=== PATIENT | female | born 1955 | race Caucasian/White ===

== ENCOUNTER → 2016-10-08 | Outpatient (CLI) | payer OTHER ==
[2016-07-22 10:07] VITALS: BP 140/70
[~2016-10-08] MED LIST: ACYC800T PO; AMLO5TAB2 PO; AMOX1TAB61 PO; ATOR40TA59 PO; BENZ100C PO; BLOO-932 MC; CLON0.2T PO; FENO145T PO; FLUT12AE2 IH; HERB1CAP PO; HYDR-971 PO; HYDR12.58 PO; MELO-150 PO; METF750T2 PO; OLOP5DRO OP; OMEP20CA9 PO; POLY500P14 MC; PRED20TA PO; PRED50TA PO; PRED5DRO2 OP; PROAIR HFA8.5 GM INH; PROAIR RESPICL90 MCG IH; TIOT18CA IH; TOLT4CAP12 PO; TRAM50TA PO
--- NOTE | 2016-10-09 10:03 | RAD ---
DATE: 10/08/2016 EXAM: DIGITAL SCREEN BILAT W/CAD HISTORY: Routine screening COMPARISON: 09/18/2015 This study was interpreted with the benefit of Computerized Aided Detection (CAD). FINDINGS: The breasts are predominantly fatty in nature. No new or enlarging breast densities are seen. Benign type calcifications are present. No suspicious microcalcifications have developed. IMPRESSION: Stable mammograms without evidence of malignancy. BI-RADS CATEGORY: 2 BENIGN FINDING(S) RECOMMENDED FOLLOW-UP: 12M 12 MONTH FOLLOW-UP PQRS compliance statement: Patient information was entered into a reminder system with a target due date for the next mammogram. Mammography is a sensitive method for finding small breast cancers, but it does not detect them all and is not a substitute for careful clinical examination. A negative mammogram does not negate a clinically suspicious finding and should not result in delay in biopsying a clinically suspicious abnormality. "Our facility is accredited by the [employer]."
== END | disposition home or self-care (01) ==
LOC: MAMMO 07:57
PROVIDERS: ATTEND Registered Nurse
DX: Z12.31 Encounter for screening mammogram for malignant neoplasm of breast (principal)
CPT/HCPCS: G0202; 77067

== ENCOUNTER 2016-12-18 09:13 | Emergency (ER) | payer OTHER ==
[~2016-12-18] VITALS: Ht 160 cm; Wt 101.2 kg
--- NOTE | 2016-12-18 10:05 | RAD ---
Portable chest, 12/18/2016: History: Chest pain Comparison is made to a study from 07/22/2016. The heart size and pulmonary vascularity are normal. There are unchanged linear opacities in the left base laterally compatible with scarring. No acute infiltrates are seen. There is no evidence of pleural fluid. IMPRESSION: No acute cardiopulmonary abnormality is detected.
[2016-12-18] MEDS ORDERED: IPRATRPIUM/ALBUTEROL 0.5/2.5MG 3 ML NEBU. NEB ONE (10:15)
[2016-12-18] MEDS ORDERED: KETOROLAC TROMETHAMINE 30 MG/ML INJ. IV ONE (10:15)
[2016-12-18 10:19] LABS: BASO # 0.1 x10^3/uL (0.0-0.2); BASO % 1 % (0-3); EOS % 2 % (0-3); HEMATOCRIT 33.3 % (36.0-47.0); HEMOGLOBIN 10.8 g/dL (12.0-15.5); LYMPH # 1.9 x10^3/uL (1.0-4.8); LYMPH % 17 % (24-48); MEAN CORPUSCULAR HEMOGLOBIN 25 pg (25-35); MEAN CORPUSCULAR HGB CONC 32 g/dL (31-37); MEAN CORPUSCULAR VOLUME 77 fL (79-100); MONO % 13 % (0-9); NEUT % 68 % (31-73); PLATELET COUNT 419 x10^3/uL (140-400); RED BLOOD COUNT 4.31 x10^6/uL (3.50-5.40); RED CELL DISTRIBUTION WIDTH 17.7 % (11.5-14.5); WHITE BLOOD COUNT 11.3 x10^3/uL (4.0-11.0)
[2016-12-18 10:30] VITALS: BP 142/78
[2016-12-18 10:30] LABS: CALCIUM 9.1 mg/dL (8.5-10.1); CREATININE 0.5 mg/dL (0.6-1.0); GFR 124.6; POTASSIUM 3.9 mmol/L (3.5-5.1)
--- NOTE | 2016-12-18 10:35 | PHYS DOC ---
Past Medical History Past Medical History: Arthritis, Bipolar, Constipation, COPD, Diabetes-Type II , GERD, Hypertension, UTI Additional Past Medical Histor: shingles,urine incont, sciatica, renal cell carcinoma Past Surgical History: Cancer Surgery, Tubal ligation Additional Past Surgical Histo: R kidney tumor removed, R ovary removal,small bowel resection/ CYST, catara Alcohol Use: None Drug Use: None Adult General Chief Complaint Chief Complaint: FLU SYMPTOM HPI HPI This is a 61-year-old female with history of COPD who is a current nonsmoker as well as diabetes type 2 who presents with several days of worsening cough and mild chest discomfort and a fever taken at home of 101 just prior to arrival. She states she's had similar symptoms before that felt like pneumonia. She denies any history of cardiac disease. Patient is speaking in complete sentences and in no acute respiratory distress upon my exam and is saturating her 100% on room air. She has been using her Proair inhaler at home with mild relief. She denies any nausea or vomiting. Review of Systems Review of Systems Constitutional: Denies fever or chills [] Eyes: Denies change in visual acuity, redness, or eye pain [] HENT: Denies nasal congestion or sore throat [] Respiratory: Has cough, has shortness of breath [] Cardiovascular: No additional information not addressed in HPI [] GI: Denies abdominal pain, nausea, vomiting, bloody stools or diarrhea [] : Denies dysuria or hematuria [] Musculoskeletal: Denies back pain or joint pain [] Integument: Denies rash or skin lesions [] Neurologic: Denies headache, focal weakness or sensory changes [] Endocrine: Denies polyuria or polydipsia [] Current Medications Current Medications Current Medications Medications (Trade) Dose Ordered Sig/Hilton Start Time Stop Time Status Last Admin Dose Admin Albuterol/ Ipratropium (Duoneb) 3 ml 1X ONCE 12/18/16 10:15 12/18/16 10:16 DC 12/18/16 10:04 3 ML Ketorolac Tromethamine (Toradol Im) 60 mg 1X ONCE 12/18/16 10:45 12/18/16 10:46 DC Ketorolac Tromethamine (Toradol) 30 mg 1X ONCE 12/18/16 10:15 12/18/16 10:37 DC Allergies Allergies Allergies Coded Allergies Type Severity Reaction Last Updated Verified aspirin Allergy Intermediate "messes with my stomach" 07/22/16 Yes omega-3 acid ethyl esters Allergy Intermediate bleeding 07/22/16 Yes tramadol Allergy Intermediate unknown 07/22/16 Yes Physical Exam Physical Exam Constitutional: Well developed, well nourished, no acute distress, non-toxic appearance. [] HENT: Normocephalic, atraumatic, bilateral external ears normal, oropharynx moist, no oral exudates, nose normal. [] Eyes: PERRLA, EOMI, conjunctiva normal, no discharge. [] Neck: Normal range of motion, no tenderness, supple, no stridor. [] Cardiovascular:Heart rate regular rhythm, no murmur [] Lungs & Thorax: Decreased breath sounds bilaterally but no respiratory distress [] Abdomen: Bowel sounds normal, soft, no tenderness, no masses, no pulsatile masses. [] Skin: Warm, dry, no erythema, no rash. [] Back: No tenderness, no CVA tenderness. [] Extremities: No tenderness, no cyanosis, no clubbing, ROM intact, no edema. [] Neurologic: Alert and oriented X 3, normal motor function, normal sensory function, no focal deficits noted. [] Psychologic: Affect normal, judgement normal, mood normal. [] Current Patient Data Vital Signs Vital Signs Date Time Temp Pulse Resp B/P Pulse Ox O2 Delivery O2 Flow Rate FiO2 12/18/16 10:06 100 Room Air 12/18/16 09:32 98.5 101 24 148/78 98.5 Lab Values Laboratory Tests Test 12/18/16 10:09 12/18/16 10:10 White Blood Count 11.3x10^3/uL (4.0-11.0) H Red Blood Count 4.31x10^6/uL (3.50-5.40) Hemoglobin 10.8g/dL (12.0-15.5) L Hematocrit 33.3% (36.0-47.0) L Mean Corpuscular Volume 77fL (79-100) L Mean Corpuscular Hemoglobin 25pg (25-35) Mean Corpuscular Hemoglobin Concent 32g/dL (31-37) Red Cell Distribution Width 17.7% (11.5-14.5) H Platelet Count 419x10^3/uL (140-400) H Neutrophils (%) (Auto) 68% (31-73) Lymphocytes (%) (Auto) 17% (24-48) L Monocytes (%) (Auto) 13% (0-9) H Eosinophils (%) (Auto) 2% (0-3) Basophils (%) (Auto) 1% (0-3) Neutrophils # (Auto) 7.6x10^3uL (1.8-7.7) Lymphocytes # (Auto) 1.9x10^3/uL (1.0-4.8) Monocytes # (Auto) 1.4x10^3/uL (0.0-1.1) H Eosinophils # (Auto) 0.2x10^3/uL (0.0-0.7) Basophils # (Auto) 0.1x10^3/uL (0.0-0.2) Sodium Level 140mmol/L (136-145) Potassium Level 3.9mmol/L (3.5-5.1) Chloride Level 100mmol/L (98-107) Carbon Dioxide Level 27mmol/L (21-32) Anion Gap 13 (6-14) Blood Urea Nitrogen 8mg/dL (7-20) Creatinine 0.5mg/dL (0.6-1.0) L Estimated GFR (Cockcroft-Gault) 124.6 Glucose Level 114mg/dL (70-99) H Calcium Level 9.1mg/dL (8.5-10.1) Troponin I Quantitative < 0.017ng/mL (0.000-0.055) Influenza Type A Antigen Negative (NEGATIVE) Influenza Type B Antigen Negative (NEGATIVE) Laboratory Tests 12/18/16 10:09 Laboratory Tests 12/18/16 10:09 EKG EKG EKG as interpreted by me shows a sinus tachycardia with a rate of 100 bpm. There are no acute ischemic findings seen. There is slight T-wave inversion to lead 3 but no other findings. Intervals are normal. There is a leftward axis. Radiology/Procedures Radiology/Procedures Portable 1 view of the chest as interpreted by me and the radiologist did not reveal an acute cardiopulmonary process. Course & Med Decision Making Course & Med Decision Making Pertinent Labs and Imaging studies reviewed. (See chart for details) 61-year-old female who's having worsening cough and has a portable 1 view her chest did not reveal and evidence of pneumonia. A DuoNeb was given. IM injection of Toradol was administered. Her laboratory workup shows just a slight leukocytosis but no other acute abnormalities. Patient will likely be discharged with a course of Z-Kody and Tessalon Perles for likely a bronchitis and cough. Influenza swabs were also obtained and are pending at this time. My reassessment, the patient feels improved after breathing treatment. Her chest film does not demonstrate any signs of pneumonia. I will be placing her on a Z-Kody and Tessalon Perles for cough. She will continue Cipro air inhaler at home as needed for any shortness of breath and will follow closely with her primary care doctor for symptom resolution. Patient is agreeable this plan. Return precautions were provided and acknowledged. Jace Disclaimer Jace Disclaimer This electronic medical record was generated, in whole or in part, using a voice recognition dictation system. Departure Departure Impression: Primary Impression: Bronchitis, acute Disposition: HOME, SELF-CARE Admitting Physician: Other Condition: STABLE Referrals: UNKNOWN PCP NAME (PCP) Patient Instructions: Bronchitis, [id number], Cough, Adult, [id number] Additional Instructions: Please take your antibiotic and medication as prescribed. Follow up with your primary doctor in the next 2-3 days for your symptoms. Return to the ER if you develop any worsening of your symptoms. Scripts Azithromycin (Zithromax)250 Mg Tablet1 Pkg PO UD #6 TAB Prov:DIANA CHATTERJEE DO 12/18/16 Benzonatate (Tessalon Perle)100 Mg [id number] Mg PO TID PRN COUGH #15 CAP Prov:DIANA CHATTERJEE DO 12/18/16 DIANA CHATTERJEE DO Dec 18, 2016 10:35
[2016-12-18 10:39] LABS: OBC FLU VALID
[2016-12-18] MEDS ORDERED: KETOROLAC TROMETHAMINE 60 MG/2 ML INJ. IM ONE (10:45)
[2016-12-18] MEDS ORDERED: AZIT250T PO (10:57)
[2016-12-18] MEDS ORDERED: BENZ100C PO (10:57)
--- NOTE | 2016-12-18 11:13 | EKG ---
[facility] [address] [place] [address] Test Date: 2016-12-18 Test Time: 10:12:31 Pat Name: TYLOR WILL Department: Room: Gender: F Information Officer: : 1955 Requested By: DIANA CHATTERJEE Order Number: [id number] Reading MD: Ed Mann Measurements Intervals [place] Rate: 100 P: 32 NC: 138 QRS: -4 QRSD: 88 T: 19 QT: 352 QTc: 457 Interpretive Statements SINUS RHYTHM Electronically Signed On 12-19-2016 8:19:52 CDT by Ed Mann
== END 2016-12-18 11:18 | disposition home or self-care (01) ==
LOC: ER 09:13
DX: J20.9 Acute bronchitis, unspecified (principal); J44.9 Chronic obstructive pulmonary disease, unspecified; I10 Essential (primary) hypertension; E11.9 Type 2 diabetes mellitus without complications; K21.9 Gastro-esophageal reflux disease without esophagitis; F31.9 Bipolar disorder, unspecified; M19.90 Unspecified osteoarthritis, unspecified site; Z87.440 Personal history of urinary (tract) infections; Z98.51 Tubal ligation status; Z98.890 Other specified postprocedural states; Z88.6 Allergy status to analgesic agent; Z91.013 Allergy to seafood
CPT/HCPCS: 36415; 71010; 80048; 84484; 85027; 87804; 93005; 94640; 96372; 99285; J1885; J7620

== ENCOUNTER 2017-01-25 18:58 | Emergency (ER) | payer OTHER ==
[~2017-01-25] VITALS: Ht 160 cm; Wt 98.4 kg
[~2017-01-25 18:58] MED LIST changes: +AZIT250T PO
[2017-01-25 19:10] VITALS: BP 122/64
[2017-01-25] MEDS ORDERED: ONDANSETRON PF 4 MG/2 ML VIAL. IV ONE (19:30)
[2017-01-25] MEDS ORDERED: IV NORMAL SALINE 500ML BAG 500 ML IV ONE (19:30)
[2017-01-25 19:39] LABS: BILIRUBIN,URINE NEGATIVE (NEG); GLUCOSE,URINE NEGATIVE (NEG); NITRITE,URINE POSITIVE (NEG); PH,URINE 5.5; PROTEIN,URINE NEGATIVE (NEG-TRACE); UROBILINOGEN,URINE 0.2 mg/dL (0.2 mg/dL)
[2017-01-25 19:44] LABS: BASO # 0.1 x10^3/uL (0.0-0.2); BASO % 1 % (0-3); EOS % 3 % (0-3); HEMATOCRIT 33.1 % (36.0-47.0); HEMOGLOBIN 10.7 g/dL (12.0-15.5); LYMPH # 3.6 x10^3/uL (1.0-4.8); LYMPH % 33 % (24-48); MEAN CORPUSCULAR HEMOGLOBIN 25 pg (25-35); MEAN CORPUSCULAR HGB CONC 33 g/dL (31-37); MEAN CORPUSCULAR VOLUME 77 fL (79-100); MONO % 11 % (0-9); NEUT % 53 % (31-73); PLATELET COUNT 455 x10^3/uL (140-400); RED BLOOD COUNT 4.27 x10^6/uL (3.50-5.40); RED CELL DISTRIBUTION WIDTH 18.2 % (11.5-14.5); WHITE BLOOD COUNT 11.2 x10^3/uL (4.0-11.0)
[2017-01-25 19:51] LABS: BACTERIA,URINE MANY /HPF (0-FEW); RBC,URINE 0 /HPF (0-2); SQUAMOUS EPITHELIAL CELL,UR MOD /LPF; WBC,URINE >40 /HPF (0-4)
[2017-01-25] MEDS ORDERED: LISI1TAB3 PO (19:57)
[2017-01-25] MEDS ORDERED: BACL10TA PO (19:57)
[2017-01-25] MEDS: fentaNYL PF VIAL 100 MCG/2 ML VIAL IV PRN ×2 (20:01→20:55)
[2017-01-25 20:12] LABS: CALCIUM 9.3 mg/dL (8.5-10.1); CREATININE 0.7 mg/dL (0.6-1.0); GFR 84.5; POTASSIUM 3.3 mmol/L (3.5-5.1)
[2017-01-25 20:17] LABS: ALBUMIN/GLOBULIN RATIO 1.1 (1.0-1.7); TOTAL BILIRUBIN 0.2 mg/dL (0.2-1.0); TOTAL PROTEIN 7.7 g/dL (6.4-8.2)
[2017-01-25] MEDS ORDERED: CONTRAST GIVEN MC PRN (20:30)
[2017-01-25] MEDS ORDERED: IOHEXOL 300 MG/ML 75 ML VIAL IV ONE (20:30)
--- NOTE | 2017-01-25 20:56 | RAD ---
Indication: Left upper quadrant pain. Axial imaging through the abdomen and pelvis was performed after the administration of intravenous contrast. One or more of the following individualized dose reduction techniques were utilized for this examination: 1. Automated exposure control 2. Adjustment of the mA and/or kV according to patient size 3. Use of iterative reconstruction technique Comparison is made with prior CT from 04/19/2015. Imaging through the lung bases demonstrate subsegmental atelectasis in the lingula and left lower lobe. There is generalized low density throughout the liver consistent with fatty infiltration. No discrete liver mass is identified. There is a large stone within the gallbladder. The pancreas and spleen are unremarkable. No adrenal mass is detected. The left kidney is unremarkable. There is some atrophy and scarring of the right kidney, unchanged from prior. The aorta is nonaneurysmal. The small and large bowel loops are normal caliber. The appendix is unremarkable. There is no ascites. Bladder is unremarkable. The uterus is somewhat bulky and contains a calcification, likely owing to the fibroids. No free fluid is identified. IMPRESSION: 1. Fatty infiltration liver. 2. Cholelithiasis. 3. Fibroid uterus. 4. No acute features detected. Electronically signed by: Edin Gomez MD (01/25/2017 8:53 PM)
[2017-01-25] MEDS ORDERED: POTASSIUM CHLORIDE 20 MEQ/15 ML ORAL LIQUID. PO ONE (21:15)
[2017-01-25] MEDS ORDERED: HYDR-971 PO (21:28)
[2017-01-25] MEDS ORDERED: ONDA4TAB10 SL (21:28)
[2017-01-25] MEDS ORDERED: LEVO750T31 PO (21:28)
--- NOTE | 2017-01-25 21:28 | PHYS DOC ---
Past Medical History Past Medical History: Arthritis, Bipolar, Cancer, Constipation, COPD, Diabetes- Type II, GERD, High Cholesterol, Hypertension, UTI Additional Past Medical Histor: shingles,urine incont, sciatica, renal cell carcinoma Past Surgical History: Cancer Surgery, Oophorectomy, Tubal ligation Additional Past Surgical Histo: R kidney tumor removed, R ovary removal,small bowel resection/ CYST, catara Alcohol Use: None Drug Use: None Adult General Chief Complaint Chief Complaint: ABDOMINAL PAIN HPI HPI Patient is a 61 year old female who presents with abdominal pain. Patient reports 2 hour history of left upper quadrant abdominal pain. She denies any associated symptoms including fevers or chills, chest pain, nausea or vomiting, diarrhea, constipation, dysuria or hematuria. Denies previous history of similar pain. History of kidney resection, small bowel resection, right oophorectomy. Denies alcohol use. Review of Systems Review of Systems Constitutional: Denies fever or chills Eyes: Denies change in visual acuity HENT: Denies nasal congestion or sore throat Respiratory: Denies cough or shortness of breath Cardiovascular: Denies chest pain or edema GI: Reports abdominal pain, denies nausea, vomiting, bloody stools or diarrhea : Denies dysuria or hematuria Musculoskeletal: Denies back pain or joint pain Integument: Denies rash or skin lesions Neurologic: Denies headache, focal weakness or sensory changes Current Medications Current Medications Current Medications Medications (Trade) Dose Ordered Sig/Hilton Start Time Stop Time Status Last Admin Dose Admin Ceftriaxone Sodium 50 ml @ 100 mls/hr 1X ONCE 01/25/17 20:30 01/25/17 20:59 DC 01/25/17 20:55 100 MLS/HR Fentanyl Citrate (Fentanyl 2ml Vial) 50 mcg PRN Q15MIN PRN 01/25/17 19:30 01/25/17 22:21 DC 01/25/17 20:55 50 MCG Info (Do NOT chart on this entry -- for MONITORING) 1 each PRN DAILY PRN 01/25/17 20:30 01/25/17 22:21 DC Iohexol (Omnipaque 300 Mg/ml) 75 ml 1X ONCE 01/25/17 20:30 01/25/17 20:31 DC 01/25/17 20:31 75 ML Ondansetron HCl (Zofran) 4 mg 1X ONCE 01/25/17 19:30 01/25/17 19:31 DC 01/25/17 20:00 4 MG Potassium Chloride (KCl Oral Soln) 40 meq 1X ONCE 01/25/17 21:15 01/25/17 21:16 DC 01/25/17 21:44 40 MEQ Sodium Chloride 500 ml @ 0 mls/hr 1X ONCE 01/25/17 19:30 01/25/17 19:31 DC 01/25/17 20:02 500 MLS/HR Allergies Allergies Allergies Coded Allergies Type Severity Reaction Last Updated Verified aspirin Allergy Intermediate "messes with my stomach" 07/22/16 Yes omega-3 acid ethyl esters Allergy Intermediate bleeding 07/22/16 Yes tramadol Allergy Intermediate unknown 07/22/16 Yes Physical Exam Physical Exam Constitutional: Obese, no acute distress, non-toxic appearance. HENT: Normocephalic, atraumatic, bilateral external ears normal, oropharynx moist, nose normal. Eyes: conjunctiva normal, no discharge. Neck: supple, no stridor. Cardiovascular: RRR, no murmurs, no edema. Lungs & Thorax: LCTAB, no wheezing, no respiratory distress. Abdomen: Normal bowel sounds, soft, left upper quadrant tenderness without rebound or guarding, no masses or pulsatile masses, nondistended. Skin: Warm, dry, no erythema, no rash. Back: Left CVA tenderness is present. Extremities: No tenderness, no edema. Neurologic: Alert and oriented X 3, no focal deficits noted. Psychologic: Affect normal, judgement normal, mood normal. Current Patient Data Vital Signs Vital Signs Date Time Temp Pulse Resp B/P (MAP) Pulse Ox O2 Delivery O2 Flow Rate FiO2 01/25/17 21:10 Room Air 01/25/17 19:10 98.1 100 23 122/64 (83) 99 98.1 Lab Values Laboratory Tests Test 01/25/17 19:20 01/25/17 19:30 Urine Collection Type Unknown Urine Color Yellow Urine Clarity Cloudy Urine pH 5.5 Urine Specific [place] 1.020 Urine Protein Negative mg/dL (NEG-TRACE) Urine Glucose (UA) Negative mg/dL (NEG) Urine Ketones (Stick) Negative mg/dL (NEG) Urine Blood Small (NEG) Urine Nitrite Positive (NEG) Urine Bilirubin Negative (NEG) Urine Urobilinogen Dipstick 0.2 mg/dL (0.2 mg/dL) Urine Leukocyte Esterase Moderate (NEG) Urine RBC 0 /HPF (0-2) Urine WBC >40 /HPF (0-4) Urine Squamous Epithelial Cells Mod /LPF Urine Bacteria Many /HPF (0-FEW) White Blood Count 11.2 x10^3/uL (4.0-11.0) H Red Blood Count 4.27 x10^6/uL (3.50-5.40) Hemoglobin 10.7 g/dL (12.0-15.5) L Hematocrit 33.1 % (36.0-47.0) L Mean Corpuscular Volume 77 fL (79-100) L Mean Corpuscular Hemoglobin 25 pg (25-35) Mean Corpuscular Hemoglobin Concent 33 g/dL (31-37) Red Cell Distribution Width 18.2 % (11.5-14.5) H Platelet Count 455 x10^3/uL (140-400) H Neutrophils (%) (Auto) 53 % (31-73) Lymphocytes (%) (Auto) 33 % (24-48) Monocytes (%) (Auto) 11 % (0-9) H Eosinophils (%) (Auto) 3 % (0-3) Basophils (%) (Auto) 1 % (0-3) Neutrophils # (Auto) 6.0 x10^3uL (1.8-7.7) Lymphocytes # (Auto) 3.6 x10^3/uL (1.0-4.8) Monocytes # (Auto) 1.3 x10^3/uL (0.0-1.1) H Eosinophils # (Auto) 0.3 x10^3/uL (0.0-0.7) Basophils # (Auto) 0.1 x10^3/uL (0.0-0.2) Sodium Level 138 mmol/L (136-145) Potassium Level 3.3 mmol/L (3.5-5.1) L Chloride Level 100 mmol/L (98-107) Carbon Dioxide Level 27 mmol/L (21-32) Anion Gap 11 (6-14) Blood Urea Nitrogen 10 mg/dL (7-20) Creatinine 0.7 mg/dL (0.6-1.0) Estimated GFR (Cockcroft-Gault) 84.5 BUN/Creatinine Ratio 14 (6-20) Glucose Level 145 mg/dL (70-99) H Calcium Level 9.3 mg/dL (8.5-10.1) Total Bilirubin 0.2 mg/dL (0.2-1.0) Aspartate Amino Transferase (AST) 28 U/L (15-37) Alanine Aminotransferase (ALT) 37 U/L (14-59) Alkaline Phosphatase 90 U/L (46-116) Troponin I Quantitative < 0.017 ng/mL (0.000-0.055) Total Protein 7.7 g/dL (6.4-8.2) Albumin 4.0 g/dL (3.4-5.0) Albumin/Globulin Ratio 1.1 (1.0-1.7) Lipase 159 U/L (73-393) Laboratory Tests 01/25/17 19:30 Laboratory Tests 01/25/17 19:30 EKG EKG [] Radiology/Procedures Radiology/Procedures PROCEDURE: CT ABD PELV W/ IV CONTRST ONLY Indication: Left upper quadrant pain. Axial imaging through the abdomen and pelvis was performed after the administration of intravenous contrast. One or more of the following individualized dose reduction techniques were utilized for this examination: 1. Automated exposure control 2. Adjustment of the mA and/or kV according to patient size 3. Use of iterative reconstruction technique Comparison is made with prior CT from 04/19/2015. Imaging through the lung bases demonstrate subsegmental atelectasis in the lingula and left lower lobe. There is generalized low density throughout the liver consistent with fatty infiltration. No discrete liver mass is identified. There is a large stone within the gallbladder. The pancreas and spleen are unremarkable. No adrenal mass is detected. The left kidney is unremarkable. There is some atrophy and scarring of the right kidney, unchanged from prior. The aorta is nonaneurysmal. The small and large bowel loops are normal caliber. The appendix is unremarkable. There is no ascites. Bladder is unremarkable. The uterus is somewhat bulky and contains a calcification, likely owing to the fibroids. No free fluid is identified. IMPRESSION: 1. Fatty infiltration liver. 2. Cholelithiasis. 3. Fibroid uterus. 4. No acute features detected. Electronically signed by: Edin Gomez MD (01/25/2017 8:53 PM) DICTATED and SIGNED BY: EDIN GOMEZ MD DATE: 01/25/172049 [] Course & Med Decision Making Course & Med Decision Making Pertinent Labs and Imaging studies reviewed. (See chart for details) The patient presents with abdominal pain. Gave pain medication here. Obtained labs, UA, CT. Only acute finding is urinary tract infection consistent with acute pyelonephritis. Elevated white blood cell count but otherwise no criteria for SIRS or sepsis. Potassium replaced orally. Gave IV Rocephin here. Patient felt well, tolerating oral intake, pain well controlled. She was comfortable with discharge home. Recommended rest, by mouth hydration, gave prescription for Levaquin as well as prescriptions for Zofran and Delmont. No drinking alcohol or driving while taking Delmont. Follow-up with primary care physician in 2-3 days. Return to the emergency department for high fever, severe pain, uncontrolled vomiting, any otherwise worsening condition. Discharged home in stable and improved condition. Dragon Disclaimer Dragon Disclaimer This electronic medical record was generated, in whole or in part, using a voice recognition dictation system. Departure Departure Impression: Primary Impression: Pyelonephritis Additional Impressions: Leukocytosis Anemia Hypokalemia Disposition: 01 HOME, SELF-CARE Condition: STABLE Referrals: NO PCP (PCP) Patient Instructions: Pyelonephritis, Adult, [id number] Additional Instructions: You were seen in the emergency department today for abdominal pain. Tests here showed that you have a kidney infection. Please take the prescribed antibiotics. Use Zofran as needed for nausea. Take Delmont for severe pain. No drinking alcohol or driving while taking this medication. Be sure to drink plenty of fluids to stay hydrated. Follow-up with primary care doctor in 2-3 days. Return to the emergency department for high fever, severe pain, uncontrolled vomiting, any otherwise worsening condition. Scripts Hydrocodone/Apap 5-325 (NORCO 5-325 TABLET) 1 Each Tablet 1 TAB PO PRN Q6HRS Y for PAIN, #10 TAB 0 Refills Prov: FRANCISCO BARRETT MD 01/25/17 Ondansetron (ZOFRAN ODT) 4 Mg Tab.rapdis 1 TAB SL Q8HRS Y for NAUSEA, #10 TAB Prov: FRANCISCO BARRETT MD 01/25/17 Levofloxacin (LEVAQUIN) 750 Mg Tablet 1 TAB PO DAILY, #5 TAB Prov: FRANCISCO BARRETT MD 01/25/17 Problem Qualifiers FRANCISCO BARRETT MD Jan 25, 2017 21:28
--- NOTE | 2017-01-26 07:47 | EKG ---
[facility] [address] [place] [address] Test Date: 2017-01-25 Test Time: 19:16:48 Pat Name: TYLOR WILL Department: Room: Gender: F Radiology Nurse: : 1955 Requested By: FRANCISCO BARRETT Order Number: [id number] Reading MD: Per Bailon Measurements Intervals [place] Rate: 101 P: 26 GA: 148 QRS: -17 QRSD: 86 T: 8 QT: 354 QTc: 460 Interpretive Statements SINUS TACHYCARDIA LEFTWARD AXIS OTHERWISE NORMAL ECG RI6.01 Unconfirmed report Compared to ECG 12/18/2016 10:12:31 Left-axis deviation now present Sinus rhythm no longer present Electronically Signed On 01-29-2017 9:47:25 CDT by Per Bailon
== END 2017-01-25 21:54 | disposition home or self-care (01) ==
LOC: ER 18:58
DX: N10 Acute pyelonephritis (principal); D64.9 Anemia, unspecified; D72.829 Elevated white blood cell count, unspecified; E87.6 Hypokalemia; E11.9 Type 2 diabetes mellitus without complications; E78.00 Pure hypercholesterolemia, unspecified; I10 Essential (primary) hypertension; J44.9 Chronic obstructive pulmonary disease, unspecified; K21.9 Gastro-esophageal reflux disease without esophagitis; F31.9 Bipolar disorder, unspecified; M19.90 Unspecified osteoarthritis, unspecified site; Z87.440 Personal history of urinary (tract) infections; Z98.51 Tubal ligation status; Z88.5 Allergy status to narcotic agent; Z90.721 Acquired absence of ovaries, unilateral; Z88.6 Allergy status to analgesic agent; Z88.8 Allergy status to other drugs, medicaments and biological substances
CPT/HCPCS: 36415; 74177; 80053; 81001; 83690; 84484; 85027; 87086; 93005; 96361; 96365; 96375; 96376; 99285; J0690; J2405; J3010; J7040; Q9967; 87186

== ENCOUNTER → 2017-06-05 | Outpatient (CLI) | payer OTHER ==
[~2017-06-05] MED LIST changes: +ACET-704 PO; +ASPI-482 PO; +BACL10TA PO; +CETI10TA22 PO; +GABA-586 PO; +LEVO750T31 PO; +LISI1TAB3 PO; -MELO-150 PO; +MELO15TA23 PO; +ONDA4TAB10 SL
--- NOTE | 2017-06-05 15:22 | RAD ---
Indication back pain particularly left sided. AP oblique and lateral views of the lumbar spine were obtained as well as a coned view targeted to the lumbosacral junction. There is a probable transitional segment with partial lumbarization of S1. The lower most vertebral body segment will be referred to as S1. There is very minimal anterolisthesis of L5 relative to S1. Vertebral height is well maintained. There is slight disc space narrowing at L1-2 with associated osteophytes anteriorly and posteriorly. There are facet degenerative changes in the lower lumbar spine. An acute bony finding is not seen. IMPRESSION: Transitional segment. No acute finding seen. Mild spondylitic changes
== END | disposition home or self-care (01) ==
LOC: RAD 09:18
PROVIDERS: ATTEND Registered Nurse
DX: M54.42 Lumbago with sciatica, left side (principal); M46.87 Other specified inflammatory spondylopathies, lumbosacral region
CPT/HCPCS: 72110

== ENCOUNTER 2017-07-29 09:53 | Day surgery (SDC) | payer OTHER ==
[~2017-07-29 09:53] MED LIST changes: -ACET-704 PO; -ACYC800T PO; -AMLO5TAB2 PO; -AMOX1TAB61 PO; -ASPI-482 PO; -ATOR40TA59 PO; -AZIT250T PO; -BACL10TA PO; -BENZ100C PO; -BLOO-932 MC; -CETI10TA22 PO; -CLON0.2T PO; -FENO145T PO; -FLUT12AE2 IH; -GABA-586 PO; -HERB1CAP PO; -HYDR-971 PO; -HYDR12.58 PO; +HYDROmorphone 2 MG/ML VIAL IV; -LEVO750T31 PO; +LIDOCAINE 1% PF 2 ML VIAL. ID; +LIDOCAINE 1%/EPI 1:100,000 20 ML VIAL.; -LISI1TAB3 PO; -MELO15TA23 PO; -METF750T2 PO; +MORPHINE SULFATE 2 MG/ML DISP.SYRIN. IV; -OLOP5DRO OP; -OMEP20CA9 PO; -ONDA4TAB10 SL; +ONDANSETRON PF 4 MG/2 ML VIAL. IV; -POLY500P14 MC; -PRED20TA PO; -PRED50TA PO; -PRED5DRO2 OP; -PROAIR HFA8.5 GM INH; -PROAIR RESPICL90 MCG IH; +PROCHLORPERAZINE 10 MG/2 ML VIAL. IV; -TIOT18CA IH; -TOLT4CAP12 PO; -TRAM50TA PO; +ceFAZolin SODIUM IV Push 1 GM VIAL. IVP; +fentaNYL PF VIAL 100 MCG/2 ML VIAL IV
[2017-07-29 10:46] LABS: POC GLUCOSE 120 mg/dL (70-99)
[2017-07-29] MEDS: IV RINGERS,LACTATED 1000ML 1,000 ML IV (11:28)
[2017-07-29] MEDS ORDERED: MIDAZOLAM HCL/PF 2 MG/2 ML VIAL. (13:11)
[2017-07-29] MEDS ORDERED: GLYCOPYRROLATE 1 MG/5 ML VIAL. (13:11)
[2017-07-29] MEDS ORDERED: KETAMINE HCL 500 MG/10 ML VIAL. (13:11)
[2017-07-29] MEDS ORDERED: DEXAMETHASONE SOD PHOS 20 MG/5 ML VIAL. (13:12)
[2017-07-29] MEDS ORDERED: ESMOLOL 100 MG/10 ML VIAL. IV (13:12)
[2017-07-29] MEDS ORDERED: ONDANSETRON PF 4 MG/2 ML VIAL. (13:12)
[2017-07-29] MEDS ORDERED: KETOROLAC 30 MG/ML INJ FOR OR. INJ (13:12)
[2017-07-29] MEDS ORDERED: diphenhydrAMINE 50 MG/ML VIAL (13:12)
[2017-07-29] MEDS ORDERED: PROPOFOL 20 ML IV ×3 (13:12→13:23)
[2017-07-29] MEDS ORDERED: LIDOCAINE 2% PF Vial for OR 5 ML VIAL. (13:12)
[2017-07-29] MEDS ORDERED: FAMOTIDINE 20 MG/2 ML VIAL (13:12)
[2017-07-29] MEDS ORDERED: METOCLOPRAMIDE HCL 10 MG/2 ML VIAL. (13:16)
[2017-07-29] MEDS: BUPIVAC MPF-EPI 0.5%-1:200000 30 ML VIAL. (14:02)
[2017-07-29 14:40] LABS: POC GLUCOSE 96 mg/dL (70-99)
[2017-07-29] MEDS: HYDROcodone/APAP 5/325MG 1 TAB TABLET PO (15:34)
== END 2017-07-29 16:27 | disposition home or self-care (01) ==
LOC: SURG 09:53
DX: N63.20 Unspecified lump in the left breast, unspecified quadrant (principal); L72.0 Epidermal cyst; E78.00 Pure hypercholesterolemia, unspecified; I10 Essential (primary) hypertension; J44.9 Chronic obstructive pulmonary disease, unspecified; E66.9 Obesity, unspecified; Z68.37 Body mass index [BMI] 37.0-37.9, adult; E11.9 Type 2 diabetes mellitus without complications; Z72.89 Other problems related to lifestyle; Z98.51 Tubal ligation status; Z98.41 Cataract extraction status, right eye; Z98.42 Cataract extraction status, left eye; Z87.39 Personal history of other diseases of the musculoskeletal system and connective tissue; Z86.39 Personal history of other endocrine, nutritional and metabolic disease; Z87.891 Personal history of nicotine dependence; Z88.6 Allergy status to analgesic agent; Z88.5 Allergy status to narcotic agent
CPT/HCPCS: 19120; 82962; 88304; C1769; J0690; J1100; J1200; J1885; J2250; J2405; J2704; J2765; J3490; S0028

== ENCOUNTER 2018-01-09 14:37 | Emergency (ER) | payer OTHER ==
[2018-01-09 15:28] LABS: ADD MAN DIFF? NO
[2018-01-09 15:35] LABS: BASO # 0.1 x10^3/uL (0.0-0.2); BASO % 1 % (0-3); EOS # 0.3 x10^3/uL (0.0-0.7); EOS % 3 % (0-3); HEMATOCRIT 30.2 % (36.0-47.0); HEMOGLOBIN 9.4 g/dL (12.0-15.5); LYMPH # 2.8 x10^3/uL (1.0-4.8); LYMPH % 29 % (24-48); MEAN CORPUSCULAR HEMOGLOBIN 23 pg (25-35); MEAN CORPUSCULAR HGB CONC 31 g/dL (31-37); MEAN CORPUSCULAR VOLUME 74 fL (79-100); MONO # 1.2 x10^3/uL (0.0-1.1); MONO % 12 % (0-9); NEUT # 5.4 x10^3uL (1.8-7.7); NEUT % 55 % (31-73); PLATELET COUNT 416 x10^3/uL (140-400); RED BLOOD COUNT 4.11 x10^6/uL (3.50-5.40); RED CELL DISTRIBUTION WIDTH 17.5 % (11.5-14.5); WHITE BLOOD COUNT 9.8 x10^3/uL (4.0-11.0)
[2018-01-09] MEDS: IV NORMAL SALINE 500ML BAG 500 ML IV (15:40)
[2018-01-09 15:41] LABS: BILIRUBIN,URINE NEGATIVE (NEG); CLARITY,URINE CLEAR; COLOR,URINE YELLOW; GLUCOSE,URINE NEGATIVE (NEG); NITRITE,URINE NEGATIVE (NEG); PH,URINE 5.5; PROTEIN,URINE NEGATIVE (NEG-TRACE); UROBILINOGEN,URINE 0.2 mg/dL (0.2 mg/dL)
[2018-01-09 15:43] LABS: ANION GAP 8 (6-14); BLOOD UREA NITROGEN 13 mg/dL (7-20); BUN/CREATININE RATIO 22 (6-20); CALCIUM 9.6 mg/dL (8.5-10.1); CARBON DIOXIDE 27 mmol/L (21-32); CHLORIDE 105 mmol/L (98-107); CREATININE 0.6 mg/dL (0.6-1.0); GFR 100.6; GLUCOSE 87 mg/dL (70-99); POTASSIUM 3.8 mmol/L (3.5-5.1); SODIUM 140 mmol/L (136-145)
[2018-01-09 15:49] LABS: ALBUMIN 3.8 g/dL (3.4-5.0); ALBUMIN/GLOBULIN RATIO 1.1 (1.0-1.7); ALK PHOS 85 U/L (46-116); ALT (SGPT) 39 U/L (14-59); AST (SGOT) 35 U/L (15-37); TOTAL BILIRUBIN 0.3 mg/dL (0.2-1.0); TOTAL PROTEIN 7.4 g/dL (6.4-8.2)
[2018-01-09 15:52] LABS: TROPONINI < 0.017 ng/mL (0.000-0.055)
[2018-01-09 15:58] LABS: BACTERIA,URINE FEW /HPF (0-FEW); SQUAMOUS EPITHELIAL CELL,UR MOD /LPF
[2018-01-09 16:35] LABS: ANISOCYTOSIS SLIGHT; MICROCYTOSIS SLIGHT; PLT ESTIMATE ADEQUATE (ADEQUATE)
[2018-01-09 16:36] LABS: HYPOCHROMIA SLIGHT
== END 2018-01-09 17:37 | disposition home or self-care (01) ==
LOC: ER 14:37
DX: N39.0 Urinary tract infection, site not specified (principal); R07.89 Other chest pain; E11.9 Type 2 diabetes mellitus without complications; F31.9 Bipolar disorder, unspecified; M19.90 Unspecified osteoarthritis, unspecified site; E78.00 Pure hypercholesterolemia, unspecified; J44.9 Chronic obstructive pulmonary disease, unspecified; I10 Essential (primary) hypertension; K21.9 Gastro-esophageal reflux disease without esophagitis; Z98.51 Tubal ligation status; Z88.6 Allergy status to analgesic agent; Z88.8 Allergy status to other drugs, medicaments and biological substances
CPT/HCPCS: 36415; 70450; 71045; 80053; 81001; 84484; 85025; 87086; 93005; 99285-25; J7040

== ENCOUNTER → 2018-08-05 | Outpatient (CLI) | payer OTHER ==
[2018-01-09 17:30] VITALS: BP 117/58
[~2018-08-05] MED LIST changes: +ACET-704 PO; +ACYC800T PO; +AMLO5TAB7 PO; +AMOX1TAB61 PO; +ASPI-482 PO; +ATOR40TA59 PO; +AZIT250T PO; +BACL10TA PO; +BENZ100C PO; +BLOO-932 MC; +CEPH500T PO; +CETI10TA22 PO; +CLON0.2T PO; +FENO145T PO; +FLUT12AE2 IH; +GABA300C18 PO; +HERB1CAP PO; +HYDR-3164 PO; +HYDR12.58 PO; -HYDROmorphone 2 MG/ML VIAL IV; +LEVO750T31 PO; -LIDOCAINE 1% PF 2 ML VIAL. ID; -LIDOCAINE 1%/EPI 1:100,000 20 ML VIAL.; +LISI1TAB3 PO; +MELO15TA23 PO; +METF750T2 PO; -MORPHINE SULFATE 2 MG/ML DISP.SYRIN. IV; +OLOP5DRO OP; +OMEP20CA9 PO; +ONDA4TAB10 SL; -ONDANSETRON PF 4 MG/2 ML VIAL. IV; +POLY500P14 MC; +PRED20TA PO; +PRED50TA PO; +PRED5DRO2 OP; +PROAIR HFA8.5 GM INH; +PROAIR RESPICL90 MCG IH; -PROCHLORPERAZINE 10 MG/2 ML VIAL. IV; +TIOT18CA IH; +TOLT4CAP12 PO; +TRAM50TA PO; -ceFAZolin SODIUM IV Push 1 GM VIAL. IVP; -fentaNYL PF VIAL 100 MCG/2 ML VIAL IV
--- NOTE | 2018-08-05 12:44 | RAD ---
DATE: August 05, 2018 EXAM: DIGITAL SCREEN BILAT W/CAD HISTORY: Screening study. COMPARISON: 2015 and 2017 This study was interpreted with the benefit of Computerized Aided Detection (CAD). FINDINGS: Breast Density: FATTY The breast parenchyma is primarily fatty replaced. Breast parenchyma level density A.. There are no dominant suspicious masses, suspicious microcalcifications or evidence of architectural distortion. IMPRESSION: No mammographic indicators for malignancy. BI-RADS CATEGORY: 1 NEGATIVE RECOMMENDED FOLLOW-UP: 12M 12 MONTH FOLLOW-UP PQRS compliance statement: Patient information was entered into a reminder system with a target due date August 06, 2019 for the next mammogram. Mammography is a sensitive method for finding small breast cancers, but it does not detect them all and is not a substitute for careful clinical examination. A negative mammogram does not negate a clinically suspicious finding and should not result in delay in biopsying a clinically suspicious abnormality. "Our facility is accredited by the [employer]ammography [employer]." The patient's breast density may affect the ability of mammography to detect breast cancer. There are 4 categories of breast density, A, B, C and D. Breast density A means that most of the breast tissue is replaced with adipose tissue and therefore is not dense. Breast density B means that the breast tissue is mildly dense and scattered. Breast density C means that the breast tissue is heterogeneously dense. Breast density D means that the breast tissue is very dense. Breast densities especially C and D may decrease the sensitivity of mammography to detect breast cancer. Therefore, the patient may benefit from 3-D breast mammography (3D breast tomography) as a part of their screening mammogram. Insurance may or may not pay for this additional imaging. The patient's breast density based on today's mammogram is category A.
== END | disposition home or self-care (01) ==
LOC: MAMMO 08:01
PROVIDERS: ATTEND Registered Nurse
DX: Z12.31 Encounter for screening mammogram for malignant neoplasm of breast (principal)
CPT/HCPCS: 77067

== ENCOUNTER 2018-08-28 09:59 | Emergency (ER) | payer MEDICARE, OTHER ==
[~2018-08-28] VITALS: Ht 165.1 cm; Wt 100.7 kg
[~2018-08-28 09:59] MED LIST changes: +ALBU2.5V8 INH; -PROAIR HFA8.5 GM INH
[2018-08-28 10:11] VITALS: BP 151/74
--- NOTE | 2018-08-28 11:01 | RAD ---
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 However there is significant lucency between the arthroplasty and the subjacent bone, which may be seen with loosening, particle disease or infection. This can be correlated with prior exams if made available otherwise aspiration may also yield additional details. No evidence of acute fracture or dislocation. Decreased bone mineral density. Electronically signed by: Brock Bermudez MD (08/28/2018 10:57 AM) [facility]
--- NOTE | 2018-08-28 11:07 | PHYS DOC ---
Past Medical History Past Medical History: Arthritis, Bipolar, Cancer, Constipation, COPD, Diabetes- Type II, GERD, High Cholesterol, Hypertension, UTI Additional Past Medical Histor: shingles,urine incont, sciatica, renal cell carcinoma Past Surgical History: Cancer Surgery, Oophorectomy, Tubal ligation Additional Past Surgical Histo: R kidney tumor removed, R ovary removal,small bowel resection/ CYST, catara Alcohol Use: None Drug Use: None Adult General Chief Complaint Chief Complaint: ELBOW PROBLEM HPI HPI Patient is a 63 year old [f__sex] who presents with [] Review of Systems Review of Systems Constitutional: Denies fever or chills [] Eyes: Denies change in visual acuity, redness, or eye pain [] HENT: Denies nasal congestion or sore throat [] Respiratory: Denies cough or shortness of breath [] Cardiovascular: No additional information not addressed in HPI [] GI: Denies abdominal pain, nausea, vomiting, bloody stools or diarrhea [] : Denies dysuria or hematuria [] Musculoskeletal: Denies back pain or joint pain [] Integument: Denies rash or skin lesions [] Neurologic: Denies headache, focal weakness or sensory changes [] Endocrine: Denies polyuria or polydipsia [] All other systems were reviewed and found to be within normal limits, except as documented in this note. Allergies Allergies Allergies Coded Allergies Type Severity Reaction Last Updated Verified aspirin Allergy Intermediate "messes with my stomach" 07/29/17 Yes omega-3 acid ethyl esters Allergy Intermediate bleeding 07/29/17 Yes tramadol Allergy Intermediate unknown 07/29/17 Yes Physical Exam Physical Exam Constitutional: Well developed, well nourished, no acute distress, non-toxic appearance. [] HENT: Normocephalic, atraumatic, bilateral external ears normal, oropharynx moist, no oral exudates, nose normal. [] Eyes: PERRLA, EOMI, conjunctiva normal, no discharge. [] Neck: Normal range of motion, no tenderness, supple, no stridor. [] Cardiovascular:Heart rate regular rhythm, no murmur [] Lungs & Thorax: Bilateral breath sounds clear to auscultation [] Abdomen: Bowel sounds normal, soft, no tenderness, no masses, no pulsatile masses. [] Skin: Warm, dry, no erythema, no rash. [] Back: No tenderness, no CVA tenderness. [] Extremities: No tenderness, no cyanosis, no clubbing, ROM intact, no edema. [] Neurologic: Alert and oriented X 3, normal motor function, normal sensory function, no focal deficits noted. [] Psychologic: Affect normal, judgement normal, mood normal. [] Current Patient Data Vital Signs Vital Signs Date Time Temp Pulse Resp B/P (MAP) Pulse Ox O2 Delivery O2 Flow Rate FiO2 08/28/18 10:11 98.6 96 16 151/74 (99) 96 Room Air 98.6 EKG EKG [] Radiology/Procedures Radiology/Procedures [] Course & Med Decision Making Course & Med Decision Making Pertinent Labs and Imaging studies reviewed. (See chart for details) [] Dragon Disclaimer Dragon Disclaimer This electronic medical record was generated, in whole or in part, using a voice recognition dictation system. Departure Departure Impression: Primary Impression: Elbow contusion Disposition: 01 HOME, SELF-CARE Condition: STABLE Referrals: SELVIN FARRELL APRN (PCP) LATOYA RONDON II, MD Patient Instructions: Elbow Contusion Additional Instructions: Follow-up with orthopedics for recheck of this extremity. You may take ibuprofen or Tylenol for pain. DEB PEMBERTON APRN Aug 28, 2018 11:07
== END 2018-08-28 11:40 | disposition home or self-care (01) ==
LOC: ER 09:59
DX: S50.01XA Contusion of right elbow, initial encounter (principal); F31.9 Bipolar disorder, unspecified; E11.9 Type 2 diabetes mellitus without complications; E78.00 Pure hypercholesterolemia, unspecified; K21.9 Gastro-esophageal reflux disease without esophagitis; I10 Essential (primary) hypertension; J44.9 Chronic obstructive pulmonary disease, unspecified; Z90.722 Acquired absence of ovaries, bilateral; Z98.51 Tubal ligation status; Z88.6 Allergy status to analgesic agent; Z88.8 Allergy status to other drugs, medicaments and biological substances; W22.8XXA Striking against or struck by other objects, initial encounter; Y93.89 Activity, other specified; Y92.89 Other specified places as the place of occurrence of the external cause; Y99.8 Other external cause status
CPT/HCPCS: 73080; 99283

== ENCOUNTER 2018-10-28 10:20 | Emergency (ER) | payer MEDICARE, OTHER ==
[~2018-10-28] VITALS: Ht 157.5 cm; Wt 97.1 kg
[~2018-10-28 10:20] MED LIST changes: +AMLO5TAB10 PO; -AMLO5TAB7 PO; +OMEP20CA10 PO; -OMEP20CA9 PO
--- NOTE | 2018-10-28 10:57 | EKG ---
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
[2018-10-28 11:13] LABS: BASO % 1 % (0-3); EOS # 0.2 x10^3/uL (0.0-0.7); EOS % 3 % (0-3); HEMATOCRIT 39.6 % (36.0-47.0); LYMPH # 2.2 x10^3/uL (1.0-4.8); LYMPH % 31 % (24-48); MEAN CORPUSCULAR HEMOGLOBIN 30 pg (25-35); MEAN CORPUSCULAR HGB CONC 33 g/dL (31-37); MEAN CORPUSCULAR VOLUME 91 fL (79-100); MONO # 0.7 x10^3/uL (0.0-1.1); MONO % 10 % (0-9); NEUT # 4.1 x10^3uL (1.8-7.7); NEUT % 56 % (31-73); PLATELET COUNT 361 x10^3/uL (140-400); RED BLOOD COUNT 4.37 x10^6/uL (3.50-5.40); RED CELL DISTRIBUTION WIDTH 15.4 % (11.5-14.5); WHITE BLOOD COUNT 7.3 x10^3/uL (4.0-11.0)
[2018-10-28 11:31] LABS: CALCIUM 9.8 mg/dL (8.5-10.1); CREATININE 0.6 mg/dL (0.6-1.0); GFR 100.3; POTASSIUM 3.8 mmol/L (3.5-5.1)
--- NOTE | 2018-10-28 11:34 | RAD ---
PQRS Compliance statement: One or more of the following individualized dose reduction techniques were utilized for this examination: 1. Automated exposure control. 2. Adjustment of the mA and/or kV according to patient size. 3. Use of iterative reconstruction technique. Indication:DIZZY HTN PREV SENT NO CONTRAST TECHNIQUE: CT head without IV contrast COMPARISON:01/09/2018 FINDINGS: No pathologic extra-axial or intra-axial fluid collection. The ventricles and basal cisterns are within normal limits. No acute intracranial bleed. No focal loss of mooney-white differentiation. Orbits within normal limits. No suspicious bony lesions. Visualized paranasal sinuses and mastoid air cells are clear. IMPRESSION: No acute intracranial process on this noncontrast CT. If concern for acute ischemic stroke is high, please consider MRI brain. Electronically signed by: Gibran Smith DO (10/28/2018 11:31 AM) [id number]
[2018-10-28 11:38] LABS: ALBUMIN/GLOBULIN RATIO 1.2 (1.0-1.7); TOTAL BILIRUBIN 0.4 mg/dL (0.2-1.0); TOTAL PROTEIN 7.4 g/dL (6.4-8.2)
--- NOTE | 2018-10-28 11:47 | PHYS DOC ---
Past Medical History Past Medical History: Arthritis, Bipolar, Cancer, Constipation, COPD, Diabetes- Type II, GERD, High Cholesterol, Hypertension, UTI Additional Past Medical Histor: shingles,urine incont, sciatica, renal cell carcinoma Past Surgical History: Cancer Surgery, Oophorectomy, Tubal ligation Additional Past Surgical Histo: R kidney tumor removed, R ovary removal,small bowel resection/ CYST, catara Alcohol Use: None Drug Use: None Adult General Chief Complaint Chief Complaint: DIZZY/LIGHT HEADED HPI HPI Patient is a 63 year old female who presents to the ER with complaints of dizziness upon awakening from sleep for the past week. Pt reports dizziness when she gets up to use the bathroom The dizziness improves if she sits still on the side of her bed before getting up. Currently, she denies any dizziness. She states that the symptoms started after starting a new medication for her bladder, Myrbetriq. She denies having dizziness during the daytime and states that she stopped taking the medication several days ago after talking to her PCP about the symptoms. Pt denies any headache, weakness, numbness, tingling, fever, ear pain, tinnitus, vision changes, or dizziness at this time. She denies any recent nausea or vomiting. She denies any pain at this time. Review of Systems Review of Systems Constitutional: Denies fever or chills [] Eyes: Denies change in visual acuity, redness, or eye pain [] HENT: Denies nasal congestion or sore throat [] Respiratory: Denies cough or shortness of breath [] Cardiovascular: No additional information not addressed in HPI [] GI: Denies abdominal pain, nausea, vomiting, or diarrhea [] : Denies dysuria or hematuria [] Musculoskeletal: Denies back pain or joint pain [] Integument: Denies rash or skin lesions [] Neurologic: Denies headache, focal weakness or sensory changes [] Complete systems were reviewed and found to be within normal limits, except as documented in this note. Current Medications Current Medications Current Medications Medications (Trade) Dose Ordered Sig/Hilton Start Time Stop Time Status Last Admin Dose Admin Ceftriaxone Sodium (Rocephin) 1 gm 1X ONCE 10/28/18 13:00 10/28/18 13:01 DC 10/28/18 13:58 1 GM Allergies Allergies Allergies Coded Allergies Type Severity Reaction Last Updated Verified aspirin Allergy Intermediate "messes with my stomach" 10/28/18 Yes omega-3 acid ethyl esters Allergy Intermediate bleeding 10/28/18 Yes tramadol Allergy Intermediate unknown 10/28/18 Yes Physical Exam Physical Exam Constitutional: Well developed, well nourished, no acute distress, non-toxic appearance. [] HENT: Normocephalic, atraumatic, bilateral external ears normal, nose normal. [] Eyes: PERRLA, EOMI, conjunctiva normal, no discharge, no nystagmus. [] Neck: Normal range of motion, no tenderness, supple, no stridor. [] Cardiovascular:Heart rate regular rhythm, no murmur [] Lungs & Thorax: Bilateral breath sounds clear to auscultation [] Abdomen: soft, no tenderness, no masses, no pulsatile masses. [] Skin: Warm, dry, no erythema, no rash. [] Extremities: No cyanosis, no clubbing, ROM intact, no edema. [] Neurologic: Alert and oriented X 3, normal motor function, normal sensory function, no focal deficits noted. [] Psychologic: Affect normal, judgement normal, mood normal. [] Current Patient Data Vital Signs Vital Signs Date Time Temp Pulse Resp B/P (MAP) Pulse Ox O2 Delivery O2 Flow Rate FiO2 10/28/18 13:56 84 20 95 10/28/18 10:20 97.6 140/80 (100) Room Air 97.6 Lab Values Laboratory Tests Test 10/28/18 11:02 10/28/18 12:10 White Blood Count 7.3 x10^3/uL (4.0-11.0) Red Blood Count 4.37 x10^6/uL (3.50-5.40) Hemoglobin 13.0 g/dL (12.0-15.5) Hematocrit 39.6 % (36.0-47.0) Mean Corpuscular Volume 91 fL (79-100) Mean Corpuscular Hemoglobin 30 pg (25-35) Mean Corpuscular Hemoglobin Concent 33 g/dL (31-37) Red Cell Distribution Width 15.4 % (11.5-14.5) H Platelet Count 361 x10^3/uL (140-400) Neutrophils (%) (Auto) 56 % (31-73) Lymphocytes (%) (Auto) 31 % (24-48) Monocytes (%) (Auto) 10 % (0-9) H Eosinophils (%) (Auto) 3 % (0-3) Basophils (%) (Auto) 1 % (0-3) Neutrophils # (Auto) 4.1 x10^3uL (1.8-7.7) Lymphocytes # (Auto) 2.2 x10^3/uL (1.0-4.8) Monocytes # (Auto) 0.7 x10^3/uL (0.0-1.1) Eosinophils # (Auto) 0.2 x10^3/uL (0.0-0.7) Basophils # (Auto) 0.0 x10^3/uL (0.0-0.2) Sodium Level 143 mmol/L (136-145) Potassium Level 3.8 mmol/L (3.5-5.1) Chloride Level 103 mmol/L (98-107) Carbon Dioxide Level 27 mmol/L (21-32) Anion Gap 13 (6-14) Blood Urea Nitrogen 12 mg/dL (7-20) Creatinine 0.6 mg/dL (0.6-1.0) Estimated GFR (Cockcroft-Gault) 100.3 BUN/Creatinine Ratio 20 (6-20) Glucose Level 108 mg/dL (70-99) H Calcium Level 9.8 mg/dL (8.5-10.1) Total Bilirubin 0.4 mg/dL (0.2-1.0) Aspartate Amino Transferase (AST) 33 U/L (15-37) Alanine Aminotransferase (ALT) 46 U/L (14-59) Alkaline Phosphatase 80 U/L (46-116) Total Protein 7.4 g/dL (6.4-8.2) Albumin 4.0 g/dL (3.4-5.0) Albumin/Globulin Ratio 1.2 (1.0-1.7) Urine Collection Type Unknown Urine Color Yellow Urine Clarity Turbid Urine pH 5.5 Urine Specific Offerman 1.020 Urine Protein 100 mg/dL (NEG-TRACE) Urine Glucose (UA) Negative mg/dL (NEG) Urine Ketones (Stick) Negative mg/dL (NEG) Urine Blood Moderate (NEG) Urine Nitrite Negative (NEG) Urine Bilirubin Negative (NEG) Urine Urobilinogen Dipstick 0.2 mg/dL (0.2 mg/dL) Urine Leukocyte Esterase Large (NEG) Urine RBC Fobs /HPF (0-2) Urine WBC Tntc /HPF (0-4) Urine Bacteria Many /HPF (0-FEW) Laboratory Tests 10/28/18 11:02 Laboratory Tests 10/28/18 11:02 EKG EKG 1028- SR leftward axis, no STEMI, rate [address] Perez at 1032[] Radiology/Procedures Radiology/Procedures PROCEDURE: CT HEAD WO CONTRAST PQRS Compliance statement: One or more of the following individualized dose reduction techniques were utilized for this examination: 1. Automated exposure control. 2. Adjustment of the mA and/or kV according to patient size. 3. Use of iterative reconstruction technique. Indication:DIZZY HTN PREV SENT NO CONTRAST TECHNIQUE: CT head without IV contrast COMPARISON:01/09/2018 FINDINGS: No pathologic extra-axial or intra-axial fluid collection. The ventricles and basal cisterns are within normal limits. No acute intracranial bleed. No focal loss of mooney-white differentiation. Orbits within normal limits. No suspicious bony lesions. Visualized paranasal sinuses and mastoid air cells are clear. IMPRESSION: No acute intracranial process on this noncontrast CT. If concern for acute ischemic stroke is high, please consider MRI brain.[] Course & Med Decision Making Course & Med Decision Making Pertinent Labs and Imaging studies reviewed. (See chart for details) Dx; UTI, Dizziness CBC normal, BMP normal with exception of glucose 108, UA concerning for UTI. PT was given 1gm of rocephin IV in the department. CT head was negative for acute findings. Pt reports dizziness to ER nurse, but denies dizziness to myself. Consulted Dr. Hernandez for possible admission for dizziness and UTI. Dr Hernandez came to ER to assess patient. Pt declined admission to the hospital, will follow up with neurology. Prescription written for keflex. Pt encouraged to Rise slowly after sleeping. Follow-up with Dr. Miranda for further evaluation of your dizziness symptoms. Avoid bladder irritants such as caffeine, carbonation, and spicy foods. Increase clear fluids. Patient verbalized an understanding of home care, medications, follow-up, and return to ED instructions and was in agreement with the plan of care. Dragon Disclaimer Dragon Disclaimer This electronic medical record was generated, in whole or in part, using a voice recognition dictation system. Departure Departure Impression: Primary Impression: UTI (urinary tract infection) Additional Impression: Dizziness Disposition: 01 HOME, SELF-CARE Condition: STABLE Referrals: SELVIN FARRELL APRN (PCP) SANAZ DOAN MD Patient Instructions: Dizziness, [id number], Urinary Tract Infection, Easy-to -Read Additional Instructions: Rise slowly after sleeping. Follow-up with Dr. Miranda for further evaluation of your dizziness symptoms. Fill prescription(s) and use as directed. Avoid bladder irritants such as caffeine, carbonation, and spicy foods. Increase clear fluids. Follow up with your primary care doctor if symptoms persist, return to the ER if symptoms worsen. Scripts Cephalexin (CEPHALEXIN) 500 Mg Tablet 1 TAB PO QID for 7 Days, #28 TAB 0 Refills Prov: LILIAM SABA APRN 10/28/18 Problem Qualifiers Primary Impression: UTI (urinary tract infection) Urinary tract infection type: site unspecified Hematuria presence: with hematuria Qualified Codes: N39.0 - Urinary tract infection, site not specified ; R31.9 - Hematuria, unspecified LILIAM SABA APRN Oct 28, 2018 11:47
[2018-10-28 12:18] LABS: BILIRUBIN,URINE NEGATIVE (NEG); CLARITY,URINE TURBID; COLOR,URINE YELLOW; NITRITE,URINE NEGATIVE (NEG); PH,URINE 5.5; PROTEIN,URINE 100 mg/dL (NEG-TRACE); UROBILINOGEN,URINE 0.2 mg/dL (0.2 mg/dL)
[2018-10-28 12:28] LABS: BACTERIA,URINE MANY /HPF (0-FEW); WBC,URINE TNTC /HPF (0-4)
[2018-10-28 12:29] LABS: RBC,URINE FOBS /HPF (0-2)
[2018-10-28] MEDS ORDERED: cefTRIAXone IV Push 1 GM VIAL. IVP ONE (13:00)
[2018-10-28] MEDS ORDERED: CEPH500T PO (13:44)
--- NOTE | 2018-10-28 13:51 | PDOC2 ---
CONSULT Date of Consult Date of Consult DATE: 10/28/18 TIME: 13:35 Reason for Consult Reason for Consult: Dizziness Referring Physician Referring Physician: Verónica Medina APRN Identification/Chief Complaint Chief Complaint Dizziness Source Source: Chart review, Patient History of Present Illness Reason for Visit: Ms. Ruiz is a 63 yo CF w/ PMHx obesity, DM, HTN, chronic left sciatica, chronic lower back pain, and overactive bladder who comes to ED c/o nocturnal dizziness for the past week. She notes that she sleeps with a sleeping mask and every night at 2:00am she gets up to go the restroom and she becomes dizzy when she turns left to place her sleeping mask on the bedside table. The dizziness resolves with sitting in bed before getting up. She notes she has the dizziness again after turning the light off when she gets up to use the restroom. She did not note this dizziness until she started taking myrbetriq every evening 1 week ago for her overactive bladder. She does not experience dizziness during the day and has no new focal neurologic complaints. States she has baseline diabetic neuropathy. She has called her PCP about the dizziness and was going to schedule an appointment, however a close friend offered to drive her to the ED for urgent evaluation. She has CBC normal, BMP normal except glucose of 108 and a UA showing positive LE, multiple bacteria and blood. She was given a dose of rocephin for UTI and had CT head No acute intracranial process on this noncontrast CT. On my examination she denies dizziness currently. We ambulated around the room. I performed orthostatics with BP 140/80 with pulse of 80 sitting and 142/78 with pulse of 86 upon standing. I performed rajan maneuver in room, she did not become dizzy with left or right turning and does not note dizziness. There was mention of her telling nursing staff she was currently dizzy, however, she states she must have misunderstood as her dizziness is primarily at night. She felt she might get to see a neurologist more quickly if she came to the hospital. She wishes to go back home, feels reassured she simply has a UTI and likely medication side effect from bladder spasm meds. Past Medical History Cardiovascular: HTN Pulmonary: No pertinent hx CENTRAL NERVOUS SYSTEM: Carpal Tunnel Syndrome, Periperal neuropathy GI: No pertinent hx Heme/Onc: No pertinent hx Hepatobiliary: No pertinent hx Psych: No pertinent hx Musculoskeletal: low back pain Rheumatologic: No pertinent hx Infectious disease: No pertinent hx ENT: No pertinent hx Renal/: UTI, Urinary Incontinence Endocrine: Diabetes Dermatology: No pertinent hx Past Surgical History Past Surgical History: No pertinent history Family History Family History: Diabetes, Hypertension Social History No ALCOHOL: none Drugs: None Lives: Alone Domestic Violence: Neg Current Medications Current Medications Current Medications Ceftriaxone Sodium (Rocephin) 1 gm 1X ONCE IVP ; Start 10/28/18 at 13:00; Stop 10/28/18 at 13:01; Status DC Active Scripts Active Cephalexin 500 Mg Tablet 1 Tab PO QID Zofran Odt (Ondansetron) 4 Mg Tab.rapdis 1 Tab SL Q8HRS PRN Tessalon Perle (Benzonatate) 100 Mg Capsule 100 Mg PO TID PRN Proair Respiclick (Albuterol Sulfate) 90 Mcg Aer.pow.ba 1 Puff IH PRN Q6HRS PRN Reported [place] 5-325 Tablet (Acetaminophen/Hydrocodone Bitart) 1 Each Tablet 1 Tab PO Q4- 6HRS Aspir 81 (Aspirin) 81 Mg Tablet.dr 1 Tab PO DAILY Tylenol With Codeine #3 Tablet (Acetaminophen/Codeine Phosphate) 1 Each Tablet 1 Tab PO PRN Q6HRS PRN Zyrtec (Cetirizine Hcl) 10 Mg Tablet 1 Tab PO QHS Gabapentin 300 Mg Capsule 300 Mg PO TID Baclofen 10 Mg Tablet 1 Tab PO TID Lisinopril-Hctz 10-12.5 Mg Tab (Lisinopril/Hydrochlorothiazide) 1 Each Tablet 1 Tab PO DAILY Colon Herbal Cleanser (Herbal Drugs) 1 Each Capsule 1 Each PO Freestyle Lite Strips (Blood Sugar Diagnostic) 1 Each Strip 1 Each MC Omeprazole 20 Mg Capsule.dr 20 Mg PO DAILY Atorvastatin Calcium 40 Mg Tablet 40 Mg PO DAILY Spiriva (Tiotropium [place]) 18 Mcg Cap.w.dev 2 Inh IH DAILY Meloxicam 15 Mg Tablet 15 Mg PO DAILY Polyethylene Glycol (Polyethylene Glycol 8000) 500 Gm Powder 500 Gm MC Tolterodine Tartrate Er (Tolterodine Tartrate) 4 Mg Cap.er.24h 4 Mg PO DAILY PRN Metformin Hcl Er (Metformin Hcl) 750 Mg Tab.er.24h 1,500 Mg PO DAILYWSUP Patanol (Olopatadine Hcl) 5 Ml Drops 5 Ml OP BID Flovent 220MCG Hfa (Fluticasone Propionate) 12 Gm Aer.w.adap 12 Gm IH BID Allergies Allergies: Coded Allergies: aspirin (Verified Allergy, Intermediate, "messes with my stomach", 10/28/18) omega-3 acid ethyl esters (Verified Allergy, Intermediate, bleeding, ) tramadol (Verified Allergy, Intermediate, unknown, 10/28/18) ROS General: No: Chills, Night Sweats, Fatigue, Malaise, Appetite, Other PSYCHOLOGICAL ROS: No: Anxiety, Behavioral Disorder, Concentration difficultie , Decreased libido, Depression, Disorientation, Hallucinations, Hostility, Irritablity, Memory difficulties, Mood Swings, Obsessive thoughts, Physical abuse, Sexual abuse, Sleep disturbances, Suicidal ideation, Other Eyes: No Blurry vision, No Decreased vision, No Double vision, No Dry eyes, No Excessive tearing, No Eye Pain, No Itchy Eyes, No Loss of vision, No Photophobia , No Scotomata, No Uses contacts, No Uses glasses, No Other HEENT: No: Heacaches, Visual Changes, Hearing change, Nasal congestion, Nasal discharge, Oral lesions, Sinus pain, Sore Throat, Epistaxis, Sneezing, Snoring, Tinnitus, Vertigo, Vocal changes, Other ALLERGY AND IMMUNOLOGY: No: Hives, Insect Bite Sensitivity, Itchy/Watery Eyes, Nasal Congestion, Post Nasal Drip, Seasonal Allergies, Other Hematological and Lymphatic: No: Bleeding Problems, Blood Clots, Blood Transfusions, Brusing, Night Sweats, Pallor, Swollen Lymph Nodes, Other ENDOCRINE: No: Breast Changes, Galactorrhea, Hair Pattern Changes, Hot Flashes , Malaise/lethargy, Mood Swings, Palpitations, Polydipsia/polyuria, Skin Changes , Temperature Intolerance, Unexpected Weight Changes, Other Breast: No New/Changing Breast Lumps, No Nipple changes, No Nipple discharge, No Other Respiratory: No: Cough, Hemoptysis, Orthopnea, Pleuritic Pain, Shortness of breath, SOB with excertion, Sputum Changes, Stridor, Tachypnea, Wheezing, Other Cardiovascular: No Chest Pain, No Palpitations, No Orthopnea, No Paroxysmal Noc. Dyspnea, No Edema, No Lt Headedness, No Other Gastrointestinal: No Nausea, No Vomiting, No Abdominal Pain, No Diarrhea, No Constipation, No Melena, No Hematochezia, No Other Genitourinary: YES Dysuria, YES Frequency, YES Incontinence, YES Retention, YES Urgency; No Hematuria, No Discharge, No Pain, No Flank Pain, No Other, No , No , No , No , No , No , No Musculoskeletal: No Gait Disturbance, No Joint Pain, No Joint Stiffness, No Joint Swelling, No Muscle Pain, No Muscular Weakness, No Pain In:, No Swelling In:, No Other Neurological: No Behavorial Changes, No Bowel/Bladder ControlChng, No Confusion , No Dizziness, No Gait Disturbance, No Headaches, No Impaired Coord/balance, No Memory Loss, No Numbness/Tingling, No Seizures, No Speech Problems, No Tremors, No Visual Changes, No Weakness, No Other Skin: No Dry Skin, No Eczema, No Hair Changes, No Lumps, No Mole Changes, No Mottling, No Nail Changes, No Pruritus, No Rash, No Skin Lesion Changes, No Other, No Acne Physical Exam General: Alert, Oriented X3, Cooperative, No acute distress HEENT: Atraumatic, PERRLA, EOMI, Mucous membr. moist/pink Lungs: Clear to auscultation, Normal air movement Heart: Regular rate, Normal S1, Normal S2, No murmurs Abdomen: Normal bowel sounds, Soft, No tenderness, No hepatosplenomegaly, No masses Extremities: No clubbing, No cyanosis, No edema, Normal pulses, No tenderness/ swelling Skin: No rashes, No breakdown Neuro: Normal gait, Normal speech, Strength at 5/5 X4 ext, Normal tone, Cranial nerves 3-12 NL, Reflexes 2+, Other (Glove and stocking decreased sensation, consistent with neuropathy) Psych/Mental Status: Mental status NL, Mood NL MUSCULOSKELETAL: No joint tenderness, No deformity, No swelling, No muscular tenderness noted, Full range of motion without pain Vitals VITALS Vital Signs Date Time Temp Pulse Resp B/P (MAP) Pulse Ox O2 Delivery O2 Flow Rate FiO2 10/28/18 11:56 80 20 93 10/28/18 10:20 97.6 140/80 (100) Room Air 97.6 Labs Labs Laboratory Tests Test 10/28/18 11:02 10/28/18 12:10 White Blood Count 7.3 x10^3/uL (4.0-11.0) Red Blood Count 4.37 x10^6/uL (3.50-5.40) Hemoglobin 13.0 g/dL (12.0-15.5) Hematocrit 39.6 % (36.0-47.0) Mean Corpuscular Volume 91 fL (79-100) Mean Corpuscular Hemoglobin 30 pg (25-35) Mean Corpuscular Hemoglobin Concent 33 g/dL (31-37) Red Cell Distribution Width 15.4 % (11.5-14.5) Platelet Count 361 x10^3/uL (140-400) Neutrophils (%) (Auto) 56 % (31-73) Lymphocytes (%) (Auto) 31 % (24-48) Monocytes (%) (Auto) 10 % (0-9) Eosinophils (%) (Auto) 3 % (0-3) Basophils (%) (Auto) 1 % (0-3) Neutrophils # (Auto) 4.1 x10^3uL (1.8-7.7) Lymphocytes # (Auto) 2.2 x10^3/uL (1.0-4.8) Monocytes # (Auto) 0.7 x10^3/uL (0.0-1.1) Eosinophils # (Auto) 0.2 x10^3/uL (0.0-0.7) Basophils # (Auto) 0.0 x10^3/uL (0.0-0.2) Sodium Level 143 mmol/L (136-145) Potassium Level 3.8 mmol/L (3.5-5.1) Chloride Level 103 mmol/L (98-107) Carbon Dioxide Level 27 mmol/L (21-32) Anion Gap 13 (6-14) Blood Urea Nitrogen 12 mg/dL (7-20) Creatinine 0.6 mg/dL (0.6-1.0) Estimated GFR (Cockcroft-Gault) 100.3 BUN/Creatinine Ratio 20 (6-20) Glucose Level 108 mg/dL (70-99) Calcium Level 9.8 mg/dL (8.5-10.1) Total Bilirubin 0.4 mg/dL (0.2-1.0) Aspartate Amino Transf (AST/SGOT) 33 U/L (15-37) Alanine Aminotransferase (ALT/SGPT) 46 U/L (14-59) Alkaline Phosphatase 80 U/L (46-116) Total Protein 7.4 g/dL (6.4-8.2) Albumin 4.0 g/dL (3.4-5.0) Albumin/Globulin Ratio 1.2 (1.0-1.7) Urine Collection Type Unknown Urine Color Yellow Urine Clarity Turbid Urine pH 5.5 Urine Specific [place] 1.020 Urine Protein 100 mg/dL (NEG-TRACE) Urine Glucose (UA) Negative mg/dL (NEG) Urine Ketones (Stick) Negative mg/dL (NEG) Urine Blood Moderate (NEG) Urine Nitrite Negative (NEG) Urine Bilirubin Negative (NEG) Urine Urobilinogen Dipstick 0.2 mg/dL (0.2 mg/dL) Urine Leukocyte Esterase Large (NEG) Urine RBC Fobs /HPF (0-2) Urine WBC Tntc /HPF (0-4) Urine Bacteria Many /HPF (0-FEW) Laboratory Tests Test 10/28/18 11:02 10/28/18 12:10 White Blood Count 7.3 x10^3/uL (4.0-11.0) Red Blood Count 4.37 x10^6/uL (3.50-5.40) Hemoglobin 13.0 g/dL (12.0-15.5) Hematocrit 39.6 % (36.0-47.0) Mean Corpuscular Volume 91 fL (79-100) Mean Corpuscular Hemoglobin 30 pg (25-35) Mean Corpuscular Hemoglobin Concent 33 g/dL (31-37) Red Cell Distribution Width 15.4 % (11.5-14.5) Platelet Count 361 x10^3/uL (140-400) Neutrophils (%) (Auto) 56 % (31-73) Lymphocytes (%) (Auto) 31 % (24-48) Monocytes (%) (Auto) 10 % (0-9) Eosinophils (%) (Auto) 3 % (0-3) Basophils (%) (Auto) 1 % (0-3) Neutrophils # (Auto) 4.1 x10^3uL (1.8-7.7) Lymphocytes # (Auto) 2.2 x10^3/uL (1.0-4.8) Monocytes # (Auto) 0.7 x10^3/uL (0.0-1.1) Eosinophils # (Auto) 0.2 x10^3/uL (0.0-0.7) Basophils # (Auto) 0.0 x10^3/uL (0.0-0.2) Sodium Level 143 mmol/L (136-145) Potassium Level 3.8 mmol/L (3.5-5.1) Chloride Level 103 mmol/L (98-107) Carbon Dioxide Level 27 mmol/L (21-32) Anion Gap 13 (6-14) Blood Urea Nitrogen 12 mg/dL (7-20) Creatinine 0.6 mg/dL (0.6-1.0) Estimated GFR (Cockcroft-Gault) 100.3 BUN/Creatinine Ratio 20 (6-20) Glucose Level 108 mg/dL (70-99) Calcium Level 9.8 mg/dL (8.5-10.1) Total Bilirubin 0.4 mg/dL (0.2-1.0) Aspartate Amino Transf (AST/SGOT) 33 U/L (15-37) Alanine Aminotransferase (ALT/SGPT) 46 U/L (14-59) Alkaline Phosphatase 80 U/L (46-116) Total Protein 7.4 g/dL (6.4-8.2) Albumin 4.0 g/dL (3.4-5.0) Albumin/Globulin Ratio 1.2 (1.0-1.7) Urine Collection Type Unknown Urine Color Yellow Urine Clarity Turbid Urine pH 5.5 Urine Specific [place] 1.020 Urine Protein 100 mg/dL (NEG-TRACE) Urine Glucose (UA) Negative mg/dL (NEG) Urine Ketones (Stick) Negative mg/dL (NEG) Urine Blood Moderate (NEG) Urine Nitrite Negative (NEG) Urine Bilirubin Negative (NEG) Urine Urobilinogen Dipstick 0.2 mg/dL (0.2 mg/dL) Urine Leukocyte Esterase Large (NEG) Urine RBC Fobs /HPF (0-2) Urine WBC Tntc /HPF (0-4) Urine Bacteria Many /HPF (0-FEW) Images Images CT head - No acute intracranial process on this noncontrast CT. If concern for acute ischemic stroke is high, please consider MRI brain. Assessment/Plan Assessment/Plan A/P: Dizziness - negative for BPPV on examination. not dizzy This seems to be nocturnal side effect of myrbetriq. Would recommend holding this, follow up with PCP. Schedule appt outpatient with Neurology UTI - will send for culture to confirm. Ok with bactrim script for 3-5 days DM - glucose 108, has neuropathy. Cont home meds HTN - cont home meds Left sciatica - chronic, not currently active Chronic lower back pain - same as above As she has a UTI and does not currently have dizziness I have recommended she is safe for discharge on 3-5 days of antibiotics and follow up outpatient with PCP and schedule appt with neuro if dizziness continues beyond 2 weeks after cessation of bladder spasm meds. JALIL BHARDWAJ MD Oct 28, 2018 13:51
[2018-10-28 13:56] VITALS: BP 138/80
== END 2018-10-28 14:15 | disposition home or self-care (01) ==
LOC: ER 10:20
DX: R42 Dizziness and giddiness (principal); N39.0 Urinary tract infection, site not specified; J44.9 Chronic obstructive pulmonary disease, unspecified; E11.9 Type 2 diabetes mellitus without complications; K21.9 Gastro-esophageal reflux disease without esophagitis; E78.00 Pure hypercholesterolemia, unspecified; I10 Essential (primary) hypertension; F31.9 Bipolar disorder, unspecified; Z90.722 Acquired absence of ovaries, bilateral; Z98.51 Tubal ligation status; Z88.6 Allergy status to analgesic agent; Z88.8 Allergy status to other drugs, medicaments and biological substances
CPT/HCPCS: 36415; 70450; 80053; 81001; 85025; 87086; 93005; 96374; 99284; J0696; 87186

== ENCOUNTER 2019-03-20 08:48 | Emergency (ER) | payer MEDICARE, OTHER ==
[~2019-03-20] VITALS: Ht 160 cm; Wt 97.1 kg
--- NOTE | 2019-03-20 09:21 | PHYS DOC ---
Past Medical History Past Medical History: Arthritis, Bipolar, Cancer, Constipation, COPD, Diabetes- Type II, GERD, High Cholesterol, Hypertension, UTI Additional Past Medical Histor: shingles,urine incont, sciatica, renal cell carcinoma Past Surgical History: Cancer Surgery, Oophorectomy, Tubal ligation Additional Past Surgical Histo: R kidney tumor removed, R ovary removal,small bowel resection/ CYST, catara Alcohol Use: None Drug Use: None Adult General Chief Complaint Chief Complaint: ABDOMINAL PAIN HPI HPI 63-year-old female presenting to the emergency department today with epigastric abdominal pain that is a dull achy pain intermittent for about 24 hours. She has a family history of gallbladder disease. She denies it hurting worse when she eats. No alleviating factors. She has not taken anything for her pain. She denies fevers chills or vomiting. Review of systems is negative for fevers chills vomiting chest pain shortness of breath. All other review of systems is negative unless otherwise noted in history of present illness. ED course: 63-year-old female presenting with epigastric abdominal pain. EKG shows sinus rhythm with a regular rate. ST segments congruent. Not suggestive of ACS. Patient is afebrile with a normal heart rate. Blood work and CT abdomen and pelvis and ultrasound ordered. Blood work shows minimal elevation in ALT and AST. Bilirubin within normal limits. Urinalysis shows blood with bacteria with many squamous cells, negative nitrite, positive leuk esterase. We will UTI versus contamination. Otherwise CT and ultrasound show cholelithiasis without signs of cholecystitis. Repeat abdominal exam continues to be nontender. Patient has a leiomyoma that she will need to follow-up with her PCP about. Patient's symptoms are likely secondary to cholelithiasis. We'll give the patient oral pain medication and refer her to a surgeon for surgical evaluation of cholecystectomy. We will give her oral antibiotic for urinary tract infection pending cultures.The patient has been examined and was not found to have an emergency medical condition. The patient was then discharged home in stable condition to follow up with their primary care physician over the next 1-2 days. They were to return if their symptoms worsened or if they were concerned for any reason. They were also instructed to return to the emergency department if they were unable to get the recommended and appropriate follow-up. [id number] discharge instructions and return precautions were given. Patient's questions were answered to their satisfaction. Patient is comfortable with plan. Review of Systems Review of Systems SEE ABOVE. Current Medications Current Medications Current Medications Medications (Trade) Dose Ordered Sig/[place] Start Time Stop Time Status Last Admin Dose Admin Info (CONTRAST GIVEN -- Rx MONITORING) 1 each PRN DAILY PRN 03/20/19 10:00 03/22/19 09:59 Iohexol (Omnipaque 300 Mg/ml) 75 ml 1X ONCE 03/20/19 10:00 03/20/19 10:01 DC 03/20/19 10:07 75 ML Multi-Ingredient Mouthwash/Gargle (Gi Cocktail) 20 ml 1X ONCE 03/20/19 10:00 03/20/19 10:01 DC 03/20/19 10:00 20 ML Allergies Allergies Allergies Coded Allergies Type Severity Reaction Last Updated Verified aspirin Allergy Intermediate "messes with my stomach" 10/28/18 Yes omega-3 acid ethyl esters Allergy Intermediate bleeding 10/28/18 Yes tramadol Allergy Intermediate unknown 10/28/18 Yes Physical Exam Physical Exam SEE ABOVE Constitutional: Well developed, well nourished, no acute distress, non-toxic appearance. [] HENT: Normocephalic, atraumatic, bilateral external ears normal, oropharynx moist, no oral exudates, nose normal. [] Eyes: PERRLA, EOMI, conjunctiva normal, no discharge. [] Neck: Normal range of motion, no tenderness, supple, no stridor. [] Cardiovascular:Heart rate regular rhythm, no murmur [] Lungs & Thorax: Bilateral breath sounds clear to auscultation [] Abdomen: Bowel sounds normal, soft, no tenderness, no masses, no pulsatile masses. [neg dorsey sign. neg mcburneys point.] Skin: Warm, dry, no erythema, no rash. [] Back: No tenderness, no CVA tenderness. [] Extremities: No tenderness, no cyanosis, no clubbing, ROM intact, no edema. [] Neurologic: Alert and oriented X 3, normal motor function, normal sensory function, no focal deficits noted. [] Psychologic: Affect normal, judgement normal, mood normal. [] Current Patient Data Vital Signs Vital Signs Date Time Temp Pulse Resp B/P (MAP) Pulse Ox O2 Delivery O2 Flow Rate FiO2 03/20/19 11:05 80 125/60 (81) 03/20/19 10:25 20 03/20/19 09:20 97.5 94 Room Air 97.5 Lab Values Laboratory Tests Test 03/20/19 09:05 03/20/19 09:17 Urine Collection Type Unknown Urine Color Yellow Urine Clarity Cloudy Urine pH 5.5 Urine Specific [place] 1.020 Urine Protein Negative mg/dL (NEG-TRACE) Urine Glucose (UA) Negative mg/dL (NEG) Urine Ketones (Stick) Negative mg/dL (NEG) Urine Blood Trace (NEG) Urine Nitrite Negative (NEG) Urine Bilirubin Negative (NEG) Urine Urobilinogen Dipstick 0.2 mg/dL (0.2 mg/dL) Urine Leukocyte Esterase Large (NEG) Urine RBC 3-5 /HPF (0-2) Urine WBC >40 /HPF (0-4) Urine Squamous Epithelial Cells Many /LPF Urine Bacteria Moderate /HPF (0-FEW) White Blood Count 8.4 x10^3/uL (4.0-11.0) Red Blood Count 4.49 x10^6/uL (3.50-5.40) Hemoglobin 13.9 g/dL (12.0-15.5) Hematocrit 41.5 % (36.0-47.0) Mean Corpuscular Volume 92 fL (79-100) Mean Corpuscular Hemoglobin 31 pg (25-35) Mean Corpuscular Hemoglobin Concent 33 g/dL (31-37) Red Cell Distribution Width 15.3 % (11.5-14.5) H Platelet Count 363 x10^3/uL (140-400) Neutrophils (%) (Auto) 57 % (31-73) Lymphocytes (%) (Auto) 31 % (24-48) Monocytes (%) (Auto) 9 % (0-9) Eosinophils (%) (Auto) 3 % (0-3) Basophils (%) (Auto) 1 % (0-3) Neutrophils # (Auto) 4.8 x10^3/uL (1.8-7.7) Lymphocytes # (Auto) 2.6 x10^3/uL (1.0-4.8) Monocytes # (Auto) 0.7 x10^3/uL (0.0-1.1) Eosinophils # (Auto) 0.2 x10^3/uL (0.0-0.7) Basophils # (Auto) 0.1 x10^3/uL (0.0-0.2) Sodium Level 139 mmol/L (136-145) Potassium Level 4.3 mmol/L (3.5-5.1) Chloride Level 100 mmol/L (98-107) Carbon Dioxide Level 26 mmol/L (21-32) Anion Gap 13 (6-14) Blood Urea Nitrogen 8 mg/dL (7-20) Creatinine 0.7 mg/dL (0.6-1.0) Estimated GFR (Cockcroft-Gault) 84.0 Glucose Level 116 mg/dL (70-99) H Calcium Level 9.7 mg/dL (8.5-10.1) Total Bilirubin 0.3 mg/dL (0.2-1.0) Direct Bilirubin 0.1 mg/dL (0.0-0.2) Aspartate Amino Transferase (AST) 48 U/L (15-37) H Alanine Aminotransferase (ALT) 61 U/L (14-59) H Alkaline Phosphatase 74 U/L (46-116) Troponin I Quantitative < 0.017 ng/mL (0.000-0.055) Total Protein 7.3 g/dL (6.4-8.2) Albumin 4.2 g/dL (3.4-5.0) Lipase 137 U/L (73-393) Laboratory Tests 03/20/19 09:17 Laboratory Tests 03/20/19 09:17 EKG EKG [] Radiology/Procedures Radiology/Procedures [] Course & Med Decision Making Course & Med Decision Making Pertinent Labs and Imaging studies reviewed. (See chart for details) [] Dragon Disclaimer Dragon Disclaimer This electronic medical record was generated, in whole or in part, using a voice recognition dictation system. Departure Departure Impression: Primary Impression: Abdominal pain Additional Impressions: Cholelithiasis Urinary tract infection Disposition: 01 HOME, SELF-CARE Condition: STABLE Referrals: SELVIN FARRELL APRN (PCP) MARY HOFF MD general surgeon. Patient Instructions: Cholelithiasis, Urinary Tract Infection Additional Instructions: Thank you for allowing us to participate in your care today. Return to the emergency department you have any new or worsening symptoms, or if you are concerned for any reason. Return to emergency department if you have any new or concerning symptoms including but not limited to fever, chills, nausea, vomiting, intractable pain, any new rashes, chest pain, shortness of air, uncontrolled bleeding, difficulty breathing, and/or vision loss. Follow up with your primary care physician within 1-2 days. Follow-up with Gen. surgery in 5-10 days for evaluation for gallbladder removal. Call your Primary Doctor tomorrow and inform them of your visit today. If you do not have a primary care provider we are happy to provide you with a list of our primary care providers contact information. This condition should be evaluated by your primary care physician and any recommended consulting services for continued management within 2 days after discharge. If at any time, you are having difficulty getting into your primary care doctor or a specialist, return to the emergency department. Scripts Nitrofurantoin Monohyd/M-Cryst (MACROBID 100 MG CAPSULE) 100 Mg Capsule 1 CAP PO BID for 5 Days, #10 CAP 0 Refills Prov: SIMBA PATTERSON MD 03/20/19 Hydrocodone Bit/Acetaminophen (HYDROCODONE-APAP 5-325 ) 1 Tab Tablet 1 TAB PO PRN Q8HRS PRN for sev, #8 TAB 0 Refills Prov: SIMBA PATTERSON MD 03/20/19 Problem Qualifiers SIMBA PATTERSON MD Mar 20, 2019 09:21
[2019-03-20 09:23] LABS: BILIRUBIN,URINE NEGATIVE (NEG); CLARITY,URINE CLOUDY; COLOR,URINE YELLOW; NITRITE,URINE NEGATIVE (NEG); PH,URINE 5.5; PROTEIN,URINE NEGATIVE (NEG-TRACE); UROBILINOGEN,URINE 0.2 mg/dL (0.2 mg/dL)
[2019-03-20 09:31] LABS: BASO # 0.1 x10^3/uL (0.0-0.2); BASO % 1 % (0-3); EOS # 0.2 x10^3/uL (0.0-0.7); EOS % 3 % (0-3); HEMATOCRIT 41.5 % (36.0-47.0); HEMOGLOBIN 13.9 g/dL (12.0-15.5); LYMPH # 2.6 x10^3/uL (1.0-4.8); LYMPH % 31 % (24-48); MEAN CORPUSCULAR HEMOGLOBIN 31 pg (25-35); MEAN CORPUSCULAR HGB CONC 33 g/dL (31-37); MEAN CORPUSCULAR VOLUME 92 fL (79-100); MONO # 0.7 x10^3/uL (0.0-1.1); MONO % 9 % (0-9); NEUT # 4.8 x10^3/uL (1.8-7.7); NEUT % 57 % (31-73); PLATELET COUNT 363 x10^3/uL (140-400); RED BLOOD COUNT 4.49 x10^6/uL (3.50-5.40); RED CELL DISTRIBUTION WIDTH 15.3 % (11.5-14.5); WHITE BLOOD COUNT 8.4 x10^3/uL (4.0-11.0)
[2019-03-20 09:42] LABS: WBC,URINE >40 /HPF (0-4)
[2019-03-20 09:42] LABS: CALCIUM 9.7 mg/dL (8.5-10.1); CREATININE 0.7 mg/dL (0.6-1.0); POTASSIUM 4.3 mmol/L (3.5-5.1)
[2019-03-20 09:43] LABS: BACTERIA,URINE MODERATE /HPF (0-FEW); SQUAMOUS EPITHELIAL CELL,UR MANY /LPF
[2019-03-20 09:46] LABS: ALBUMIN 4.2 g/dL (3.4-5.0); DIRECT BILIRUBIN 0.1 mg/dL (0.0-0.2); TOTAL BILIRUBIN 0.3 mg/dL (0.2-1.0); TOTAL PROTEIN 7.3 g/dL (6.4-8.2)
[2019-03-20] MEDS ORDERED: IOHEXOL 300 MG/ML 100ML VIAL. IV ONE (10:00)
[2019-03-20] MEDS ORDERED: LIDO:MAALOX 1:1 20 ML SINGLE DOSE. SWSW ONE (10:00)
[2019-03-20] MEDS ORDERED: CONTRAST GIVEN. MC PRN (10:00)
--- NOTE | 2019-03-20 10:31 | RAD ---
CT abdomen pelvis with contrast. HISTORY: Left upper quadrant epigastric abdominal pain. CT scan the abdomen and pelvis was done using 75 mL Omnipaque 300 contrast. There is mild atelectasis in the left lung base. There is no pleural effusion. There is diffuse fatty infiltration of the liver. There is mild fatty sparing in the anterior right liver near the gallbladder. Spleen and adrenal glands are normal. Pancreas is unremarkable. There is no mass or hydronephrosis in the kidneys. There is scarring of the right kidney. There is there is a prominent calcified gallstone in the gallbladder without gallbladder wall thickening. There is no bowel obstruction or ascites or adenopathy. Left ovary was normal along the iliac vessels. There is a mass on the left side of the uterus probably a uterine leiomyoma. There is a central calcification in the uterus. Right ovary is poorly seen. Pancreas is unremarkable. IMPRESSION: 1. Fatty change in the liver. 2. Cholelithiasis. 3. Scarring right kidney. 4. Probable uterine leiomyoma measuring 7.5 x 4.6 x 5.3 cm. PQRS Compliance Statement: One or more of the following individualized dose reduction techniques were utilized for this examination: 1. Automated exposure control 2. Adjustment of the mA and/or kV according to patient size 3. Use of iterative reconstruction technique Electronically signed by: Osorio Corrigan MD (03/20/2019 10:28 AM) [facility]
--- NOTE | 2019-03-20 12:14 | RAD ---
Ultrasound the abdomen limited. HISTORY: Epigastric abdominal pain Ultrasound was used to evaluate the right upper quadrant of the abdomen. Mid pancreas was normal, portions of the head and tail of the pancreas were obscured. Liver is echogenic possible fatty infiltration. Liver is difficult to fully evaluate. There are gallstones in the gallbladder. The gallbladder wall was not thickened. Common duct was normal measuring 3 mm. Right kidney was 10.6 cm in length without hydronephrosis. There is focal scarring and atrophy of the right kidney. IMPRESSION: 1. Cholelithiasis. 2. Fatty infiltration of the liver. Electronically signed by: Osorio Corrigan MD (03/20/2019 12:11 PM) [facility]
[2019-03-20] MEDS ORDERED: NITR100C62 PO (12:21)
[2019-03-20] MEDS ORDERED: HYDR-2761 PO (12:21)
[2019-03-20 12:30] VITALS: BP 127/69
--- NOTE | 2019-03-21 13:55 | EKG ---
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
== END 2019-03-20 12:35 | disposition home or self-care (01) ==
LOC: ER 08:48
DX: N39.0 Urinary tract infection, site not specified (principal); K80.20 Calculus of gallbladder without cholecystitis without obstruction; F31.9 Bipolar disorder, unspecified; K21.9 Gastro-esophageal reflux disease without esophagitis; J44.9 Chronic obstructive pulmonary disease, unspecified; E11.9 Type 2 diabetes mellitus without complications; E78.00 Pure hypercholesterolemia, unspecified; I10 Essential (primary) hypertension; Z98.51 Tubal ligation status; Z90.721 Acquired absence of ovaries, unilateral; Z88.6 Allergy status to analgesic agent; Z88.8 Allergy status to other drugs, medicaments and biological substances
CPT/HCPCS: 36415; 74177; 76705; 80048; 80076; 81001; 83690; 84484; 85025; 87086; 93005; 99285; Q9967

== ENCOUNTER 2019-05-24 05:38 | Day surgery (SDC) | payer MEDICARE, OTHER ==
[~2019-05-24] VITALS: Ht 160 cm; Wt 98.5 kg
[~2019-05-24 05:38] MED LIST changes: +BEANO PO; +FAMO-63 PO; +GABA-585 PO; +HYDR-2761 PO; +LISI1TAB23 PO; -LISI1TAB3 PO; -METF750T2 PO; +METF750T39 PO; +NITR100C62 PO; +OXYB5TAB33 PO; +VALA10005 PO
[2019-05-24] MEDS ORDERED: INSULIN LISPRO 100 UNIT/ML 3ML VIAL for OP,RR ONLY. SQ PRN (06:45)
[2019-05-24] MEDS ORDERED: LIDOCAINE 1% PF 2 ML VIAL. ID PRN (07:00)
[2019-05-24] MEDS ORDERED: PROCHLORPERAZINE 10 MG/2 ML VIAL. IV PRN (07:00)
[2019-05-24] MEDS ORDERED: fentaNYL PF VIAL 100 MCG/2 ML VIAL IV PRN ×2 (07:00)
[2019-05-24] MEDS ORDERED: ONDANSETRON PF 4 MG/2 ML VIAL. IV PRN (07:00)
[2019-05-24] MEDS ORDERED: IV RINGERS,LACTATED 1000ML 1,000 ML IV SCH (07:00)
[2019-05-24] MEDS ORDERED: SURGICEL HEMOSTAT 4X8 EACH. ONE (07:12)
[2019-05-24] MEDS ORDERED: IOHEXOL 300 MG/ML 50 ML VIAL. ONE (07:12)
[2019-05-24] MEDS ORDERED: BUPIVACAINE MPF 0.5% 30 ML VIAL. ONE (07:12)
[2019-05-24] MEDS ORDERED: PROPOFOL 20 ML IV ONE (07:13)
[2019-05-24] MEDS ORDERED: ONDANSETRON PF 4 MG/2 ML VIAL. ONE (07:13)
[2019-05-24] MEDS ORDERED: ROCURONIUM 50 MG/5 ML VIAL. ONE (07:14)
[2019-05-24] MEDS ORDERED: LIDOCAINE 2% PF 5 ML VIAL. ONE (07:14)
[2019-05-24] MEDS ORDERED: fentaNYL PF VIAL 100 MCG/2 ML VIAL ONE (07:14)
[2019-05-24] MEDS ORDERED: DEXAMETHASONE SOD PHOS 4 MG/ML VIAL ONE (07:14)
[2019-05-24] MEDS ORDERED: MIDAZOLAM HCL/PF 2 MG/2 ML VIAL. ONE (07:14)
[2019-05-24] MEDS ORDERED: ceFAZolin 2GM PREMIX 2 GM/50 ML BAG IV ONE (08:00)
[2019-05-24] MEDS ORDERED: hydrALAZINE 20 MG/ML VIAL. ONE (08:12)
[2019-05-24] MEDS ORDERED: NEOSTIGMINE METHYLSULFATE 5 MG/5 ML SYRINGE. ONE (08:23)
[2019-05-24] MEDS ORDERED: GLYCOPYRROLATE 1 MG/5 ML VIAL. ONE (08:23)
[2019-05-24] MEDS ORDERED: SEVOFLURANE 61 TO 120 MINUTES. IH ONE (08:37)
--- NOTE | 2019-05-24 08:44 | PDOC4 ---
Operative Note Operative Note Operative Note: Preoperative Diagnosis: Calculous cholecystitis Postoperative Diagnosis: Same Procedure: Laparoscopic cholecystectomy with intraoperative cholangiogram Surgeons: Ezequiel Tire Beader Maker: Paola TAVERAS Anesthesia: Gen. Estimated Blood Loss: 10 mL Specimen: Gallbladder to pathology Drains: None Complications: None Indications: The patient is a 63-year-old female who is been experiencing recurrent upper abdominal pain consistent with biliary colic. Surgical treatment was offered by means of a laparoscopic cholecystectomy. The risks of surgery were discussed which include bleeding, infection, bile duct injury, bile leak, pain, the potential for additional surgeries or procedures. The patient understands and would like to proceed. Description: The patient was taken to the operating room and laid supine on the operating table. General anesthesia was performed. The abdomen was prepped with ChloraPrep and draped in a standard surgical fashion. In the left upper quadrant a small incision was made through which a visualized 5 mm trocar was i nserted. A pneumoperitoneum was created and the laparoscope was introduced. The patient did have some midline omental adhesions from prior surgery. The right abdomen was fairly clear and we were able to place a 5 mm trocar in the right lower quadrant, and the laparoscope was moved to that location. In the upper midabdomen a 5 mm trocar was inserted and in the right upper quadrant two 5 mm trochars were inserted. The gallbladder was initially obscured by adhesions with some fatty tissue. These were mobilized exposing the anterior wall. The gallbladder was then retracted cephalad. The cystic duct was dissected free from surrounding tissues. One clip was placed on the duct near the gallbladder junction. An opening was made in the duct and a cholangiocatheter placed within and secured with a clip. Using contrast dye and fluoroscopy an intraoperative cholangiogram was performed that appeared unremarkable. The clip and catheter were then withdrawn. Three clips were placed on the cystic duct and it was divi ded. The cystic artery was then identified, dissected free, doubly clipped and divided as well. The gallbladder was then mobilized away from the liver with cautery. The right lower quadrant 5 millimeter trocar was exchanged for an 11 millimeter trocar. The gallbladder was then placed in an endoscopic bag and extracted at that trocar site. The fascia there was closed with an 0 Vicryl suture. All blood and irrigation fluid was suctioned and hemostasis was good. The remaining ports were removed and the pneumoperitoneum was relieved. The skin incisions were injected with half percent Marcaine with epinephrine, and all were closed using 4-0 Monocryl suture. Steri-Strips and dressings were then applied. The patient tolerated the procedure well and was sent to the recovery room in stable condition. At the end of the case all counts were correct. DIANA HUGHES MD May 24, 2019 08:44
--- NOTE | 2019-05-24 08:47 | DISCH ---
DISCHARGE INSTRUCTIONS Condition on Discharge Condition on Discharge: Stable Activity After Discharge Activity Instructions for Disc: Other, see below (no lifting over 20 lbs X 2 weeks) Diet after Discharge Diet after Discharge: Regular Wound Incision Care Wound/Incision Care: Other, see below (may remove bandaids tomorrow and shower, steristrips fall of on their own) Follow-Up Follow up with: Dr Hughes in 2 weeks in office, call for appt [phone] DIANA HUGHES MD May 24, 2019 08:47
--- NOTE | 2019-05-24 08:56 | RAD ---
C-arm fluoroscopy with fluoroscopic spot views Clinical indications: Cholecystectomy. Intraoperative cholangiogram. Total fluoroscopic time: 0.24 minutes Total fluoroscopic spot views: 4. IMPRESSION: Fluoroscopic spot views demonstrate contrast opacification of the cystic duct and common bile duct and common hepatic duct with free flow of contrast material from the common bile duct into the duodenum. No stricture or stone is evident. There is no opacification of the biliary tree proximal to the common hepatic duct. Electronically signed by: Nav Tolliver MD (05/24/2019 8:53 AM) [facility]
[2019-05-24] MEDS ORDERED: oxyCODONE/APAP 5/325 1 TAB TABLET PO ONE (09:30)
[2019-05-24 10:12] VITALS: BP 144/65
--- NOTE | 2019-05-25 15:07 | PATHOLOGY ---
[facility] Accession Number: [id number] . 01 Material submitted: . gallbladder - GALLBLADDER . 01 Clinical history: . Cholelithiasis . 02 Diagnosis: Gallbladder, laparoscopic cholecystectomy: - Cholelithiasis. - Chronic follicular cholecystitis. LBQ 05/25/2019 1255 Local . 02 Comment: There is no evidence of malignancy. (JPM/db; 05/25/2019) . 02 Electronically signed: . Ramon Rico MD, Pathologist NPI- [id number] . 01 Gross description: . The specimen is received in formalin labeled "Hennecke, Cherise, gallbladder" and consists of an intact pink-mooney, smooth, and focally hemorrhagic gallbladder measuring 9.3 x 4.1 x 2.3 cm. The margin is inked black. Opening reveals a lumen filled with viscous green bile and a single round smooth black calculus measuring 2.0 x 2.0 cm. The mucosa is granular brown-syed with scattered areas of erosion with an average wall thickness of 0.1 cm. No masses are identified. Fermenter Operator sections are submitted in A1. (SDY; 05/24/2019) SYU/SYU 05/24/2019 1700 Local . 02 Pathologist provided ICD-10: K80.10 . 02 CPT . 916415 Specimen Comment: A courtesy copy of this report has been sent to Specimen Comment: [phone], . Specimen Comment: Report sent to / DR FARRELL Specimen Comment: Report sent to Performed at: [address], [place], [place] [id number] MD Elías Bonilla MD Phone: [phone] Performed at: 02 [facility] [address] [place], [place] [id number] MD Ramon Rico MD Phone: [phone]
== END 2019-05-24 10:54 | disposition home or self-care (01) ==
LOC: SURG 05:38
PROVIDERS: ATTEND Surgery
DX: K80.10 Calculus of gallbladder with chronic cholecystitis without obstruction (principal); Z79.899 Other long term (current) drug therapy
CPT/HCPCS: 47563; 74300; 82962; A7015; J0360; J0696; J1100; J2001; J2405; J2704; J2710; J3010; J3490; J7030; J7120; Q9967; 88304; J2250

== ENCOUNTER 2019-05-30 10:00 | Inpatient (IN) | payer MEDICARE, OTHER ==
[~2019-05-30] VITALS: Ht 157.5 cm; Wt 97.2 kg
[2019-05-30 10:50] LABS: BILIRUBIN,URINE NEGATIVE (NEG); CLARITY,URINE CLEAR; COLOR,URINE YELLOW; NITRITE,URINE NEGATIVE (NEG); PH,URINE 5.5; PROTEIN,URINE NEGATIVE (NEG-TRACE); UROBILINOGEN,URINE 0.2 mg/dL (0.2 mg/dL)
--- NOTE | 2019-05-30 11:01 | PHYS DOC ---
Past Medical History Past Medical History: Arthritis, Bipolar, Cancer, Constipation, COPD, Diabetes- Type II, GERD, High Cholesterol, Hypertension, UTI Additional Past Medical Histor: shingles,urine incont, sciatica, renal cell carcinoma Past Surgical History: Cancer Surgery, Oophorectomy, Tubal ligation Additional Past Surgical Histo: R kidney tumor removed, R ovary removal,small bowel resection/ CYST, catara Alcohol Use: None Drug Use: None Adult General Chief Complaint Chief Complaint: SHORTNESS OF BREATH HPI HPI Patient is a 63 year old female who presents with complaining of shortness of breath and chest pain. Patient had uneventful laparoscopic cholecystectomy 6 days ago and discharged home the same day. Patient complaining of episodes of shortness of breath chest pain with exertion and supine position with episodes of productive cough with yellow sputum and episodes of chills. Patient states the chest pain is a pressure pain and rated her pain 7/10 with radiation to bilateral rib cage associated with shortness of breath and dizziness without syncope. Patient complaining of generalized weakness without leg edema, vomiting, abdominal pain, diarrhea and constipation, urinary symptom, extremity pain, history of PE and DVT. Review of Systems Review of Systems Constitutional: Denies fever, reports chills [] Eyes: Denies change in visual acuity, redness, or eye pain [] HENT: Denies nasal congestion or sore throat [] Respiratory: Reports cough and shortness of breath Cardiovascular: No additional information not addressed in HPI [] GI: Denies abdominal pain, nausea, vomiting, bloody stools or diarrhea [] : Denies dysuria or hematuria [] Musculoskeletal: Denies back pain or joint pain [] Integument: Denies rash or skin lesions [] Neurologic: Denies headache, focal weakness or sensory changes [] Endocrine: Denies polyuria or polydipsia [] All other systems were reviewed and found to be within normal limits, except as documented in this note. Current Medications Current Medications Current Medications Medications (Trade) Dose Ordered Sig/Hilton Start Time Stop Time Status Last Admin Dose Admin Fentanyl Citrate (Fentanyl 2ml Vial) 50 mcg 1X ONCE 05/30/19 11:15 05/30/19 11:16 DC 05/30/19 11:19 50 MCG Allergies Allergies Allergies Coded Allergies Type Severity Reaction Last Updated Verified aspirin Allergy Intermediate "messes with my stomach" 05/24/19 Yes omega-3 acid ethyl esters Allergy Intermediate bleeding 05/24/19 Yes tramadol Allergy Intermediate 05/24/19 Yes Physical Exam Physical Exam Constitutional: Well developed, well nourished, mild distress, non-toxic appea colleen, morbidly obese. HENT: Normocephalic, atraumatic. Eyes: PERRLA, EOMI, conjunctiva normal, no discharge. [] Neck: Normal range of motion, no tenderness, supple, no stridor. [] Cardiovascular:Heart rate regular rhythm, no murmur [] Lungs & Thorax: Respiratory distress, mild bilateral rhonchi and wheezing Abdomen: Bowel sounds normal, soft, no tenderness, no masses, no pulsatile masses. [] Skin: Warm, dry, no erythema, no rash. [] Back: No tenderness, no CVA tenderness. [] Extremities: No tenderness, no cyanosis, no clubbing, ROM intact, no edema. [] Neurologic: Alert and oriented X 3, no focal deficits noted. [] Psychologic: Affect normal, judgement normal, mood normal. [] Current Patient Data Vital Signs Vital Signs Date Time Temp Pulse Resp B/P (MAP) Pulse Ox O2 Delivery O2 Flow Rate FiO2 05/30/19 11:30 86 24 129/61 (83) 96 Nasal Cannula 2.0 05/30/19 10:45 98.2 98.2 Lab Values Laboratory Tests Test 05/30/19 10:40 05/30/19 10:57 Urine Collection Type Void Urine Color Yellow Urine Clarity Clear Urine pH 5.5 Urine Specific Diggs 1.010 Urine Protein Negative mg/dL (NEG-TRACE) Urine Glucose (UA) Negative mg/dL (NEG) Urine Ketones (Stick) Negative mg/dL (NEG) Urine Blood Negative (NEG) Urine Nitrite Negative (NEG) Urine Bilirubin Negative (NEG) Urine Urobilinogen Dipstick 0.2 mg/dL (0.2 mg/dL) Urine Leukocyte Esterase Moderate (NEG) Urine RBC Occ /HPF (0-2) Urine WBC 5-10 /HPF (0-4) Urine Squamous Epithelial Cells Many /LPF Urine Bacteria Few /HPF (0-FEW) White Blood Count 9.7 x10^3/uL (4.0-11.0) Red Blood Count 3.88 x10^6/uL (3.50-5.40) Hemoglobin 12.2 g/dL (12.0-15.5) Hematocrit 36.2 % (36.0-47.0) Mean Corpuscular Volume 93 fL (79-100) Mean Corpuscular Hemoglobin 31 pg (25-35) Mean Corpuscular Hemoglobin Concent 34 g/dL (31-37) Red Cell Distribution Width 15.1 % (11.5-14.5) H Platelet Count 432 x10^3/uL (140-400) H Neutrophils (%) (Auto) 55 % (31-73) Lymphocytes (%) (Auto) 26 % (24-48) Monocytes (%) (Auto) 10 % (0-9) H Eosinophils (%) (Auto) 9 % (0-3) H Basophils (%) (Auto) 1 % (0-3) Neutrophils # (Auto) 5.3 x10^3/uL (1.8-7.7) Lymphocytes # (Auto) 2.5 x10^3/uL (1.0-4.8) Monocytes # (Auto) 1.0 x10^3/uL (0.0-1.1) Eosinophils # (Auto) 0.8 x10^3/uL (0.0-0.7) H Basophils # (Auto) 0.1 x10^3/uL (0.0-0.2) Prothrombin Time 13.3 SEC (11.7-14.0) Prothrombin Time INR 1.0 (0.8-1.1) D-Dimer (Sintia) 2.52 ug/mlFEU (0.00-0.50) H Sodium Level 142 mmol/L (136-145) Potassium Level 4.0 mmol/L (3.5-5.1) Chloride Level 102 mmol/L (98-107) Carbon Dioxide Level 31 mmol/L (21-32) Anion Gap 9 (6-14) Blood Urea Nitrogen 6 mg/dL (7-20) L Creatinine 0.7 mg/dL (0.6-1.0) Estimated GFR (Cockcroft-Gault) 84.0 BUN/Creatinine Ratio 9 (6-20) Glucose Level 116 mg/dL (70-99) H Calcium Level 9.6 mg/dL (8.5-10.1) Magnesium Level 1.8 mg/dL (1.8-2.4) Total Bilirubin 0.3 mg/dL (0.2-1.0) Aspartate Amino Transferase (AST) 42 U/L (15-37) H Alanine Aminotransferase (ALT) 52 U/L (14-59) Alkaline Phosphatase 78 U/L (46-116) Creatine Kinase 83 U/L (26-192) Troponin I Quantitative < 0.017 ng/mL (0.000-0.055) KR-Rsw-F-Type Natriuretic Peptide 670 pg/mL (0-124) H Total Protein 7.6 g/dL (6.4-8.2) Albumin 3.7 g/dL (3.4-5.0) Albumin/Globulin Ratio 0.9 (1.0-1.7) L Lipase 91 U/L (73-393) Laboratory Tests 05/30/19 10:57 Laboratory Tests 05/30/19 10:57 EKG EKG EKG interpreted by me. EKG at 1022 showed normal sinus rhythm at rate of 87, left gallego axis, no acute ST and T-wave abnormalities. Radiology/Procedures Radiology/Procedures [][facility] [address] [place] [address] IMAGING REPORT Signed PATIENT: TYLOR WILL ACCOUNT: [id number] : 1955 LOCATION: ER AGE: 63 SEX: F EXAM STATUS: REG ER ORD. PHYSICIAN: OSVALDO CAPELLAN MD REASON: shortness of breath and chest pain PROCEDURE: PORTABLE CHEST 1V AP portable chest radiograph 05/30/2019 Clinical History: Shortness of breath and chest pain. An AP erect portable digital radiograph of the chest was obtained. Comparison study is dated 01/09/2018. The cardiac silhouette is mildly enlarged. The thoracic aorta is tortuous. Atherosclerotic calcification of the thoracic aorta is seen. Linear bands of subsegmental atelectasis and/or scarring are seen involving the left lower lobe essentially unchanged. No acute pulmonary infiltrate is seen. No pleural effusion or pneumothorax is noted. Degenerative changes are seen involving the thoracic spine and both shoulders. IMPRESSION: No acute pulmonary infiltrate is seen. Electronically signed by: Jesus Casanova MD (05/30/2019 11:15 AM) [facility] DICTATED and SIGNED BY: JESUS CASANOVA MD DATE: 05/30/19 4406 [facility] [address] [place] [address] IMAGING REPORT Signed PATIENT: TYLOR WILL ACCOUNT: [id number] : 1955 LOCATION: [address] [place] [address] AGE: 63 SEX: F EXAM STATUS: ADM IN ORD. PHYSICIAN: OSVALDO CAPELLAN MD REASON: shortness of breath, postop, hypoxia elevated d-dimer PROCEDURE: CT ANGIOGRAPHY CHEST PQRS Compliance statement: One or more of the following individualized dose reduction techniques were utilized for this examination: 1. Automated exposure control. 2. Adjustment of the mA and/or kV according to patient size. 3. Use of iterative reconstruction technique. Indication:Shortness of breath. Elevated d-dimer. TECHNIQUE: CT angiogram of the chest with IV contrast with multiplanar MIP reformats. COMPARISON:None FINDINGS: Slightly suboptimal PE study due to contrast bolus timing. No central or segmental filling defects in the pulmonary arteries. Evaluation of subsegmental pulmonary arteries is limited. Heart is normal in size. No pericardial or pleural effusion. No enlarged axillary, mediastinal or hilar adenopathy. Central airways are patent. Multiple bibasilar linear opacities. 3 mm nodule in the right upper lobe (series 8 image 50). Subpleural 3 mm nodule in the left lung apex (series 8 image 32). Hepatic steatosis. Otherwise, visualized sections through the spleen, pancreas, adrenals and upper kidneys within normal limits. Status post cholecystectomy. Multiple foci of free air is seen in the abdomen. No suspicious bony lesion. IMPRESSION: 1. Slightly suboptimal PE study due to contrast bolus timing. No central or segmental PE. Evaluation of distal subsegmental pulmonary arteries is slightly limited. 2. Bibasilar and lingular linear opacities likely scarring or subsegmental atelectasis. 3. Trace amount of multiple foci of gas in the abdomen likely related to recent surgery. If concern for viscus perforation is high consider further evaluation with CT abdomen pelvis with IV contrast. 4. Couple of nodules in the lungs. In a low risk patient no further follow-up needed. In a high-risk patient follow-up CT chest pain in 12 months. Electronically signed by: Judy Smith DO (05/30/2019 1:00 PM) [facility] DICTATED and SIGNED BY: JUDY SMITH DO DATE: 05/30/19 1300 Course & Med Decision Making Course & Med Decision Making Pertinent Labs and Imaging studies reviewed. (See chart for details) Patient requiring admission for further evaluation and treatment. Discussed with Dr. Torres who is in agreement with admission. Discussed findings and plan with patient and family, who acknowledge understanding and agreement. Dragon Disclaimer Dragon Disclaimer This electronic medical record was generated, in whole or in part, using a voice recognition dictation system. Departure Departure Impression: Primary Impression: Shortness of breath Additional Impressions: Chest pain Hypoxia Elevated d-dimer Disposition: ADMITTED INPATIENT (@1216) Admitting Physician: MIAN (Dr. Torres accepted admission at 1215) Condition: IMPROVED Referrals: SELVIN FARRELL APRN (PCP) Critical Care Time Critical care time was 60 minutes exclusive of procedures. Problem Qualifiers Additional Impressions: Chest pain Chest pain type: unspecified Qualified Codes: R07.9 - Chest pain, unspecified OSVALDO CAPELLAN MD May 30, 2019 11:01
[2019-05-30 11:07] LABS: BASO # 0.1 x10^3/uL (0.0-0.2); BASO % 1 % (0-3); EOS # 0.8 x10^3/uL (0.0-0.7); EOS % 9 % (0-3); HEMATOCRIT 36.2 % (36.0-47.0); HEMOGLOBIN 12.2 g/dL (12.0-15.5); LYMPH # 2.5 x10^3/uL (1.0-4.8); LYMPH % 26 % (24-48); MEAN CORPUSCULAR HEMOGLOBIN 31 pg (25-35); MEAN CORPUSCULAR HGB CONC 34 g/dL (31-37); MEAN CORPUSCULAR VOLUME 93 fL (79-100); MONO % 10 % (0-9); NEUT # 5.3 x10^3/uL (1.8-7.7); NEUT % 55 % (31-73); PLATELET COUNT 432 x10^3/uL (140-400); RED BLOOD COUNT 3.88 x10^6/uL (3.50-5.40); RED CELL DISTRIBUTION WIDTH 15.1 % (11.5-14.5); WHITE BLOOD COUNT 9.7 x10^3/uL (4.0-11.0)
[2019-05-30 11:15] LABS: CALCIUM 9.6 mg/dL (8.5-10.1); CREATININE 0.7 mg/dL (0.6-1.0)
[2019-05-30] MEDS ORDERED: fentaNYL PF VIAL 100 MCG/2 ML VIAL IVP ONE (11:15)
[2019-05-30 11:18] LABS: PROTHROMBIN TIME PATIENT 13.3 SEC (11.7-14.0)
--- NOTE | 2019-05-30 11:18 | RAD ---
AP portable chest radiograph 05/30/2019 Clinical History: Shortness of breath and chest pain. An AP erect portable digital radiograph of the chest was obtained. Comparison study is dated 01/09/2018. The cardiac silhouette is mildly enlarged. The thoracic aorta is tortuous. Atherosclerotic calcification of the thoracic aorta is seen. Linear bands of subsegmental atelectasis and/or scarring are seen involving the left lower lobe essentially unchanged. No acute pulmonary infiltrate is seen. No pleural effusion or pneumothorax is noted. Degenerative changes are seen involving the thoracic spine and both shoulders. IMPRESSION: No acute pulmonary infiltrate is seen. Electronically signed by: Jesus Casanova MD (05/30/2019 11:15 AM) [facility]
[2019-05-30 11:22] LABS: BACTERIA,URINE FEW /HPF (0-FEW); RBC,URINE OCC /HPF (0-2); SQUAMOUS EPITHELIAL CELL,UR MANY /LPF
[2019-05-30 11:23] LABS: ALBUMIN 3.7 g/dL (3.4-5.0); ALBUMIN/GLOBULIN RATIO 0.9 (1.0-1.7); D-DIMER 2.52 ug/mlFEU (0.00-0.50); MAGNESIUM 1.8 mg/dL (1.8-2.4); TOTAL BILIRUBIN 0.3 mg/dL (0.2-1.0); TOTAL PROTEIN 7.6 g/dL (6.4-8.2)
--- NOTE | 2019-05-30 12:16 | PDOC1 ---
History and Physical Date of Admission Date of Admission DATE: 05/30/19 TIME: 12:15 Identification/Chief Complaint Chief Complaint Shortness of breath Source Source: Patient History of Present Illness History of Present Illness Ms Ruiz is a 63 yo F w/ PMHx Renal Cell ca, Arthritis, Bipolar, Cancer, Constipation, COPD, Diabetes-Type II, GERD, High Cholesterol, Hypertension, UTIs who presents with complaining of shortness of breath and chest pain. Patient had uneventful laparoscopic cholecystectomy 6 days ago and discharged home the same day. Patient complaining of episodes of shortness of breath chest pain with exertion and supine position with episodes of productive cough with yellow sputum and episodes of chills. Patient states the chest pain is a pressure pain and rated her pain 7/10 with radiation to bilateral rib cage associated with shortness of breath and dizziness without syncope. Patient complaining of generalized weakness without leg edema, vomiting, abdominal pain, diarrhea and constipation, urinary symptom, extremity pain, history of PE and DVT. CTPA was negative for PE. EKG shows NSR with leftward axis, no acute ST segment or T-wave changes Past Medical History Cardiovascular: HTN Pulmonary: No pertinent hx CENTRAL NERVOUS SYSTEM: Carpal Tunnel Syndrome, Periperal neuropathy GI: No pertinent hx Heme/Onc: No pertinent hx Hepatobiliary: No pertinent hx Psych: No pertinent hx Musculoskeletal: low back pain Rheumatologic: No pertinent hx Infectious disease: No pertinent hx Renal/: UTI, Urinary Incontinence Endocrine: Diabetes Past Surgical History Past Surgical History: Cholecystectomy, Cataract Removal, Colon Resection, Other (Right nephrectomy) Family History Family History: Diabetes, Hypertension Social History Smoke: No ALCOHOL: none Drugs: None Current Medications Current Medications Current Medications Fentanyl Citrate (Fentanyl 2ml Vial) 50 mcg 1X ONCE IVP Last administered on 05/30/19at 11:19; Start 05/30/19 at 11:15; Stop 05/30/19 at 11:16; Status DC Active Scripts Active Proair Respiclick (Albuterol Sulfate) 90 Mcg Aer.pow.ba 1 Puff IH PRN Q6HRS PRN Reported [Beano] PO PRN PRN Pepcid (Famotidine) 20 Mg Tablet 20 Mg PO PRN PRN Ditropan Xl (Oxybutynin Chloride) 5 Mg Tab.er.24 1 Tab PO DAILY Aspir 81 (Aspirin) 81 Mg Tablet.dr 1 Tab PO DAILY Zyrtec (Cetirizine Hcl) 10 Mg Tablet 1 Tab PO QHS Gabapentin (Gabapentin) 300 Mg Capsule 300 Mg PO TID Baclofen 10 Mg Tablet 1 Tab PO TID Lisinopril-Hctz 10-12.5 Mg Tab (Lisinopril/Hydrochlorothiazide) 1 Each Tablet 1 Tab PO DAILY Colon Herbal Cleanser (Herbal Drugs) 1 Each Capsule 1 Each PO Freestyle Lite Strips (Blood Sugar Diagnostic) 1 Each Strip 1 Each MC Atorvastatin Calcium 40 Mg Tablet 40 Mg PO DAILY Spiriva (Tiotropium [place]) 18 Mcg Cap.w.dev 2 Inh IH DAILY Meloxicam 15 Mg Tablet 15 Mg PO DAILY Polyethylene Glycol (Polyethylene Glycol 8000) 500 Gm Powder 500 Gm MC Metformin Hcl Er (Metformin Hcl) 750 Mg Tab.er.24h 1,500 Mg PO DAILYWSUP Patanol (Olopatadine Hcl) 5 Ml Drops 5 Ml OP PRN PRN Flovent 220MCG Hfa (Fluticasone Propionate) 12 Gm Aer.w.adap 12 Gm IH BID Allergies Allergies: Coded Allergies: aspirin (Verified Allergy, Intermediate, "messes with my stomach", 05/24/19) omega-3 acid ethyl esters (Verified Allergy, Intermediate, bleeding, 05/24/19) tramadol (Verified Allergy, Intermediate, 05/24/19) Labs Labs Laboratory Tests Test 05/30/19 10:40 05/30/19 10:57 Urine Collection Type Void Urine Color Yellow Urine Clarity Clear Urine pH 5.5 Urine Specific [place] 1.010 Urine Protein Negative mg/dL (NEG-TRACE) Urine Glucose (UA) Negative mg/dL (NEG) Urine Ketones (Stick) Negative mg/dL (NEG) Urine Blood Negative (NEG) Urine Nitrite Negative (NEG) Urine Bilirubin Negative (NEG) Urine Urobilinogen Dipstick 0.2 mg/dL (0.2 mg/dL) Urine Leukocyte Esterase Moderate (NEG) Urine RBC Occ /HPF (0-2) Urine WBC 5-10 /HPF (0-4) Urine Squamous Epithelial Cells Many /LPF Urine Bacteria Few /HPF (0-FEW) White Blood Count 9.7 x10^3/uL (4.0-11.0) Red Blood Count 3.88 x10^6/uL (3.50-5.40) Hemoglobin 12.2 g/dL (12.0-15.5) Hematocrit 36.2 % (36.0-47.0) Mean Corpuscular Volume 93 fL (79-100) Mean Corpuscular Hemoglobin 31 pg (25-35) Mean Corpuscular Hemoglobin Concent 34 g/dL (31-37) Red Cell Distribution Width 15.1 % (11.5-14.5) Platelet Count 432 x10^3/uL (140-400) Neutrophils (%) (Auto) 55 % (31-73) Lymphocytes (%) (Auto) 26 % (24-48) Monocytes (%) (Auto) 10 % (0-9) Eosinophils (%) (Auto) 9 % (0-3) Basophils (%) (Auto) 1 % (0-3) Neutrophils # (Auto) 5.3 x10^3/uL (1.8-7.7) Lymphocytes # (Auto) 2.5 x10^3/uL (1.0-4.8) Monocytes # (Auto) 1.0 x10^3/uL (0.0-1.1) Eosinophils # (Auto) 0.8 x10^3/uL (0.0-0.7) Basophils # (Auto) 0.1 x10^3/uL (0.0-0.2) Prothrombin Time 13.3 SEC (11.7-14.0) Prothromb Time International Ratio 1.0 (0.8-1.1) D-Dimer ([place]) 2.52 ug/mlFEU (0.00-0.50) Sodium Level 142 mmol/L (136-145) Potassium Level 4.0 mmol/L (3.5-5.1) Chloride Level 102 mmol/L (98-107) Carbon Dioxide Level 31 mmol/L (21-32) Anion Gap 9 (6-14) Blood Urea Nitrogen 6 mg/dL (7-20) Creatinine 0.7 mg/dL (0.6-1.0) Estimated GFR (Cockcroft-Gault) 84.0 BUN/Creatinine Ratio 9 (6-20) Glucose Level 116 mg/dL (70-99) Calcium Level 9.6 mg/dL (8.5-10.1) Magnesium Level 1.8 mg/dL (1.8-2.4) Total Bilirubin 0.3 mg/dL (0.2-1.0) Aspartate Amino Transf (AST/SGOT) 42 U/L (15-37) Alanine Aminotransferase (ALT/SGPT) 52 U/L (14-59) Alkaline Phosphatase 78 U/L (46-116) Creatine Kinase 83 U/L (26-192) Troponin I Quantitative < 0.017 ng/mL (0.000-0.055) YD-Umu-P-Type Natriuretic Peptide 670 pg/mL (0-124) Total Protein 7.6 g/dL (6.4-8.2) Albumin 3.7 g/dL (3.4-5.0) Albumin/Globulin Ratio 0.9 (1.0-1.7) Lipase 91 U/L (73-393) Laboratory Tests Test 05/30/19 10:40 05/30/19 10:57 Urine Collection Type Void Urine Color Yellow Urine Clarity Clear Urine pH 5.5 Urine Specific [place] 1.010 Urine Protein Negative mg/dL (NEG-TRACE) Urine Glucose (UA) Negative mg/dL (NEG) Urine Ketones (Stick) Negative mg/dL (NEG) Urine Blood Negative (NEG) Urine Nitrite Negative (NEG) Urine Bilirubin Negative (NEG) Urine Urobilinogen Dipstick 0.2 mg/dL (0.2 mg/dL) Urine Leukocyte Esterase Moderate (NEG) Urine RBC Occ /HPF (0-2) Urine WBC 5-10 /HPF (0-4) Urine Squamous Epithelial Cells Many /LPF Urine Bacteria Few /HPF (0-FEW) White Blood Count 9.7 x10^3/uL (4.0-11.0) Red Blood Count 3.88 x10^6/uL (3.50-5.40) Hemoglobin 12.2 g/dL (12.0-15.5) Hematocrit 36.2 % (36.0-47.0) Mean Corpuscular Volume 93 fL (79-100) Mean Corpuscular Hemoglobin 31 pg (25-35) Mean Corpuscular Hemoglobin Concent 34 g/dL (31-37) Red Cell Distribution Width 15.1 % (11.5-14.5) Platelet Count 432 x10^3/uL (140-400) Neutrophils (%) (Auto) 55 % (31-73) Lymphocytes (%) (Auto) 26 % (24-48) Monocytes (%) (Auto) 10 % (0-9) Eosinophils (%) (Auto) 9 % (0-3) Basophils (%) (Auto) 1 % (0-3) Neutrophils # (Auto) 5.3 x10^3/uL (1.8-7.7) Lymphocytes # (Auto) 2.5 x10^3/uL (1.0-4.8) Monocytes # (Auto) 1.0 x10^3/uL (0.0-1.1) Eosinophils # (Auto) 0.8 x10^3/uL (0.0-0.7) Basophils # (Auto) 0.1 x10^3/uL (0.0-0.2) Prothrombin Time 13.3 SEC (11.7-14.0) Prothromb Time International Ratio 1.0 (0.8-1.1) D-Dimer ([place]) 2.52 ug/mlFEU (0.00-0.50) Sodium Level 142 mmol/L (136-145) Potassium Level 4.0 mmol/L (3.5-5.1) Chloride Level 102 mmol/L (98-107) Carbon Dioxide Level 31 mmol/L (21-32) Anion Gap 9 (6-14) Blood Urea Nitrogen 6 mg/dL (7-20) Creatinine 0.7 mg/dL (0.6-1.0) Estimated GFR (Cockcroft-Gault) 84.0 BUN/Creatinine Ratio 9 (6-20) Glucose Level 116 mg/dL (70-99) Calcium Level 9.6 mg/dL (8.5-10.1) Magnesium Level 1.8 mg/dL (1.8-2.4) Total Bilirubin 0.3 mg/dL (0.2-1.0) Aspartate Amino Transf (AST/SGOT) 42 U/L (15-37) Alanine Aminotransferase (ALT/SGPT) 52 U/L (14-59) Alkaline Phosphatase 78 U/L (46-116) Creatine Kinase 83 U/L (26-192) Troponin I Quantitative < 0.017 ng/mL (0.000-0.055) ZT-Fug-U-Type Natriuretic Peptide 670 pg/mL (0-124) Total Protein 7.6 g/dL (6.4-8.2) Albumin 3.7 g/dL (3.4-5.0) Albumin/Globulin Ratio 0.9 (1.0-1.7) Lipase 91 U/L (73-393) Images Images CTPA - 1. Slightly suboptimal PE study due to contrast bolus timing. No central or segmental PE. Evaluation of distal subsegmental pulmonary arteries is slightly limited. 2. Bibasilar and lingular linear opacities likely scarring or subsegmental atelectasis. 3. Trace amount of multiple foci of gas in the abdomen likely related to recent surgery. If concern for viscus perforation is high consider further evaluation with CT abdomen pelvis with IV contrast. 4. Couple of nodules in the lungs. In a low risk patient no further follow-up needed. In a high-risk patient follow-up CT chest pain in 12 months. VTE Prophylaxis Ordered VTE Prophylaxis Devices: No VTE Pharmacological Prophylaxi: Yes Assessment/Plan Assessment/Plan A/P: Shortness of breath - with acute hypoxia, likely related to atelectasis, will g ruddy nebs, IS. Wean O2 as tolerated Chest pain - Negative for PE. Will trend troponins. Cardiology was consulted H/o renal cell ca - s/p nephrectomy Arthritis - tylenol for now Bipolar - cont meds Constipation - miralax COPD - nebs ordered. This may simply be a COPD exacerbation Diabetes-Type II - basal bolus plus insulin GERD - ppi High Cholesterol - cont statin Hypertension - cont home meds FEN - ADA diet PPX - lovenox FULL CODE Dispo - CVC for chest pain and hypoxia JALIL BHARDWAJ MD May 30, 2019 12:16
[2019-05-30] MEDS ORDERED: IOHEXOL 350 MG/ML 100 ML VIAL. ONE (12:55)
[2019-05-30] MEDS ORDERED: CONTRAST GIVEN. MC PRN (13:00)
[2019-05-30] MEDS ORDERED: IOHEXOL 350 MG/ML 100 ML VIAL. IV ONE (13:00)
[2019-05-30] MEDS ORDERED: fentaNYL PF VIAL 100 MCG/2 ML VIAL IV PRN (13:00)
[2019-05-30] MEDS ORDERED: IPRATRPIUM/ALBUTEROL 0.5/2.5MG 3 ML NEBU. NEB ONE (13:00)
[2019-05-30] MEDS ORDERED: ALBUTEROL SULFATE 2.5 MG/3 ML NEBU. ONE (13:03)
[2019-05-30] MEDS ORDERED: IPRATRPIUM/ALBUTEROL 0.5/2.5MG 3 ML NEBU. ONE (13:03)
--- NOTE | 2019-05-30 13:03 | RAD ---
PQRS Compliance statement: One or more of the following individualized dose reduction techniques were utilized for this examination: 1. Automated exposure control. 2. Adjustment of the mA and/or kV according to patient size. 3. Use of iterative reconstruction technique. Indication:Shortness of breath. Elevated d-dimer. TECHNIQUE: CT angiogram of the chest with IV contrast with multiplanar MIP reformats. COMPARISON:None FINDINGS: Slightly suboptimal PE study due to contrast bolus timing. No central or segmental filling defects in the pulmonary arteries. Evaluation of subsegmental pulmonary arteries is limited. Heart is normal in size. No pericardial or pleural effusion. No enlarged axillary, mediastinal or hilar adenopathy. Central airways are patent. Multiple bibasilar linear opacities. 3 mm nodule in the right upper lobe (series 8 image 50). Subpleural 3 mm nodule in the left lung apex (series 8 image 32). Hepatic steatosis. Otherwise, visualized sections through the spleen, pancreas, adrenals and upper kidneys within normal limits. Status post cholecystectomy. Multiple foci of free air is seen in the abdomen. No suspicious bony lesion. IMPRESSION: 1. Slightly suboptimal PE study due to contrast bolus timing. No central or segmental PE. Evaluation of distal subsegmental pulmonary arteries is slightly limited. 2. Bibasilar and lingular linear opacities likely scarring or subsegmental atelectasis. 3. Trace amount of multiple foci of gas in the abdomen likely related to recent surgery. If concern for viscus perforation is high consider further evaluation with CT abdomen pelvis with IV contrast. 4. Couple of nodules in the lungs. In a low risk patient no further follow-up needed. In a high-risk patient follow-up CT chest pain in 12 months. Electronically signed by: Gibran Smith DO (05/30/2019 1:00 PM) [id number]
[2019-05-30 13:45] VITALS: BP 118/71
--- NOTE | 2019-05-30 13:45 | NUR ---
Pt to room. Able to ambulate from cart to bed. Monitor shows sinus rhythm with PVC's and bigeminy. VSS. O2@2L/NC. Will continue to monitor.
[2019-05-30 14:00] VITALS: BP 126/62
[2019-05-30] MEDS ORDERED: POLYETHYLENE GLYCOL 3350 17 GM PACKET. PO PRN (16:30)
[2019-05-30] MEDS ORDERED: FAMOTIDINE 20 MG TABLET. PO PRN (16:30)
[2019-05-30] MEDS: INSULIN LISPRO 300 UNITS/3 ML VIAL. SQ SCH ×2 (16:30→20:38)
[2019-05-30] MEDS ORDERED: NON FORMULARY ITEM (Albuterol Sulfate (Proair Respiclick) 1 PUFF) IH PRN (16:30)
[2019-05-30] MEDS ORDERED: MORPHINE SULFATE 2 MG/ML VIAL. IV PRN (16:30)
[2019-05-30] MEDS ORDERED: DEXTROSE 50% 25 GM / 50ML DISP.SYRIN. IV PRN (16:30)
[2019-05-30] MEDS ORDERED: ACETAMINOPHEN 325 MG TABLET. PO PRN (16:30)
[2019-05-30] MEDS ORDERED: ONDANSETRON PF 4 MG/2 ML VIAL. IVP PRN (16:30)
[2019-05-30] MEDS: ENOXAPARIN 40 MG/0.4 ML SYRINGE. SQ SCH (16:53)
[2019-05-30] MEDS ORDERED: ALBUTEROL SULFATE 2.5 MG/3 ML NEBU. NEB PRN (17:00)
[2019-05-30 19:00] VITALS: BP 113/87
[2019-05-30] MEDS: IPRATRPIUM/ALBUTEROL 0.5/2.5MG 3 ML NEBU. NEB SCH (19:41)
[2019-05-30] MEDS: BUDESONIDE 0.5 MG/2 ML NEBU. NEB SCH (19:41)
[2019-05-30] MEDS: ATORVASTATIN CALCIUM 40 MG TABLET. PO SCH (20:35)
[2019-05-30] MEDS: GABAPENTIN 300 MG CAPSULE. PO SCH (20:35)
[2019-05-30] MEDS: CETIRIZINE HCL 10 MG TABLET. PO SCH (20:35)
[2019-05-30] MEDS: CYCLOBENZAPRINE 10 MG TABLET. PO SCH (20:35)
[2019-05-30] MEDS: INSULIN GLARGINE SYRINGE. SQ SCH (20:39)
[2019-05-30] MEDS ORDERED: FLUTICASONE PROPIONATE IH SCH (21:00)
[2019-05-30] MEDS ORDERED: KETOTIFEN FUMARATE 0.025% OPHTH SOLUTION BOTTLE. OU PRN (21:00)
[2019-05-30 23:00] VITALS: BP 114/70
[2019-05-31 03:00] VITALS: BP 135/55
--- NOTE | 2019-05-31 06:25 | EKG ---
[facility] [address] [place] [address] Test Date: 2019-05-30 Test Time: 10:22:47 Pat Name: TYLOR WILL Department: Room: 104 1 Gender: F Special Needs Librarian: : [id number] Requested By: OSVALDO CAPELLAN Order Number: [id number] Reading MD: Ed Mann MD Measurements Intervals [place] Rate: 87 P: 26 LA: 148 QRS: -19 QRSD: 86 T: 12 QT: 370 QTc: 451 Interpretive Statements SINUS RHYTHM Electronically Signed On 06-08-2019 9:57:58 CDT by Ed Mann MD
[2019-05-31 07:00] VITALS: BP 145/70
[2019-05-31] MEDS: INSULIN LISPRO 300 UNITS/3 ML VIAL. SQ SCH ×4 (07:30→20:46)
[2019-05-31] MEDS: OXYBUTYNIN CHLORIDE 5 MG TABLET PO SCH (08:52)
[2019-05-31] MEDS: ASPIRIN ENTERIC COATED 81 MG TABLET.DR. PO SCH (08:52)
[2019-05-31] MEDS: LISINOPRIL 10 MG TABLET PO SCH (08:53)
[2019-05-31] MEDS: CYCLOBENZAPRINE 10 MG TABLET. PO SCH ×3 (08:53→20:57)
[2019-05-31] MEDS: GABAPENTIN 300 MG CAPSULE. PO SCH ×3 (08:53→20:58)
[2019-05-31] MEDS: hydroCHLOROthiazide 12.5 MG CAPSULE PO SCH (08:53)
[2019-05-31] MEDS ORDERED: NON FORMULARY ITEM (Tiotropium Bromide (Spiriva) 2 INH) IH SCH (09:00)
[2019-05-31] MEDS: BUDESONIDE 0.5 MG/2 ML NEBU. NEB SCH ×2 (09:00→20:00)
[2019-05-31] MEDS: IPRATRPIUM/ALBUTEROL 0.5/2.5MG 3 ML NEBU. NEB SCH ×4 (09:00→20:00)
--- NOTE | 2019-05-31 09:52 | NUR ---
Patient's friend is taking patient's keys home with him.
--- NOTE | 2019-05-31 10:24 | CONS ---
DATE OF CONSULTATION: 05/31/2019 PULMONARY CONSULTATION ATTENDING PHYSICIAN: Dr. Torres. REASON FOR CONSULTATION: Dyspnea. HISTORY OF PRESENT ILLNESS: The patient is a 63-year-old obese patient with a BMI of 38. The patient also has 30 years of tobacco use, but she quit in 1999. She had a lap ayla done about 6 days ago. She presented to the hospital with complaint of some mild shortness of breath. She also had some nonspecific chest pain. She has some mild abdominal discomfort as well. The patient had a mild dry cough, but no chills. The patient underwent CT angiogram, which was reviewed by me, somewhat suboptimal contrast, but there was no central pulmonary emboli. There was some lingular atelectasis, likely related to the recent surgery. There was also trace amount of multiple foci of gas in the abdomen, could be related to surgery versus viscus perforation. There was a 3 mm nodule in the right upper lobe and a 3 mm nodule in the left lung apex. She is on room air. She does not appear to be in any obvious respiratory distress. I have been asked to see her for further evaluation. No headaches. No nausea or vomiting. No leg edema. PAST MEDICAL HISTORY: Significant for hypertension, history of carpal tunnel syndrome, peripheral neuropathy likely history of COPD, unknown FEV1; history of low back pain. PAST SURGICAL HISTORY: Cholecystectomy, cataract removal, colon resection and right nephrectomy for cancer. FAMILY HISTORY: Diabetes and hypertension. SOCIAL HISTORY: Quit tobacco in 1999. Before that, smoked for 30 years. REVIEW OF SYSTEMS: Twelve-point system obtained. Pertinent positives discussed in my history of present illness, otherwise noncontributory. All systems that were negative were reviewed as well. MEDICATIONS: Reviewed as listed in the MRAD including nebulizers as well as Lovenox for DVT prophylaxis. PHYSICAL EXAMINATION: VITAL SIGNS: On examination vital signs were reviewed. Afebrile, pulse ox 97% on room air. NECK: Supple. LUNGS: Clear. CARDIOVASCULAR: With a regular rate. ABDOMEN: Soft, mildly tender in the surgical site area. EXTREMITIES: With no pitting edema. LABORATORY DATA: Reviewed. Her white cell count 9.7, hemoglobin 12.2, platelets are 432. BUN and creatinine are normal. IMPRESSION: 1. Dyspnea in a patient who is status post laparoscopic cholecystectomy about 6 days ago. There is no evidence of pulmonary embolism. She has smoked cigarettes, but quit in 1999 and does not appear to have any COPD exacerbation. The etiology of dyspnea could be related to abdominal discomfort. There was some concern about foci of gases in the abdomen, which could be postop versus perforation and needs further evaluation. 2. A 30 years of tobacco use. Likely, COPD with clinically compensated. 3. Underlying obesity. RECOMMENDATIONS: 1. P.r.n. oxygen. 2. Continue bronchodilators. 3. Lovenox for DVT prophylaxis. 4. Stable pulmonary status with no evidence of pulmonary embolism. 5. Discussed with RN. I would recommend CT abdomen and pelvis with contrast to rule out any perforation. JULIET COPE MD DR: TOO/tera JOB#: [id number] / [id number]
[2019-05-31 11:00] VITALS: BP 123/46
[2019-05-31] MEDS ORDERED: SIMETHICONE 80 MG TAB.CHEW PO PRN (11:15)
--- NOTE | 2019-05-31 11:15 | PDOC ---
PROGRESS NOTES Chief Complaint Chief Complaint Shortness of breath - with acute hypoxia, likely related to atelectasis, will give nebs, IS. Wean O2 as tolerated Chest pain - Negative for PE. Will trend troponins. Cardiology was consulted H/o renal cell ca - s/p nephrectomy Arthritis - tylenol for now Bipolar - cont meds Constipation - miralax COPD - nebs ordered. This may simply be a COPD exacerbation Diabetes-Type II - basal bolus plus insulin GERD - ppi High Cholesterol - cont statin Hypertension - cont home meds History of Present Illness History of Present Illness transfer out of ICU to floor PT and OT symptom management FEN - ADA diet Vitals Vitals Vital Signs Date Time Temp Pulse Resp B/P (MAP) Pulse Ox O2 Delivery O2 Flow Rate FiO2 05/31/19 09:02 97 Room Air 05/31/19 08:53 94 145/70 05/31/19 07:00 98.8 18 98.8 05/31/19 03:00 2.0 Labs LABS Laboratory Tests Test 05/30/19 16:59 05/30/19 17:50 05/30/19 20:38 05/30/19 20:45 Glucose (Fingerstick) 113 mg/dL (70-99) 145 mg/dL (70-99) Troponin I Quantitative < 0.017 ng/mL (0.000-0.055) < 0.017 ng/mL (0.000-0.055) Test 05/31/19 08:56 Glucose (Fingerstick) 109 mg/dL (70-99) Assessment and Plan Assessmemt and Plan Problems Medical Problems: (1) Chest pain Status: Acute (2) Elevated d-dimer Status: Acute (3) Hypoxia Status: Acute (4) Shortness of breath Status: Acute Comment Review of Relevant I have reviewed the following items yecenia (where applicable) has been applied. Labs Laboratory Tests Test 05/30/19 10:40 05/30/19 10:57 05/30/19 16:59 05/30/19 17:50 Urine Collection Type Void Urine Color Yellow Urine Clarity Clear Urine pH 5.5 Urine Specific [place] 1.010 Urine Protein Negative mg/dL (NEG-TRACE) Urine Glucose (UA) Negative mg/dL (NEG) Urine Ketones (Stick) Negative mg/dL (NEG) Urine Blood Negative (NEG) Urine Nitrite Negative (NEG) Urine Bilirubin Negative (NEG) Urine Urobilinogen Dipstick 0.2 mg/dL (0.2 mg/dL) Urine Leukocyte Esterase Moderate (NEG) Urine RBC Occ /HPF (0-2) Urine WBC 5-10 /HPF (0-4) Urine Squamous Epithelial Cells Many /LPF Urine Bacteria Few /HPF (0-FEW) White Blood Count 9.7 x10^3/uL (4.0-11.0) Red Blood Count 3.88 x10^6/uL (3.50-5.40) Hemoglobin 12.2 g/dL (12.0-15.5) Hematocrit 36.2 % (36.0-47.0) Mean Corpuscular Volume 93 fL (79-100) Mean Corpuscular Hemoglobin 31 pg (25-35) Mean Corpuscular Hemoglobin Concent 34 g/dL (31-37) Red Cell Distribution Width 15.1 % (11.5-14.5) Platelet Count 432 x10^3/uL (140-400) Neutrophils (%) (Auto) 55 % (31-73) Lymphocytes (%) (Auto) 26 % (24-48) Monocytes (%) (Auto) 10 % (0-9) Eosinophils (%) (Auto) 9 % (0-3) Basophils (%) (Auto) 1 % (0-3) Neutrophils # (Auto) 5.3 x10^3/uL (1.8-7.7) Lymphocytes # (Auto) 2.5 x10^3/uL (1.0-4.8) Monocytes # (Auto) 1.0 x10^3/uL (0.0-1.1) Eosinophils # (Auto) 0.8 x10^3/uL (0.0-0.7) Basophils # (Auto) 0.1 x10^3/uL (0.0-0.2) Prothrombin Time 13.3 SEC (11.7-14.0) Prothromb Time International Ratio 1.0 (0.8-1.1) D-Dimer (Sintia) 2.52 ug/mlFEU (0.00-0.50) Sodium Level 142 mmol/L (136-145) Potassium Level 4.0 mmol/L (3.5-5.1) Chloride Level 102 mmol/L (98-107) Carbon Dioxide Level 31 mmol/L (21-32) Anion Gap 9 (6-14) Blood Urea Nitrogen 6 mg/dL (7-20) Creatinine 0.7 mg/dL (0.6-1.0) Estimated GFR (Cockcroft-Gault) 84.0 BUN/Creatinine Ratio 9 (6-20) Glucose Level 116 mg/dL (70-99) Calcium Level 9.6 mg/dL (8.5-10.1) Magnesium Level 1.8 mg/dL (1.8-2.4) Total Bilirubin 0.3 mg/dL (0.2-1.0) Aspartate Amino Transf (AST/SGOT) 42 U/L (15-37) Alanine Aminotransferase (ALT/SGPT) 52 U/L (14-59) Alkaline Phosphatase 78 U/L (46-116) Creatine Kinase 83 U/L (26-192) Troponin I Quantitative < 0.017 ng/mL (0.000-0.055) < 0.017 ng/mL (0.000-0.055) MT-Ywy-I-Type Natriuretic Peptide 670 pg/mL (0-124) Total Protein 7.6 g/dL (6.4-8.2) Albumin 3.7 g/dL (3.4-5.0) Albumin/Globulin Ratio 0.9 (1.0-1.7) Lipase 91 U/L (73-393) Glucose (Fingerstick) 113 mg/dL (70-99) Test 05/30/19 20:38 05/30/19 20:45 05/31/19 08:56 Glucose (Fingerstick) 145 mg/dL (70-99) 109 mg/dL (70-99) Troponin I Quantitative < 0.017 ng/mL (0.000-0.055) Laboratory Tests Test 05/30/19 16:59 05/30/19 17:50 05/30/19 20:38 05/30/19 20:45 Glucose (Fingerstick) 113 mg/dL (70-99) 145 mg/dL (70-99) Troponin I Quantitative < 0.017 ng/mL (0.000-0.055) < 0.017 ng/mL (0.000-0.055) Test 05/31/19 08:56 Glucose (Fingerstick) 109 mg/dL (70-99) Medications Current Medications Fentanyl Citrate (Fentanyl 2ml Vial) 50 mcg 1X ONCE IVP Last administered on 05/30/19at 11:19; Start 05/30/19 at 11:15; Stop 05/30/19 at 11:16; Status DC Iohexol (Omnipaque 350 Mg/ml) 100 ml 1X ONCE IV Last administered on 05/30/19at 12:57; Start 05/30/19 at 13:00; Stop 05/30/19 at 13:05; Status DC Info (CONTRAST GIVEN -- Rx MONITORING) 1 each PRN DAILY PRN MC SEE COMMENTS; Start 05/30/19 at 13:00; Stop 06/01/19 at 12:59 Iohexol (Omnipaque 350 Mg/ml) 100 ml STK-MED ONCE .ROUTE ; Start 05/30/19 at 12:55; Stop 05/30/19 at 12:56; Status DC Albuterol/ Ipratropium (Duoneb) 3 ml 1X ONCE NEB ; Start 05/30/19 at 13:00; Stop 05/30/19 at 13:05; Status DC Fentanyl Citrate (Fentanyl 2ml Vial) 50 mcg PRN Q2HR PRN IV PAIN Last administered on 05/30/19at 13:27; Start 05/30/19 at 13:00; Stop 05/30/19 at 16:00; Status DC Albuterol Sulfate (Ventolin Neb Soln) 2.5 mg STK-MED ONCE .ROUTE ; Start 05/30/19 at 13:03; Stop 05/30/19 at 13:03; Status DC Albuterol/ Ipratropium (Duoneb) 3 ml STK-MED ONCE .ROUTE ; Start 05/30/19 at 13:03; Stop 05/30/19 at 13:05; Status DC Aspirin (Ecotrin) 81 mg DAILY PO Last administered on 05/31/19at 08:52; Start 05/31/19 at 09:00 Atorvastatin Calcium (Lipitor) 40 mg QHS PO Last administered on 05/30/19at 20:35; Start 05/30/19 at 21:00 Cetirizine HCl (ZyrTEC) 10 mg QHS PO Last administered on 05/30/19at 20:35; Start 05/30/19 at 21:00 Famotidine (Pepcid) 20 mg PRN BID PRN PO STOMACH PROBLEM; Start 05/30/19 at 16:30 Gabapentin (Neurontin) 300 mg TID PO Last administered on 05/31/19at 08:53; Start 05/30/19 at 21:00 Non-Formulary Medication (Albuterol Sulfate (Proair Respiclick)) 1 puff PRN Q6HRS PRN IH SHORTNESS OF BREATH; Start 05/30/19 at 16:30; Status UNV Cyclobenzaprine HCl (Flexeril) 10 mg TID PO Last administered on 05/31/19 08:53; Start 05/30/19 at 21:00 Non-Formulary Medication (Fluticasone Propionate (Flovent 220MCG Hfa)) 12 gm BID IH ; Start 05/30/19 at 21:00; Status UNV Lisinopril (Prinivil) 10 mg DAILY PO Last administered on 05/31/19at 08:53; Start 05/31/19 at 09:00 Metformin HCl (Glucophage Xr) 1,500 mg DAILYWSUP PO ; Start 06/01/19 at 17:00 Ketotifen Fumarate (Zaditor) 1 drop PRN BID PRN OU EYE ALLERGIES; Start 05/30/19 at 21:00 Oxybutynin Chloride (Ditropan) 5 mg DAILY PO Last administered on 05/31/19at 08:52; Start 05/31/19 at 09:00 Non-Formulary Medication (Tiotropium [place] (Spiriva)) 2 inh DAILY IH ; Start 05/31/19 at 09:00; Status UNV Polyethylene Glycol (miraLAX PACKET) 17 gm PRN DAILY PRN PO CONSTIPATION; Start 05/30/19 at 16:30 Morphine Sulfate (Morphine Sulfate) 2 mg PRN Q2HR PRN IV MODERATE TO SEVERE PAIN Last administered on 05/30/19at 16:53; Start 05/30/19 at 16:30 Enoxaparin Sodium (Lovenox 40mg Syringe) 40 mg Q24H SQ Last administered on 05/30/19at 16:53; Start 05/30/19 at 17:00 Acetaminophen (Tylenol) 650 mg PRN Q6HRS PRN PO MILD PAIN / TEMP; Start 05/30/19 at 16:30 Ondansetron HCl (Zofran) 4 mg PRN Q6HRS PRN IVP NAUSEA/VOMITING; Start 05/30/19 at 16:30 Insulin Glargine (Lantus Syringe) 5 unit QHS SQ Last administered on 05/30/19at 20:39; Start 05/30/19 at 21:00 Insulin Human Lispro (HumaLOG) 0-5 UNITS TIDACHC SQ ; Start 05/30/19 at 16:30 Dextrose (Dextrose 50%-Water Syringe) 12.5 gm PRN Q15MIN PRN IV SEE COMMENTS; Start 05/30/19 at 16:30 Albuterol/ Ipratropium (Duoneb) 3 ml RTQID NEB Last administered on 05/31/19at 09:00; Start 05/30/19 at 17:00 Budesonide (Pulmicort) 0.5 mg RTBID NEB Last administered on 05/31/19at 09:00; Start 05/30/19 at 20:00 Albuterol Sulfate (Ventolin Neb Soln) 2.5 mg PRN Q6HRS PRN NEB SHORTNESS OF BREATH; Start 05/30/19 at 17:00 Hydrochlorothiazide (Microzide) 12.5 mg DAILY PO ; Start 05/31/19 at 09:00 Simethicone (Gas-X) 80 mg PRN AFTMEALHC PRN PO GAS / BLOATING; Start 05/31/19 at 11:15 Active Scripts Active Proair Respiclick (Albuterol Sulfate) 90 Mcg Aer.pow.ba 1 Puff IH PRN Q6HRS PRN Reported [Beano] PO PRN PRN Pepcid (Famotidine) 20 Mg Tablet 20 Mg PO PRN PRN Ditropan Xl (Oxybutynin Chloride) 5 Mg Tab.er.24 1 Tab PO DAILY Aspir 81 (Aspirin) 81 Mg Tablet.dr 1 Tab PO DAILY Zyrtec (Cetirizine Hcl) 10 Mg Tablet 1 Tab PO QHS Gabapentin (Gabapentin) 300 Mg Capsule 300 Mg PO TID Baclofen 10 Mg Tablet 1 Tab PO TID Lisinopril-Hctz 10-12.5 Mg Tab (Lisinopril/Hydrochlorothiazide) 1 Each Tablet 1 Tab PO DAILY Colon Herbal Cleanser (Herbal Drugs) 1 Each Capsule 1 Each PO Freestyle Lite Strips (Blood Sugar Diagnostic) 1 Each Strip 1 Each MC Atorvastatin Calcium 40 Mg Tablet 40 Mg PO DAILY Spiriva (Tiotropium [place]) 18 Mcg Cap.w.dev 2 Inh IH DAILY Meloxicam 15 Mg Tablet 15 Mg PO DAILY Polyethylene Glycol (Polyethylene Glycol 8000) 500 Gm Powder 500 Gm MC Metformin Hcl Er (Metformin Hcl) 750 Mg Tab.er.24h 1,500 Mg PO DAILYWSUP Patanol (Olopatadine Hcl) 5 Ml Drops 5 Ml OP PRN PRN Flovent 220MCG Hfa (Fluticasone Propionate) 12 Gm Aer.w.adap 12 Gm IH BID Vitals/I & O Vital Sign - Last 24 Hours 05/30/19 05/30/19 05/30/19 05/30/19 11:30 12:00 12:30 13:06 Pulse 86 82 86 Resp 24 22 22 B/P (MAP) 129/61 (83) 130/62 (84) 127/58 (81) Pulse Ox 96 94 95 94 O2 Delivery Nasal Cannula Nasal Cannula Nasal Cannula Nasal Cannula O2 Flow Rate 2.0 2.0 2.0 1.0 05/30/19 05/30/19 05/30/19 05/30/19 13:11 13:45 14:00 14:00 Temp 98.4 98.4 Pulse 82 94 94 Resp 22 20 20 B/P (MAP) 131/71 (91) 118/71 (87) 126/62 (83) Pulse Ox 95 94 94 O2 Delivery Nasal Cannula Nasal Cannula Nasal Cannula Nasal Cannula O2 Flow Rate 2.0 2.0 2.0 2.0 05/30/19 05/30/19 05/30/19 05/30/19 15:29 16:53 17:30 19:00 Pulse 85 Resp 20 24 24 20 B/P (MAP) 113/87 (96) Pulse Ox 94 94 94 O2 Delivery Nasal Cannula Nasal Cannula Nasal Cannula Nasal Cannula O2 Flow Rate 2.0 2.0 2.0 2.0 05/30/19 05/30/19 05/30/19 05/31/19 19:40 20:00 23:00 03:00 Temp 98.4 98.7 98.4 98.7 Pulse 95 92 Resp 20 18 B/P (MAP) 114/70 (85) 135/55 (81) Pulse Ox 95 94 94 O2 Delivery Nasal Cannula Nasal Cannula Nasal Cannula Nasal Cannula O2 Flow Rate 2.0 2.0 2.0 2.0 05/31/19 05/31/19 05/31/19 05/31/19 07:00 08:00 08:53 09:02 Temp 98.8 98.8 Pulse 88 94 Resp 18 B/P (MAP) 145/70 (95) 145/70 Pulse Ox 97 97 O2 Delivery Room Air Room Air Room Air Intake and Output 05/30/19 05/30/19 05/31/19 14:59 22:59 06:59 Intake Total 350 ml 200 ml Output Total 500 ml 0 ml Balance -150 ml 200 ml SHIVAM CAMPBELL MD May 31, 2019 11:15
[2019-05-31] MEDS ORDERED: IOHEXOL 300 MG/ML 100ML VIAL. IV ONE (12:15)
[2019-05-31] MEDS ORDERED: CONTRAST GIVEN. MC PRN (12:30)
--- NOTE | 2019-05-31 14:06 | RAD ---
PQRS Compliance Statement: One or more of the following individualized dose reduction techniques were utilized for this examination: 1. Automated exposure control 2. Adjustment of the mA and/or kV according to patient size 3. Use of iterative reconstruction technique CT abdomen/pelvis with contrast 05/31/2019 12:08 PM INDICATION: Postoperative cholecystectomy. COMPARISON: CT abdomen/pelvis 03/20/2019 TECHNIQUE: Multiple axial CT images of the abdomen and pelvis were obtained after the intravenous administration of 75 mL Omnipaque 350. Coronal and sagittal reformats are provided. FINDINGS: There is bibasilar subsegmental atelectasis. Heart size is within normal limits. There is diffuse hepatic steatosis. There is focal hypoattenuation along the fissure of the ligamentum teres suggestive of focal fatty sparing. Spleen, bilateral adrenal glands and pancreas are normal in appearance. Gallbladder surgically absent. Fat stranding is noted in the gallbladder fossa and may correspond with postoperative changes. Abdominal aorta is normal in course and caliber. No pathologically enlarged lymph nodes are identified in abdomen and pelvis. Tiny foci of free intraperitoneal air are identified in the left upper quadrant. Small and large bowel are normal in caliber. There is no evidence for bowel obstruction. There are no pericolonic inflammatory changes. A normal, nondilated appendix is visualized without adjacent inflammatory changes. The kidneys enhance symmetrically. There is no suspicious renal mass. There is no hydronephrosis. There are no suspected calculi within the kidneys, ureters or urinary bladder. Cortical irregularity involving the superior pole right kidney may reflect remote vascular or infectious insult. Urinary bladder contains contrast without mural nodularity. Uterus is normal in appearance. There is a cystic lesion in the left adnexa measuring 6.8 x 4.4 cm, stable from the prior examination. No suspicious osseous normality is identified. IMPRESSION: 1. Post surgical changes are identified from cholecystectomy with minimal inflammatory changes noted in the gallbladder bed. No significant fluid collection is identified to suggest bile leak. 2. Tiny volume pneumoperitoneum may be postoperative in etiology. Correlate with time line from surgery. 3. Cystic left adnexal mass measures 6.8 x 4.4 cm, indeterminate. Further characterization with pelvic ultrasound or MRI may be of benefit if not already previously performed. Electronically signed by: Sia Duarte MD (05/31/2019 2:02 PM) [facility]
[2019-05-31 15:16] VITALS: BP 106/64
--- NOTE | 2019-05-31 16:36 | NUR ---
SS following for discharge planning. SS reviewed pt chart. Pt is from home and is currently on room air. PT/OT recommended home with assistance. SS will continue to follow for discharge planning.
[2019-05-31] MEDS: ENOXAPARIN 40 MG/0.4 ML SYRINGE. SQ SCH (16:54)
--- NOTE | 2019-05-31 18:45 | NUR ---
report received from TOÑO Choi. pt transferred to room 580 via w/c.
[2019-05-31 19:00] VITALS: BP 122/55
[2019-05-31] MEDS: CETIRIZINE HCL 10 MG TABLET. PO SCH (20:57)
[2019-05-31] MEDS: ATORVASTATIN CALCIUM 40 MG TABLET. PO SCH (20:57)
[2019-05-31] MEDS: INSULIN GLARGINE SYRINGE. SQ SCH (21:02)
[2019-05-31 23:00] VITALS: BP 107/49
[2019-06-01 03:00] VITALS: BP 107/45
[2019-06-01 07:00] VITALS: BP 119/62
[2019-06-01] MEDS: BUDESONIDE 0.5 MG/2 ML NEBU. NEB SCH ×2 (07:23→20:09)
[2019-06-01] MEDS: IPRATRPIUM/ALBUTEROL 0.5/2.5MG 3 ML NEBU. NEB SCH ×4 (07:23→20:09)
[2019-06-01] MEDS: INSULIN LISPRO 300 UNITS/3 ML VIAL. SQ SCH ×4 (07:30→21:00)
--- NOTE | 2019-06-01 07:57 | PDOC ---
PROGRESS NOTES Chief Complaint Chief Complaint IMPRESSION Shortness of breath - with acute hypoxia, likely related to atelectasis, will give nebs, IS. Wean O2 as tolerated REMOTE TOBACCO ABUSE Chest pain - Negative for PE. Will trend troponins. Cardiology was consulted H/o renal cell ca - s/p nephrectomy Arthritis - tylenol for now Bipolar - cont meds Constipation - miralax COPD - nebs ordered. // COPD exacerbation Diabetes-Type II - basal bolus plus insulin GERD - ppi High Cholesterol - cont statin Hypertension 26 MIN PT EXAM, CHART REVIEW, > 50% OF TIME SPENT WITH EXAM, CHART REVIEW, PT CARE COORDINATION- History of Present Illness History of Present Illness Patient had uneventful laparoscopic cholecystectomy 7 days ago and discharged home the same day. Patient complaining of episodes of shortness of breath chest pain with exertion and supine position with episodes of productive cough with yellow sputum and episodes of chills. Patient states the chest pain is a pressure pain and rated her pain 7/10 with radiation to bilateral rib cage associated with shortness of breath and dizziness without syncope. Patient complaining of generalized weakness transfer out of ICU to floor PT and OT symptom management FEN - ADA diet Vitals Vitals Vital Signs Date Time Temp Pulse Resp B/P (MAP) Pulse Ox O2 Delivery O2 Flow Rate FiO2 06/01/19 07:25 95 Room Air 06/01/19 03:00 97.7 89 18 107/45 (65) 97.7 Physical Exam Physical Exam Abdomen: Bowel sounds normal, soft, no tenderness, no masses, no pulsatile masses. [] Skin: Warm, dry, no erythema, no rash. [] Back: No tenderness, no CVA tenderness. [] Extremities: No tenderness, no cyanosis, no clubbing, ROM intact, no edema. [] Neurologic: Alert and oriented X 3, no focal deficits noted. [] Psychologic: Affect normal, judgement normal, mood normal. [] General: Alert, Oriented X3, Cooperative, No acute distress Heart: Regular rate Lungs: Crackles Abdomen: Normal bowel sounds, Soft Extremities: No cyanosis Skin: No significant lesion Labs LABS Laboratory Tests Test 05/31/19 08:56 05/31/19 12:50 05/31/19 16:56 05/31/19 20:22 Glucose (Fingerstick) 109 mg/dL (70-99) 115 mg/dL (70-99) 124 mg/dL (70-99) 124 mg/dL (70-99) Assessment and Plan Assessmemt and Plan Problems Medical Problems: (1) Chest pain Status: Acute (2) Elevated d-dimer Status: Acute (3) Hypoxia Status: Acute (4) Shortness of breath Status: Acute Comment Review of Relevant I have reviewed the following items yecenia (where applicable) has been applied. Labs Laboratory Tests Test 05/30/19 10:40 05/30/19 10:57 05/30/19 16:59 05/30/19 17:50 Urine Collection Type Void Urine Color Yellow Urine Clarity Clear Urine pH 5.5 Urine Specific [place] 1.010 Urine Protein Negative mg/dL (NEG-TRACE) Urine Glucose (UA) Negative mg/dL (NEG) Urine Ketones (Stick) Negative mg/dL (NEG) Urine Blood Negative (NEG) Urine Nitrite Negative (NEG) Urine Bilirubin Negative (NEG) Urine Urobilinogen Dipstick 0.2 mg/dL (0.2 mg/dL) Urine Leukocyte Esterase Moderate (NEG) Urine RBC Occ /HPF (0-2) Urine WBC 5-10 /HPF (0-4) Urine Squamous Epithelial Cells Many /LPF Urine Bacteria Few /HPF (0-FEW) White Blood Count 9.7 x10^3/uL (4.0-11.0) Red Blood Count 3.88 x10^6/uL (3.50-5.40) Hemoglobin 12.2 g/dL (12.0-15.5) Hematocrit 36.2 % (36.0-47.0) Mean Corpuscular Volume 93 fL (79-100) Mean Corpuscular Hemoglobin 31 pg (25-35) Mean Corpuscular Hemoglobin Concent 34 g/dL (31-37) Red Cell Distribution Width 15.1 % (11.5-14.5) Platelet Count 432 x10^3/uL (140-400) Neutrophils (%) (Auto) 55 % (31-73) Lymphocytes (%) (Auto) 26 % (24-48) Monocytes (%) (Auto) 10 % (0-9) Eosinophils (%) (Auto) 9 % (0-3) Basophils (%) (Auto) 1 % (0-3) Neutrophils # (Auto) 5.3 x10^3/uL (1.8-7.7) Lymphocytes # (Auto) 2.5 x10^3/uL (1.0-4.8) Monocytes # (Auto) 1.0 x10^3/uL (0.0-1.1) Eosinophils # (Auto) 0.8 x10^3/uL (0.0-0.7) Basophils # (Auto) 0.1 x10^3/uL (0.0-0.2) Prothrombin Time 13.3 SEC (11.7-14.0) Prothromb Time International Ratio 1.0 (0.8-1.1) D-Dimer (Sintia) 2.52 ug/mlFEU (0.00-0.50) Sodium Level 142 mmol/L (136-145) Potassium Level 4.0 mmol/L (3.5-5.1) Chloride Level 102 mmol/L (98-107) Carbon Dioxide Level 31 mmol/L (21-32) Anion Gap 9 (6-14) Blood Urea Nitrogen 6 mg/dL (7-20) Creatinine 0.7 mg/dL (0.6-1.0) Estimated GFR (Cockcroft-Gault) 84.0 BUN/Creatinine Ratio 9 (6-20) Glucose Level 116 mg/dL (70-99) Calcium Level 9.6 mg/dL (8.5-10.1) Magnesium Level 1.8 mg/dL (1.8-2.4) Total Bilirubin 0.3 mg/dL (0.2-1.0) Aspartate Amino Transf (AST/SGOT) 42 U/L (15-37) Alanine Aminotransferase (ALT/SGPT) 52 U/L (14-59) Alkaline Phosphatase 78 U/L (46-116) Creatine Kinase 83 U/L (26-192) Troponin I Quantitative < 0.017 ng/mL (0.000-0.055) < 0.017 ng/mL (0.000-0.055) GU-Jfk-D-Type Natriuretic Peptide 670 pg/mL (0-124) Total Protein 7.6 g/dL (6.4-8.2) Albumin 3.7 g/dL (3.4-5.0) Albumin/Globulin Ratio 0.9 (1.0-1.7) Lipase 91 U/L (73-393) Glucose (Fingerstick) 113 mg/dL (70-99) Test 05/30/19 20:38 05/30/19 20:45 05/31/19 08:56 05/31/19 12:50 Glucose (Fingerstick) 145 mg/dL (70-99) 109 mg/dL (70-99) 115 mg/dL (70-99) Troponin I Quantitative < 0.017 ng/mL (0.000-0.055) Test 05/31/19 16:56 05/31/19 20:22 Glucose (Fingerstick) 124 mg/dL (70-99) 124 mg/dL (70-99) Laboratory Tests Test 05/31/19 08:56 05/31/19 12:50 05/31/19 16:56 05/31/19 20:22 Glucose (Fingerstick) 109 mg/dL (70-99) 115 mg/dL (70-99) 124 mg/dL (70-99) 124 mg/dL (70-99) Medications Current Medications Fentanyl Citrate (Fentanyl 2ml Vial) 50 mcg 1X ONCE IVP Last administered on 05/30/19at 11:19; Start 05/30/19 at 11:15; Stop 05/30/19 at 11:16; Status DC Iohexol (Omnipaque 350 Mg/ml) 100 ml 1X ONCE IV Last administered on 05/30/19at 12:57; Start 05/30/19 at 13:00; Stop 05/30/19 at 13:05; Status DC Info (CONTRAST GIVEN -- Rx MONITORING) 1 each PRN DAILY PRN MC SEE COMMENTS; Start 05/30/19 at 13:00; Stop 05/31/19 at 12:16; Status DC Iohexol (Omnipaque 350 Mg/ml) 100 ml STK-MED ONCE .ROUTE ; Start 05/30/19 at 12:55; Stop 05/30/19 at 12:56; Status DC Albuterol/ Ipratropium (Duoneb) 3 ml 1X ONCE NEB ; Start 05/30/19 at 13:00; Stop 05/30/19 at 13:05; Status DC Fentanyl Citrate (Fentanyl 2ml Vial) 50 mcg PRN Q2HR PRN IV PAIN Last administered on 05/30/19at 13:27; Start 05/30/19 at 13:00; Stop 05/30/19 at 16:00; Status DC Albuterol Sulfate (Ventolin Neb Soln) 2.5 mg STK-MED ONCE .ROUTE ; Start 05/30/19 at 13:03; Stop 05/30/19 at 13:03; Status DC Albuterol/ Ipratropium (Duoneb) 3 ml STK-MED ONCE .ROUTE ; Start 05/30/19 at 13:03; Stop 05/30/19 at 13:05; Status DC Aspirin (Ecotrin) 81 mg DAILY PO Last administered on 05/31/19 08:52; Start 05/31/19 at 09:00 Atorvastatin Calcium (Lipitor) 40 mg QHS PO Last administered on 05/31/19 20:57; Start 05/30/19 at 21:00 Cetirizine HCl (ZyrTEC) 10 mg QHS PO Last administered on 05/31/19 20:57; Start 05/30/19 at 21:00 Famotidine (Pepcid) 20 mg PRN BID PRN PO STOMACH PROBLEM; Start 05/30/19 at 16:30 Gabapentin (Neurontin) 300 mg TID PO Last administered on 05/31/19at 20:58; Start 05/30/19 at 21:00 Non-Formulary Medication (Albuterol Sulfate (Proair Respiclick)) 1 puff PRN Q6HRS PRN IH SHORTNESS OF BREATH; Start 05/30/19 at 16:30; Status UNV Cyclobenzaprine HCl (Flexeril) 10 mg TID PO Last administered on 05/31/19 20:57; Start 05/30/19 at 21:00 Non-Formulary Medication (Fluticasone Propionate (Flovent 220MCG Hfa)) 12 gm BID IH ; Start 05/30/19 at 21:00; Status UNV Lisinopril (Prinivil) 10 mg DAILY PO Last administered on 05/31/19at 08:53; Start 05/31/19 at 09:00 Metformin HCl (Glucophage Xr) 1,500 mg DAILYWSUP PO ; Start 06/02/19 at 17:00 Ketotifen Fumarate (Zaditor) 1 drop PRN BID PRN OU EYE ALLERGIES; Start 05/30/19 at 21:00 Oxybutynin Chloride (Ditropan) 5 mg DAILY PO Last administered on 05/31/19 08:52; Start 05/31/19 at 09:00 Non-Formulary Medication (Tiotropium [place] (Spiriva)) 2 inh DAILY IH ; Start 05/31/19 at 09:00; Status UNV Polyethylene Glycol (miraLAX PACKET) 17 gm PRN DAILY PRN PO CONSTIPATION; Start 05/30/19 at 16:30 Morphine Sulfate (Morphine Sulfate) 2 mg PRN Q2HR PRN IV MODERATE TO SEVERE PAIN Last administered on 05/30/19 16:53; Start 05/30/19 at 16:30 Enoxaparin Sodium (Lovenox 40mg Syringe) 40 mg Q24H SQ Last administered on 05/31/19 16:54; Start 05/30/19 at 17:00 Acetaminophen (Tylenol) 650 mg PRN Q6HRS PRN PO MILD PAIN / TEMP Last administered on 05/31/19 15:38; Start 05/30/19 at 16:30 Ondansetron HCl (Zofran) 4 mg PRN Q6HRS PRN IVP NAUSEA/VOMITING Last administered on 06/01/19 00:20; Start 05/30/19 at 16:30 Insulin Glargine (Lantus Syringe) 5 unit QHS SQ Last administered on 05/31/19 21:02; Start 05/30/19 at 21:00 Insulin Human Lispro (HumaLOG) 0-5 UNITS TIDACHC SQ ; Start 05/30/19 at 16:30 Dextrose (Dextrose 50%-Water Syringe) 12.5 gm PRN Q15MIN PRN IV SEE COMMENTS; Start 05/30/19 at 16:30 Albuterol/ Ipratropium (Duoneb) 3 ml RTQID NEB Last administered on 06/01/19 07:23; Start 05/30/19 at 17:00 Budesonide (Pulmicort) 0.5 mg RTBID NEB Last administered on 06/01/19 07:23; Start 05/30/19 at 20:00 Albuterol Sulfate (Ventolin Neb Soln) 2.5 mg PRN Q6HRS PRN NEB SHORTNESS OF BREATH Last administered on 06/01/19 04:03; Start 05/30/19 at 17:00 Hydrochlorothiazide (Microzide) 12.5 mg DAILY PO ; Start 05/31/19 at 09:00 Simethicone (Gas-X) 80 mg PRN AFTMEALHC PRN PO GAS / BLOATING Last administered on 05/31/19at 13:13; Start 05/31/19 at 11:15 Iohexol (Omnipaque 300 Mg/ml) 75 ml 1X ONCE IV Last administered on 05/31/19at 12:15; Start 05/31/19 at 12:15; Stop 05/31/19 at 12:17; Status DC Info (CONTRAST GIVEN -- Rx MONITORING) 1 each PRN DAILY PRN MC SEE COMMENTS; Start 05/31/19 at 12:30; Stop 06/02/19 at 12:29 Active Scripts Active Proair Respiclick (Albuterol Sulfate) 90 Mcg Aer.pow.ba 1 Puff IH PRN Q6HRS PRN Reported [Beano] PO PRN PRN Pepcid (Famotidine) 20 Mg Tablet 20 Mg PO PRN PRN Ditropan Xl (Oxybutynin Chloride) 5 Mg Tab.er.24 1 Tab PO DAILY Aspir 81 (Aspirin) 81 Mg Tablet.dr 1 Tab PO DAILY Zyrtec (Cetirizine Hcl) 10 Mg Tablet 1 Tab PO QHS Gabapentin (Gabapentin) 300 Mg Capsule 300 Mg PO TID Baclofen 10 Mg Tablet 1 Tab PO TID Lisinopril-Hctz 10-12.5 Mg Tab (Lisinopril/Hydrochlorothiazide) 1 Each Tablet 1 Tab PO DAILY Colon Herbal Cleanser (Herbal Drugs) 1 Each Capsule 1 Each PO Freestyle Lite Strips (Blood Sugar Diagnostic) 1 Each Strip 1 Each MC Atorvastatin Calcium 40 Mg Tablet 40 Mg PO DAILY Spiriva (Tiotropium [place]) 18 Mcg Cap.w.dev 2 Inh IH DAILY Meloxicam 15 Mg Tablet 15 Mg PO DAILY Polyethylene Glycol (Polyethylene Glycol 8000) 500 Gm Powder 500 Gm MC Metformin Hcl Er (Metformin Hcl) 750 Mg Tab.er.24h 1,500 Mg PO DAILYWSUP Patanol (Olopatadine Hcl) 5 Ml Drops 5 Ml OP PRN PRN Flovent 220MCG Hfa (Fluticasone Propionate) 12 Gm Aer.w.adap 12 Gm IH BID Vitals/I & O Vital Sign - Last 24 Hours 1005/31/19 05/31/19 05/31/19 08:00 08:53 09:02 11:00 Temp 98.0 98.0 Pulse 94 98 Resp 20 B/P (MAP) 145/70 123/46 (71) Pulse Ox 97 97 O2 Delivery Room Air Room Air Room Air 05/31/19 05/31/19 05/31/19 05/31/19 12:23 15:16 16:03 19:00 Temp 98.3 98.0 98.3 98.0 Pulse 96 94 Resp 20 18 B/P (MAP) 106/64 (78) 122/55 (77) Pulse Ox 96 95 O2 Delivery Room Air Room Air Room Air Room Air 05/31/19 05/31/19 05/31/19 06/01/19 19:15 20:01 23:00 03:00 Temp 97.9 97.7 97.9 97.7 Pulse 95 89 Resp 18 18 B/P (MAP) 107/49 (68) 107/45 (65) Pulse Ox 93 96 O2 Delivery Room Air Room Air Room Air Room Air 06/01/19 06/01/19 04:03 07:25 Pulse Ox 95 O2 Delivery Room Air Room Air Intake and Output 05/31/19 05/31/19 06/01/19 15:00 23:00 07:00 Intake Total 740 ml 700 ml 200 ml Balance 740 ml 700 ml 200 ml VASYL JUAN MD Jun 01, 2019 07:57
[2019-06-01] MEDS: hydroCHLOROthiazide 12.5 MG CAPSULE PO SCH (08:39)
[2019-06-01] MEDS: CYCLOBENZAPRINE 10 MG TABLET. PO SCH ×3 (08:40→21:26)
[2019-06-01] MEDS: LISINOPRIL 10 MG TABLET PO SCH (08:40)
[2019-06-01] MEDS: OXYBUTYNIN CHLORIDE 5 MG TABLET PO SCH (08:40)
[2019-06-01] MEDS: ASPIRIN ENTERIC COATED 81 MG TABLET.DR. PO SCH (08:40)
[2019-06-01] MEDS: GABAPENTIN 300 MG CAPSULE. PO SCH ×3 (08:40→21:26)
--- NOTE | 2019-06-01 08:54 | NUR ---
SW following pt. Pt is a transfer from ICU and discharge disposition is home with assistance. Will continue to follow as needed.
--- NOTE | 2019-06-01 09:35 | PDOC ---
PULMONARY PROGRESS NOTES Vitals Vital Signs Date Time Temp Pulse Resp B/P (MAP) Pulse Ox O2 Delivery O2 Flow Rate FiO2 06/01/19 08:40 108 119/62 06/01/19 07:25 95 Room Air 06/01/19 07:00 98.3 16 98.3 Labs Laboratory Tests Test 05/30/19 10:40 05/30/19 10:57 05/30/19 16:59 05/30/19 17:50 Urine Collection Type Void Urine Color Yellow Urine Clarity Clear Urine pH 5.5 Urine Specific [place] 1.010 Urine Protein Negative mg/dL (NEG-TRACE) Urine Glucose (UA) Negative mg/dL (NEG) Urine Ketones (Stick) Negative mg/dL (NEG) Urine Blood Negative (NEG) Urine Nitrite Negative (NEG) Urine Bilirubin Negative (NEG) Urine Urobilinogen Dipstick 0.2 mg/dL (0.2 mg/dL) Urine Leukocyte Esterase Moderate (NEG) Urine RBC Occ /HPF (0-2) Urine WBC 5-10 /HPF (0-4) Urine Squamous Epithelial Cells Many /LPF Urine Bacteria Few /HPF (0-FEW) White Blood Count 9.7 x10^3/uL (4.0-11.0) Red Blood Count 3.88 x10^6/uL (3.50-5.40) Hemoglobin 12.2 g/dL (12.0-15.5) Hematocrit 36.2 % (36.0-47.0) Mean Corpuscular Volume 93 fL (79-100) Mean Corpuscular Hemoglobin 31 pg (25-35) Mean Corpuscular Hemoglobin Concent 34 g/dL (31-37) Red Cell Distribution Width 15.1 % (11.5-14.5) Platelet Count 432 x10^3/uL (140-400) Neutrophils (%) (Auto) 55 % (31-73) Lymphocytes (%) (Auto) 26 % (24-48) Monocytes (%) (Auto) 10 % (0-9) Eosinophils (%) (Auto) 9 % (0-3) Basophils (%) (Auto) 1 % (0-3) Neutrophils # (Auto) 5.3 x10^3/uL (1.8-7.7) Lymphocytes # (Auto) 2.5 x10^3/uL (1.0-4.8) Monocytes # (Auto) 1.0 x10^3/uL (0.0-1.1) Eosinophils # (Auto) 0.8 x10^3/uL (0.0-0.7) Basophils # (Auto) 0.1 x10^3/uL (0.0-0.2) Prothrombin Time 13.3 SEC (11.7-14.0) Prothromb Time International Ratio 1.0 (0.8-1.1) D-Dimer (Sintia) 2.52 ug/mlFEU (0.00-0.50) Sodium Level 142 mmol/L (136-145) Potassium Level 4.0 mmol/L (3.5-5.1) Chloride Level 102 mmol/L (98-107) Carbon Dioxide Level 31 mmol/L (21-32) Anion Gap 9 (6-14) Blood Urea Nitrogen 6 mg/dL (7-20) Creatinine 0.7 mg/dL (0.6-1.0) Estimated GFR (Cockcroft-Gault) 84.0 BUN/Creatinine Ratio 9 (6-20) Glucose Level 116 mg/dL (70-99) Calcium Level 9.6 mg/dL (8.5-10.1) Magnesium Level 1.8 mg/dL (1.8-2.4) Total Bilirubin 0.3 mg/dL (0.2-1.0) Aspartate Amino Transf (AST/SGOT) 42 U/L (15-37) Alanine Aminotransferase (ALT/SGPT) 52 U/L (14-59) Alkaline Phosphatase 78 U/L (46-116) Creatine Kinase 83 U/L (26-192) Troponin I Quantitative < 0.017 ng/mL (0.000-0.055) < 0.017 ng/mL (0.000-0.055) UG-Fuw-J-Type Natriuretic Peptide 670 pg/mL (0-124) Total Protein 7.6 g/dL (6.4-8.2) Albumin 3.7 g/dL (3.4-5.0) Albumin/Globulin Ratio 0.9 (1.0-1.7) Lipase 91 U/L (73-393) Glucose (Fingerstick) 113 mg/dL (70-99) Test 05/30/19 20:38 05/30/19 20:45 05/31/19 08:56 05/31/19 12:50 Glucose (Fingerstick) 145 mg/dL (70-99) 109 mg/dL (70-99) 115 mg/dL (70-99) Troponin I Quantitative < 0.017 ng/mL (0.000-0.055) Test 05/31/19 16:56 05/31/19 20:22 06/01/19 07:46 Glucose (Fingerstick) 124 mg/dL (70-99) 124 mg/dL (70-99) 115 mg/dL (70-99) Laboratory Tests Test 05/31/19 12:50 05/31/19 16:56 05/31/19 20:22 06/01/19 07:46 Glucose (Fingerstick) 115 mg/dL (70-99) 124 mg/dL (70-99) 124 mg/dL (70-99) 115 mg/dL (70-99) Medications Active Scripts Medications Dose Route/Sig Max Daily Dose Days Date Category [Beano] PO PRN PRN 05/21/19 Reported Pepcid (Famotidine) 20 Mg Tablet 20 Mg PO PRN PRN 05/21/19 Reported Ditropan Xl (Oxybutynin Chloride) 5 Mg Tab.er.24 1 Tab PO DAILY 05/21/19 Reported Aspir 81 (Aspirin) 81 Mg Tablet.dr 1 Tab PO DAILY 07/28/17 Reported Zyrtec (Cetirizine Hcl) 10 Mg Tablet 1 Tab PO QHS 07/28/17 Reported Gabapentin (Gabapentin) 300 Mg Capsule 300 Mg PO TID 07/28/17 Reported Baclofen 10 Mg Tablet 1 Tab PO TID 01/25/17 Reported Lisinopril-Hctz 10-12.5 Mg Tab (Lisinopril/Hydrochlorothiazide) 1 Each Tablet 1 Tab PO DAILY 01/25/17 Reported Proair Respiclick (Albuterol Sulfate) 90 Mcg Aer.pow.ba 1 Puff IH PRN Q6HRS PRN 07/22/16 Rx Colon Herbal Cleanser (Herbal Drugs) 1 Each Capsule 1 Each PO 06/22/14 Reported Freestyle Lite Strips (Blood Sugar Diagnostic) 1 Each Strip 1 Each 02/27/14 Reported Atorvastatin Calcium 40 Mg Tablet 40 Mg PO DAILY 02/27/14 Reported Spiriva (Tiotropium [place]) 18 Mcg Cap.w.dev 2 Inh IH DAILY 02/27/14 Reported Meloxicam 15 Mg Tablet 15 Mg PO DAILY 02/27/14 Reported Polyethylene Glycol (Polyethylene Glycol 8000) 500 Gm Powder 500 Gm MC 02/27/14 Reported Metformin Hcl Er (Metformin Hcl) 750 Mg Tab.er.24h 1,500 Mg PO DAILYWSUP 02/27/14 Reported Patanol (Olopatadine Hcl) 5 Ml Drops 5 Ml OP PRN PRN 02/27/14 Reported Flovent 220MCG Hfa (Fluticasone Propionate) 12 Gm Aer.w.adap 12 Gm IH BID 02/27/14 Reported Impression . IMPRESSION: 1. Dyspnea in a patient who is status post laparoscopic cholecystectomy about 6 days ago. There is no evidence of pulmonary embolism. She has smoked cigarettes, but quit in 1999 and does not appear to have any COPD exacerbation. 2. A 30 years of tobacco use. Likely, COPD with clinically compensated. 3. Underlying obesity. Plan . PT IMPROVING WILL CONTINUE THE SAME HOME IN AM OK BY PARMINDER MI MD Jun 01, 2019 09:35
[2019-06-01 11:00] VITALS: BP 123/69
[2019-06-01 15:00] VITALS: BP 122/62
[2019-06-01] MEDS: ENOXAPARIN 40 MG/0.4 ML SYRINGE. SQ SCH (18:11)
[2019-06-01 19:00] VITALS: BP 125/62
[2019-06-01] MEDS: ATORVASTATIN CALCIUM 40 MG TABLET. PO SCH (21:26)
[2019-06-01] MEDS: CETIRIZINE HCL 10 MG TABLET. PO SCH (21:27)
[2019-06-01] MEDS: INSULIN GLARGINE SYRINGE. SQ SCH (21:35)
[2019-06-01 23:00] VITALS: BP 119/59
[2019-06-02 03:00] VITALS: BP 104/57
[2019-06-02] MEDS: BUDESONIDE 0.5 MG/2 ML NEBU. NEB SCH (06:00)
[2019-06-02] MEDS: IPRATRPIUM/ALBUTEROL 0.5/2.5MG 3 ML NEBU. NEB SCH ×3 (06:00→15:55)
[2019-06-02 07:00] VITALS: BP 127/57
[2019-06-02] MEDS: INSULIN LISPRO 300 UNITS/3 ML VIAL. SQ SCH ×3 (07:30→16:30)
[2019-06-02] MEDS: OXYBUTYNIN CHLORIDE 5 MG TABLET PO SCH (08:28)
[2019-06-02] MEDS: CYCLOBENZAPRINE 10 MG TABLET. PO SCH ×2 (08:28→13:22)
[2019-06-02] MEDS: hydroCHLOROthiazide 12.5 MG CAPSULE PO SCH (08:28)
[2019-06-02] MEDS: ASPIRIN ENTERIC COATED 81 MG TABLET.DR. PO SCH (08:28)
[2019-06-02] MEDS: GABAPENTIN 300 MG CAPSULE. PO SCH ×2 (08:28→13:22)
[2019-06-02] MEDS: LISINOPRIL 10 MG TABLET PO SCH (08:29)
--- NOTE | 2019-06-02 09:36 | PDOC ---
PULMONARY PROGRESS NOTES Subjective PT NOT MORE SOA Vitals Vital Signs Date Time Temp Pulse Resp B/P (MAP) Pulse Ox O2 Delivery O2 Flow Rate FiO2 06/02/19 08:29 89 127/57 06/02/19 07:00 98.2 18 94 Room Air 98.2 06/01/19 08:00 2.0 ROS: No Nausea, No Chest Pain, No Abdominal Pain General: Alert Lungs: Crackles Cardiovascular: S1 Abdomen: Soft Neuro Exam: Alert Extremities: No Edema Skin: Warm Labs Laboratory Tests Test 05/31/19 12:50 05/31/19 16:56 05/31/19 20:22 06/01/19 07:46 Glucose (Fingerstick) 115 mg/dL (70-99) 124 mg/dL (70-99) 124 mg/dL (70-99) 115 mg/dL (70-99) Test 06/01/19 11:06 06/01/19 16:17 06/01/19 20:30 06/02/19 08:01 Glucose (Fingerstick) 98 mg/dL (70-99) 120 mg/dL (70-99) 126 mg/dL (70-99) 122 mg/dL (70-99) Laboratory Tests Test 06/01/19 11:06 06/01/19 16:17 06/01/19 20:30 06/02/19 08:01 Glucose (Fingerstick) 98 mg/dL (70-99) 120 mg/dL (70-99) 126 mg/dL (70-99) 122 mg/dL (70-99) Medications Active Scripts Medications Dose Route/Sig Max Daily Dose Days Date Category [Beano] PO PRN PRN 05/21/19 Reported Pepcid (Famotidine) 20 Mg Tablet 20 Mg PO PRN PRN 05/21/19 Reported Ditropan Xl (Oxybutynin Chloride) 5 Mg Tab.er.24 1 Tab PO DAILY 05/21/19 Reported Aspir 81 (Aspirin) 81 Mg Tablet.dr 1 Tab PO DAILY 07/28/17 Reported Zyrtec (Cetirizine Hcl) 10 Mg Tablet 1 Tab PO QHS 07/28/17 Reported Gabapentin (Gabapentin) 300 Mg Capsule 300 Mg PO TID 07/28/17 Reported Baclofen 10 Mg Tablet 1 Tab PO TID 01/25/17 Reported Lisinopril-Hctz 10-12.5 Mg Tab (Lisinopril/Hydrochlorothiazide) 1 Each Tablet 1 Tab PO DAILY 01/25/17 Reported Proair Respiclick (Albuterol Sulfate) 90 Mcg Aer.pow.ba 1 Puff IH PRN Q6HRS PRN 07/22/16 Rx Colon Herbal Cleanser (Herbal Drugs) 1 Each Capsule 1 Each PO 06/22/14 Reported Freestyle Lite Strips (Blood Sugar Diagnostic) 1 Each Strip 1 Each MC 02/27/14 Reported Atorvastatin Calcium 40 Mg Tablet 40 Mg PO DAILY 02/27/14 Reported Spiriva (Tiotropium [place]) 18 Mcg Cap.w.dev 2 Inh IH DAILY 02/27/14 Reported Meloxicam 15 Mg Tablet 15 Mg PO DAILY 02/27/14 Reported Polyethylene Glycol (Polyethylene Glycol 8000) 500 Gm Powder 500 Gm MC 02/27/14 Reported Metformin Hcl Er (Metformin Hcl) 750 Mg Tab.er.24h 1,500 Mg PO DAILYWSUP 02/27/14 Reported Patanol (Olopatadine Hcl) 5 Ml Drops 5 Ml OP PRN PRN 02/27/14 Reported Flovent 220MCG Hfa (Fluticasone Propionate) 12 Gm Aer.w.adap 12 Gm IH BID 02/27/14 Reported Impression . IMPRESSION: 1. Dyspnea in a patient who is status post laparoscopic cholecystectomy about 6 days ago. There is no evidence of pulmonary embolism. She has smoked cigarettes, but quit in 1999 and does not appear to have any COPD exacerbation. 2. A 30 years of tobacco use. Likely, COPD with clinically compensated. 3. Underlying obesity. Plan . HOME TODAY FOLLOW UP PRN PARMINDER JOHNSON MD Jun 02, 2019 09:36
--- NOTE | 2019-06-02 09:59 | PDOC ---
PROGRESS NOTES Chief Complaint Chief Complaint DISCHARGE DX Shortness of breath - with acute hypoxia, likely related to atelectasis, nebs, IS. Wean O2 as tolerated, now off o2 REMOTE TOBACCO ABUSE Chest pain - Negative for PE. Will trend troponins. Cardiology was consulted H/o renal cell ca - s/p nephrectomy Arthritis - tylenol for now Bipolar - cont meds Constipation - miralax COPD - nebs ordered. // COPD exacerbation Diabetes-Type II - basal bolus plus insulin GERD - ppi High Cholesterol - cont statin Hypertension home today 06/02 planned 26 MIN PT EXAM, CHART REVIEW D/C PLANNING TIME, > 50% OF TIME SPENT WITH EXAM, CHART REVIEW, PT CARE COORDINATION- History of Present Illness History of Present Illness Patient had uneventful laparoscopic cholecystectomy 7 days ago and discharged home the same day. Patient complaining of episodes of shortness of breath chest pain with exertion and supine position with episodes of productive cough with yellow sputum and episodes of chills. Patient states the chest pain is a pressure pain and rated her pain 7/10 with radiation to bilateral rib cage associated with shortness of breath and dizziness without syncope. Patient complaining of generalized weakness transfer out of ICU to floor PT and OT symptom management FEN - ADA diet Vitals Vitals Vital Signs Date Time Temp Pulse Resp B/P (MAP) Pulse Ox O2 Delivery O2 Flow Rate FiO2 06/02/19 08:29 89 127/57 06/02/19 07:00 98.2 18 94 Room Air 98.2 06/01/19 08:00 2.0 Physical Exam Physical Exam Abdomen: Bowel sounds normal, soft, no tenderness, no masses, no pulsatile masses. [] Skin: Warm, dry, no erythema, no rash. [] Back: No tenderness, no CVA tenderness. [] Extremities: No tenderness, no cyanosis, no clubbing, ROM intact, no edema. [] Neurologic: Alert and oriented X 3, no focal deficits noted. [] Psychologic: Affect normal, judgement normal, mood normal. [] General: Alert, Oriented X3, Cooperative, No acute distress Heart: Regular rate, Normal S1 Lungs: Clear, Crackles Abdomen: Normal bowel sounds, Soft Extremities: No clubbing, No cyanosis Skin: No significant lesion Labs LABS Laboratory Tests Test 06/01/19 11:06 06/01/19 16:17 06/01/19 20:30 06/02/19 08:01 Glucose (Fingerstick) 98 mg/dL (70-99) 120 mg/dL (70-99) 126 mg/dL (70-99) 122 mg/dL (70-99) Assessment and Plan Assessmemt and Plan Problems Medical Problems: (1) Chest pain Status: Acute (2) Elevated d-dimer Status: Acute (3) Hypoxia Status: Acute (4) Shortness of breath Status: Acute Comment Review of Relevant I have reviewed the following items yecenia (where applicable) has been applied. Labs Laboratory Tests Test 05/31/19 12:50 05/31/19 16:56 05/31/19 20:22 06/01/19 07:46 Glucose (Fingerstick) 115 mg/dL (70-99) 124 mg/dL (70-99) 124 mg/dL (70-99) 115 mg/dL (70-99) Test 06/01/19 11:06 06/01/19 16:17 06/01/19 20:30 06/02/19 08:01 Glucose (Fingerstick) 98 mg/dL (70-99) 120 mg/dL (70-99) 126 mg/dL (70-99) 122 mg/dL (70-99) Laboratory Tests Test 06/01/19 11:06 06/01/19 16:17 06/01/19 20:30 06/02/19 08:01 Glucose (Fingerstick) 98 mg/dL (70-99) 120 mg/dL (70-99) 126 mg/dL (70-99) 122 mg/dL (70-99) Microbiology 05/30/19 Urine Culture - Final, Complete 05/30/19 Urine Culture Result 1 (ADAIR) - Final, Complete Medications Current Medications Fentanyl Citrate (Fentanyl 2ml Vial) 50 mcg 1X ONCE IVP Last administered on 05/30/19at 11:19; Start 05/30/19 at 11:15; Stop 05/30/19 at 11:16; Status DC Iohexol (Omnipaque 350 Mg/ml) 100 ml 1X ONCE IV Last administered on 05/30/19at 12:57; Start 05/30/19 at 13:00; Stop 05/30/19 at 13:05; Status DC Info (CONTRAST GIVEN -- Rx MONITORING) 1 each PRN DAILY PRN MC SEE COMMENTS; Start 05/30/19 at 13:00; Stop 05/31/19 at 12:16; Status DC Iohexol (Omnipaque 350 Mg/ml) 100 ml STK-MED ONCE .ROUTE ; Start 05/30/19 at 12:55; Stop 05/30/19 at 12:56; Status DC Albuterol/ Ipratropium (Duoneb) 3 ml 1X ONCE NEB ; Start 05/30/19 at 13:00; Stop 05/30/19 at 13:05; Status DC Fentanyl Citrate (Fentanyl 2ml Vial) 50 mcg PRN Q2HR PRN IV PAIN Last administered on 05/30/19at 13:27; Start 05/30/19 at 13:00; Stop 05/30/19 at 16:00; Status DC Albuterol Sulfate (Ventolin Neb Soln) 2.5 mg STK-MED ONCE .ROUTE ; Start 05/30/19 at 13:03; Stop 05/30/19 at 13:03; Status DC Albuterol/ Ipratropium (Duoneb) 3 ml STK-MED ONCE .ROUTE ; Start 05/30/19 at 13:03; Stop 05/30/19 at 13:05; Status DC Aspirin (Ecotrin) 81 mg DAILY PO Last administered on 06/02/19at 08:28; Start 05/31/19 at 09:00 Atorvastatin Calcium (Lipitor) 40 mg QHS PO Last administered on 06/01/19at 21:26; Start 05/30/19 at 21:00 Cetirizine HCl (ZyrTEC) 10 mg QHS PO Last administered on 06/01/19at 21:27; Start 05/30/19 at 21:00 Famotidine (Pepcid) 20 mg PRN BID PRN PO STOMACH PROBLEM; Start 05/30/19 at 16:30 Gabapentin (Neurontin) 300 mg TID PO Last administered on 06/02/19at 08:28; Start 05/30/19 at 21:00 Non-Formulary Medication (Albuterol Sulfate (Proair Respiclick)) 1 puff PRN Q6HRS PRN IH SHORTNESS OF BREATH; Start 05/30/19 at 16:30; Status UNV Cyclobenzaprine HCl (Flexeril) 10 mg TID PO Last administered on 06/02/19 08:28; Start 05/30/19 at 21:00 Non-Formulary Medication (Fluticasone Propionate (Flovent 220MCG Hfa)) 12 gm BID IH ; Start 05/30/19 at 21:00; Status UNV Lisinopril (Prinivil) 10 mg DAILY PO Last administered on 06/02/19 08:29; Start 05/31/19 at 09:00 Metformin HCl (Glucophage Xr) 1,500 mg DAILYWSUP PO ; Start 06/02/19 at 17:00 Ketotifen Fumarate (Zaditor) 1 drop PRN BID PRN OU EYE ALLERGIES; Start 05/30/19 at 21:00 Oxybutynin Chloride (Ditropan) 5 mg DAILY PO Last administered on 06/02/19 08:28; Start 05/31/19 at 09:00 Non-Formulary Medication (Tiotropium Reed (Spiriva)) 2 inh DAILY IH ; Start 05/31/19 at 09:00; Status UNV Polyethylene Glycol (miraLAX PACKET) 17 gm PRN DAILY PRN PO CONSTIPATION; Start 05/30/19 at 16:30 Morphine Sulfate (Morphine Sulfate) 2 mg PRN Q2HR PRN IV MODERATE TO SEVERE PAIN Last administered on 05/30/19 16:53; Start 05/30/19 at 16:30 Enoxaparin Sodium (Lovenox 40mg Syringe) 40 mg Q24H SQ Last administered on 06/01/19 18:11; Start 05/30/19 at 17:00 Acetaminophen (Tylenol) 650 mg PRN Q6HRS PRN PO MILD PAIN / TEMP Last administered on 05/31/19 15:38; Start 05/30/19 at 16:30 Ondansetron HCl (Zofran) 4 mg PRN Q6HRS PRN IVP NAUSEA/VOMITING Last administered on 06/01/19 00:20; Start 05/30/19 at 16:30 Insulin Glargine (Lantus Syringe) 5 unit QHS SQ Last administered on 06/01/19 21:35; Start 05/30/19 at 21:00 Insulin Human Lispro (HumaLOG) 0-5 UNITS TIDACHC SQ ; Start 05/30/19 at 16:30 Dextrose (Dextrose 50%-Water Syringe) 12.5 gm PRN Q15MIN PRN IV SEE COMMENTS; Start 05/30/19 at 16:30 Albuterol/ Ipratropium (Duoneb) 3 ml RTQID NEB Last administered on 06/02/19at 06:00; Start 05/30/19 at 17:00 Budesonide (Pulmicort) 0.5 mg RTBID NEB Last administered on 06/02/19at 06:00; Start 05/30/19 at 20:00 Albuterol Sulfate (Ventolin Neb Soln) 2.5 mg PRN Q6HRS PRN NEB SHORTNESS OF BREATH Last administered on 06/01/19at 04:03; Start 05/30/19 at 17:00 Hydrochlorothiazide (Microzide) 12.5 mg DAILY PO Last administered on 06/02/19at 08:28; Start 05/31/19 at 09:00 Simethicone (Gas-X) 80 mg PRN AFTMEALHC PRN PO GAS / BLOATING Last administered on 05/31/19at 13:13; Start 05/31/19 at 11:15 Iohexol (Omnipaque 300 Mg/ml) 75 ml 1X ONCE IV Last administered on 05/31/19at 12:15; Start 05/31/19 at 12:15; Stop 05/31/19 at 12:17; Status DC Info (CONTRAST GIVEN -- Rx MONITORING) 1 each PRN DAILY PRN MC SEE COMMENTS; Start 05/31/19 at 12:30; Stop 06/02/19 at 12:29 Active Scripts Active Proair Respiclick (Albuterol Sulfate) 90 Mcg Aer.pow.ba 1 Puff IH PRN Q6HRS PRN Reported [Beano] PO PRN PRN Pepcid (Famotidine) 20 Mg Tablet 20 Mg PO PRN PRN Ditropan Xl (Oxybutynin Chloride) 5 Mg Tab.er.24 1 Tab PO DAILY Aspir 81 (Aspirin) 81 Mg Tablet.dr 1 Tab PO DAILY Zyrtec (Cetirizine Hcl) 10 Mg Tablet 1 Tab PO QHS Gabapentin (Gabapentin) 300 Mg Capsule 300 Mg PO TID Baclofen 10 Mg Tablet 1 Tab PO TID Lisinopril-Hctz 10-12.5 Mg Tab (Lisinopril/Hydrochlorothiazide) 1 Each Tablet 1 Tab PO DAILY Colon Herbal Cleanser (Herbal Drugs) 1 Each Capsule 1 Each PO Freestyle Lite Strips (Blood Sugar Diagnostic) 1 Each Strip 1 Each MC Atorvastatin Calcium 40 Mg Tablet 40 Mg PO DAILY Spiriva (Tiotropium Reed) 18 Mcg Cap.w.dev 2 Inh IH DAILY Meloxicam 15 Mg Tablet 15 Mg PO DAILY Polyethylene Glycol (Polyethylene Glycol 8000) 500 Gm Powder 500 Gm MC Metformin Hcl Er (Metformin Hcl) 750 Mg Tab.er.24h 1,500 Mg PO DAILYWSUP Patanol (Olopatadine Hcl) 5 Ml Drops 5 Ml OP PRN PRN Flovent 220MCG Hfa (Fluticasone Propionate) 12 Gm Aer.w.adap 12 Gm IH BID Vitals/I & O Vital Sign - Last 24 Hours 06/01/19 06/01/19 06/01/19 06/01/19 11:00 11:15 15:00 15:30 Temp 98.1 98.0 98.1 98.0 Pulse 100 101 Resp 16 16 B/P (MAP) 123/69 (87) 122/62 (82) Pulse Ox 98 96 98 O2 Delivery Room Air Room Air Room Air Room Air 06/01/19 06/01/19 06/01/19 06/01/19 19:00 20:00 20:11 23:00 Temp 98.3 98.0 98.3 98.0 Pulse 98 101 Resp 17 17 B/P (MAP) 125/62 (83) 119/59 (79) Pulse Ox 91 95 92 O2 Delivery Room Air Room Air Room Air Room Air 06/02/19 06/02/19 06/02/19 06/02/19 03:00 06:00 07:00 08:29 Temp 97.9 98.2 97.9 98.2 Pulse 89 89 89 Resp 17 18 B/P (MAP) 104/57 (73) 127/57 (80) 127/57 Pulse Ox 91 94 O2 Delivery Room Air Room Air Room Air Intake and Output 06/01/19 06/01/19 06/02/19 14:59 22:59 06:59 Intake Total 200 ml Balance 200 ml VASYL JUAN MD Jun 02, 2019 09:59
[2019-06-02 11:00] VITALS: BP_SYST 109; BP_DIAS 43; BP_DIAS 73
--- NOTE | 2019-06-02 11:25 | NUR ---
SS following up with discharge planning. PT recommended home with assistance at discharge. Nurse navigator to meet with pt to discuss home healthcare and home healthcare options. SS will continue to follow for discharge planning.
--- NOTE | 2019-06-02 13:45 | PDOC3 ---
Discharge Summary Date of Admission: May 30, 2019 Date of Discharge: Jun 02, 2019 Follow-Up: 1-2 days Admitting Diagnosis comment: DISCHARGE DX Shortness of breath - with acute hypoxia, likely related to atelectasis, nebs, IS. Wean O2 as tolerated, now off o2 REMOTE TOBACCO ABUSE Chest pain - Negative for PE. Will trend troponins. Cardiology was consulted H/o renal cell ca - s/p nephrectomy Arthritis - tylenol for now Bipolar - cont meds Constipation - miralax COPD - nebs ordered. // COPD exacerbation Diabetes-Type II - basal bolus plus insulin GERD - ppi High Cholesterol - cont statin Hypertension home today 06/02 planned 26 MIN PT EXAM, CHART REVIEW D/C PLANNING TIME, > 50% OF TIME SPENT WITH EXAM, CHART REVIEW, PT CARE COORDINATION- History of Present Illness History of Present Illness Patient had uneventful laparoscopic cholecystectomy 7 days ago and discharged home the same day. Patient complaining of episodes of shortness of breath chest pain with exertion and supine position with episodes of productive cough with yellow sputum and episodes of chills. Patient states the chest pain is a pressure pain and rated her pain 7/10 with radiation to bilateral rib cage associated with shortness of breath and dizziness without syncope. Patient complaining of generalized weakness transfer floor PT and OT symptom management FEN - ADA diet Vitals Vitals Vital Signs Date Time Temp Pulse Resp B/P (MAP) Pulse Ox O2 Delivery O2 Flow Rate FiO2 06/02/19 08:29 89 127/57 06/02/19 07:00 98.2 18 94 Room Air 98.2 06/01/19 08:00 2.0 Physical Exam Physical Exam Abdomen: Bowel sounds normal, soft, no tenderness, no masses, no pulsatile masses. [] Skin: Warm, dry, no erythema, no rash. [] Back: No tenderness, no CVA tenderness. [] Extremities: No tenderness, no cyanosis, no clubbing, ROM intact, no edema. [] Neurologic: Alert and oriented X 3, no focal deficits noted. [] Psychologic: Affect normal, judgement normal, mood normal. [] General: Alert, Oriented X3, Cooperative, No acute distress Heart: Regular rate, Normal S1 Lungs: Clear, Abdomen: Normal bowel sounds, Soft Extremities: No clubbing, No cyanosis FINAL DIAGNOSIS Problems Medical Problems: (1) Chest pain Status: Acute (2) Elevated d-dimer Status: Acute (3) Hypoxia Status: Acute (4) Shortness of breath Status: Acute Brief Hospital Course Ms. Ruiz is a 63 old [sex] who presented with [ACUTE RESP FAILURE, COUGH ] CONDITION AT DISCHARGE: Improved Discharge Medications Current Medications Fentanyl Citrate (Fentanyl 2ml Vial) 50 mcg 1X ONCE IVP Last administered on 05/30/19at 11:19; Start 05/30/19 at 11:15; Stop 05/30/19 at 11:16; Status DC Iohexol (Omnipaque 350 Mg/ml) 100 ml 1X ONCE IV Last administered on 05/30/19at 12:57; Start 05/30/19 at 13:00; Stop 05/30/19 at 13:05; Status DC Info (CONTRAST GIVEN -- Rx MONITORING) 1 each PRN DAILY PRN MC SEE COMMENTS; Start 05/30/19 at 13:00; Stop 05/31/19 at 12:16; Status DC Iohexol (Omnipaque 350 Mg/ml) 100 ml STK-MED ONCE .ROUTE ; Start 05/30/19 at 1 2:55; Stop 05/30/19 at 12:56; Status DC Albuterol/ Ipratropium (Duoneb) 3 ml 1X ONCE NEB ; Start 05/30/19 at 13:00; Stop 05/30/19 at 13:05; Status DC Fentanyl Citrate (Fentanyl 2ml Vial) 50 mcg PRN Q2HR PRN IV PAIN Last administered on 05/30/19at 13:27; Start 05/30/19 at 13:00; Stop 05/30/19 at 16:00; Status DC Albuterol Sulfate (Ventolin Neb Soln) 2.5 mg STK-MED ONCE .ROUTE ; Start 05/30/19 at 13:03; Stop 05/30/19 at 13:03; Status DC Albuterol/ Ipratropium (Duoneb) 3 ml STK-MED ONCE .ROUTE ; Start 05/30/19 at 13:03; Stop 05/30/19 at 13:05; Status DC Aspirin (Ecotrin) 81 mg DAILY PO Last administered on 06/02/19at 08:28; Start 05/31/19 at 09:00 Atorvastatin Calcium (Lipitor) 40 mg QHS PO Last administered on 06/01/19 21:26; Start 05/30/19 at 21:00 Cetirizine HCl (ZyrTEC) 10 mg QHS PO Last administered on 06/01/19at 21:27; Start 05/30/19 at 21:00 Famotidine (Pepcid) 20 mg PRN BID PRN PO STOMACH PROBLEM; Start 05/30/19 at 16:30 Gabapentin (Neurontin) 300 mg TID PO Last administered on 06/02/19at 13:22; Start 05/30/19 at 21:00 Non-Formulary Medication (Albuterol Sulfate (Proair Respiclick)) 1 puff PRN Q6HRS PRN IH SHORTNESS OF BREATH; Start 05/30/19 at 16:30; Status UNV Cyclobenzaprine HCl (Flexeril) 10 mg TID PO Last administered on 06/02/19 13:22; Start 05/30/19 at 21:00 Non-Formulary Medication (Fluticasone Propionate (Flovent 220MCG Hfa)) 12 gm BID IH ; Start 05/30/19 at 21:00; Status UNV Lisinopril (Prinivil) 10 mg DAILY PO Last administered on 06/02/19 08:29; Start 05/31/19 at 09:00 Metformin HCl (Glucophage Xr) 1,500 mg DAILYWSUP PO ; Start 06/02/19 at 17:00 Ketotifen Fumarate (Zaditor) 1 drop PRN BID PRN OU EYE ALLERGIES; Start 05/30/19 at 21:00 Oxybutynin Chloride (Ditropan) 5 mg DAILY PO Last administered on 06/02/19at 08:28; Start 05/31/19 at 09:00 Non-Formulary Medication (Tiotropium Elliott (Spiriva)) 2 inh DAILY IH ; Start 05/31/19 at 09:00; Status UNV Polyethylene Glycol (miraLAX PACKET) 17 gm PRN DAILY PRN PO CONSTIPATION; Start 05/30/19 at 16:30 Morphine Sulfate (Morphine Sulfate) 2 mg PRN Q2HR PRN IV MODERATE TO SEVERE PAIN Last administered on 05/30/19at 16:53; Start 05/30/19 at 16:30 Enoxaparin Sodium (Lovenox 40mg Syringe) 40 mg Q24H SQ Last administered on 06/01/19 18:11; Start 05/30/19 at 17:00 Acetaminophen (Tylenol) 650 mg PRN Q6HRS PRN PO MILD PAIN / TEMP Last administered on 05/31/19 15:38; Start 05/30/19 at 16:30 Ondansetron HCl (Zofran) 4 mg PRN Q6HRS PRN IVP NAUSEA/VOMITING Last administered on 06/01/19 00:20; Start 05/30/19 at 16:30 Insulin Glargine (Lantus Syringe) 5 unit QHS SQ Last administered on 06/01/19 21:35; Start 05/30/19 at 21:00 Insulin Human Lispro (HumaLOG) 0-5 UNITS TIDACHC SQ ; Start 05/30/19 at 16:30 Dextrose (Dextrose 50%-Water Syringe) 12.5 gm PRN Q15MIN PRN IV SEE COMMENTS; Start 05/30/19 at 16:30 Albuterol/ Ipratropium (Duoneb) 3 ml RTQID NEB Last administered on 06/02/19 12:51; Start 05/30/19 at 17:00 Budesonide (Pulmicort) 0.5 mg RTBID NEB Last administered on 06/02/19 06:00; Start 05/30/19 at 20:00 Albuterol Sulfate (Ventolin Neb Soln) 2.5 mg PRN Q6HRS PRN NEB SHORTNESS OF BREATH Last administered on 06/01/19 04:03; Start 05/30/19 at 17:00 Hydrochlorothiazide (Microzide) 12.5 mg DAILY PO Last administered on 06/02/19 08:28; Start 05/31/19 at 09:00 Simethicone (Gas-X) 80 mg PRN AFTMEALHC PRN PO GAS / BLOATING Last administered on 05/31/19 13:13; Start 05/31/19 at 11:15 Iohexol (Omnipaque 300 Mg/ml) 75 ml 1X ONCE IV Last administered on 05/31/19 12:15; Start 05/31/19 at 12:15; Stop 05/31/19 at 12:17; Status DC Info (CONTRAST GIVEN -- Rx MONITORING) 1 each PRN DAILY PRN MC SEE COMMENTS; Start 05/31/19 at 12:30; Stop 06/02/19 at 12:29; Status DC Active Scripts Active Proair Respiclick (Albuterol Sulfate) 90 Mcg Aer.pow.ba 1 Puff IH PRN Q6HRS PRN Reported [Beano] PO PRN PRN Pepcid (Famotidine) 20 Mg Tablet 20 Mg PO PRN PRN Ditropan Xl (Oxybutynin Chloride) 5 Mg Tab.er.24 1 Tab PO DAILY Aspir 81 (Aspirin) 81 Mg Tablet. 1 Tab PO DAILY Zyrtec (Cetirizine Hcl) 10 Mg Tablet 1 Tab PO QHS Gabapentin (Gabapentin) 300 Mg Capsule 300 Mg PO TID Baclofen 10 Mg Tablet 1 Tab PO TID Lisinopril-Hctz 10-12.5 Mg Tab (Lisinopril/Hydrochlorothiazide) 1 Each Tablet 1 Tab PO DAILY Colon Herbal Cleanser (Herbal Drugs) 1 Each Capsule 1 Each PO Freestyle Lite Strips (Blood Sugar Diagnostic) 1 Each Strip 1 Each MC Atorvastatin Calcium 40 Mg Tablet 40 Mg PO DAILY Spiriva (Tiotropium Elliott) 18 Mcg Cap.w.dev 2 Inh IH DAILY Meloxicam 15 Mg Tablet 15 Mg PO DAILY Polyethylene Glycol (Polyethylene Glycol 8000) 500 Gm Powder 500 Gm MC Metformin Hcl Er (Metformin Hcl) 750 Mg Tab.er.24h 1,500 Mg PO DAILYWSUP Patanol (Olopatadine Hcl) 5 Ml Drops 5 Ml OP PRN PRN Flovent 220MCG Hfa (Fluticasone Propionate) 12 Gm Aer.w.adap 12 Gm IH BID Vital Signs Vital Signs Date Time Temp Pulse Resp B/P (MAP) Pulse Ox O2 Delivery O2 Flow Rate FiO2 06/02/19 12:52 97 Room Air 06/02/19 11:00 98.2 97 18 109/73 (85) 98.2 06/01/19 08:00 2.0 Labs Laboratory Tests Test 05/31/19 16:56 05/31/19 20:22 06/01/19 07:46 06/01/19 11:06 Glucose (Fingerstick) 124 mg/dL (70-99) 124 mg/dL (70-99) 115 mg/dL (70-99) 98 mg/dL (70-99) Test 06/01/19 16:17 06/01/19 20:30 06/02/19 08:01 06/02/19 11:51 Glucose (Fingerstick) 120 mg/dL (70-99) 126 mg/dL (70-99) 122 mg/dL (70-99) 87 mg/dL (70-99) Laboratory Tests Test 06/01/19 16:17 06/01/19 20:30 06/02/19 08:01 06/02/19 11:51 Glucose (Fingerstick) 120 mg/dL (70-99) 126 mg/dL (70-99) 122 mg/dL (70-99) 87 mg/dL (70-99) Allergies Allergies Coded Allergies Type Severity Reaction Last Updated Verified aspirin Allergy Intermediate "messes with my stomach" 05/24/19 Yes omega-3 acid ethyl esters Allergy Intermediate bleeding 05/24/19 Yes tramadol Allergy Intermediate 05/24/19 Yes Disposition/Orders: D/C to Home w/ HH Patient Instructions D/C PLANNING 29 MIN VASYL JUAN MD Jun 02, 2019 13:45
[2019-06-02] MEDS ORDERED: INSU100V8 SQ (13:48)
--- NOTE | 2019-06-02 13:51 | SNU/HH DC ---
DISCHARGE WITH HOME HEALTH DISCHARGE INFORMATION: Final Diagnosis: Problems Medical Problems: (1) Chest pain Status: Acute (2) Elevated d-dimer Status: Acute (3) Hypoxia Status: Acute (4) Shortness of breath Status: Acute Condition on Discharge: Stable CODE STATUS: Code Status: Full HOME HEALTH: Face to Face: I certify this patient is under my care and that I, or a nurse practitioner or physician's general surgery physician assistant working with me, had a face to face encounter that meets the physician face to face encounter requirements with this patient on []. Medical Complications: DM, Other (HYPOXIA) Shelter For: Admin/Educate Injections RN For Eval/Treatment: Yes Physical Therapy For: Evalulation/Treatment Occupational Therapy For: Evaluation/Treatment Speech Language Pathology For: Evaluation/Treatment Home Health Aide For: Self-care HARNESS RIGGER For: Community Resources Pt Meets Homebound Status: Fatigue w/ amb. POST DISCHARGE ORDERS: Activity Instructions for Disc: Activity as tolerated, Other, see below Weight Bearing Status after Di: Full weight bearing DIET AFTER DISCHARGE: ADA Wound/Incision Care: Other, see below CHECKS AFTER DISCHARGE: Checks after discharge: Check blood press - daily FOLLOW-UP: Follow up with: PCP IN 4-7 DAYS CERTIFICATION STATEMENT: Certification Statement: Certification Statement: Based on the above finding, I certify that this patient is confined to the home and needs intermittent senior care care, physical therapy and/or speech therapy, or continues to need occupational therapy.~ This patient is under my care, and I have initiated the establishment of the plan of care.~ This patient will be followed by myself or a community physician who will periodically review the plan of care. Home Meds Active Scripts Insulin Glargine,Hum.rec.anlog (LANTUS) 100 Unit/1 Ml Vial, 5 UNIT SQ QHS for GLUCOSE for 30 Days, #1 EACH Prov:VASYL JUAN MD 06/02/19 Albuterol Sulfate (Proair Respiclick) 90 Mcg Aer.pow.ba, 1 PUFF IH PRN Q6HRS PRN for SHORTNESS OF BREATH, #1 INHALER Prov:TERRI ARIAS DISASTER RECOVERY SPECIALIST 07/22/16 Reported Medications [Beano] No Conflict Check, PO PRN PRN for STOMACH PROBLEM 05/21/19 Famotidine (PEPCID) 20 Mg Tablet, 20 MG PO PRN PRN for STOMACH PROBLEM, TAB 05/21/19 Oxybutynin Chloride (DITROPAN XL) 5 Mg Tab.er.24, 1 TAB PO DAILY for BLADDER PROBLEM, #30 TAB 5 Refills 05/21/19 Aspirin (ASPIR 81) 81 Mg Tablet.dr, 1 TAB PO DAILY, #30 TAB 5 Refills 07/28/17 Cetirizine Hcl (ZYRTEC) 10 Mg Tablet, 1 TAB PO QHS, #30 TAB 2 Refills 07/28/17 Gabapentin (GABAPENTIN ) 300 Mg Capsule, 300 MG PO TID, CAP 07/28/17 Baclofen (BACLOFEN) 10 Mg Tablet, 1 TAB PO TID, #90 TAB 2 Refills 01/25/17 Lisinopril/Hydrochlorothiazide (LISINOPRIL-HCTZ 10-12.5 MG TAB) 1 Each Tablet, 1 TAB PO DAILY, #30 TAB 5 Refills 01/25/17 Blood Sugar Diagnostic (FREESTYLE LITE STRIPS) 1 Each Strip, 1 EACH MC, STRIP 02/27/14 Atorvastatin Calcium (ATORVASTATIN CALCIUM) 40 Mg Tablet, 40 MG PO DAILY for FOR CHOLESTEROL, #30 TAB 0 Refills 02/27/14 Tiotropium Dovray (SPIRIVA) 18 Mcg Cap.w.dev, 2 INH IH DAILY, #1 INH 0 Refills 02/27/14 Meloxicam (MELOXICAM) 15 Mg Tablet, 15 MG PO DAILY, TAB 02/27/14 Polyethylene Glycol 8000 (POLYETHYLENE GLYCOL) 500 Gm Powder, 500 GM MC 02/27/14 Metformin Hcl (METFORMIN HCL ER) 750 Mg Tab.er.24h, 1500 MG PO DAILYWSUP for ANTI-DIABETIC, TAB 0 Refills 02/27/14 Olopatadine Hcl (PATANOL) 5 Ml Drops, 5 ML OP PRN PRN for ALLERGIES 02/27/14 Fluticasone Propionate (FLOVENT 220MCG HFA) 12 Gm Aer.w.adap, 12 GM IH BID 02/27/14 Discontinued Reported Medications Herbal Drugs (COLON HERBAL CLEANSER) 1 Each Capsule, 1 EACH PO 06/22/14 VASYL JUAN MD Jun 02, 2019 13:51
[2019-06-02 15:00] VITALS: BP 126/62
--- NOTE | 2019-06-02 15:12 | NUR ---
SS following up with discharge planning. Discharge orders received for [facility], ; fax [phone]. SS phoned and faxed discharge orders to [facility]. Pt and pt's RN notified.
[2019-06-02] MEDS: ENOXAPARIN 40 MG/0.4 ML SYRINGE. SQ SCH (17:00)
[2019-06-02] MEDS ORDERED: metFORMIN XR 500 MG TAB.ER.24H PO SCH (17:00)
[2019-06-02] MEDS ORDERED: metFORMIN XR 500 MG TAB.ER.24H PO ONE (17:15)
--- NOTE | 2019-06-02 18:29 | NUR ---
Discharge Note: PT DISCHARGED HOME WITH HOME HEALTH. PT LEFT FACILITY VIA PRIVATE VEHICLE WITH FRIEND AT [id number]. PT STABLE AND ALERT UPON DISCHARGE. PT PIV REMOVED FROM L AC WITHOUT COMPLICATIONS, BANDAGE APPLIED. PT EDUCATED ABOUT DISCHARGE INSTRUCTIONS, DISCHARGE MEDICATIONS, AND FOLLOW-UP INSTRUCTIONS. PT VOICED CONCERNS ABOUT DISCHARGING WITH LANTUS INSULIN INJECTIONS, PT STATED THAT SHE HAS NEVER NEEDED TO TAKE INSULIN AND WILL NOT TAKE INSULIN AT HOME UNTIL SHE FOLLOWS UP WITH HER PRIMARY CARE TO DETERMINE THE NEED FOR LANTUS INSULIN AT HOME. TYLOR WILL Discharge instructions and discharge home medications reviewed with Patient and a copy given. All questions have been answered and understanding verbalized.
== END 2019-06-02 18:34 | disposition home health service (06) | DRG 189 ==
LOC: ER 10:00 → 1 WEST ICU 11:54 → 5 SOUTH 05-31 18:17
PROVIDERS: ADMIT Internal Medicine; ATTEND Internal Medicine
DX: J96.01 Acute respiratory failure with hypoxia (principal); J44.1 Chronic obstructive pulmonary disease with (acute) exacerbation; J98.11 Atelectasis; C64.9 Malignant neoplasm of unspecified kidney, except renal pelvis; N39.0 Urinary tract infection, site not specified; E11.9 Type 2 diabetes mellitus without complications; E66.9 Obesity, unspecified; E78.00 Pure hypercholesterolemia, unspecified; I10 Essential (primary) hypertension; I70.0 Atherosclerosis of aorta; K21.9 Gastro-esophageal reflux disease without esophagitis; K59.00 Constipation, unspecified; M19.90 Unspecified osteoarthritis, unspecified site; Z68.38 Body mass index [BMI] 38.0-38.9, adult; Z82.49 Family history of ischemic heart disease and other diseases of the circulatory system; Z85.528 Personal history of other malignant neoplasm of kidney; Z90.49 Acquired absence of other specified parts of digestive tract; Z90.5 Acquired absence of kidney; Z87.891 Personal history of nicotine dependence; Z83.3 Family history of diabetes mellitus; Z90.721 Acquired absence of ovaries, unilateral; Z98.51 Tubal ligation status; Z88.8 Allergy status to other drugs, medicaments and biological substances
CPT/HCPCS: 36415; 71045; 71275; 74177; 80053; 81001; 82550; 82962; 83690; 83735; 83880; 84484; 85025; 85379; 85610; 87086; 93005; 94640; 96374; J1650; J1815; J2270; J2405; J3010; J7613; J7620; J7626; Q9967; 97116; 99291-25; G0378

== ENCOUNTER 2019-10-21 09:28 | Emergency (ER) | payer MEDICARE, OTHER ==
[~2019-10-21] VITALS: Ht 157.5 cm; Wt 98.0 kg
[~2019-10-21 09:28] MED LIST changes: -CETI10TA22 PO; +CETI10TA24 PO; +INSU100V8 SQ; -OMEP20CA10 PO; +OMEP20CA16 PO
[2019-10-21 09:46] VITALS: BP 149/73
--- NOTE | 2019-10-21 10:42 | RAD ---
FOOT RIGHT 3V History: Pain. Trauma. Technique: 3 views right foot. Comparison: None. Findings: Hallux valgus. Otherwise, normal alignment. No fracture. Dorsal foot soft tissue swelling. Mild first MTP DJD. Distal interphalangeal degenerative changes. Impression: 1. No acute osseous abnormality. 2. Dorsal foot soft tissue swelling. 3. Hallux valgus with first MTP DJD. Electronically signed by: Jair Felipe DO (10/21/2019 10:39 AM) [id number]
[2019-10-21] MEDS ORDERED: DICL100G18 TP (11:03)
[2019-10-21] MEDS ORDERED: METH4TAB2 PO (11:03)
--- NOTE | 2019-10-21 11:03 | PHYS DOC ---
Past Medical History Past Medical History: Arthritis, Bipolar, Hypertension Additional Past Medical Histor: shingles,urine incont, sciatica, renal cell carcinoma Past Surgical History: Cholecystectomy Additional Past Surgical Histo: R kidney tumor removed, R ovary removal,small bowel resection/ CYST, catara Smoking Status: Former Smoker Alcohol Use: Sober Drug Use: None Adult General Chief Complaint Chief Complaint: FOOT INJURY PAIN HPI HPI Patient is a 64 year old female with history of hypertension, bipolar, who presents to the ED today complaining of 10 out of 10 right foot pain that began 2 days ago after she accidentally dropped a tape dispenser on her foot. Patient describes the pain as throbbing and intermittent worse on weight bearing. Denies anything specifically alleviating the pain. Review of Systems Review of Systems Constitutional: Denies fever or chills [] Musculoskeletal: Reports right foot pain Integument: Denies rash or skin lesions [] Neurologic: Denies headache, focal weakness or sensory changes [] All other systems were reviewed and found to be within normal limits, except as documented in this note. Allergies Allergies Allergies Coded Allergies Type Severity Reaction Last Updated Verified aspirin Allergy Intermediate "messes with my stomach" 05/24/19 Yes omega-3 acid ethyl esters Allergy Intermediate bleeding 05/24/19 Yes tramadol Allergy Intermediate 05/24/19 Yes Physical Exam Physical Exam Constitutional: Well developed, well nourished, no acute distress, non-toxic appearance. [] Skin: Warm, dry, no erythema, no rash. [] Back: No tenderness, no CVA tenderness. [] Extremities: Right foot with mild soft tissue swelling around the toes, bruising noted on the second, third and fourth toes. Tenderness on palpation along the second and third toes. +2 right pedal pulse. Cap refill less than 2 seconds the right toes. Sensation intact to the right foot. Neurologic: Alert and oriented X 3, normal motor function, normal sensory fun ction, no focal deficits noted. [] Psychologic: Affect normal, judgement normal, mood normal. [] Current Patient Data Vital Signs Vital Signs Date Time Temp Pulse Resp B/P (MAP) Pulse Ox O2 Delivery O2 Flow Rate FiO2 10/21/19 09:46 97.6 87 20 149/73 (98) 95 Room Air 97.6 EKG EKG [] Radiology/Procedures Radiology/Procedures []PROCEDURE: FOOT RIGHT 3V FOOT RIGHT 3V History: Pain. Trauma. Technique: 3 views right foot. Comparison: None. Findings: Hallux valgus. Otherwise, normal alignment. No fracture. Dorsal foot soft tissue swelling. Mild first MTP DJD. Distal interphalangeal degenerative changes. Impression: 1. No acute osseous abnormality. 2. Dorsal foot soft tissue swelling. 3. Hallux valgus with first MTP DJD. Electronically signed by: Jair Fleipe DO (10/21/2019 10:39 AM) [id number] DICTATED and SIGNED BY: JAIR FELIPE DO DATE: 10/21/19 1039 Course & Med Decision Making Course & Med Decision Making Pertinent Labs and Imaging studies reviewed. (See chart for details) This is a 64-year-old female patient with a right foot pain that began after she accidentally dropped a tap dispenser on her foot 2 days ago. Right foot x-rays interpreted by radiologist are negative for any acute findings. Discharged to home. Ice elevation encouraged. Provided orthopedic doctor for follow-up. Dragon Disclaimer Dragon Disclaimer This electronic medical record was generated, in whole or in part, using a voice recognition dictation system. Departure Departure Impression: Primary Impression: Contusion of right foot Disposition: HOME, SELF-CARE Condition: STABLE Referrals: SELVIN FARRELL APRN (PCP) CONRADO HARDEN MD follow up in 1-2 weeks Patient Instructions: Contusion, [id number] Additional Instructions: You were seen for right foot contusion, right foot x-rays are negative for any acute findings. Follow-up with orthopedic doctor provided in 1-2 weeks. Use the prescribed medication as ordered. Scripts Methylprednisolone (MEDROL) 4 Mg Tab.ds.pk 1 PKG PO UD, #1 PKG Prov: TERRI ARIAS APRN 10/21/19 Diclofenac Sodium (VOLTAREN) 100 Gm Gel..gram. 1 GM TP QID for pain for 30 Days, #1 EACH 0 Refills apply to affected area(s) Prov: TERRI ARIAS APRN 10/21/19 Problem Qualifiers Primary Impression: Contusion of right foot Encounter type: initial encounter Qualified Codes: S90.31XA - Contusion of right foot, initial encounter TERRI ARIAS APRN Oct 21, 2019 11:03
== END 2019-10-21 11:19 | disposition home or self-care (01) ==
LOC: ER 09:28
DX: S90.31XA Contusion of right foot, initial encounter (principal); F31.9 Bipolar disorder, unspecified; I10 Essential (primary) hypertension; Z88.6 Allergy status to analgesic agent; Z87.891 Personal history of nicotine dependence; Z88.8 Allergy status to other drugs, medicaments and biological substances; W20.8XXA Other cause of strike by thrown, projected or falling object, initial encounter; Y93.89 Activity, other specified; Y92.89 Other specified places as the place of occurrence of the external cause; Y99.8 Other external cause status
CPT/HCPCS: 73630; 99283

== ENCOUNTER → 2020-02-03 | Outpatient (CLI) | payer MEDICARE, OTHER ==
[~2020-02-03] MED LIST changes: +DICL100G54 TP; +METH4TAB2 PO
--- NOTE | 2020-02-04 17:18 | RAD ---
DATE: 02/03/2020 2:36 PM EXAM: DIGITAL SCREEN BILAT W/CAD HISTORY: Screening COMPARISON: 08/05/2018, 10/08/2016 Bilateral full field craniocaudal and mediolateral oblique images were obtained using digital technique. This study was interpreted with the benefit of Computerized Aided Detection (CAD). FINDINGS: Breast Density: FATTY The Breast Parenchyma is primarily fatty replaced. Breast parenchyma level density A. No suspicious masses, microcalcifications or architectural distortion is present to suggest malignancy in either breast. The visualized axillae are unremarkable. IMPRESSION: No mammographic evidence of malignancy. BI-RADS CATEGORY: 1 NEGATIVE RECOMMENDED FOLLOW-UP: 12M 12 MONTH FOLLOW-UP Annual screening mammography is recommended, unless clinically indicated sooner based on symptoms or change in physical exam. PQRS compliance statement: Patient information was entered into a reminder system with a target due date 02/03/2021 for the next mammogram. Mammography is a sensitive method for finding small breast cancers, but it does not detect them all and is not a substitute for careful clinical examination. A negative mammogram does not negate a clinically suspicious finding and should not result in delay in biopsying a clinically suspicious abnormality. "Our facility is accredited by the [employer] Mammography Program."
== END ==
LOC: MAMMO 14:12
PROVIDERS: ATTEND Registered Nurse
DX: Z12.31 Encounter for screening mammogram for malignant neoplasm of breast (principal)
CPT/HCPCS: 77067

== ENCOUNTER 2020-05-19 09:53 | Observation (INO) | payer MEDICARE, OTHER ==
[~2020-05-19] VITALS: Ht 157.5 cm; Wt 86.6 kg
[~2020-05-19 09:53] MED LIST changes: -CETI10TA24 PO; +CETI10TA74 PO; +MORPHINE SULFATE 4 MG/ML VIAL. IV PRN
--- NOTE | 2020-05-19 10:13 | PHYS DOC ---
Past Medical History Past Medical History: Arthritis, Bipolar, Hypertension Additional Past Medical Histor: shingles,urine incont, sciatica, renal cell carcinoma Past Surgical History: Cholecystectomy Additional Past Surgical Histo: R kidney tumor removed, R ovary removal,small bowel resection/ CYST, catara Smoking Status: Former Smoker Alcohol Use: Sober Drug Use: None General Adult EDM: Chief Complaint: CHEST PAIN HPI: HPI: 64-year-old female presenting the emergency department today with chest pain. Is a pressure sensation that radiates to the left shoulder. It started about 45 minutes before arrival while she was at her doctor's office. It has since resolved and now she just has a residual arm pain. It was 9 out of 10 originally and is now improving. She denies a history of heart disease that she knows of but does have diabetes hypertension hyperlipidemia family history of heart disease and history of smoking. She denies unilateral leg swelling hemoptysis recent surgery or immobilization or history of DVT or PE. Review of systems is negative for abdominal pain nausea vomiting. Positive for pain in the chest. Negative for diaphoresis. Negative for vomiting nuchal rigidity or fevers. All other review of systems negative. ED course: 64-year-old female presenting with chest pain. On arrival the patient is well-appearing and not in any distress. EKG obtained and reviewed by myself shows sinus rhythm with a regular rate. ST segments congruent. Not suggestive of acute ischemia. Chest x-ray ordered and is unremarkable. Blood work unremarkable including a negative troponin. Heart score calculated and elevated. We will admit the patient for further evaluation treatment and cardiology consultation and serial troponins. CT angiogram ordered after d- dimer was elevated. CT angiogram negative for pulmonary embolism. Heart Score: HEART Score for Chest Pain: HEART Score for Chest Pain Response (Comments) Value History Moderately Suspicious 1 ECG Nonspecific Repolarizatio 1 Age > 65 2 Risk Factors >3 Risk Factors or Hx CAD 2 Troponin < Normal Limit 0 Total 6 Risk Factors: Risk Factors: DM, Current or recent (<one month) smoker, HTN, HLP, family history of CAD, obesity. Risk Scores: Score 0 - 3: 2.5% MACE over next 6 weeks - Discharge Home Score 4 - 6: 20.3% MACE over next 6 weeks - Admit for Clinical Observation Score 7 - 10: 72.7% MACE over next 6 weeks - Early Invasive Strategies Allergies: Allergies: Allergies Coded Allergies Type Severity Reaction Last Updated Verified aspirin Allergy Intermediate "messes with my stomach" 05/24/19 Yes omega-3 acid ethyl esters Allergy Intermediate bleeding 05/24/19 Yes tramadol Allergy Intermediate 05/24/19 Yes Physical Exam: PE: Constitutional: Well developed, well nourished, no acute distress, non-toxic appearance. [] HENT: Normocephalic, atraumatic, bilateral external ears normal, oropharynx moist, no oral exudates, nose normal. [] Eyes: PERRLA, EOMI, conjunctiva normal, no discharge. [] Neck: Normal range of motion, no tenderness, supple, no stridor. [] Cardiovascular:Heart rate regular rhythm, no murmur [] Lungs & Thorax: Bilateral breath sounds clear to auscultation [] Abdomen: Bowel sounds normal, soft, no tenderness, no masses, no pulsatile masses. [] Skin: Warm, dry, no erythema, no rash. [] Back: No tenderness, no CVA tenderness. [] Extremities: No tenderness, no cyanosis, no clubbing, ROM intact, no edema. [] Neurologic: Alert and oriented X 3, normal motor function, normal sensory function, no focal deficits noted. [] Psychologic: Affect normal, judgement normal, mood normal. [] EKG: EKG: [] Radiology/Procedures: Radiology/Procedures: [] Course & Med Decision Making: Course & Med Decision Making Pertinent Labs and Imaging studies reviewed. (See chart for details) [] Dragon Disclaimer: Dragon Disclaimer: This electronic medical record was generated, in whole or in part, using a voice recognition dictation system. Departure Departure Impression: Primary Impression: Chest pain Disposition: ADMITTED INPATIENT Admitting Physician: MIAN Condition: STABLE Referrals: SELVIN FARRELL APRN (PCP) Justicifation of Admission Dx: Justifications for Admission: Justification of Admission Dx: Yes Comments: Chest pain high heart score. SIMBA PATTERSON MD May 19, 2020 10:13
[2020-05-19 10:22] LABS: BASO # 0.1 x10^3/uL (0.0-0.2); BASO % 1 % (0-3); EOS # 0.1 x10^3/uL (0.0-0.7); EOS % 2 % (0-3); HEMATOCRIT 36.2 % (36.0-47.0); HEMOGLOBIN 11.8 g/dL (12.0-15.5); LYMPH # 1.6 x10^3/uL (1.0-4.8); LYMPH % 22 % (24-48); MEAN CORPUSCULAR HEMOGLOBIN 27 pg (25-35); MEAN CORPUSCULAR HGB CONC 33 g/dL (31-37); MEAN CORPUSCULAR VOLUME 82 fL (79-100); MONO # 0.6 x10^3/uL (0.0-1.1); MONO % 9 % (0-9); NEUT % 67 % (31-73); PLATELET COUNT 388 x10^3/uL (140-400); RED BLOOD COUNT 4.41 x10^6/uL (3.50-5.40); RED CELL DISTRIBUTION WIDTH 17.4 % (11.5-14.5); WHITE BLOOD COUNT 7.5 x10^3/uL (4.0-11.0)
--- NOTE | 2020-05-19 10:29 | RAD ---
Examination: CHEST AP ONLY History: Reason: chest pain / Spl. Instructions: / History: Comparison: CTA chest 05/30/2019. Findings: AP portable upright frontal view of the chest was obtained. The cardiomediastinal silhouette is normal. Minimal left lateral basilar discoid atelectasis or scarring is present.. There is no pneumothorax. No pleural effusion is appreciated. No acute bone abnormality. Right upper quadrant surgical clips. IMPRESSION: No definite infiltrate. Improved aeration of the left lateral lung base compared to prior exam. Electronically signed by: Josué Almaraz MD (05/19/2020 10:26 AM) [id number]
[2020-05-19 10:32] LABS: CALCIUM 9.7 mg/dL (8.5-10.1); CREATININE 0.6 mg/dL (0.6-1.0); POTASSIUM 3.2 mmol/L (3.5-5.1)
[2020-05-19 10:38] LABS: ALBUMIN 3.8 g/dL (3.4-5.0); DIRECT BILIRUBIN 0.1 mg/dL (0.0-0.2); TOTAL BILIRUBIN 0.3 mg/dL (0.2-1.0); TOTAL PROTEIN 7.1 g/dL (6.4-8.2)
[2020-05-19 10:51] LABS: PROTHROMBIN TIME PATIENT 12.9 SEC (11.7-14.0)
[2020-05-19] MEDS ORDERED: IOHEXOL 350 MG/ML 100 ML VIAL. IV ONE (12:30)
[2020-05-19] MEDS ORDERED: CONTRAST GIVEN. MC PRN (12:30)
--- NOTE | 2020-05-19 12:56 | PDOC1 ---
History and Physical Date of Service: DOS: DATE: 05/19/20 TIME: 12:52 Chief Complaint: Chief Complain: chest pain History of Present Illness: HPI: 64-year-old female with past medical history of hypertension, diabetes, dyslipidemia and tobacco use in the past. Positive for heart attack in her mother. Presenting the emergency department today with chest pain. Is a pressure sensation that radiates to the left shoulder. It started about 45 minutes before arrival while she was at her doctor's office. It has since resolved and now she just has a residual arm pain. It was 9 out of 10 originally and is now improving. She denies unilateral leg swelling hemoptysis recent surgery or immobilization or history of DVT or PE. Review of systems is negative for abdominal pain nausea vomiting. Positive for pain in the chest. Negative for diaphoresis. Negative for vomiting nuchal rigidity or fevers. All other review of systems negative. ED course: 64-year-old female presenting with chest pain. On arrival the patient is well-appearing and not in any distress. EKG obtained and reviewed by myself shows sinus rhythm with a regular rate. ST segments congruent. Not suggestive of acute ischemia. Chest x-ray ordered and is unremarkable. Blood work unremarkable including a negative troponin. Heart score calculated and elevated. We will admit the patient for further evaluation treatment and cardiology consultation and serial troponins. CT angiogram ordered after d- dimer was elevated. Past Medical/Surgical History: PMH/PSH: Past Medical History: Arthritis, Bipolar, Hypertension, history of herpes zoster, urinary incontinence, sciatica, renal cell carcinoma Past Surgical History: Cholecystectomy, R nephrectomy, R ovary removal,small bowel resection/ CYST, cataract surgery Allergies: Allergies: Coded Allergies: aspirin (Verified Allergy, Intermediate, "messes with my stomach", 05/24/19) omega-3 acid ethyl esters (Verified Allergy, Intermediate, bleeding, 05/24/19) tramadol (Verified Allergy, Intermediate, 05/24/19) Family History: Family History: Reviewed and none reported Social History: Social History: Smoking Status: Former Smoker Alcohol Use: Sober Drug Use: None Current Medications: Current Medications Current Medications Iohexol (Omnipaque 350 Mg/ml) 100 ml 1X ONCE IV Last administered on 05/19/20at 12:37; Start 05/19/20 at 12:30; Stop 9/25/20 at 12:31; Status DC Info (CONTRAST GIVEN -- Rx MONITORING) 1 each PRN DAILY PRN MC SEE COMMENTS; Start 05/19/20 at 12:30; Stop 05/21/20 at 12:29 Active Scripts Active Medrol (Methylprednisolone) 4 Mg Tab.ds.pk 1 Pkg PO UD Voltaren (Diclofenac Sodium) 100 Gm Gel..gram. 1 Gm TP QID 30 Days apply to affected area(s) Lantus (Insulin Glargine,Hum.rec.anlog) 100 Unit/1 Ml Vial 5 Unit SQ QHS 30 Days Proair Respiclick (Albuterol Sulfate) 90 Mcg Aer.pow.ba 1 Puff IH PRN Q6HRS PRN Reported [Beano] PO PRN PRN Pepcid (Famotidine) 20 Mg Tablet 20 Mg PO PRN PRN Ditropan Xl (Oxybutynin Chloride) 5 Mg Tab.er.24 1 Tab PO DAILY Aspir 81 (Aspirin) 81 Mg Tablet.dr 1 Tab PO DAILY Zyrtec (Cetirizine Hcl) 10 Mg Tablet 1 Tab PO QHS Gabapentin (Gabapentin) 300 Mg Capsule 300 Mg PO TID Baclofen 10 Mg Tablet 1 Tab PO TID Lisinopril-Hctz 10-12.5 Mg Tab (Lisinopril/Hydrochlorothiazide) 1 Each Tablet 1 Tab PO DAILY Freestyle Lite Strips (Blood Sugar Diagnostic) 1 Each Strip 1 Each MC Atorvastatin Calcium 40 Mg Tablet 40 Mg PO DAILY Spiriva (Tiotropium [place]) 18 Mcg Cap.w.dev 2 Inh IH DAILY Meloxicam 15 Mg Tablet 15 Mg PO DAILY Polyethylene Glycol (Polyethylene Glycol 8000) 500 Gm Powder 500 Gm MC Metformin Hcl Er (Metformin Hcl) 750 Mg Tab.er.24h 1,500 Mg PO DAILYWSUP Patanol (Olopatadine Hcl) 5 Ml Drops 5 Ml OP PRN PRN Flovent 220MCG Hfa (Fluticasone Propionate) 12 Gm Aer.w.adap 12 Gm IH BID ROS: Review of Systems Review of System REVIEW OF SYSTEMS: GENERAL: Denies weakness SKIN: No bruising, hair changes or rashes. EYES: No blurred, double or loss of vision. NOSE AND THROAT: No history of nosebleeds, hoarseness or sore throat. HEART: No history of palpitations, chest pain or shortness of breath on exertion. LUNGS: Denies cough, hemoptysis, wheezing or shortness of breath. GASTROINTESTINAL: Denies changes in appetite, nausea, vomiting, diarrhea or constipation. GENITOURINARY: No history of frequency, urgency, hesitancy or nocturia. NEUROLOGIC: Denies history of numbness, tingling, or tremor. PSYCHIATRIC: No history of panic, anxiety or depression. ENDOCRINE: No history of heat or cold intolerance, polyuria or polydipsia. EXTREMITIES: Denies joint pain, pain on walking or stiffness. Physical Exam: Vital Signs: Vital Signs Date Time Temp Pulse Resp B/P (MAP) Pulse Ox O2 Delivery O2 Flow Rate FiO2 05/19/20 10:56 80 18 174/74 (107) 96 Room Air 05/19/20 09:55 99.0 99.0 Physcial Exam: GEN: No apparent distress. Alert and oriented HEENT: Normal cephalic, atraumatic, external auditory canals are patent EYES: Extraocular muscles are intact, pupil are equally round and reactive to light and accommodation MUSCULOSKELETAL: Well developed , well nourished, good range of motion ENDOCRINE: No thyromegaly was palpated LYMPHATICS: No cervical chain or axillary nodes were noted HEMATOPOIETIC: No bruising NECK: Supple, no JVD, no thyromegaly was noted LUNGS: Clear to auscultation in all lung mathews without rhonchi or wheezing HEART: RRR, S!, S2 present. Peripheral pulses intact, no obvious murmurs noted ABDOMEN: Soft, nontender. Positive bowel sounds, no organomegaly, normal bowel sounds EXTREMITIES: Without clubbing, cyanosis, or edema. Pedal pulses intact. Negative Homans sign NEUROLOGIC: Normal speech and tone. A&O x 3, moves all extremities, no obvious focal deficits PSYCHIATRIC: Normal affect, normal mood. Stable SKIN: No ulcerations or rashes, good skin turgor, no jaundice VASCULAR: Good capillary refill, neurovascular bundle appears to be intact Labs: Labs: Laboratory Tests Test 05/19/20 10:04 White Blood Count 7.5 x10^3/uL (4.0-11.0) Red Blood Count 4.41 x10^6/uL (3.50-5.40) Hemoglobin 11.8 g/dL (12.0-15.5) Hematocrit 36.2 % (36.0-47.0) Mean Corpuscular Volume 82 fL (79-100) Mean Corpuscular Hemoglobin 27 pg (25-35) Mean Corpuscular Hemoglobin Concent 33 g/dL (31-37) Red Cell Distribution Width 17.4 % (11.5-14.5) Platelet Count 388 x10^3/uL (140-400) Neutrophils (%) (Auto) 67 % (31-73) Lymphocytes (%) (Auto) 22 % (24-48) Monocytes (%) (Auto) 9 % (0-9) Eosinophils (%) (Auto) 2 % (0-3) Basophils (%) (Auto) 1 % (0-3) Neutrophils # (Auto) 5.0 x10^3/uL (1.8-7.7) Lymphocytes # (Auto) 1.6 x10^3/uL (1.0-4.8) Monocytes # (Auto) 0.6 x10^3/uL (0.0-1.1) Eosinophils # (Auto) 0.1 x10^3/uL (0.0-0.7) Basophils # (Auto) 0.1 x10^3/uL (0.0-0.2) Prothrombin Time 12.9 SEC (11.7-14.0) Prothromb Time International Ratio 1.0 (0.8-1.1) Activated Partial Thromboplast Time 26 SEC (24-38) D-Dimer (Sintia) 0.88 ug/mlFEU (0.00-0.50) Sodium Level 142 mmol/L (136-145) Potassium Level 3.2 mmol/L (3.5-5.1) Chloride Level 104 mmol/L (98-107) Carbon Dioxide Level 30 mmol/L (21-32) Anion Gap 8 (6-14) Blood Urea Nitrogen 13 mg/dL (7-20) Creatinine 0.6 mg/dL (0.6-1.0) Estimated GFR (Cockcroft-Gault) 100.0 Glucose Level 111 mg/dL (70-99) Calcium Level 9.7 mg/dL (8.5-10.1) Total Bilirubin 0.3 mg/dL (0.2-1.0) Direct Bilirubin 0.1 mg/dL (0.0-0.2) Aspartate Amino Transf (AST/SGOT) 25 U/L (15-37) Alanine Aminotransferase (ALT/SGPT) 34 U/L (14-59) Alkaline Phosphatase 63 U/L (46-116) Troponin I Quantitative < 0.017 ng/mL (0.000-0.055) RN-Qua-M-Type Natriuretic Peptide 107 pg/mL (0-124) Total Protein 7.1 g/dL (6.4-8.2) Albumin 3.8 g/dL (3.4-5.0) Lipase 87 U/L (73-393) Laboratory Tests Test 05/19/20 10:04 White Blood Count 7.5 x10^3/uL (4.0-11.0) Red Blood Count 4.41 x10^6/uL (3.50-5.40) Hemoglobin 11.8 g/dL (12.0-15.5) Hematocrit 36.2 % (36.0-47.0) Mean Corpuscular Volume 82 fL (79-100) Mean Corpuscular Hemoglobin 27 pg (25-35) Mean Corpuscular Hemoglobin Concent 33 g/dL (31-37) Red Cell Distribution Width 17.4 % (11.5-14.5) Platelet Count 388 x10^3/uL (140-400) Neutrophils (%) (Auto) 67 % (31-73) Lymphocytes (%) (Auto) 22 % (24-48) Monocytes (%) (Auto) 9 % (0-9) Eosinophils (%) (Auto) 2 % (0-3) Basophils (%) (Auto) 1 % (0-3) Neutrophils # (Auto) 5.0 x10^3/uL (1.8-7.7) Lymphocytes # (Auto) 1.6 x10^3/uL (1.0-4.8) Monocytes # (Auto) 0.6 x10^3/uL (0.0-1.1) Eosinophils # (Auto) 0.1 x10^3/uL (0.0-0.7) Basophils # (Auto) 0.1 x10^3/uL (0.0-0.2) Prothrombin Time 12.9 SEC (11.7-14.0) Prothromb Time International Ratio 1.0 (0.8-1.1) Activated Partial Thromboplast Time 26 SEC (24-38) D-Dimer (Sintia) 0.88 ug/mlFEU (0.00-0.50) Sodium Level 142 mmol/L (136-145) Potassium Level 3.2 mmol/L (3.5-5.1) Chloride Level 104 mmol/L (98-107) Carbon Dioxide Level 30 mmol/L (21-32) Anion Gap 8 (6-14) Blood Urea Nitrogen 13 mg/dL (7-20) Creatinine 0.6 mg/dL (0.6-1.0) Estimated GFR (Cockcroft-Gault) 100.0 Glucose Level 111 mg/dL (70-99) Calcium Level 9.7 mg/dL (8.5-10.1) Total Bilirubin 0.3 mg/dL (0.2-1.0) Direct Bilirubin 0.1 mg/dL (0.0-0.2) Aspartate Amino Transf (AST/SGOT) 25 U/L (15-37) Alanine Aminotransferase (ALT/SGPT) 34 U/L (14-59) Alkaline Phosphatase 63 U/L (46-116) Troponin I Quantitative < 0.017 ng/mL (0.000-0.055) HT-Huw-N-Type Natriuretic Peptide 107 pg/mL (0-124) Total Protein 7.1 g/dL (6.4-8.2) Albumin 3.8 g/dL (3.4-5.0) Lipase 87 U/L (73-393) Images: Images CXR No intrapulmonary process identified Pending CTA for elevated d-dimer Assessment/Plan Assessment/Plan Chest pain concerning for unstable angina/NSTEMI versus STEMI Hypertensive urgency Normocytic anemia due to chronic inflammation Elevated d-dimer Hypokalemia Obesity class I Pending CTA for elevated d-dimer IV electrolyte replacement PRN Continue aspirin Cardiology consulted for predischarge stress testing or left heart cath Continue nitroglycerin as needed for pain Continue beta-javid if blood pressures allow Continue high intensity statins IV morphine as needed Maintain O2 sats between 88 to 95% Trend troponins Repeat EKG in the a.m. Continue telemetry monitoring Monitor for electrolyte abnormalities Avoid NSAIDs Lovenox for DVT prophylaxis Protonix GI prophylaxis ADA diet Full code Discussed with RN and SW Disposition pending cardiology evaluation Surrogate decision maker is Solo Martel Justifications for Admission Other Justification CECY PABLO MD May 19, 2020 12:56
--- NOTE | 2020-05-19 13:04 | RAD ---
CT ANGIOGRAPHY CHEST INDICATION: chest pain, pe Comparison: Radiograph 05/19/2020. CTA 05/30/2019 TECHNIQUE: Following the uneventful administration of intravenous contrast, 100 cc Omni 350, axial CT sections were obtained through the lungs and upper abdomen. Multiplanar reconstructions and MIP images were obtained. PQRS compliance statement: One or more of the following individualized dose reduction techniques were utilized for this examination: 1. Automated exposure control 2. Adjustment of the mA and/or kV according to patient size 3. Use of iterative reconstruction technique FINDINGS: Pulmonary arteries: No evidence of central or segmental pulmonary thromboembolic disease. Subsegmental branches not well evaluated due to respiratory motion artifact. Lungs and Airways: No pulmonary mass or consolidation. Bibasilar dependent and subsegmental atelectasis. 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 Mosaic attenuation of the lung parenchyma. No abnormality of the central airways. Pleura: The pleural spaces are normal. Heart and Mediastinum: The visualized thyroid is stable in size and attenuation. No axillary or supraclavicular lymphadenopathy. No mediastinal, hilar or retrocrural lymphadenopathy. The heart and pericardium are within normal limits. Atherosclerosis of the thoracic aorta. Abdomen: Limited images through the upper abdomen show no abnormality of the visualized organs. Bones and Soft Tissues: Degenerative changes of the spine. IMPRESSION: 1. No evidence of central or segmental pulmonary thromboembolic disease. Subsegmental branches not well evaluated due to respiratory motion artifact. 2. No pulmonary mass or consolidation. 3. Mosaic attenuation of the lung parenchyma, likely due to small airways disease. Electronically signed by: Jose R Barber MD (05/19/2020 1:01 PM) [facility]
[2020-05-19] MEDS ORDERED: DEXTROSE 50% 25 GM / 50ML DISP.SYRIN. IV PRN (13:30)
[2020-05-19] MEDS ORDERED: POTASSIUM CHLORIDE 10MEQ 100 ML IV PRN ×3 (13:30→15:00)
[2020-05-19] MEDS ORDERED: SENNOSIDES 8.6 MG TABLET PO PRN (13:30)
[2020-05-19] MEDS ORDERED: NITROGLYCERIN SUBLINGUAL 0.4 MG BOTTLE OF 25. SL PRN (13:30)
[2020-05-19] MEDS ORDERED: DOCUSATE SODIUM 100 MG CAPSULE. PO PRN (13:30)
[2020-05-19] MEDS ORDERED: MAGNESIUM SULFATE 2GM 50 ML IV PRN (13:30)
[2020-05-19] MEDS ORDERED: ONDANSETRON PF 4 MG/2 ML VIAL. IVP PRN (13:30)
[2020-05-19] MEDS ORDERED: MORPHINE SULFATE 2 MG/ML VIAL. IV PRN (13:45)
[2020-05-19] MEDS ORDERED: LABETALOL 20 MG/4 ML DISP.SYRIN. IVP PRN (13:45)
[2020-05-19 13:50] VITALS: BP 156/69
[2020-05-19] MEDS: ENOXAPARIN 40 MG/0.4 ML SYRINGE. SQ SCH (15:06)
[2020-05-19] MEDS: IV NORMAL SALINE 1000ML BAG 1,000 ML IV SCH (15:06)
[2020-05-19] MEDS: POTASSIUM CHLORIDE 20 MEQ TABLET.ER. PO PRN ×2 (15:06→23:43)
--- NOTE | 2020-05-19 16:10 | PDOC2 ---
CARDIAC CONSULT DATE OF CONSULT Date of Consult DATE: 05/19/20 TIME: 16:00 REASON FOR CONSULT Reason for Consult: Chest pain REFERRING PHYSICIAN Referring Physician: Agus SOURCE Source: Chart review, Patient HISTORY OF PRESENT ILLNESS HISTORY OF PRESENT ILLNESS This is a plesant 64 yo female admitted for complains of chest pain. She was at her PCP's office and started having left chest pressure that radiated to her le ft arm. She does not remember having stress test recently but no hx of CAD. Denies any SOA, nausea or vomiting. Her discomfort lasted for about 45min. Her PCp listen to her heart and told her she needs to go to ED. Denies anyf requent dizziness palpitations At home her mobility is limited butfunctional. She does have a home blood and plasma laboratory assistant that helps her with house chores. Denies any ETOH or recreational drug use and reports compliance with her meds. No recent falls or injury. PAST MEDICAL HISTORY Cardiovascular: HTN, Hyperlipidemia Pulmonary: COPD CENTRAL NERVOUS SYSTEM: Other (No pertinent history) GI: GERD Heme/Onc: Cancer (renal) Hepatobiliary: Cholelithiasis Psych: Bipolar Musculoskeletal: Osteoarthritis Rheumatologic: No pertinent hx Infectious disease: Herpes zoster ENT: Other (cataract) Renal/: Urinary Incontinence Endocrine: Diabetes (2) Dermatology: No pertinent hx PAST SURGICAL HISTORY Past Surgical History: Cholecystectomy, Cataract Removal, Other (right nephrectomy; bowel resection) SOCIAL HISTORY Smoke: Quit ALCOHOL: none Drugs: None CURRENT MEDICATIONS CURRENT MEDICATIONS Current Medications Medications (Trade) Dose Ordered Sig/[place] Route PRN Reason Start Time Stop Time Status Last Admin Dose Admin Iohexol (Omnipaque 350 Mg/ml) 100 ml 1X ONCE IV 05/19/20 12:30 05/19/20 12:31 DC 05/19/20 12:37 Potassium Chloride (Klor-Con) 40 meq 1X PRN PO PER PROTOCOL 05/19/20 13:30 05/19/20 15:06 Sodium Chloride 1,000 ml @ 100 mls/hr Q10H IV 05/19/20 13:30 05/19/20 15:06 Enoxaparin Sodium (Lovenox 40mg Syringe) 40 mg Q24H SQ 05/19/20 13:30 05/19/20 15:06 ALLERGIES ALLERGIES: Coded Allergies: aspirin (Verified Allergy, Intermediate, "messes with my stomach", 05/24/19) omega-3 acid ethyl esters (Verified Allergy, Intermediate, bleeding, 05/24/19) tramadol (Verified Allergy, Intermediate, 05/24/19) ROS Review of System 14 point ROS evaluated with pertinent positives noted per HPI PHYSICAL EXAM General: Alert, Oriented X3, Cooperative, No acute distress HEENT: Atraumatic, Mucous membr. moist/pink Lungs: Clear to auscultation, Normal air movement Heart: Regular rate (SR with PVCs), Normal S1, Normal S2, Other (2/6 systolic murmur to LLs border) Abdomen: Soft, No tenderness, Other (obese) Extremities: No cyanosis, Other (1+ bilateral LE pitting edema) Skin: No breakdown, No significant lesion Neuro: Normal speech, Sensation intact Psych/Mental Status: Mental status NL, Mood NL MUSCULOSKELETAL: Osteoarthritic changes both hands VITALS/I&O VITALS/I&O: Vital Signs Date Time Temp Pulse Resp B/P (MAP) Pulse Ox O2 Delivery O2 Flow Rate FiO2 05/19/20 13:32 86 18 164/75 (104) 96 Room Air 05/19/20 09:55 99.0 99.0 LABS Lab: Laboratory Tests Test 05/19/20 10:04 White Blood Count 7.5 x10^3/uL (4.0-11.0) Red Blood Count 4.41 x10^6/uL (3.50-5.40) Hemoglobin 11.8 g/dL (12.0-15.5) L Hematocrit 36.2 % (36.0-47.0) Mean Corpuscular Volume 82 fL (79-100) Mean Corpuscular Hemoglobin 27 pg (25-35) Mean Corpuscular Hemoglobin Concent 33 g/dL (31-37) Red Cell Distribution Width 17.4 % (11.5-14.5) H Platelet Count 388 x10^3/uL (140-400) Neutrophils (%) (Auto) 67 % (31-73) Lymphocytes (%) (Auto) 22 % (24-48) L Monocytes (%) (Auto) 9 % (0-9) Eosinophils (%) (Auto) 2 % (0-3) Basophils (%) (Auto) 1 % (0-3) Neutrophils # (Auto) 5.0 x10^3/uL (1.8-7.7) Lymphocytes # (Auto) 1.6 x10^3/uL (1.0-4.8) Monocytes # (Auto) 0.6 x10^3/uL (0.0-1.1) Eosinophils # (Auto) 0.1 x10^3/uL (0.0-0.7) Basophils # (Auto) 0.1 x10^3/uL (0.0-0.2) Prothrombin Time 12.9 SEC (11.7-14.0) Prothrombin Time INR 1.0 (0.8-1.1) Activated Partial Thromboplast Time 26 SEC (24-38) D-Dimer (Sintia) 0.88 ug/mlFEU (0.00-0.50) H Sodium Level 142 mmol/L (136-145) Potassium Level 3.2 mmol/L (3.5-5.1) L Chloride Level 104 mmol/L (98-107) Carbon Dioxide Level 30 mmol/L (21-32) Anion Gap 8 (6-14) Blood Urea Nitrogen 13 mg/dL (7-20) Creatinine 0.6 mg/dL (0.6-1.0) Estimated GFR (Cockcroft-Gault) 100.0 Glucose Level 111 mg/dL (70-99) H Calcium Level 9.7 mg/dL (8.5-10.1) Magnesium Level 2.3 mg/dL (1.8-2.4) Total Bilirubin 0.3 mg/dL (0.2-1.0) Direct Bilirubin 0.1 mg/dL (0.0-0.2) Aspartate Amino Transferase (AST) 25 U/L (15-37) Alanine Aminotransferase (ALT) 34 U/L (14-59) Alkaline Phosphatase 63 U/L (46-116) Troponin I Quantitative < 0.017 ng/mL (0.000-0.055) AS-Hgz-N-Type Natriuretic Peptide 107 pg/mL (0-124) Total Protein 7.1 g/dL (6.4-8.2) Albumin 3.8 g/dL (3.4-5.0) Lipase 87 U/L (73-393) Laboratory Tests 05/19/20 10:04 Laboratory Tests 05/19/20 10:04 ASSESSMENT/PLAN ASSESSMENT/PLAN 1. Chest pain 2. COPD 3. HTN: labile 4. HLP 5. Obesity 6. Hypokalemia 7. DM2: on metformin Recommendations 1. Trend troponin 2. Restart home BP meds and statin. Replace K 3. Echo tomorrow 4. If TTE unremarkable then will plan for outpt MPI given her risk factors. PATSY RODRIGUEZ APRN May 19, 2020 16:10
[2020-05-19] MEDS ORDERED: INUL2TAB4 PO (16:39)
[2020-05-19] MEDS ORDERED: ARIP5TAB13 PO (16:39)
[2020-05-19] MEDS ORDERED: CART1TAB4 PO (16:39)
[2020-05-19] MEDS ORDERED: METF10007 PO (16:39)
[2020-05-19] MEDS ORDERED: GLUC-46 PO (16:39)
[2020-05-19] MEDS: INSULIN LISPRO 300 UNITS/3 ML VIAL. SQ SCH (17:00)
[2020-05-19 19:00] VITALS: BP 151/52
[2020-05-19] MEDS ORDERED: BUDESONIDE 0.5 MG/2 ML NEBU. NEB SCH (20:00)
--- NOTE | 2020-05-19 20:49 | NUR ---
Patient states her rings ar falling off. Patient took them off and put them on DM alert bracelet. Offered for security to lock up jewelry, Patient refused. Patient placed bracelet with rings in purse. Purse placed in belongings bag with clothing and in bottom drawer of night stand per Patient request.
[2020-05-19] MEDS: GABAPENTIN 300 MG CAPSULE. PO SCH (20:55)
[2020-05-19] MEDS: BACLOFEN 10 MG TABLET. PO SCH (20:55)
[2020-05-19] MEDS: FAMOTIDINE 20 MG TABLET. PO SCH (20:55)
[2020-05-19] MEDS ORDERED: FLUTICASONE PROPIONATE IH SCH (21:00)
[2020-05-19] MEDS ORDERED: CETIRIZINE HCL 10 MG TABLET. PO SCH (21:00)
[2020-05-19] MEDS ORDERED: MAGNESIUM OXIDE 400 MG TABLET PO PRN (21:00)
[2020-05-19] MEDS ORDERED: ATORVASTATIN CALCIUM 40 MG TABLET. PO SCH (21:00)
[2020-05-19 22:46] VITALS: BP 167/77
[2020-05-20] MEDS: IV NORMAL SALINE 1000ML BAG 1,000 ML IV SCH ×2 (00:24→08:20)
[2020-05-20] MEDS: ACETAMINOPHEN 325 MG TABLET. PO PRN ×2 (01:00→14:43)
[2020-05-20 02:48] VITALS: BP 152/67
[2020-05-20 04:40] LABS: BASO # 0.1 x10^3/uL (0.0-0.2); BASO % 1 % (0-3); EOS # 0.1 x10^3/uL (0.0-0.7); EOS % 2 % (0-3); HEMATOCRIT 36.3 % (36.0-47.0); HEMOGLOBIN 11.7 g/dL (12.0-15.5); LYMPH # 2.4 x10^3/uL (1.0-4.8); LYMPH % 27 % (24-48); MEAN CORPUSCULAR HEMOGLOBIN 27 pg (25-35); MEAN CORPUSCULAR HGB CONC 32 g/dL (31-37); MEAN CORPUSCULAR VOLUME 83 fL (79-100); MONO # 0.9 x10^3/uL (0.0-1.1); MONO % 10 % (0-9); NEUT # 5.4 x10^3/uL (1.8-7.7); NEUT % 61 % (31-73); PLATELET COUNT 372 x10^3/uL (140-400); RED CELL DISTRIBUTION WIDTH 17.7 % (11.5-14.5); WHITE BLOOD COUNT 8.9 x10^3/uL (4.0-11.0)
[2020-05-20 04:57] LABS: CALCIUM 9.6 mg/dL (8.5-10.1); CREATININE 0.5 mg/dL (0.6-1.0); GFR 123.4; PHOSPHORUS 3.7 mg/dL (2.6-4.7); POTASSIUM 4.1 mmol/L (3.5-5.1)
[2020-05-20 04:59] LABS: CHOLESTEROL/HDL RATIO 3.6
--- NOTE | 2020-05-20 05:58 | NUR ---
Red macerated areas noted on bilateral abdominal folds and low down on gluteal folds. Patient states her sister told her to use Dove deodorant on it. Photos placed on chart and Calazime applied.
[2020-05-20 07:00] VITALS: BP 142/67
[2020-05-20] MEDS ORDERED: ASPIRIN ENTERIC COATED 81 MG TABLET.DR. PO SCH (08:00)
[2020-05-20] MEDS: INSULIN LISPRO 300 UNITS/3 ML VIAL. SQ SCH ×2 (08:00→12:00)
[2020-05-20] MEDS: BACLOFEN 10 MG TABLET. PO SCH ×2 (08:21→13:07)
[2020-05-20] MEDS: FAMOTIDINE 20 MG TABLET. PO SCH (08:21)
[2020-05-20] MEDS: GABAPENTIN 300 MG CAPSULE. PO SCH ×2 (08:21→13:07)
[2020-05-20] MEDS ORDERED: ARIPiprazole 5 MG TABLET PO SCH (09:00)
[2020-05-20] MEDS ORDERED: THIAMINE INJ 100 MG in IV DEXTROSE 5% 50 ML IV SCH (09:00)
[2020-05-20] MEDS ORDERED: FLU VACC QS 2020-21(6MOS+)/PF 0.5 ML SYRINGE. VAX IM ONE (09:15)
[2020-05-20 11:00] VITALS: BP 151/85
--- NOTE | 2020-05-20 12:57 | PDOC ---
PROGRESS NOTES Date of Service DATE: 05/20/20 TIME: 12:55 Subjective Subjective Patient seen and examined Objective Objective Vital Signs Date Time Temp Pulse Resp B/P (MAP) Pulse Ox O2 Delivery O2 Flow Rate FiO2 05/20/20 08:00 Room Air 05/20/20 07:00 98.1 80 20 142/67 (92) 96 98.1 Intake and Output 05/20/20 07:00 Intake Total 2901 ml Output Total 3000 ml Balance -99 ml Intake Oral 2070 ml IV Total 831 ml Output Urine Total 3000 ml Physical Exam Abdomen: Normal bowel sounds General: No acute distress Lungs: Clear to auscultation Assessment Assessment Problems Medical Problems: (1) Chest pain Status: Acute 1. Chest pain. Pain resolved. No acute EKG changes. Initial troponin negative. No troponins yet available for today. Will check a troponin. We will continue present medications. Echo today. If echo is normal and morning troponin not elevated will follow-up with outpatient stress testing. 2. COPD 3. HTN: Continue medical treatment. 4. HLP 5. Obesity 6. Hypokalemia 7. DM2: on metformin Comment Review of Relevant I have reviewed the following items yecenia (where applicable) has been applied. Labs Laboratory Tests Test 05/19/20 10:04 05/19/20 17:40 05/19/20 20:33 05/19/20 22:00 White Blood Count 7.5 x10^3/uL (4.0-11.0) Red Blood Count 4.41 x10^6/uL (3.50-5.40) Hemoglobin 11.8 g/dL (12.0-15.5) Hematocrit 36.2 % (36.0-47.0) Mean Corpuscular Volume 82 fL (79-100) Mean Corpuscular Hemoglobin 27 pg (25-35) Mean Corpuscular Hemoglobin Concent 33 g/dL (31-37) Red Cell Distribution Width 17.4 % (11.5-14.5) Platelet Count 388 x10^3/uL (140-400) Neutrophils (%) (Auto) 67 % (31-73) Lymphocytes (%) (Auto) 22 % (24-48) Monocytes (%) (Auto) 9 % (0-9) Eosinophils (%) (Auto) 2 % (0-3) Basophils (%) (Auto) 1 % (0-3) Neutrophils # (Auto) 5.0 x10^3/uL (1.8-7.7) Lymphocytes # (Auto) 1.6 x10^3/uL (1.0-4.8) Monocytes # (Auto) 0.6 x10^3/uL (0.0-1.1) Eosinophils # (Auto) 0.1 x10^3/uL (0.0-0.7) Basophils # (Auto) 0.1 x10^3/uL (0.0-0.2) Prothrombin Time 12.9 SEC (11.7-14.0) Prothromb Time International Ratio 1.0 (0.8-1.1) Activated Partial Thromboplast Time 26 SEC (24-38) D-Dimer (Sintia) 0.88 ug/mlFEU (0.00-0.50) Sodium Level 142 mmol/L (136-145) Potassium Level 3.2 mmol/L (3.5-5.1) 3.4 mmol/L (3.5-5.1) Chloride Level 104 mmol/L (98-107) Carbon Dioxide Level 30 mmol/L (21-32) Anion Gap 8 (6-14) Blood Urea Nitrogen 13 mg/dL (7-20) Creatinine 0.6 mg/dL (0.6-1.0) Estimated GFR (Cockcroft-Gault) 100.0 Glucose Level 111 mg/dL (70-99) Calcium Level 9.7 mg/dL (8.5-10.1) Magnesium Level 2.3 mg/dL (1.8-2.4) Total Bilirubin 0.3 mg/dL (0.2-1.0) Direct Bilirubin 0.1 mg/dL (0.0-0.2) Aspartate Amino Transf (AST/SGOT) 25 U/L (15-37) Alanine Aminotransferase (ALT/SGPT) 34 U/L (14-59) Alkaline Phosphatase 63 U/L (46-116) Troponin I Quantitative < 0.017 ng/mL (0.000-0.055) GT-Dai-Q-Type Natriuretic Peptide 107 pg/mL (0-124) Total Protein 7.1 g/dL (6.4-8.2) Albumin 3.8 g/dL (3.4-5.0) Lipase 87 U/L (73-393) Thyroid Stimulating Hormone (TSH) 1.039 uIU/mL (0.358-3.74) Glucose (Fingerstick) 96 mg/dL (70-99) 83 mg/dL (70-99) Test 05/20/20 04:30 05/20/20 08:05 05/20/20 12:13 White Blood Count 8.9 x10^3/uL (4.0-11.0) Red Blood Count 4.40 x10^6/uL (3.50-5.40) Hemoglobin 11.7 g/dL (12.0-15.5) Hematocrit 36.3 % (36.0-47.0) Mean Corpuscular Volume 83 fL (79-100) Mean Corpuscular Hemoglobin 27 pg (25-35) Mean Corpuscular Hemoglobin Concent 32 g/dL (31-37) Red Cell Distribution Width 17.7 % (11.5-14.5) Platelet Count 372 x10^3/uL (140-400) Neutrophils (%) (Auto) 61 % (31-73) Lymphocytes (%) (Auto) 27 % (24-48) Monocytes (%) (Auto) 10 % (0-9) Eosinophils (%) (Auto) 2 % (0-3) Basophils (%) (Auto) 1 % (0-3) Neutrophils # (Auto) 5.4 x10^3/uL (1.8-7.7) Lymphocytes # (Auto) 2.4 x10^3/uL (1.0-4.8) Monocytes # (Auto) 0.9 x10^3/uL (0.0-1.1) Eosinophils # (Auto) 0.1 x10^3/uL (0.0-0.7) Basophils # (Auto) 0.1 x10^3/uL (0.0-0.2) Sodium Level 142 mmol/L (136-145) Potassium Level 4.1 mmol/L (3.5-5.1) Chloride Level 103 mmol/L (98-107) Carbon Dioxide Level 27 mmol/L (21-32) Anion Gap 12 (6-14) Blood Urea Nitrogen 9 mg/dL (7-20) Creatinine 0.5 mg/dL (0.6-1.0) Estimated GFR (Cockcroft-Gault) 123.4 Glucose Level 103 mg/dL (70-99) Calcium Level 9.6 mg/dL (8.5-10.1) Phosphorus Level 3.7 mg/dL (2.6-4.7) Magnesium Level 2.0 mg/dL (1.8-2.4) Troponin I Quantitative < 0.017 ng/mL (0.000-0.055) Triglycerides Level 135 mg/dL (0-150) Cholesterol Level 138 mg/dL (0-200) LDL Cholesterol, Calculated 73 mg/dL (0-100) VLDL Cholesterol, Calculated 27 mg/dL (0-40) Non-HDL Cholesterol Calculated 100 mg/dL (0-129) HDL Cholesterol 38 mg/dL (40-60) Cholesterol/HDL Ratio 3.6 Glucose (Fingerstick) 115 mg/dL (70-99) 115 mg/dL (70-99) Laboratory Tests Test 05/19/20 17:40 05/19/20 20:33 05/19/20 22:00 05/20/20 04:30 Glucose (Fingerstick) 96 mg/dL (70-99) 83 mg/dL (70-99) Potassium Level 3.4 mmol/L (3.5-5.1) 4.1 mmol/L (3.5-5.1) White Blood Count 8.9 x10^3/uL (4.0-11.0) Red Blood Count 4.40 x10^6/uL (3.50-5.40) Hemoglobin 11.7 g/dL (12.0-15.5) Hematocrit 36.3 % (36.0-47.0) Mean Corpuscular Volume 83 fL (79-100) Mean Corpuscular Hemoglobin 27 pg (25-35) Mean Corpuscular Hemoglobin Concent 32 g/dL (31-37) Red Cell Distribution Width 17.7 % (11.5-14.5) Platelet Count 372 x10^3/uL (140-400) Neutrophils (%) (Auto) 61 % (31-73) Lymphocytes (%) (Auto) 27 % (24-48) Monocytes (%) (Auto) 10 % (0-9) Eosinophils (%) (Auto) 2 % (0-3) Basophils (%) (Auto) 1 % (0-3) Neutrophils # (Auto) 5.4 x10^3/uL (1.8-7.7) Lymphocytes # (Auto) 2.4 x10^3/uL (1.0-4.8) Monocytes # (Auto) 0.9 x10^3/uL (0.0-1.1) Eosinophils # (Auto) 0.1 x10^3/uL (0.0-0.7) Basophils # (Auto) 0.1 x10^3/uL (0.0-0.2) Sodium Level 142 mmol/L (136-145) Chloride Level 103 mmol/L (98-107) Carbon Dioxide Level 27 mmol/L (21-32) Anion Gap 12 (6-14) Blood Urea Nitrogen 9 mg/dL (7-20) Creatinine 0.5 mg/dL (0.6-1.0) Estimated GFR (Cockcroft-Gault) 123.4 Glucose Level 103 mg/dL (70-99) Calcium Level 9.6 mg/dL (8.5-10.1) Phosphorus Level 3.7 mg/dL (2.6-4.7) Magnesium Level 2.0 mg/dL (1.8-2.4) Troponin I Quantitative < 0.017 ng/mL (0.000-0.055) Triglycerides Level 135 mg/dL (0-150) Cholesterol Level 138 mg/dL (0-200) LDL Cholesterol, Calculated 73 mg/dL (0-100) VLDL Cholesterol, Calculated 27 mg/dL (0-40) Non-HDL Cholesterol Calculated 100 mg/dL (0-129) HDL Cholesterol 38 mg/dL (40-60) Cholesterol/HDL Ratio 3.6 Test 05/20/20 08:05 05/20/20 12:13 Glucose (Fingerstick) 115 mg/dL (70-99) 115 mg/dL (70-99) Medications Current Medications Iohexol (Omnipaque 350 Mg/ml) 100 ml 1X ONCE IV Last administered on 05/19/20at 12:37; Start 05/19/20 at 12:30; Stop 05/19/20 at 12:31; Status DC Info (CONTRAST GIVEN -- Rx MONITORING) 1 each PRN DAILY PRN MC SEE COMMENTS; Start 05/19/20 at 12:30; Stop 05/21/20 at 12:29 Nitroglycerin (Nitrostat) 0.4 mg PRN Q5MIN PRN SL CHEST PAIN; Start 05/19/20 at 13:30 Sennosides (Senna) 17.2 mg PRN BID PRN PO CONSTIPATION; Start 05/19/20 at 13:30 Docusate Sodium (Colace) 100 mg PRN DAILY PRN PO HARD STOOLS; Start 05/19/20 at 13:30 Thiamine HCl 100 mg/Dextrose 51 ml @ 102 mls/hr DAILY IV Last administered on 05/20/20at 09:07; Start 05/20/20 at 09:00 Ondansetron HCl (Zofran) 4 mg PRN Q6HRS PRN IVP NAUSEA/VOMITING; Start 05/19/20 at 13:30 Potassium Chloride (Klor-Con) 40 meq 1X PRN PO PER PROTOCOL Last administered on 05/19/20at 23:43; Start 05/19/20 at 13:30 Magnesium Oxide (Magnesium Oxide) 400 mg PRN BID PRN PO FOR MAG <=1.7 / PO OR IV; Start 05/19/20 at 21:00 Potassium Chloride/Water 100 ml @ 100 mls/hr Q1H PRN IV SEE COMMENTS; Start 05/19/20 at 13:30; Stop 05/19/20 at 14:50; Status DC Magnesium Sulfate 50 ml @ 25 mls/hr PRN Q24HRS PRN IV SEE COMMENTS; Start 05/19/20 at 13:30 Potassium Chloride/Water 100 ml @ 100 mls/hr PRN Q1HR PRN IV low k; Start 05/19/20 at 13:30 Aspirin (Ecotrin) 81 mg DAILYWBKFT PO Last administered on 05/20/20at 08:21; Start 05/20/20 at 08:00 Insulin Human Lispro (HumaLOG) 0-5 UNITS TIDWMEALS SQ ; Start 05/19/20 at 17:00 Dextrose (Dextrose 50%-Water Syringe) 12.5 gm PRN Q15MIN PRN IV SEE COMMENTS; Start 05/19/20 at 13:30 Sodium Chloride 1,000 ml @ 100 mls/hr Q10H IV Last administered on 05/20/20at 08:20; Start 05/19/20 at 13:30 Acetaminophen (Tylenol) 650 mg PRN Q4HRS PRN PO TEMP OVER 100.4F OR MILD PAIN Last administered on 05/20/20at 01:00; Start 05/19/20 at 13:30 Enoxaparin Sodium (Lovenox 40mg Syringe) 40 mg Q24H SQ Last administered on 05/19/20at 15:06; Start 05/19/20 at 13:30 Labetalol HCl (Normodyne Iv Push) 10 mg PRN Q2HR PRN IVP HYPERTENSION; Start 05/19/20 at 13:45 Morphine Sulfate (Morphine Sulfate) 1 mg PRN Q1HR PRN IV PAIN; Start 05/19/20 at 13:45 Morphine Sulfate (Morphine Sulfate) 4 mg PRN Q2HR PRN IV SEVERE PAIN 7-10; Start 05/19/20 at 04:00; Stop 05/20/20 at 03:59; Status DC Potassium Chloride/Water 100 ml @ 100 mls/hr PRN Q1HR PRN IV SEE COMMENTS; Start 05/19/20 at 15:00 Aripiprazole (Abilify) 5 mg DAILY PO Last administered on 05/20/20at 08:21; St art 05/20/20 at 09:00 Atorvastatin Calcium (Lipitor) 40 mg QHS PO Last administered on 05/19/20at 20:55; Start 05/19/20 at 21:00 Baclofen (Lioresal) 10 mg TID PO Last administered on 05/20/20at 08:21; Start 05/19/20 at 21:00 Cetirizine HCl (ZyrTEC) 10 mg QHS PO Last administered on 05/19/20at 20:55; Start 05/19/20 at 21:00 Famotidine (Pepcid) 20 mg BID PO Last administered on 05/20/20at 08:21; Start 05/19/20 at 21:00 Gabapentin (Neurontin) 300 mg TID PO Last administered on 05/20/20at 08:21; Start 05/19/20 at 21:00 Non-Formulary Medication (Fluticasone Propionate (Flovent 220MCG Hfa)) 12 gm BID IH ; Start 05/19/20 at 21:00; Status UNV Budesonide (Pulmicort) 0.5 mg RTBID NEB ; Start 05/19/20 at 20:00 Influenza Virus Vaccine Quadrival (Fluzone Quad Syringe) 0.5 ml ONCE ONCE VAX IM Last administered on 05/20/20at 09:45; Start 05/20/20 at 09:15; Stop 05/20/20 at 09:16; Status DC Nystatin (Nystop) 1 owen BID TP ; Start 05/20/20 at 21:00 Active Scripts Active Proair Respiclick (Albuterol Sulfate) 90 Mcg Aer.pow.ba 1 Puff IH PRN Q6HRS PRN Reported Fiber Gummies (Inulin) 2 Gm Tab.chew 2 Tab PO DAILY 30 Days Abilify (Aripiprazole) 5 Mg Tablet 5 Mg PO DAILY Cosamin Ds Tablet (Glucosamine/Chondro Paulino A) 1 Each Tablet 3 Each PO DAILY Move Free Ultra Tablet (Cartilage/Collagen/Bor/Hyalur) 1 Each Tablet 1 Each PO DAILY Metformin Hcl 1,000 Mg Tablet 1,000 Mg PO BIDWMEALS [Beano] PO PRN PRN Pepcid (Famotidine) 20 Mg Tablet 20 Mg PO PRN PRN Ditropan Xl (Oxybutynin Chloride) 5 Mg Tab.er.24 1 Tab PO DAILY Aspir 81 (Aspirin) 81 Mg Tablet.dr 1 Tab PO DAILY Zyrtec (Cetirizine Hcl) 10 Mg Tablet 1 Tab PO QHS Gabapentin (Gabapentin) 300 Mg Capsule 300 Mg PO TID Baclofen 10 Mg Tablet 1 Tab PO TID Lisinopril-Hctz 10-12.5 Mg Tab (Lisinopril/Hydrochlorothiazide) 1 Each Tablet 1 Tab PO DAILY Freestyle Lite Strips (Blood Sugar Diagnostic) 1 Each Strip 1 Each MC Atorvastatin Calcium 40 Mg Tablet 40 Mg PO DAILY Spiriva (Tiotropium [place]) 18 Mcg Cap.w.dev 2 Inh IH DAILY Meloxicam 15 Mg Tablet 15 Mg PO DAILY Polyethylene Glycol (Polyethylene Glycol 8000) 500 Gm Powder 500 Gm MC Flovent 220MCG Hfa (Fluticasone Propionate) 12 Gm Aer.w.adap 12 Gm IH BID Vitals/I & O Vital Sign - Last 24 Hours 05/19/20 05/19/20 05/19/20 05/19/20 13:02 13:32 13:50 14:20 Temp 98.2 98.2 Pulse 86 86 57 Resp 18 18 20 B/P (MAP) 165/70 (101) 164/75 (104) 156/69 (98) Pulse Ox 97 96 94 O2 Delivery Room Air Room Air Room Air Room Air 05/19/20 05/19/20 05/19/20 05/19/20 15:00 19:00 19:35 22:46 Temp 98.2 98.0 98.2 98.0 Pulse 82 82 77 Resp 20 19 B/P (MAP) 151/52 (85) 167/77 (107) Pulse Ox 97 95 O2 Delivery Room Air Room Air Room Air 05/20/20 05/20/20 05/20/20 02:48 07:00 08:00 Temp 98.1 98.1 98.1 98.1 Pulse 74 80 Resp 18 20 B/P (MAP) 152/67 (95) 142/67 (92) Pulse Ox 96 96 O2 Delivery Room Air Room Air Room Air Intake and Output 05/19/20 05/19/20 05/20/20 15:00 23:00 07:00 Intake Total 470 ml 2431 ml Output Total 1150 ml 1850 ml Balance -680 ml 581 ml Justifications for Admission Chest Pain Indications Poss tachycardia?: Yes Justification for admission: Patient has tachycardia (> 100 beats per minute) which is not readily corrected by appropriate treatment within 12 to 24 hours. Other Justification LYNDA BLANC MD May 20, 2020 12:57
[2020-05-20] MEDS: ENOXAPARIN 40 MG/0.4 ML SYRINGE. SQ SCH (13:08)
[2020-05-20] MEDS ORDERED: NITR0.4T24 SL (14:43)
--- NOTE | 2020-05-20 14:47 | PDOC3 ---
Discharge Summary Visit Information Date of Admission: May 19, 2020 Date of Discharge: May 20, 2020 Admitting Diagnosis Comment: Assessment/Plan Chest pain concerning for unstable angina/NSTEMI versus STEMI Hypertensive urgency Normocytic anemia due to chronic inflammation Elevated d-dimer Hypokalemia Obesity class I Final Diagnosis Problems Medical Problems: (1) Chest pain acs ruled out Status: Acute Hypertensive urgency resolved Normocytic anemia due to chronic inflammation Elevated d-dimer with no clinical significance and negative CT angio of the chest Hypokalemia replaced Obesity class I Brief Hospital Course Allergies Allergies Coded Allergies Type Severity Reaction Last Updated Verified aspirin Allergy Intermediate "messes with my stomach" 05/24/19 Yes omega-3 acid ethyl esters Allergy Intermediate bleeding 05/24/19 Yes tramadol Allergy Intermediate 05/24/19 Yes Vital Signs Vital Signs Date Time Temp Pulse Resp B/P (MAP) Pulse Ox O2 Delivery O2 Flow Rate FiO2 05/20/20 11:00 98.2 73 20 151/85 (107) 94 Room Air 98.2 Lab Results Laboratory Tests Test 05/19/20 10:04 05/19/20 17:40 05/19/20 20:33 05/19/20 22:00 White Blood Count 7.5 x10^3/uL (4.0-11.0) Red Blood Count 4.41 x10^6/uL (3.50-5.40) Hemoglobin 11.8 g/dL (12.0-15.5) Hematocrit 36.2 % (36.0-47.0) Mean Corpuscular Volume 82 fL (79-100) Mean Corpuscular Hemoglobin 27 pg (25-35) Mean Corpuscular Hemoglobin Concent 33 g/dL (31-37) Red Cell Distribution Width 17.4 % (11.5-14.5) Platelet Count 388 x10^3/uL (140-400) Neutrophils (%) (Auto) 67 % (31-73) Lymphocytes (%) (Auto) 22 % (24-48) Monocytes (%) (Auto) 9 % (0-9) Eosinophils (%) (Auto) 2 % (0-3) Basophils (%) (Auto) 1 % (0-3) Neutrophils # (Auto) 5.0 x10^3/uL (1.8-7.7) Lymphocytes # (Auto) 1.6 x10^3/uL (1.0-4.8) Monocytes # (Auto) 0.6 x10^3/uL (0.0-1.1) Eosinophils # (Auto) 0.1 x10^3/uL (0.0-0.7) Basophils # (Auto) 0.1 x10^3/uL (0.0-0.2) Prothrombin Time 12.9 SEC (11.7-14.0) Prothromb Time International Ratio 1.0 (0.8-1.1) Activated Partial Thromboplast Time 26 SEC (24-38) D-Dimer (Sintia) 0.88 ug/mlFEU (0.00-0.50) Sodium Level 142 mmol/L (136-145) Potassium Level 3.2 mmol/L (3.5-5.1) 3.4 mmol/L (3.5-5.1) Chloride Level 104 mmol/L (98-107) Carbon Dioxide Level 30 mmol/L (21-32) Anion Gap 8 (6-14) Blood Urea Nitrogen 13 mg/dL (7-20) Creatinine 0.6 mg/dL (0.6-1.0) Estimated GFR (Cockcroft-Gault) 100.0 Glucose Level 111 mg/dL (70-99) Calcium Level 9.7 mg/dL (8.5-10.1) Magnesium Level 2.3 mg/dL (1.8-2.4) Total Bilirubin 0.3 mg/dL (0.2-1.0) Direct Bilirubin 0.1 mg/dL (0.0-0.2) Aspartate Amino Transf (AST/SGOT) 25 U/L (15-37) Alanine Aminotransferase (ALT/SGPT) 34 U/L (14-59) Alkaline Phosphatase 63 U/L (46-116) Troponin I Quantitative < 0.017 ng/mL (0.000-0.055) FZ-Kkr-C-Type Natriuretic Peptide 107 pg/mL (0-124) Total Protein 7.1 g/dL (6.4-8.2) Albumin 3.8 g/dL (3.4-5.0) Lipase 87 U/L (73-393) Thyroid Stimulating Hormone (TSH) 1.039 uIU/mL (0.358-3.74) Glucose (Fingerstick) 96 mg/dL (70-99) 83 mg/dL (70-99) Test 05/20/20 04:30 05/20/20 08:05 05/20/20 12:13 White Blood Count 8.9 x10^3/uL (4.0-11.0) Red Blood Count 4.40 x10^6/uL (3.50-5.40) Hemoglobin 11.7 g/dL (12.0-15.5) Hematocrit 36.3 % (36.0-47.0) Mean Corpuscular Volume 83 fL (79-100) Mean Corpuscular Hemoglobin 27 pg (25-35) Mean Corpuscular Hemoglobin Concent 32 g/dL (31-37) Red Cell Distribution Width 17.7 % (11.5-14.5) Platelet Count 372 x10^3/uL (140-400) Neutrophils (%) (Auto) 61 % (31-73) Lymphocytes (%) (Auto) 27 % (24-48) Monocytes (%) (Auto) 10 % (0-9) Eosinophils (%) (Auto) 2 % (0-3) Basophils (%) (Auto) 1 % (0-3) Neutrophils # (Auto) 5.4 x10^3/uL (1.8-7.7) Lymphocytes # (Auto) 2.4 x10^3/uL (1.0-4.8) Monocytes # (Auto) 0.9 x10^3/uL (0.0-1.1) Eosinophils # (Auto) 0.1 x10^3/uL (0.0-0.7) Basophils # (Auto) 0.1 x10^3/uL (0.0-0.2) Sodium Level 142 mmol/L (136-145) Potassium Level 4.1 mmol/L (3.5-5.1) Chloride Level 103 mmol/L (98-107) Carbon Dioxide Level 27 mmol/L (21-32) Anion Gap 12 (6-14) Blood Urea Nitrogen 9 mg/dL (7-20) Creatinine 0.5 mg/dL (0.6-1.0) Estimated GFR (Cockcroft-Gault) 123.4 Glucose Level 103 mg/dL (70-99) Calcium Level 9.6 mg/dL (8.5-10.1) Phosphorus Level 3.7 mg/dL (2.6-4.7) Magnesium Level 2.0 mg/dL (1.8-2.4) Troponin I Quantitative < 0.017 ng/mL (0.000-0.055) Triglycerides Level 135 mg/dL (0-150) Cholesterol Level 138 mg/dL (0-200) LDL Cholesterol, Calculated 73 mg/dL (0-100) VLDL Cholesterol, Calculated 27 mg/dL (0-40) Non-HDL Cholesterol Calculated 100 mg/dL (0-129) HDL Cholesterol 38 mg/dL (40-60) Cholesterol/HDL Ratio 3.6 Glucose (Fingerstick) 115 mg/dL (70-99) 115 mg/dL (70-99) Laboratory Tests Test 05/19/20 17:40 05/19/20 20:33 05/19/20 22:00 05/20/20 04:30 Glucose (Fingerstick) 96 mg/dL (70-99) 83 mg/dL (70-99) Potassium Level 3.4 mmol/L (3.5-5.1) 4.1 mmol/L (3.5-5.1) White Blood Count 8.9 x10^3/uL (4.0-11.0) Red Blood Count 4.40 x10^6/uL (3.50-5.40) Hemoglobin 11.7 g/dL (12.0-15.5) Hematocrit 36.3 % (36.0-47.0) Mean Corpuscular Volume 83 fL (79-100) Mean Corpuscular Hemoglobin 27 pg (25-35) Mean Corpuscular Hemoglobin Concent 32 g/dL (31-37) Red Cell Distribution Width 17.7 % (11.5-14.5) Platelet Count 372 x10^3/uL (140-400) Neutrophils (%) (Auto) 61 % (31-73) Lymphocytes (%) (Auto) 27 % (24-48) Monocytes (%) (Auto) 10 % (0-9) Eosinophils (%) (Auto) 2 % (0-3) Basophils (%) (Auto) 1 % (0-3) Neutrophils # (Auto) 5.4 x10^3/uL (1.8-7.7) Lymphocytes # (Auto) 2.4 x10^3/uL (1.0-4.8) Monocytes # (Auto) 0.9 x10^3/uL (0.0-1.1) Eosinophils # (Auto) 0.1 x10^3/uL (0.0-0.7) Basophils # (Auto) 0.1 x10^3/uL (0.0-0.2) Sodium Level 142 mmol/L (136-145) Chloride Level 103 mmol/L (98-107) Carbon Dioxide Level 27 mmol/L (21-32) Anion Gap 12 (6-14) Blood Urea Nitrogen 9 mg/dL (7-20) Creatinine 0.5 mg/dL (0.6-1.0) Estimated GFR (Cockcroft-Gault) 123.4 Glucose Level 103 mg/dL (70-99) Calcium Level 9.6 mg/dL (8.5-10.1) Phosphorus Level 3.7 mg/dL (2.6-4.7) Magnesium Level 2.0 mg/dL (1.8-2.4) Troponin I Quantitative < 0.017 ng/mL (0.000-0.055) Triglycerides Level 135 mg/dL (0-150) Cholesterol Level 138 mg/dL (0-200) LDL Cholesterol, Calculated 73 mg/dL (0-100) VLDL Cholesterol, Calculated 27 mg/dL (0-40) Non-HDL Cholesterol Calculated 100 mg/dL (0-129) HDL Cholesterol 38 mg/dL (40-60) Cholesterol/HDL Ratio 3.6 Test 05/20/20 08:05 05/20/20 12:13 Glucose (Fingerstick) 115 mg/dL (70-99) 115 mg/dL (70-99) Brief Hospital Course HPI: 64-year-old female with past medical history of hypertension, diabetes, dyslipidemia and tobacco use in the past. Positive for heart attack in her mother. Presenting the emergency department today with chest pain. Is a pressu re sensation that radiates to the left shoulder. It started about 45 minutes before arrival while she was at her doctor's office. It has since resolved and now she just has a residual arm pain. It was 9 out of 10 originally and is now improving. She denies unilateral leg swelling hemoptysis recent surgery or immobilization or history of DVT or PE. Review of systems is negative for abdominal pain nausea vomiting. Positive for pain in the chest. Negative for diaphoresis. Negative for vomiting nuchal r igidity or fevers. All other review of systems negative. ED course: 64-year-old female presenting with chest pain. On arrival the patient is well-appearing and not in any distress. EKG obtained and reviewed by myself shows sinus rhythm with a regular rate. ST segments congruent. Not suggestive of acute ischemia. Chest x-ray ordered and is unremarkable. Blood work unremarkable including a negative troponin. Heart score calculated and elevated. We will admit the patient for further evaluation treatment and cardiology consultation and serial troponins. CT angiogram ordered after d- dimer was elevated. Patient seen in consultation by cardiology. At the time of my evaluation patient had 2 sets of cardiac enzymes negative echo was done but the results of the imaging study was still pending. We have reached out to our child development consultant and if he approves for discharge patient will be going home later in the day. Recommendations was to follow-up in the outpatient setting from the cardiological standpoint of view for a possible stress test in the near future. Patient's chest discomfort just as it came has resolved and we do not see any evidence of life threatening conditions at the present time. She is in good spirits to be going home signs and symptoms of concern and when to seek medical attention were discussed prior to dismissal. Patient acknowledged understanding of all the instructions Physical exam Gen.: well-developed well-nourished in no apparent distress Head: Normal shape atraumatic Eyes: Pupils equal reactive to light and accommodation, normal conjunctivae and lids Ears: Normal shape Nose: Normal shape no trauma Mouth: No exudates of the back of throat no thrush no lesions Neck: Supple no JVD no carotid bruit or lymphadenopathy no thyromegaly Chest: Lungs clear to auscultation with good inspiratory effort no crackles rales or rhonchi Cardiovascular: S1-S2 regular rhythm no murmurs gallops or rubs Abdomen: Bowel sounds present soft nontender no hepatosplenomegaly appreciated sign Assessment Assessment IMAGING REPORT Signed PATIENT: TYLOR WILL ACCOUNT: [id number] : 1955 LOCATION: ER AGE: 64 SEX: F EXAM STATUS: REG ER ORD. PHYSICIAN: SIMBA PATTERSON MD REASON: chest pain r/o pe PROCEDURE: CT ANGIOGRAPHY CHEST CT ANGIOGRAPHY CHEST INDICATION: chest pain, pe Comparison: Radiograph 05/19/2020. CTA 05/30/2019 TECHNIQUE: Following the uneventful administration of intravenous contrast, 100 cc Omni 350, axial CT sections were obtained through the lungs and upper abdomen. Multiplanar reconstructions and MIP images were obtained. PQRS compliance statement: One or more of the following individualized dose reduction techniques were utilized for this examination: 1. Automated exposure control 2. Adjustment of the mA and/or kV according to patient size 3. Use of iterative reconstruction technique FINDINGS: Pulmonary arteries: No evidence of central or segmental pulmonary thromboembolic disease. Subsegmental branches not well evaluated due to respiratory motion artifact. Lungs and Airways: No pulmonary mass or consolidation. Bibasilar dependent and subsegmental atelectasis. There are a couple of small pulmonary nodules which remain stable, with contact center representative nodule as follows: Stable right upper lobe 3 mm nodule (axial image 47). Mosaic attenuation of the lung parenchyma. No abnormality of the central airways. Pleura: The pleural spaces are normal. Heart and Mediastinum: The visualized thyroid is stable in size and attenuation. No axillary or supraclavicular lymphadenopathy. No mediastinal, hilar or retrocrural lymphadenopathy. The heart and pericardium are within normal limits. Atherosclerosis of the thoracic aorta. Abdomen: Limited images through the upper abdomen show no abnormality of the visualized organs. Bones and Soft Tissues: Degenerative changes of the spine. IMPRESSION: 1. No evidence of central or segmental pulmonary thromboembolic disease. Subsegmental branches not well evaluated due to respiratory motion artifact. 2. No pulmonary mass or consolidation. 3. Mosaic attenuation of the lung parenchyma, likely due to small airways disease. Electronically signed by: Sid Barber MD (05/19/2020 1:01 PM) [facility] DICTATED and SIGNED BY: SID BARBER MD DATE: 05/19/20 1301 Discharge Information Condition at Discharge: Improved Follow Up: Weeks Disposition/Orders: D/C to Home Scheduled Aripiprazole (Abilify) 5 Mg Tablet, 5 MG PO DAILY for Depression, (Reported) Entered as Reported by: MIRTHA BATRES RN on 05/19/20 1639 Last Action: Continued on 05/19/201746 by CECY PABLO MD Aspirin (Aspir 81) 81 Mg Tablet.dr, 1 TAB PO DAILY, #30 Ref 5 (Reported) Entered as Reported by: JEFE RODRÍGUEZ on 07/28/17 1130 Last Action: Reviewed on 05/19/201638 by MIRTHA BATRES RN Atorvastatin Calcium (Atorvastatin Calcium) 40 Mg Tablet, 40 MG PO DAILY for FOR CHOLESTEROL, #30 Ref 0 (Reported) Entered as Reported by: LUIS SMITH on 02/27/14246 Last Action: Continued on 05/19/201746 by CECY PABLO MD Baclofen (Baclofen) 10 Mg Tablet, 1 TAB PO TID, #90 Ref 2 (Reported) Entered as Reported by: LYNSEY BENNETT on 01/25/171956 Last Action: Continued on 05/19/201746 by CECY PABLO MD Cartilage/Collagen/Bor/Hyalur (Move Free Ultra Tablet) 1 Each Tablet, 1 EACH PO DAILY for Arthritis, (Reported) Entered as Reported by: MIRTHA BATRES RN on 05/19/201638 Last Action: New Order on 05/19/201638 by MIRTHA BATRES RN Cetirizine Hcl (Zyrtec) 10 Mg Tablet, 1 TAB PO QHS, #30 Ref 2 (Reported) Entered as Reported by: JEFE RODRÍGUEZ on 07/28/171127 Last Action: Continued on 05/19/201746 by CECY PABLO MD Fluticasone Propionate (Flovent 220MCG Hfa) 12 Gm Aer.w.adap, 12 GM IH BID, (Reported) Entered as Reported by: LUIS SMITH on 02/27/14246 Last Action: Converted on 05/19/201746 by CECY PABLO MD Gabapentin (Gabapentin ) 300 Mg Capsule, 300 MG PO TID, (Reported) Entered as Reported by: JEFE RODRÍGUEZ on 07/28/171126 Last Action: Continued on 05/19/201746 by CECY PABLO MD Glucosamine/Chondro Paulino A (Cosamin Ds Tablet) 1 Each Tablet, 3 EACH PO DAILY for Arthritis, (Reported) Entered as Reported by: MIRTHA BATRES RN on 05/19/201638 Last Action: New Order on 05/19/201638 by MIRTHA BATRES RN Inulin (Fiber Gummies) 2 Gm Tab.chew, 2 TAB PO DAILY for Constipation for 30 Days, #60 Ref 0 (Reported) Entered as Reported by: MIRTHA BATRES RN on 05/19/201638 Last Action: New Order on 05/19/201638 by MIRTHA BATRES RN Lisinopril/Hydrochlorothiazide (Lisinopril-Hctz 10-12.5 Mg Tab) 1 Each Tablet, 1 TAB PO DAILY, #30 Ref 5 (Reported) Entered as Reported by: LYNSEY BENNETT on 01/25/171956 Last Action: Reviewed on 05/19/201638 by MIRTHA BATRES RN Meloxicam (Meloxicam) 15 Mg Tablet, 15 MG PO DAILY, (Reported) Entered as Reported by: LUIS SMITH on 02/27/14246 Last Action: Reviewed on 05/19/201638 by MIRTHA BATRES RN Metformin Hcl (Metformin Hcl) 1,000 Mg Tablet, 1,000 MG PO BIDWMEALS for DM, (Reported) Entered as Reported by: MIRTHA BATRES RN on 05/19/201638 Last Action: New Order on 05/19/201638 by MIRTHA BATRES RN Oxybutynin Chloride (Ditropan Xl) 5 Mg Tab.er.24, 1 TAB PO DAILY for BLADDER PROBLEM, #30 Ref 5 (Reported) Entered as Reported by: JEFE RODRÍGUEZ on 05/21/19 1259 Last Action: Reviewed on 05/19/201638 by MIRTHA BATRES RN Tiotropium Bozman (Spiriva) 18 Mcg Cap.w.dev, 2 INH IH DAILY, #1 Ref 0 (Reported) Entered as Reported by: LUIS SMITH on 02/27/14246 Last Action: Reviewed on 05/19/201638 by MIRTHA BATRES RN Scheduled PRN Albuterol Sulfate (Proair Respiclick) 90 Mcg Aer.pow.ba, 1 PUFF IH PRN Q6HRS PRN for SHORTNESS OF BREATH, #1 Prescribed by: Colette Pedraza APRN on 07/22/16 1110 Last Action: Reviewed on 05/19/201638 by MIRTHA BATRES RN Famotidine (Pepcid) 20 Mg Tablet, 20 MG PO PRN PRN for STOMACH PROBLEM, (Reported) Entered as Reported by: JEFE RODRÍGUEZ on 05/21/19 1300 Last Action: Continued on 05/19/201746 by CECY PABLO MD Nitroglycerin (Nitrostat) 0.4 Mg Tab.subl, 0.4 MG SL PRN Q5MIN PRN for CHEST PAIN for 30 Days, #25 Prescribed by: FARHAN RAINEY MD on 05/20/20 1443 [Beano] , PO PRN PRN for STOMACH PROBLEM, (Reported) Entered as Reported by: JEFE RODRÍGUEZ on 05/21/19 1301 Miscellaneous Medications Blood Sugar Diagnostic (Freestyle Lite Strips) 1 Each Strip, 1 EACH MC, (Reported) Entered as Reported by: LUIS SMITH on 02/27/14246 Last Action: Reviewed on 05/19/201638 by MIRTHA BATRES RN Polyethylene Glycol 8000 (Polyethylene Glycol) 500 Gm Powder, 500 GM MC, (Reported) Entered as Reported by: LUIS SMITH on 02/27/14246 Last Action: Reviewed on 05/19/201638 by MIRTHA BATRES RN Justicifation of Admission Dx: Justifications for Admission: Justification of Admission Dx: Yes FARHAN RAINEY MD May 20, 2020 14:46
--- NOTE | 2020-05-20 15:05 | CARD ---
MR#: [id number] Date of Study: 05/20/2020 Ordering Physician: PATSY RODRIGUEZ, Referring Physician: PATSY RODRIGUEZ, Tech: Chelsea Jones APPROVED REPORT EXAM: Two-dimensional and M-mode echocardiogram with Doppler and color Doppler. Other Information Quality : AverageHR: 85bpm INDICATION COPD Dyspnea Chest Pain 2D DIMENSIONS Left Atrium(2D)3.8 (1.6-4.0cm)IVSd0.8 (0.7-1.1cm) Aortic Root(2D)2.7 (2.0-3.7cm)LVDd5.2 (3.9-5.9cm) LVOT Diameter1.9 (1.8-2.4cm)PWd1.2 (0.7-1.1cm) LVDs3.9 (2.5-4.0cm)FS (%) 24.3 % SV61.8 ml Aortic Valve AoV Peak Dejon.158.8cm/sAoV VTI34.6cm AO Peak GR.10.1mmHgLVOT VTI 28.09cm AO Mean GR.7mmHg Mitral Valve MV E Ehlqnown11.4cm/sMV E Peak Gr.5mmHg MV DECEL [id number] A Pnvchrik90.3cm/s MV E Mean Gr.3mmHgE/A Ratio0.9 TDI Lateral E' P. V8.37cm/sMedial E' P. V7.66cm/s E/Lateral E'9.8E/Medial E'10.8 Tricuspid Valve TR P. Jghuuhds910dx/sRAP [id number] TR Peak Gr.05qpLwCQBF08blAn Pulmonary Vein S1 Momkbhzy37.9cm/sS2 Youqitth80.60cm/s D2 Txccgfho32.6cm/s LEFT VENTRICLE The left ventricle is normal size. There is borderline concentric left ventricular hypertrophy. The l eft ventricular systolic function is normal and the ejection fraction is within normal range. The Eje ction Fraction is 50-55%. There is normal LV segmental wall motion. Transmitral Doppler flow pattern is Grade I-abnormal relaxation pattern. RIGHT VENTRICLE The right ventricle is normal size. There is normal right ventricular wall thickness. The right ventr icular systolic function is normal. ATRIA The left atrium size is normal. The right atrium size is normal. The interatrial septum is intact wit h no evidence for an atrial septal defect or patent foramen ovale as noted on 2-D or Doppler imaging. AORTIC VALVE The aortic valve is not well visualized. Doppler and Color Flow revealed no significant aortic regurg itation. Calculated aortic valve area is 2.30 cm2 with maximum pressure gradient of 12 mmHg and mean pressure gradient of 7 mmHg. There is no significant aortic valvular stenosis. MITRAL VALVE The mitral valve is normal in structure and function. There is no evidence of mitral valve prolapse. There is no mitral valve stenosis. Doppler and Color-flow revealed trace mitral regurgitation. TRICUSPID VALVE The tricuspid valve is normal in structure and function. Doppler and Color Flow revealed trace to mil d tricuspid regurgitation with an estimated PAP of 41 mmHg. There is no tricuspid valve stenosis. PULMONIC VALVE The pulmonic valve is not well visualized. Doppler and Color Flow revealed no pulmonic valvular regur gitation. GREAT VESSELS The aortic root is normal in size. The IVC is normal in size and collapses >50% with inspiration. PERICARDIAL EFFUSION There is no evidence of significant pericardial effusion. Critical Notification Critical Value: No <Conclusion> The left ventricle is normal size. The left ventricular systolic function is normal and the ejection fraction is within normal range. The Ejection Fraction is 50-55%. There is normal LV segmental wall motion. There is borderline concentric left ventricular hypertrophy. Doppler and Color Flow revealed no significant aortic regurgitation. There is no significant aortic valvular stenosis. Doppler and Color-flow revealed trace mitral regurgitation. Doppler and Color Flow revealed trace to mild tricuspid regurgitation with an estimated PAP of 41 mm Hg. Signed by : Per Bailon MD Electronically Approved : 05/20/2020 15:05:15
--- NOTE | 2020-05-20 15:44 | NUR ---
Discharge Note: TYLOR WILL [address] Discharge instructions and discharge home medications reviewed with patient and a copy given. All questions have been answered and understanding verbalized. The following instructions and handouts were given: Take home meds as directed, nitroglycerin prn for chest pain. Seek emergent care for chest pain unrelieved by nitroglycerin, severe chest pain, shortness of breath, diaphoresis. Follow up with PCP in 2 weeks. Cardiac stress test as outpatient c/o cardiology service. Discontinued lines and drains: peripheral IV intact, patient tolerated removal, no complications noted. Patient discharged to home with self-care via wheelchair accompanied by family member at 1540.
[2020-05-20] MEDS ORDERED: NYSTATIN TOPICAL POWDER 15GM BOTTLE. TP SCH (21:00)
--- NOTE | 2020-05-23 03:36 | EKG ---
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
== END 2020-05-20 15:40 | disposition home or self-care (01) ==
LOC: ER 09:53 → 2 NORTH 13:17
PROVIDERS: ADMIT Internal Medicine; ATTEND Internal Medicine
DX: R07.89 Other chest pain (principal); I16.0 Hypertensive urgency; D64.9 Anemia, unspecified; E66.9 Obesity, unspecified; E87.6 Hypokalemia; E11.9 Type 2 diabetes mellitus without complications; E78.5 Hyperlipidemia, unspecified; I25.10 Atherosclerotic heart disease of native coronary artery without angina pectoris; J44.9 Chronic obstructive pulmonary disease, unspecified; I10 Essential (primary) hypertension; F31.9 Bipolar disorder, unspecified; Z85.528 Personal history of other malignant neoplasm of kidney; Z87.891 Personal history of nicotine dependence; Z90.5 Acquired absence of kidney; Z23 Encounter for immunization
CPT/HCPCS: 36415; 71045; 71275; 80048; 80061; 80076; 82962; 83690; 83735; 83880; 84100; 84132; 84443; 84484; 85025; 85379; 85610; 85730; 90471; 90686; 93306; 96361; 96365; 96372; G0378; J1650; J3411; J7030; J7060; Q9967; G0379; 99285-25

== ENCOUNTER 2020-06-24 08:55 | Emergency (ER) | payer MEDICARE, OTHER ==
[~2020-06-24] VITALS: Ht 157.5 cm; Wt 84.0 kg
[~2020-06-24 08:55] MED LIST changes: +AMLO-186 PO; -AMLO5TAB10 PO; +ARIP5TAB13 PO; +CART1TAB4 PO; +GLUC-46 PO; +INUL2TAB4 PO; +METF10007 PO; -MORPHINE SULFATE 4 MG/ML VIAL. IV PRN; +NITR0.4T24 SL
--- NOTE | 2020-06-24 09:04 | PHYS DOC ---
Past Medical History Past Medical History: Arthritis, Bipolar, Diabetes-Type II, High Cholesterol, Hypertension Additional Past Medical Histor: shingles,urine incont, sciatica, renal cell carcinoma, NEUROPATHY Past Surgical History: Cholecystectomy Additional Past Surgical Histo: R kidney tumor removed, R ovary removal,small bowel resection/ CYST, catara Smoking Status: Former Smoker Alcohol Use: Sober Drug Use: None General Adult EDM: Chief Complaint: DIZZY/LIGHT HEADED HPI: HPI: 64-year-old female past medical history significant for diabetes, COPD, hypertension and hyperlipidemia, presents to the ED brought in by EMS with complaints of sudden onset dizziness that started around 9 PM last night, reports she thought she was going to fall. States she went from lying down to sitting up and dizziness started-had to use the wall to walk to the bathroom. Last meal was at 2am-peanut butter sandwich. Never had these sxs before, no known h/o orthostatic hypotension. States dizziness resolved shortly after ed arrival but while in EMS vehicle she started having nonradiating, "squishing, tight," left shoulder and left arm pain. Denies any falls, trauma head injury and is not on any anticoagulants. Denies any new medications of changes in medication dosages. New recent URI, n/v/d/c, abdominal/back pain, syncope or palpitations. Lives alone-no known sick contacts. Glucose wnl per ems. Takes nitro, no h/o stemi/acs or cva. EMR was reviewed and patient was admitted to the hospital 1 month ago by her primary care physician (Agus) with concern for chest pain. CTA chest (elevated d-dimer) showed no aortic disease or pulmonary embolus. Patient had echocardiogram that showed EF of 50 to 55%. FH of CAD- mother w/stemi. Has not called to schedule her stress test. ROS: Denies any associated diaphoresis, nausea, vomiting, chest pain or pressure, back pain, neurologic deficits, palpitations. Review of Systems: Review of Systems: Constitutional: Denies fever or chills. [] Eyes: Denies change in visual acuity or vision loss HENT: Denies nasal congestion or sore throat. [] Respiratory: Denies cough or shortness of breath or hemoptysis Cardiovascular: Denies chest pain or edema or syncope GI: Denies abdominal pain, nausea, vomiting, bloody stools or diarrhea. [] : Denies dysuria or hematuria Musculoskeletal: Denies back pain or joint pain/swelling Integument: Denies rash or diaphoresis Neurologic: Denies headache, focal weakness or sensory changes or neck stiffness or midline neck pain Endocrine: Denies polyuria or polydipsia. [] Lymphatic: Denies swollen glands. [] Psychiatric: Denies depression or anxiety. [] Heart Score: Risk Factors: Risk Factors: DM, Current or recent (<one month) smoker, HTN, HLP, family history of CAD, obesity. Risk Scores: Score 0 - 3: 2.5% MACE over next 6 weeks - Discharge Home Score 4 - 6: 20.3% MACE over next 6 weeks - Admit for Clinical Observation Score 7 - 10: 72.7% MACE over next 6 weeks - Early Invasive Strategies Allergies: Allergies: Allergies Coded Allergies Type Severity Reaction Last Updated Verified aspirin Allergy Intermediate "messes with my stomach" 05/24/19 Yes omega-3 acid ethyl esters Allergy Intermediate bleeding 05/24/19 Yes tramadol Allergy Intermediate 05/24/19 Yes Physical Exam: PE: Constitutional: Well developed, well nourished, no acute distress, non-toxic appearance, ambulating cautiously-no limp or ataxia HENT: Normocephalic, atraumatic, bilateral external ears normal, oropharynx moist, no oral exudates, nose normal. [] Eyes: PERRLA, EOMI, conjunctiva normal, no discharge. [] Neck: Normal range of motion, no tenderness, supple, no stridor. [] Cardiovascular: Heart rate regular rhythm, no murmur [] Lungs & Thorax: Bilateral breath sounds clear to auscultation [] Abdomen: Bowel sounds normal, soft, no tenderness, no masses, no pulsatile masses. [] Skin: Warm, dry, no erythema, no rash. [] Back: No tenderness, no CVA tenderness. [] Extremities: no cyanosis, no clubbing, ROM intact, equal/+1 le edema, equal radial pulses bl, no joint swelling, reports anterior shoulder and midhumeral ttp-no signs of trauma-normal extremity exam Neurologic: CN2-12 intact, HINTS exam negative for central pathology (has no vertical or horizontal nystagmus, normal corrective saccade with head impulse test and no skew deviation), alert and oriented X 3, normal motor function, normal sensory function, no focal deficits noted, FNF and SOSA wnl, Psychologic: Affect normal, judgement normal, mood normal. [] EKG: EKG: Sinus rhythm at 80 bpm, extreme right axis deviation, QTC 451, T wave inversion 1, 2, aVL, no ST elevations or ST depressions, frequent PVCs Radiology/Procedures: Radiology/Procedures: IMAGING REPORT Signed PATIENT: TYLOR WILL ACCOUNT: [id number] : 1955 LOCATION: ER AGE: 64 SEX: F EXAM STATUS: PRE ER ORD. PHYSICIAN: EDY MADERA DO REASON: dizzy PROCEDURE: CT HEAD WO CONTRAST CT HEAD WO CONTRAST Date: 06/24/2020 8:57 AM Clinical Indication: Reason: dizzy / Spl. Instructions: / History: Comparison: None. Technique: 5 mm axial tomographic images were obtained of the head without contrast. These were viewed on brain and bone windows. One or more of the following dose reduction techniques were utilized: Automated exposure control (AEC), Adjustment of mA and/or kV according to patient size, Use of iterative reconstruction technique such as ASiR, CT scan done according to ALARA and image gently/image wisely Findings: The brain parenchyma is normal in attenuation. No intra- or extra-axial mass or fluid collection. No acute hemorrhage. The ventricles are normal in size, shape, and morphology. The mooney-white matter junction is normal. The subarachnoid cisterns are patent. The visualized paranasal sinuses are normal. The visualized portions of the orbits and globes are normal. The mastoid air cells are clear. The recreation specialist topogram shows no lytic lesion or fracture. Impression: No acute intracranial process. Electronically signed by: Sid Barber MD (06/24/2020 9:42 AM) [id number] DICTATED and SIGNED BY: SID BARBER MD DATE: 06/24/20 0942 IMAGING REPORT Signed PATIENT: TYLOR WILL ACCOUNT: [id number] : 1955 LOCATION: ER AGE: 64 SEX: F EXAM STATUS: PRE ER ORD. PHYSICIAN: EDY MADERA DO REASON: dizziness, left sided numbness PROCEDURE: CHEST PA & LATERAL PA lateral chest x-rays HISTORY: Dizziness, left-sided numbness. COMPARISON: CT chest May 19, 2020. FINDINGS: Heart size normal. Mediastinal silhouette is normal. No pneumothorax. No pleural effusions. Chronic linear densities basilar left lower lobe likely chronic atelectasis or scarring stable to prior study. Right lung is clear. Thoracal lumbar disc disease with disc osteophyte and disc height loss. IMPRESSION: No acute process. Chronic atelectasis/scarring at the left lung base. Stable exam. Electronically signed by: Fabiana Hidalgo MD (06/24/2020 9:40 AM) [id number] DICTATED and SIGNED BY: FABIANA HIDALGO MD DATE: 06/24/20939 IMAGING REPORT Signed PATIENT: TYLOR WILL ACCOUNT: [id number] : 1955 LOCATION: ER AGE: 64 SEX: F EXAM STATUS: REG ER ORD. PHYSICIAN: EDY MADERA DO REASON: pain, lt arm numbness PROCEDURE: HUMERUS LEFT Examination: 2 views of the left shoulder and left humerus HISTORY: History of left shoulder numbness, pain COMPARISON: None available FINDINGS: The humerus head is again identified. Mild joint space loss identified in the glenohumeral joint, acromioclavicular joint. There is no acute fracture or dislocation identified. IMPRESSION: Mild degenerative changes glenohumeral joint, acromioclavicular joint. Electronically signed by: Otf Newell MD (06/24/2020 10:48 AM) [id number] DICTATED and SIGNED BY: OTF NEWELL MD DATE: 06/24/20 1048 Course & Med Decision Making: Course & Med Decision Making Pertinent Labs and Imaging studies reviewed. (See chart for details) Dizziness that resolved shortly after patient arrived to the ED, likely multifocal factorial, urinary tract infection versus peripheral vertigo versus orthostatic hypotension. Dizziness resolved, pt with steady gait and no neuro deficits. Imaging with no acute process. Ekg, labs wnl including troponin-has no active chest pain. Pharmacy called, no fosfomycin in stock. Will prescribe keflex. Strict ed return precautions given for difficulties walking, worsening fever, dehydration, neurologic defiicits or chest pain. Encouraged urgent outpatient follow-up with PMD. Life-threatening processes were considered but are low suspicion at this time, given history and physical exam. Pt was educated on all prescription medications and adverse effects. All patient's questions were answered and pt was stable at time of discharge. Life/limb-threatening differential includes but is not limited to, cerebrovascular accident, cerebellar stroke, acute coronary syndrome, carbon monoxide poisoning or other toxidrome, arrhythmia, Gu[place] syndrome, thyroid disease, central and peripheral vertigo, intracranial hemorrhage, vertebrobasilar insufficiency, heat stroke, electrolyte disorder, infection, rheumatologic or autoimmune disorder I spoken with the patient and her caregivers. I explained the patient's condition, diagnoses and treatment plan based on the information available to me at this time. I have answered the patient and her caregiver's questions and addressed any concerns. The patient and her caregivers have a good understanding of patient's diagnosis, condition and treatment plan as can be expected at this point. Vital signs have been stable. Patient's condition is stable and appropriate for discharge from the emergency department. Patient will pursue further outpatient evaluation with primary care physician or other designated or consulting physician as outlined in the discharge instructions. The patient and/or caregivers are agreeable to this plan of care and follow-up instructions have been explained in detail. The patient and/or caregivers have received these instructions in written form and have expressed an understanding of the discharge instructions. The patient and/or caregivers are aware that any significant change of condition or worsening of symptoms should prompt immediate return to this or the closest emergency department or call to 911. Jace Disclaimer: Jace Disclaimer: This electronic medical record was generated, in whole or in part, using a voice recognition dictation system. Departure Departure Impression: Primary Impression: Dizziness Additional Impressions: UTI (urinary tract infection) Osteoarthritis Disposition: 01 DC HOME SELF CARE/HOMELESS Condition: STABLE Referrals: SELVIN FARRELL APRN (PCP) within 3-5 days for re-evaluation Patient Instructions: Dizziness, Orthostatic Hypotension, Osteoarthritis, Urinary Tract Infection Additional Instructions: EMERGENCY DEPARTMENT GENERAL DISCHARGE INSTRUCTIONS Thank you for coming to [facility] Emergency Department (ED) today and trusting us with you care. We trust that you had a positive experience in our Emergency Department. If you wish to speak to the department management, you may call the Director at [phone]. YOUR FOLLOW UP INSTRUCTIONS ARE FOLLOWS: 1. Do you have a private Doctor? If you do not have a private doctor, please ask for a resource list of physicians or clinics that may be able to assist you with follow up care. 2. The Emergency Physicain has interpreted your x-rays. The X-Ray specialist will also review them. If there is a change in the findings, you will be notified in 48 hours when at all possible. 3. A lab test or culture has been done, your results will be reviewed and you will be notified if you need a change in treatment. ADDITIONAL INSTRUCTIONS AND INFORMATION: 1. Your care today has been supervised by a physician who is specially trained in emergency care. Many problems require more than one evaluation for a complete diagnosis and treatment. We recommend that you schedule your follow up appointment as recommended to ensure complete treatment of you illness or injury. If you are unable to obtain follow up care and continue to have a problem, or if your condition worsens, we recommend that you return to the ED. 2. We are not able to safely determine your condition over the phone nor are we able to give sound medical advice over the phone. For these safety reasons, if you call for medical advice we will ask you to come to the ED for further evaluation. 3. If you have any questions regarding these discharge instructions please call the ED at [phone]. SAFETY INFORMATION: In the interest of safety, wellness, and injury prevention; we encourage you to wear your sealbelt, if you smoke; quite smoking, and we encourage family to use a protective helmet for bicycling and other sporting events that present an increased risk for head injury. IF YOUR SYMPTOMS WORSEN OR NEW SYMPTOMS DEVELOP, OR YOU HAVE CONCERNS ABOUT YOUR CONDITION; OR IF YOUR CONDITION WORSENS WHILE YOU ARE WAITING FOR YOUR FOLLOW UP APPOINTMENT; EITHER CONTACT YOUR PRIMARY CARE DOCTOR, THE PHYSICIAN WHOSE NAME AND NUMBER YOU WERE GIVEN, OR RETURN TO THE ED IMMEDIATELY. Scripts Cephalexin (KEFLEX) 500 Mg Capsule 1 CAP PO Q12HR for 7 Days, #14 CAP Prov: EDY MADERA DO 06/24/20 EDY MADERA DO Jun 24, 2020 09:04
--- NOTE | 2020-06-24 09:43 | RAD ---
PA lateral chest x-rays HISTORY: Dizziness, left-sided numbness. COMPARISON: CT chest May 19, 2020. FINDINGS: Heart size normal. Mediastinal silhouette is normal. No pneumothorax. No pleural effusions. Chronic linear densities basilar left lower lobe likely chronic atelectasis or scarring stable to prior study. Right lung is clear. Thoracal lumbar disc disease with disc osteophyte and disc height loss. IMPRESSION: No acute process. Chronic atelectasis/scarring at the left lung base. Stable exam. Electronically signed by: Valentín Martinez MD (06/24/2020 9:40 AM) [id number]
--- NOTE | 2020-06-24 09:45 | RAD ---
CT HEAD WO CONTRAST Date: 06/24/2020 8:57 AM Clinical Indication: Reason: dizzy / Spl. Instructions: / History: Comparison: None. Technique: 5 mm axial tomographic images were obtained of the head without contrast. These were viewed on brain and bone windows. One or more of the following dose reduction techniques were utilized: Automated exposure control (AEC), Adjustment of mA and/or kV according to patient size, Use of iterative reconstruction technique such as ASiR, CT scan done according to ALARA and image gently/image wisely Findings: The brain parenchyma is normal in attenuation. No intra- or extra-axial mass or fluid collection. No acute hemorrhage. The ventricles are normal in size, shape, and morphology. The mooney-white matter junction is normal. The subarachnoid cisterns are patent. The visualized paranasal sinuses are normal. The visualized portions of the orbits and globes are normal. The mastoid air cells are clear. The certified surgical technologist topogram shows no lytic lesion or fracture. Impression: No acute intracranial process. Electronically signed by: Jose R Barber MD (06/24/2020 9:42 AM) [id number]
[2020-06-24 10:10] LABS: BILIRUBIN,URINE NEGATIVE (NEG); CLARITY,URINE CLEAR; COLOR,URINE YELLOW; NITRITE,URINE POSITIVE (NEG); PH,URINE 5.5 (<5.0-8.0); PROTEIN,URINE NEGATIVE (NEG-TRACE); UROBILINOGEN,URINE 0.2 mg/dL (0.2 mg/dL)
[2020-06-24 10:20] LABS: AMPHETAMINE/METHAMPHETAMINE NEG (NEG); BARBITURATES NEG (NEG); BENZODIAZEPINES NEG (NEG); CANNABINOIDS NEG (NEG); COCAINE NEG (NEG); METHADONE NEG (NEG); OPIATES NEG (NEG); PHENCYCLIDINE NEG (NEG)
[2020-06-24 10:24] LABS: BASO # 0.1 x10^3/uL (0.0-0.2); BASO % 1 % (0-3); EOS # 0.2 x10^3/uL (0.0-0.7); EOS % 4 % (0-3); HEMATOCRIT 37.6 % (36.0-47.0); HEMOGLOBIN 12.2 g/dL (12.0-15.5); LYMPH # 2.2 x10^3/uL (1.0-4.8); LYMPH % 31 % (24-48); MEAN CORPUSCULAR HEMOGLOBIN 27 pg (25-35); MEAN CORPUSCULAR HGB CONC 32 g/dL (31-37); MEAN CORPUSCULAR VOLUME 83 fL (79-100); MONO # 0.6 x10^3/uL (0.0-1.1); MONO % 8 % (0-9); NEUT % 56 % (31-73); PLATELET COUNT 367 x10^3/uL (140-400); RED BLOOD COUNT 4.53 x10^6/uL (3.50-5.40); RED CELL DISTRIBUTION WIDTH 17.1 % (11.5-14.5); WHITE BLOOD COUNT 7.1 x10^3/uL (4.0-11.0)
[2020-06-24 10:26] LABS: BACTERIA,URINE MODERATE /HPF (0-FEW); RBC,URINE OCC /HPF (0-2); WBC,URINE 20-40 /HPF (0-4)
[2020-06-24] MEDS ORDERED: fentaNYL PF VIAL 100 MCG/2 ML VIAL IVP ONE (10:30)
[2020-06-24 10:39] LABS: CREATININE 0.7 mg/dL (0.6-1.0); GFR 83.7; POTASSIUM 3.9 mmol/L (3.5-5.1)
[2020-06-24 10:46] LABS: ALBUMIN 3.8 g/dL (3.4-5.0); ALBUMIN/GLOBULIN RATIO 1.3 (1.0-1.7); PHOSPHORUS 4.6 mg/dL (2.6-4.7); TOTAL BILIRUBIN 0.1 mg/dL (0.2-1.0); TOTAL PROTEIN 6.8 g/dL (6.4-8.2)
--- NOTE | 2020-06-24 10:51 | RAD ---
Examination: 2 views of the left shoulder and left humerus HISTORY: History of left shoulder numbness, pain COMPARISON: None available FINDINGS: The humerus head is again identified. Mild joint space loss identified in the glenohumeral joint, acromioclavicular joint. There is no acute fracture or dislocation identified. IMPRESSION: Mild degenerative changes glenohumeral joint, acromioclavicular joint. Electronically signed by: Otf Newell MD (06/24/2020 10:48 AM) [id number]
[2020-06-24 11:38] VITALS: BP 145/68
[2020-06-24] MEDS ORDERED: FOSFOMYCIN TROMETHAMINE 3 GM PACKET PO ONE (11:45)
[2020-06-24] MEDS ORDERED: ACETAMINOPHEN 325 MG TABLET. PO ONE (11:45)
[2020-06-24] MEDS ORDERED: KETOROLAC 15 MG/ML VIAL. IVP ONE (11:45)
[2020-06-24] MEDS ORDERED: CEPH-264 PO (11:46)
== END 2020-06-24 12:04 | disposition home or self-care (01) ==
LOC: ER 08:55
DX: N39.0 Urinary tract infection, site not specified (principal); R42 Dizziness and giddiness; M19.012 Primary osteoarthritis, left shoulder; F31.9 Bipolar disorder, unspecified; E78.00 Pure hypercholesterolemia, unspecified; I10 Essential (primary) hypertension; E11.40 Type 2 diabetes mellitus with diabetic neuropathy, unspecified; Z87.891 Personal history of nicotine dependence; Z90.49 Acquired absence of other specified parts of digestive tract; Z88.6 Allergy status to analgesic agent; Z88.8 Allergy status to other drugs, medicaments and biological substances
CPT/HCPCS: 36415; 70450; 71046; 73030; 73060; 80053; 80307; 81001; 83735; 83880; 84100; 84484; 85025; 87086; 96374; 96375; 99285; J1885; J3010; 87077; 87186

== ENCOUNTER 2020-08-11 10:08 | Emergency (ER) | payer MEDICARE, OTHER ==
[~2020-08-11] VITALS: Ht 157.5 cm; Wt 84.5 kg
[~2020-08-11 10:08] MED LIST changes: +CEPH-264 PO
[2020-08-11 10:19] VITALS: BP 138/71
[2020-08-11] MEDS ORDERED: AMOX1TAB61 PO (11:18)
--- NOTE | 2020-08-11 11:18 | PHYS DOC ---
Past Medical History Past Medical History: Arthritis, Bipolar, Diabetes-Type II, High Cholesterol, Hypertension Additional Past Medical Histor: shingles,urine incont, sciatica, renal cell carcinoma, NEUROPATHY Past Surgical History: Cholecystectomy Additional Past Surgical Histo: R kidney tumor removed, R ovary removal,small bowel resection/ CYST, catara Smoking Status: Former Smoker Alcohol Use: Sober Drug Use: None General Adult EDM: Chief Complaint: OTHER COMPLAINTS HPI: HPI: Patient is a 64 year old [f__sex] who presents with [] Review of Systems: Review of Systems: Constitutional: Denies fever or chills. [] Eyes: Denies change in visual acuity. [] HENT: Denies nasal congestion or sore throat. [] Respiratory: Denies cough or shortness of breath. [] Cardiovascular: Denies chest pain or edema. [] GI: Denies abdominal pain, nausea, vomiting, bloody stools or diarrhea. [] : Denies dysuria. [] Musculoskeletal: Denies back pain or joint pain. [] Integument: Denies rash. [] Neurologic: Denies headache, focal weakness or sensory changes. [] Endocrine: Denies polyuria or polydipsia. [] Lymphatic: Denies swollen glands. [] Psychiatric: Denies depression or anxiety. [] Heart Score: Risk Factors: Risk Factors: DM, Current or recent (<one month) smoker, HTN, HLP, family history of CAD, obesity. Risk Scores: Score 0 - 3: 2.5% MACE over next 6 weeks - Discharge Home Score 4 - 6: 20.3% MACE over next 6 weeks - Admit for Clinical Observation Score 7 - 10: 72.7% MACE over next 6 weeks - Early Invasive Strategies Allergies: Allergies: Allergies Coded Allergies Type Severity Reaction Last Updated Verified aspirin Allergy Intermediate "messes with my stomach" 05/24/19 Yes omega-3 acid ethyl esters Allergy Intermediate bleeding 05/24/19 Yes tramadol Allergy Intermediate 05/24/19 Yes Physical Exam: PE: Constitutional: Well developed, well nourished, no acute distress, non-toxic appearance. [] HENT: Normocephalic, atraumatic, bilateral external ears normal, oropharynx moist, no oral exudates, nose normal. [] Eyes: PERRLA, EOMI, conjunctiva normal, no discharge. [] Neck: Normal range of motion, no tenderness, supple, no stridor. [] Cardiovascular:Heart rate regular rhythm, no murmur [] Lungs & Thorax: Bilateral breath sounds clear to auscultation [] Abdomen: Bowel sounds normal, soft, no tenderness, no masses, no pulsatile masses. [] Skin: Warm, dry, no erythema, no rash. [] Back: No tenderness, no CVA tenderness. [] Extremities: No tenderness, no cyanosis, no clubbing, ROM intact, no edema. [] Neurologic: Alert and oriented X 3, normal motor function, normal sensory function, no focal deficits noted. [] Psychologic: Affect normal, judgement normal, mood normal. [] Current Patient Data: Vital Signs: Vital Signs Date Time Temp Pulse Resp B/P (MAP) Pulse Ox O2 Delivery O2 Flow Rate FiO2 08/11/20 10:19 97.7 80 16 138/71 (93) 97 Room Air 97.7 EKG: EKG: [] Radiology/Procedures: Radiology/Procedures: [] Course & Med Decision Making: Course & Med Decision Making Pertinent Labs and Imaging studies reviewed. (See chart for details) [] Dragon Disclaimer: [employer] Disclaimer: This electronic medical record was generated, in whole or in part, using a voice recognition dictation system. Departure Departure Impression: Primary Impression: Sinusitis Qualified Codes: J01.00 - Acute maxillary sinusitis, unspecified Disposition: 01 DC HOME SELF CARE/HOMELESS Condition: STABLE Referrals: SELVIN FARRELL APRN (PCP) KUN GRIFFITHS MD Patient Instructions: Sinusitis, [id number] Additional Instructions: Hold antibiotics for 48 hours. If symptoms worsen or for fever > 100.3 F after 48 hours then start antibiotics as prescribed. Scripts Amoxicillin/Potassium Clav (AUGMENTIN 875-125 TABLET) 1 Each Tablet 1 TAB PO BID, #14 TAB Prov: SANDRA SOFIA DO 08/11/20 SANDRA SOFIA DO Aug 11, 2020 11:18
[2020-08-11] MEDS ORDERED: DEXAMETHASONE 4 MG TABLET PO ONE (11:30)
== END 2020-08-11 11:23 | disposition home or self-care (01) ==
LOC: ER 10:08
DX: J01.00 Acute maxillary sinusitis, unspecified (principal); R09.89 Other specified symptoms and signs involving the circulatory and respiratory systems; M19.90 Unspecified osteoarthritis, unspecified site; E11.40 Type 2 diabetes mellitus with diabetic neuropathy, unspecified; E78.00 Pure hypercholesterolemia, unspecified; I10 Essential (primary) hypertension; Z90.49 Acquired absence of other specified parts of digestive tract; Z87.891 Personal history of nicotine dependence; Z98.890 Other specified postprocedural states; Z88.8 Allergy status to other drugs, medicaments and biological substances
CPT/HCPCS: 99283

== ENCOUNTER 2020-09-30 09:59 | Emergency (ER) | payer MEDICARE, OTHER ==
[~2020-09-30] VITALS: Ht 157.5 cm; Wt 85.0 kg
[2020-09-30 10:05] VITALS: BP 133/79
--- NOTE | 2020-09-30 11:01 | PHYS DOC ---
Past Medical History Past Medical History: Arthritis, Bipolar, Diabetes-Type II, High Cholesterol, Hypertension Additional Past Medical Histor: shingles,urine incont, sciatica, renal cell carcinoma, NEUROPATHY Past Surgical History: Cholecystectomy Additional Past Surgical Histo: R kidney tumor removed, R ovary removal,small bowel resection/ CYST, catara Smoking Status: Former Smoker Alcohol Use: Sober Drug Use: None General Adult EDM: Chief Complaint: PAIN ON URINATION HPI: HPI: Patient is a 65 year old female who presented to ER with pain with urination and increased frequency for the last 2 days. Patient denies any fever, no abdominal pain, no nausea vomiting. Review of Systems: Review of Systems: Constitutional: Denies fever or chills. [] Eyes: Denies change in visual acuity. [] HENT: Denies nasal congestion or sore throat. [] Respiratory: Denies cough or shortness of breath. [] Cardiovascular: Denies chest pain or edema. [] GI: Denies abdominal pain, nausea, vomiting, bloody stools or diarrhea. [] : Positive for dysuria and frequency. Musculoskeletal: Denies back pain or joint pain. [] Integument: Denies rash. [] Neurologic: Denies headache, focal weakness or sensory changes. [] Endocrine: Denies polyuria or polydipsia. [] Lymphatic: Denies swollen glands. [] Psychiatric: Denies depression or anxiety. [] Heart Score: Risk Factors: Risk Factors: DM, Current or recent (<one month) smoker, HTN, HLP, family his tory of CAD, obesity. Risk Scores: Score 0 - 3: 2.5% MACE over next 6 weeks - Discharge Home Score 4 - 6: 20.3% MACE over next 6 weeks - Admit for Clinical Observation Score 7 - 10: 72.7% MACE over next 6 weeks - Early Invasive Strategies Allergies: Allergies: Allergies Coded Allergies Type Severity Reaction Last Updated Verified aspirin Allergy Intermediate "messes with my stomach" 05/24/19 Yes omega-3 acid ethyl esters Allergy Intermediate bleeding 05/24/19 Yes tramadol Allergy Intermediate 05/24/19 Yes Physical Exam: PE: Constitutional: Well developed, well nourished, no acute distress, non-toxic appearance. [] HENT: Normocephalic, atraumatic, bilateral external ears normal, oropharynx moist, no oral exudates, nose normal. [] Eyes: PERRLA, EOMI, conjunctiva normal, no discharge. [] Neck: Normal range of motion, no tenderness, supple, no stridor. [] Cardiovascular:Heart rate regular rhythm, no murmur [] Lungs & Thorax: Bilateral breath sounds clear to auscultation [] Abdomen: Bowel sounds normal, soft, no tenderness, no masses, no pulsatile masses. [] Skin: Warm, dry, no erythema, no rash. [] Back: No tenderness, no CVA tenderness. [] Extremities: No tenderness, no cyanosis, no clubbing, ROM intact, no edema. [] Neurologic: Alert and oriented X 3, normal motor function, normal sensory function, no focal deficits noted. [] Psychologic: Affect normal, judgement normal, mood normal. [] Current Patient Data: Vital Signs: Vital Signs Date Time Temp Pulse Resp B/P (MAP) Pulse Ox O2 Delivery O2 Flow Rate FiO2 09/30/20 10:05 98.9 83 16 133/79 (97) 96 Room Air 98.9 EKG: EKG: [] Radiology/Procedures: Radiology/Procedures: [] Course & Med Decision Making: Course & Med Decision Making Pertinent Labs and Imaging studies reviewed. (See chart for details) [] Dragon Disclaimer: [employer] Disclaimer: This electronic medical record was generated, in whole or in part, using a voice recognition dictation system. Departure Departure Impression: Primary Impression: UTI (urinary tract infection) Disposition: 01 DC HOME SELF CARE/HOMELESS Condition: STABLE Referrals: SELVIN FARRELL APRN (PCP) please call your primary care provider for follow up next week. Patient Instructions: Urinary Tract Infection Additional Instructions: Thank you for visiting our Emergency Department. We appreciate you trusting us with your care. If any additional problems come up don't hesitate to return to visit us. Please follow up with your primary care provider so they can plan additional care if needed and know about the problem that you had. If symptoms worsen come back to the Emergency Department. Any concerning symptoms that start such as chest pain, shortness of air, weakness or numbness on one side of the body, running high fevers or any other concerning symptoms return to the ER. Scripts Levofloxacin (LEVOFLOXACIN) 500 Mg Tablet 1 TAB PO DAILY, #7 TAB Prov: COREY LUNDBERG DO 09/30/20 COREY LUNDBERG DO Sep 30, 2020 11:01
[2020-09-30 11:48] LABS: BILIRUBIN,URINE NEGATIVE (NEG); CLARITY,URINE CLEAR; COLOR,URINE YELLOW; NITRITE,URINE NEGATIVE (NEG); PROTEIN,URINE NEGATIVE (NEG-TRACE); UROBILINOGEN,URINE 0.2 mg/dL (0.2 mg/dL)
[2020-09-30 12:17] LABS: BACTERIA,URINE MODERATE /HPF (0-FEW); WBC,URINE >40 /HPF (0-4)
[2020-09-30] MEDS ORDERED: LEVO500T8 PO (12:38)
== END 2020-09-30 12:45 | disposition home or self-care (01) ==
LOC: ER 09:59
DX: N39.0 Urinary tract infection, site not specified (principal); E11.40 Type 2 diabetes mellitus with diabetic neuropathy, unspecified; F31.9 Bipolar disorder, unspecified; E78.00 Pure hypercholesterolemia, unspecified; I10 Essential (primary) hypertension; Z87.891 Personal history of nicotine dependence; Z90.49 Acquired absence of other specified parts of digestive tract; Z88.6 Allergy status to analgesic agent; Z88.8 Allergy status to other drugs, medicaments and biological substances
CPT/HCPCS: 81001; 87086; 99284

== ENCOUNTER 2020-10-12 08:54 | Observation (INO) | payer OTHER ==
[~2020-10-12] VITALS: Ht 157.5 cm; Wt 77.7 kg
[~2020-10-12 08:54] MED LIST changes: +IBUP-1060 PO; +LEVO500T8 PO; +LISI20TA18 PO; +POTA20TA4 PO
--- NOTE | 2020-10-12 09:18 | ED.ADGEN ---
Past Medical History Past Medical History: Arthritis, Bipolar, Cancer, Diabetes-Type II, High Cholesterol, Hypertension Additional Past Medical Histor: shingles,urine incont, sciatica, renal cell carcinoma, NEUROPATHY Past Surgical History: Cholecystectomy Additional Past Surgical Histo: R kidney tumor removed, R ovary removal,small bowel resection/ CYST, catara Smoking Status: Former Smoker Alcohol Use: None Drug Use: None General Adult EDM: Chief Complaint: NEURO SYMPTOMS/DEFICITS HPI: HPI: Patient is a 65-year-old female who arrives ambulatory to the emergency department complaining of the acute onset of stuttering of her speech as well as left upper extremity tremor at approximately 7:57 AM this morning. The patient reports both of these phenomenon are new for her. She also states that she has had some facial drooping during this time as well. The patient states despite having these symptoms she has not experienced any motor weakness or sensory deficits otherwise. She further reports going to bed and feeling normal. She denies any history of recent illness, neurological deficit or TIA/CVA. She is awake, alert and nontoxic-appearing. Review of Systems: Review of Systems: Constitutional: Denies fever or chills. [] Eyes: Denies change in visual acuity. [] HENT: Denies nasal congestion or sore throat. [] Respiratory: Denies cough or shortness of breath. [] Cardiovascular: Denies chest pain or edema. [] GI: Denies abdominal pain, nausea, vomiting, bloody stools or diarrhea. [] : Denies dysuria. [] Musculoskeletal: Denies back pain or joint pain. [] Integument: Denies rash. [] Neurologic: Reports tremor as well as changes in speech as well as facial droop. Denies headache, or sensory changes. [] Endocrine: Denies polyuria or polydipsia. [] Lymphatic: Denies swollen glands. [] Psychiatric: Denies depression or anxiety. [] Current Medications: Current Medications Medications (Trade) Dose Ordered Sig/Hilton Start Time Stop Time Status Last Admin Dose Admin Acetaminophen (Tylenol) 650 mg PRN Q4HRS PRN 10/12/20 10:45 10/13/20 10:44 Info (CONTRAST GIVEN -- Rx MONITORING) 1 each PRN DAILY PRN 10/12/20 10:45 10/14/20 10:44 Iohexol (Omnipaque 300 Mg/ml) 75 ml 1X ONCE 10/12/20 10:45 10/12/20 10:46 DC 10/12/20 10:48 75 ML Ondansetron HCl (Zofran) 4 mg PRN Q8HRS PRN 10/12/20 10:45 10/13/20 10:44 Allergies: Allergies: Allergies Coded Allergies Type Severity Reaction Last Updated Verified aspirin Allergy Intermediate "messes with my stomach" 10/03/20 Yes omega-3 acid ethyl esters Allergy Intermediate bleeding 10/03/20 Yes levofloxacin Allergy Unknown 10/12/20 Yes tramadol Adverse Reaction Intermediate STOMACH UPSET 10/03/20 Yes Physical Exam: PE: Constitutional: Well developed, well nourished, no acute distress, non-toxic appearance. [] HENT: Normocephalic, atraumatic, bilateral external ears normal, oropharynx moist, no oral exudates, nose normal. [] Eyes: PERRLA, EOMI, conjunctiva normal, no discharge. [] Neck: Normal range of motion, no tenderness, supple, no stridor. [] Cardiovascular:Heart rate regular rhythm, no murmur [] Lungs & Thorax: Bilateral breath sounds clear to auscultation [] Abdomen: Bowel sounds normal, soft, no tenderness, no masses, no pulsatile masses. [] Skin: Warm, dry, no erythema, no rash. [] Back: No tenderness, no CVA tenderness. [] Extremities: No tenderness, no cyanosis, no clubbing, ROM intact, no edema. [] Neurologic: Patient does appear to have an exertional tremor of the left upper extremity. Alert and oriented X 3, normal motor function, normal sensory function, no focal deficits noted. [] Psychologic: Affect normal, judgement normal, mood normal. [] Current Patient Data: Labs: Laboratory Tests Test 10/12/20 09:13 10/12/20 09:16 Glucose (Fingerstick) 96 mg/dL (70-99) White Blood Count 6.4 x10^3/uL (4.0-11.0) Red Blood Count 4.42 x10^6/uL (3.50-5.40) Hemoglobin 12.0 g/dL (12.0-15.5) Hematocrit 37.8 % (36.0-47.0) Mean Corpuscular Volume 85 fL (79-100) Mean Corpuscular Hemoglobin 27 pg (25-35) Mean Corpuscular Hemoglobin Concent 32 g/dL (31-37) Red Cell Distribution Width 16.7 % (11.5-14.5) H Platelet Count 391 x10^3/uL (140-400) Neutrophils (%) (Auto) 54 % (31-73) Lymphocytes (%) (Auto) 33 % (24-48) Monocytes (%) (Auto) 9 % (0-9) Eosinophils (%) (Auto) 3 % (0-3) Basophils (%) (Auto) 1 % (0-3) Neutrophils # (Auto) 3.4 x10^3/uL (1.8-7.7) Lymphocytes # (Auto) 2.1 x10^3/uL (1.0-4.8) Monocytes # (Auto) 0.6 x10^3/uL (0.0-1.1) Eosinophils # (Auto) 0.2 x10^3/uL (0.0-0.7) Basophils # (Auto) 0.1 x10^3/uL (0.0-0.2) Prothrombin Time 12.1 SEC (11.7-14.0) Prothrombin Time INR 0.9 (0.8-1.1) Activated Partial Thromboplast Time 28 SEC (24-38) Sodium Level 143 mmol/L (136-145) Potassium Level 4.4 mmol/L (3.5-5.1) Chloride Level 106 mmol/L (98-107) Carbon Dioxide Level 26 mmol/L (21-32) Anion Gap 11 (6-14) Blood Urea Nitrogen 16 mg/dL (7-20) Creatinine 0.6 mg/dL (0.6-1.0) Estimated GFR (Cockcroft-Gault) 99.7 Glucose Level 104 mg/dL (70-99) H Calcium Level 9.9 mg/dL (8.5-10.1) Troponin I Quantitative < 0.017 ng/mL (0.000-0.055) Laboratory Tests 10/12/20 09:16 Laboratory Tests 10/12/20 09:16 Vital Signs: Vital Signs Date Time Temp Pulse Resp B/P (MAP) Pulse Ox O2 Delivery O2 Flow Rate FiO2 10/12/20 10:34 80 17 150/80 (103) 97 Room Air 10/12/20 08:56 98.2 98.2 EKG: EKG: [] EKG was obtained at 10:10 AM this morning. It revealed a sinus rhythm with a ventricular rate of 76 bpm. There is left axis deviation present. There is no ST/T wave changes to denote ischemia or acute cardiac injury. Heart Score: Risk Factors: Risk Factors: DM, Current or recent (<one month) smoker, HTN, HLP, family history of CAD, obesity. Risk Scores: Score 0 - 3: 2.5% MACE over next 6 weeks - Discharge Home Score 4 - 6: 20.3% MACE over next 6 weeks - Admit for Clinical Observation Score 7 - 10: 72.7% MACE over next 6 weeks - Early Invasive Strategies Radiology/Procedures: Radiology/Procedures: [] Impression: [facility] [address] [place], [place] [id number] IMAGING REPORT Signed PATIENT: TYLOR WILL ACCOUNT: [id number] : 1955 LOCATION: ER AGE: 65 SEX: F EXAM STATUS: PRE ER ORD. PHYSICIAN: MARGRET JONES DO REASON: Slurred speech PROCEDURE: CT CODE STROKE HEAD WO STUDY: CT head without contrast INDICATION: Slurred speech. COMPARISON: 10/03/2020 TECHNIQUE: Axial CT imaging through the head without the use of intravenous contrast. Sagittal and coronal reformats were obtained. One or more of the following individualized dose reduction techniques were utilized for this examination: 1. Automated exposure control 2. Adjustment of the mA and/or kV according to patient size 3. Use of iterative reconstruction technique. FINDINGS: No acute intracranial hemorrhage. Fermin-white matter differentiation is maintained. No localized mass effect, midline shift or hydrocephalus. Unchanged brain parenchymal attenuation pattern and volume. Unchanged orbits and scalp. Intact calvarium. IMPRESSION: No acute intracranial hemorrhage or CT evidence for an acute cortical infarction. No change from 10/03/2020. FOR INTERNAL CODING PURPOSES Critical result: Findings discussed with Dr. Jones on 10/12/2020 at 9:35 AM. RESULT CODE: (C) Electronically signed by: LISA BISHOP MD (10/12/2020 9:37 AM) [id number] [facility] [address] [place] [address] IMAGING REPORT Signed PATIENT: TYLOR WILL ACCOUNT: [id number] : 1955 LOCATION: ER AGE: 65 SEX: F EXAM STATUS: REG ER ORD. PHYSICIAN: MARGRET JONES DO REASON: Slurred speech, right upper extremity weakness INJ 75ML OMNI 300 PROCEDURE: CTA HEAD/NECK - CODE STROKE EXAM: CT Angiogram of the Head and Neck INDICATION: Reason: Slurred speech, right upper extremity weakness INJ 75ML OMNI 300 / Spl. Instructions: / History: TECHNIQUE: CT images were obtained through the head per standard CTA protocol. Multiplanar and 3D reformatted images were generated from the CT dataset on an independent workstation. All CT scans performed at this facility utilize dose optimization techniques as appropriate to the exam, including the following: Automated exposure control and adjustment of the mA and/or KV according to patient size (this includes techniques or standardized protocols for targeted exams where dose is indication/reason for exam). IV CONTRAST: Administered COMPARISON: CT pulmonary angiogram of 05/19/2020 FINDINGS: CTA HEAD: No high-grade large vessel stenosis, proximal or branch vessel occlusion, aneurysm, or vascular malformation. ANTERIOR CIRCULATION: Anterior and middle cerebral arteries are widely patent. ANTERIOR COMMUNICATING ARTERY: Patent. POSTERIOR COMMUNICATING ARTERIES: Present bilaterally and patent. POSTERIOR CIRCULATION: Vertebral and basilar arteries are widely patent. Bilateral posterior inferior cerebellar arteries (PICAs), anterior inferior cerebellar arteries (AICAs), and superior cerebellar arteries (SCAs) are visualized and patent. OTHER: No abnormal brain parenchymal enhancement. The paranasal sinuses, mastoid air cells, and tympanic cavities are clear. NECK CTA: AORTA: 3 vessel configuration of arch. No dissection or acute aortic injury. No hemodynamically significant great vessel origin stenosis. RIGHT CAROTID: Common and internal carotid arteries are widely patent, without evidence of flow limiting stenosis or dissection. LEFT CAROTID: Common and internal carotid arteries are widely patent, without evidence of flow limiting stenosis or dissection. VERTEBRAL ARTERIES: Codominant. No evidence of dissection or flow limiting stenosis. SUBCLAVIAN ARTERIES:Subclavian arteries are patent without stenosis. There is mild noncalcified plaque in the proximal SOFT TISSUES: Multinodular thyroid gland with a dominant 3 cm right inferior pole nodule that is better evaluated with ultrasound. Lung apices show a 5 mm peripheral left upper lobe pulmonary nodule (image 78 series 3) Where applicable, evaluation of ICA stenosis was performed using NASCET criteria, where the site of greatest stenosis is compared to the diameter of the ICA distal to the carotid bulb. IMPRESSION: 1. Unremarkable CTA of the head and neck. 2. Incidental findings of thyroid nodules, recommended for further evaluation on an elective basis with ultrasound 3. Incidental 5 mm peripheral left upper lobe pulmonary nodule. This is unchanged from the previous examination and requires no additional imaging follow-up in a low-risk patient. Optional twelve-month follow-up CT chest could be pursued if the patient is considered at high risk for lung malignancy.. Discussed with Dr. Jones by telephone at 11:10 AM on 10/12/2020 Electronically signed by: Thierry Pollock MD (10/12/2020 11:17 AM) [id number] DICTATED and SIGNED BY: THIERRY POLLOCK MD DATE: 10/12/20 [id number] 0 Course & Med Decision Making: Course & Med Decision Making Pertinent Labs and Imaging studies reviewed. (See chart for details) [] Jace Disclaimer: Jace Disclaimer: This electronic medical record was generated, in whole or in part, using a voice recognition dictation system. Departure Departure Impression: Primary Impression: TIA (transient ischemic attack) Additional Impressions: Thyroid nodule Pulmonary nodule Disposition: ADMITTED INPT THIS HOSP Admitting Physician: HIMS Condition: GOOD Referrals: SELVIN FARRELL APRN (PCP) Problem Qualifiers MARGRET JONES DO Oct 12, 2020 09:18
[2020-10-12 09:32] LABS: BASO # 0.1 x10^3/uL (0.0-0.2); BASO % 1 % (0-3); EOS # 0.2 x10^3/uL (0.0-0.7); EOS % 3 % (0-3); HEMATOCRIT 37.8 % (36.0-47.0); LYMPH # 2.1 x10^3/uL (1.0-4.8); LYMPH % 33 % (24-48); MEAN CORPUSCULAR HEMOGLOBIN 27 pg (25-35); MEAN CORPUSCULAR HGB CONC 32 g/dL (31-37); MEAN CORPUSCULAR VOLUME 85 fL (79-100); MONO # 0.6 x10^3/uL (0.0-1.1); MONO % 9 % (0-9); NEUT # 3.4 x10^3/uL (1.8-7.7); NEUT % 54 % (31-73); PLATELET COUNT 391 x10^3/uL (140-400); RED BLOOD COUNT 4.42 x10^6/uL (3.50-5.40); RED CELL DISTRIBUTION WIDTH 16.7 % (11.5-14.5); WHITE BLOOD COUNT 6.4 x10^3/uL (4.0-11.0)
[2020-10-12 09:39] LABS: PROTHROMBIN TIME PATIENT 12.1 SEC (11.7-14.0)
--- NOTE | 2020-10-12 09:40 | RAD ---
STUDY: CT head without contrast INDICATION: Slurred speech. COMPARISON: 10/03/2020 TECHNIQUE: Axial CT imaging through the head without the use of intravenous contrast. Sagittal and co jose reformats were obtained. One or more of the following individualized dose reduction techniques were utilized for this examinat ion: 1. Automated exposure control 2. Adjustment of the mA and/or kV according to patient size 3. Use of iterative reconstruction technique. FINDINGS: No acute intracranial hemorrhage. Fermin-white matter differentiation is maintained. No localized mass effect, midline shift or hydrocephalus. Unchanged brain parenchymal attenuation pattern and volume. Unchanged orbits and scalp. Intact calvarium. IMPRESSION: No acute intracranial hemorrhage or CT evidence for an acute cortical infarction. No change from 2020. FOR INTERNAL CODING PURPOSES Critical result: Findings discussed with Dr. Rush on 10/12/2020 at 9:35 AM. RESULT CODE: (C) Electronically signed by: LISA BISHOP MD (10/12/2020 9:37 AM) [id number]
[2020-10-12 09:42] LABS: CALCIUM 9.9 mg/dL (8.5-10.1); CREATININE 0.6 mg/dL (0.6-1.0); GFR 99.7; POTASSIUM 4.4 mmol/L (3.5-5.1)
--- NOTE | 2020-10-12 10:16 | PDOC1 ---
History and Physical Date of Admission Date of Admission DATE: 10/12/20 TIME: 10:13 Identification/Chief Complaint Chief Complaint Shaking Source Source: Patient History of Present Illness History of Present Illness Ms Ruiz is a 65yo F w/ PMHx renal cell ca s/p R nephrectomy, DM2, bipolar disorder, HTN, HLD, neuropathy who [facility] complaining of backside pain as well as stuttering of her speech as well as left upper extremity tremor about a half hour after she awoke, around 0800 on 10/12/20. No prior TIA/CVA. No other symptoms though she felt she may have had a facial droop. She was recently hospitalized for hypokalemia and UTI and discharged a week prior. CT head with no bleed notable and CT angiogram head and neck with no vessel occlusion. EKG sinus rhythm with a ventricular rate of 76 bpm and left axis deviation, no ST/T wave changes Admitted for further care Past Medical History Cardiovascular: HTN, Hyperlipidemia Pulmonary: COPD CENTRAL NERVOUS SYSTEM: Other GI: GERD Heme/Onc: Cancer Hepatobiliary: Cholelithiasis Psych: Bipolar Musculoskeletal: Osteoarthritis Rheumatologic: No pertinent hx Infectious disease: Herpes zoster Renal/: Urinary Incontinence Endocrine: Diabetes Past Surgical History Past Surgical History: Cholecystectomy, Cataract Removal, Other Family History Family History: Diabetes, Hypertension Social History Smoke: Quit ALCOHOL: none Drugs: None Current Medications Current Medications Active Scripts Active Nitrostat (Nitroglycerin) 0.4 Mg Tab.subl 0.4 Mg SL PRN Q5MIN PRN 30 Days Proair Respiclick (Albuterol Sulfate) 90 Mcg Aer.pow.ba 1 Puff IH PRN Q6HRS PRN Reported Klor-Con M20 (Potassium Chloride) 20 Meq Tab.er.prt 20 Meq PO BID Lisinopril 20 Mg Tablet 20 Mg PO DAILY Ibuprofen 800 Mg Tablet 800 Mg PO Q8HRS PRN Levofloxacin 500 Mg Tablet 500 Mg PO DAILY Fiber Gummies (Inulin) 2 Gm Tab.chew 2 Tab PO DAILY 30 Days Abilify (Aripiprazole) 5 Mg Tablet 5 Mg PO DAILY Metformin Hcl 1,000 Mg Tablet 1,000 Mg PO BIDWMEALS [Beano] PO PRN PRN Pepcid (Famotidine) 20 Mg Tablet 20 Mg PO PRN PRN Ditropan Xl (Oxybutynin Chloride) 5 Mg Tab.er.24 1 Tab PO DAILY Aspir 81 (Aspirin) 81 Mg Tablet.dr 1 Tab PO DAILY Zyrtec (Cetirizine Hcl) 10 Mg Tablet 1 Tab PO QHS Gabapentin (Gabapentin) 300 Mg Capsule 300 Mg PO TID Baclofen 10 Mg Tablet 1 Tab PO TID Freestyle Lite Strips (Blood Sugar Diagnostic) 1 Each Strip 1 Each MC Atorvastatin Calcium 40 Mg Tablet 40 Mg PO DAILY Spiriva (Tiotropium [place]) 18 Mcg Cap.w.dev 2 Inh IH DAILY Meloxicam 15 Mg Tablet 15 Mg PO DAILY Polyethylene Glycol (Polyethylene Glycol 8000) 500 Gm Powder 500 Gm MC DAILY PRN Flovent 220MCG Hfa (Fluticasone Propionate) 12 Gm Aer.w.adap 12 Gm IH BID Allergies Allergies: Coded Allergies: aspirin (Verified Allergy, Intermediate, "messes with my stomach", 10/03/20) omega-3 acid ethyl esters (Verified Allergy, Intermediate, bleeding, 10/03/20) levofloxacin (Verified Allergy, Unknown, 10/12/20) "HEART RACES" tramadol (Verified Adverse Reaction, Intermediate, STOMACH UPSET, 10/03/20) ROS General: No: Chills, Night Sweats, Fatigue, Malaise, Appetite, Other PSYCHOLOGICAL ROS: YES: Anxiety, Mood Swings, Obsessive thoughts; No: Behavioral Disorder, Concentration difficultie, Decreased libido, Depres mikaela, Disorientation, Hallucinations, Hostility, Irritablity, Memory difficulties, Physical abuse, Sexual abuse, Sleep disturbances, Suicidal ideation, Other Eyes: No Blurry vision, No Decreased vision, No Double vision, No Dry eyes, No Excessive tearing, No Eye Pain, No Itchy Eyes, No Loss of vision, No Photophobia, No Scotomata, No Uses contacts, No Uses glasses, No Other HEENT: No: Heacaches, Visual Changes, Hearing change, Nasal congestion, Nasal discharge, Oral lesions, Sinus pain, Sore Throat, Epistaxis, Sneezing, Snoring, Tinnitus, Vertigo, Vocal changes, Other ALLERGY AND IMMUNOLOGY: No: Hives, Insect Bite Sensitivity, Itchy/Watery Eyes, Nasal Congestion, Post Nasal Drip, Seasonal Allergies, Other Hematological and Lymphatic: No: Bleeding Problems, Blood Clots, Blood Transfusions, Brusing, Night Sweats, Pallor, Swollen Lymph Nodes, Other ENDOCRINE: No: Breast Changes, Galactorrhea, Hair Pattern Changes, Hot Flashes, Malaise/lethargy, Mood Swings, Palpitations, Polydipsia/polyuria, Skin Changes, Temperature Intolerance, Unexpected Weight Changes, Other Breast: No New/Changing Breast Lumps, No Nipple changes, No Nipple discharge, No Other Respiratory: No: Cough, Hemoptysis, Orthopnea, Pleuritic Pain, Shortness of breath, SOB with excertion, Sputum Changes, Stridor, Tachypnea, Wheezing, Other Cardiovascular: No Chest Pain, No Palpitations, No Orthopnea, No Paroxysmal Noc. Dyspnea, No Edema, No Lt Headedness, No Other Gastrointestinal: No Nausea, No Vomiting, No Abdominal Pain, No Diarrhea, No Constipation, No Melena, No Hematochezia, No Other Genitourinary: No Dysuria, No Frequency, No Incontinence, No Hematuria, No Retention, No Discharge, No Urgency, No Pain, No Flank Pain, No Other, No , No , No , No , No , No , No Musculoskeletal: No Gait Disturbance, No Joint Pain, No Joint Stiffness, No Joint Swelling, No Muscle Pain, No Muscular Weakness, No Pain In:, No Swelling In:, No Other Neurological: Yes Dizziness, Yes Gait Disturbance, Yes Tremors; No Behavorial Changes, No Bowel/Bladder ControlChng, No Confusion, No Headaches, No Impaired Coord/balance, No Memory Loss, No Numbness/Tingling, No Seizures, No Speech Problems, No Visual Changes, No Weakness, No Other Skin: No Dry Skin, No Eczema, No Hair Changes, No Lumps, No Mole Changes, No Mottling, No Nail Changes, No Pruritus, No Rash, No Skin Lesion Changes, No Other, No Acne Physical Exam General: Alert, Oriented X3, Cooperative, No acute distress HEENT: Atraumatic, PERRLA, EOMI, Mucous membr. moist/pink Lungs: Clear to auscultation, Normal air movement Heart: S1S2, RRR, no thrills, no rubs, no gallops, no murmurs Abdomen: Normal bowel sounds, Soft, No tenderness, No hepatosplenomegaly, No masses Rectal Exam: hemorrhoids Extremities: No clubbing, No cyanosis, No edema, Normal pulses, No tenderness/swelling Skin: No breakdown, No significant lesion, Other (Bilateral gluteal redness) Neuro: Normal gait, Normal speech, Strength at 5/5 X4 ext, Normal tone, Sensation intact, Cranial nerves 3-12 NL, Reflexes 2+ Psych/Mental Status: Mental status NL, Mood NL Vitals Vitals Vital Signs Date Time Temp Pulse Resp B/P (MAP) Pulse Ox O2 Delivery O2 Flow Rate FiO2 10/12/20 10:04 78 17 152/80 (104) 97 Room Air 10/12/20 08:56 98.2 98.2 Labs Labs Laboratory Tests Test 10/12/20 09:13 10/12/20 09:16 Glucose (Fingerstick) 96 mg/dL (70-99) White Blood Count 6.4 x10^3/uL (4.0-11.0) Red Blood Count 4.42 x10^6/uL (3.50-5.40) Hemoglobin 12.0 g/dL (12.0-15.5) Hematocrit 37.8 % (36.0-47.0) Mean Corpuscular Volume 85 fL (79-100) Mean Corpuscular Hemoglobin 27 pg (25-35) Mean Corpuscular Hemoglobin Concent 32 g/dL (31-37) Red Cell Distribution Width 16.7 % (11.5-14.5) Platelet Count 391 x10^3/uL (140-400) Neutrophils (%) (Auto) 54 % (31-73) Lymphocytes (%) (Auto) 33 % (24-48) Monocytes (%) (Auto) 9 % (0-9) Eosinophils (%) (Auto) 3 % (0-3) Basophils (%) (Auto) 1 % (0-3) Neutrophils # (Auto) 3.4 x10^3/uL (1.8-7.7) Lymphocytes # (Auto) 2.1 x10^3/uL (1.0-4.8) Monocytes # (Auto) 0.6 x10^3/uL (0.0-1.1) Eosinophils # (Auto) 0.2 x10^3/uL (0.0-0.7) Basophils # (Auto) 0.1 x10^3/uL (0.0-0.2) Prothrombin Time 12.1 SEC (11.7-14.0) Prothromb Time International Ratio 0.9 (0.8-1.1) Activated Partial Thromboplast Time 28 SEC (24-38) Sodium Level 143 mmol/L (136-145) Potassium Level 4.4 mmol/L (3.5-5.1) Chloride Level 106 mmol/L (98-107) Carbon Dioxide Level 26 mmol/L (21-32) Anion Gap 11 (6-14) Blood Urea Nitrogen 16 mg/dL (7-20) Creatinine 0.6 mg/dL (0.6-1.0) Estimated GFR (Cockcroft-Gault) 99.7 Glucose Level 104 mg/dL (70-99) Calcium Level 9.9 mg/dL (8.5-10.1) Troponin I Quantitative < 0.017 ng/mL (0.000-0.055) Laboratory Tests Test 10/12/20 09:13 10/12/20 09:16 Glucose (Fingerstick) 96 mg/dL (70-99) White Blood Count 6.4 x10^3/uL (4.0-11.0) Red Blood Count 4.42 x10^6/uL (3.50-5.40) Hemoglobin 12.0 g/dL (12.0-15.5) Hematocrit 37.8 % (36.0-47.0) Mean Corpuscular Volume 85 fL (79-100) Mean Corpuscular Hemoglobin 27 pg (25-35) Mean Corpuscular Hemoglobin Concent 32 g/dL (31-37) Red Cell Distribution Width 16.7 % (11.5-14.5) Platelet Count 391 x10^3/uL (140-400) Neutrophils (%) (Auto) 54 % (31-73) Lymphocytes (%) (Auto) 33 % (24-48) Monocytes (%) (Auto) 9 % (0-9) Eosinophils (%) (Auto) 3 % (0-3) Basophils (%) (Auto) 1 % (0-3) Neutrophils # (Auto) 3.4 x10^3/uL (1.8-7.7) Lymphocytes # (Auto) 2.1 x10^3/uL (1.0-4.8) Monocytes # (Auto) 0.6 x10^3/uL (0.0-1.1) Eosinophils # (Auto) 0.2 x10^3/uL (0.0-0.7) Basophils # (Auto) 0.1 x10^3/uL (0.0-0.2) Prothrombin Time 12.1 SEC (11.7-14.0) Prothromb Time International Ratio 0.9 (0.8-1.1) Activated Partial Thromboplast Time 28 SEC (24-38) Sodium Level 143 mmol/L (136-145) Potassium Level 4.4 mmol/L (3.5-5.1) Chloride Level 106 mmol/L (98-107) Carbon Dioxide Level 26 mmol/L (21-32) Anion Gap 11 (6-14) Blood Urea Nitrogen 16 mg/dL (7-20) Creatinine 0.6 mg/dL (0.6-1.0) Estimated GFR (Cockcroft-Gault) 99.7 Glucose Level 104 mg/dL (70-99) Calcium Level 9.9 mg/dL (8.5-10.1) Troponin I Quantitative < 0.017 ng/mL (0.000-0.055) Images Images CT head non-contrast: No acute intracranial hemorrhage. [place]-white matter differentiation is maintained. No localized mass effect, midline shift or hydrocephalus. Unchanged brain parenchymal attenuation pattern and volume. Unchanged orbits and scalp. Intact calvarium. IMPRESSION: No acute intracranial hemorrhage or CT evidence for an acute cortical infarction. No change from 10/03/2020. CTA head: CTA HEAD: No high-grade large vessel stenosis, proximal or branch vessel occlusion, aneurysm, or vascular malformation. ANTERIOR CIRCULATION: Anterior and middle cerebral arteries are widely patent. ANTERIOR COMMUNICATING ARTERY: Patent. POSTERIOR COMMUNICATING ARTERIES: Present bilaterally and patent. POSTERIOR CIRCULATION: Vertebral and basilar arteries are widely patent. Bilateral posterior inferior cerebellar arteries (PICAs), anterior inferior cerebellar arteries (AICAs), and superior cerebellar arteries (SCAs) are visualized and patent. OTHER: No abnormal brain parenchymal enhancement. The paranasal sinuses, mastoid air cells, and tympanic cavities are clear. NECK CTA: AORTA: 3 vessel configuration of arch. No dissection or acute aortic injury. No hemodynamically significant great vessel origin stenosis. RIGHT CAROTID: Common and internal carotid arteries are widely patent, without evidence of flow limiting stenosis or dissection. LEFT CAROTID: Common and internal carotid arteries are widely patent, without evidence of flow limiting stenosis or dissection. VERTEBRAL ARTERIES: Codominant. No evidence of dissection or flow limiting stenosis. SUBCLAVIAN ARTERIES:Subclavian arteries are patent without stenosis. There is mild noncalcified plaque in the proximal SOFT TISSUES: Multinodular thyroid gland with a dominant 3 cm right inferior pole nodule that is better evaluated with ultrasound. Lung apices show a 5 mm peripheral left upper lobe pulmonary nodule (image 78 series 3) Where applicable, evaluation of ICA stenosis was performed using NASCET cr iteria, where the site of greatest stenosis is compared to the diameter of the ICA distal to the carotid bulb. IMPRESSION: 1. Unremarkable CTA of the head and neck. 2. Incidental findings of thyroid nodules, recommended for further evaluation on an elective basis with ultrasound 3. Incidental 5 mm peripheral left upper lobe pulmonary nodule. This is unchanged from the previous examination and requires no additional imaging follow-up in a low-risk patient. Optional twelve-month follow-up CT chest could be pursued if the patient is considered at high risk for lung malignancy. VTE Prophylaxis Ordered VTE Prophylaxis Devices: Yes VTE Pharmacological Prophylaxi: Yes Assessment/Plan Assessment/Plan A/P: Tremors - left hand. Likely essential tremor vs muscle relaxant side effect from baclofen. CT negative. can take ASA enteric coated, her ASA "allergy" is upset stomach. Statin, PT/OT rehab. Neuro Stuttering speech - resolved HTN: controlled HLD - cont meds DM2 - sliding scale COPD with past tobaccoism Bipolar disorder - cont meds H/o renal cell ca - in remission FEN - ADA diet PPX - lovenox FULL CODE Dispo - observation for TIA. Neurology consulted For prior visit already has a follow up with Dr. Bailon November 07 9:45 AM and will consider for outpt stress test after the visit. Justifications for Admission Other Justification hypokalemia JALIL BHARDWAJ MD Oct 12, 2020 10:16
[2020-10-12] MEDS ORDERED: CONTRAST GIVEN. MC PRN (10:45)
[2020-10-12] MEDS ORDERED: ACETAMINOPHEN 325 MG TABLET. PO PRN (10:45)
[2020-10-12] MEDS ORDERED: ONDANSETRON PF 4 MG/2 ML VIAL. IV PRN ×2 (10:45→12:15)
[2020-10-12] MEDS ORDERED: IOHEXOL 300 MG/ML 100ML VIAL. IV ONE (10:45)
--- NOTE | 2020-10-12 11:19 | RAD ---
EXAM: CT Angiogram of the Head and Neck INDICATION: Reason: Slurred speech, right upper extremity weakness INJ 75ML OMNI 300 / Spl. Instructi ons: / History: TECHNIQUE: CT images were obtained through the head per standard CTA protocol. Multiplanar and 3D ref ormatted images were generated from the CT dataset on an independent workstation. All CT scans perfor med at this facility utilize dose optimization techniques as appropriate to the exam, including the f ollowing: Automated exposure control and adjustment of the mA and/or KV according to patient size (th is includes techniques or standardized protocols for targeted exams where dose is indication/reason f or exam). IV CONTRAST: Administered COMPARISON: CT pulmonary angiogram of 05/19/2020 FINDINGS: CTA HEAD: No high-grade large vessel stenosis, proximal or branch vessel occlusion, aneurysm, or vascular malfo rmation. ANTERIOR CIRCULATION: Anterior and middle cerebral arteries are widely patent. ANTERIOR COMMUNICATING ARTERY: Patent. POSTERIOR COMMUNICATING ARTERIES: Present bilaterally and patent. POSTERIOR CIRCULATION: Vertebral and basilar arteries are widely patent. Bilateral posterior inferio r cerebellar arteries (PICAs), anterior inferior cerebellar arteries (AICAs), and superior cerebellar arteries (SCAs) are visualized and patent. OTHER: No abnormal brain parenchymal enhancement. The paranasal sinuses, mastoid air cells, and tymp anic cavities are clear. NECK CTA: AORTA: 3 vessel configuration of arch. No dissection or acute aortic injury. No hemodynamically sign ificant great vessel origin stenosis. RIGHT CAROTID: Common and internal carotid arteries are widely patent, without evidence of flow limi ting stenosis or dissection. LEFT CAROTID: Common and internal carotid arteries are widely patent, without evidence of flow limit ing stenosis or dissection. VERTEBRAL ARTERIES: Codominant. No evidence of dissection or flow limiting stenosis. SUBCLAVIAN ARTERIES:Subclavian arteries are patent without stenosis. There is mild noncalcified plaqu e in the proximal SOFT TISSUES: Multinodular thyroid gland with a dominant 3 cm right inferior pole nodule that is bet ter evaluated with ultrasound. Lung apices show a 5 mm peripheral left upper lobe pulmonary nodule (i mage 78 series 3) Where applicable, evaluation of ICA stenosis was performed using NASCET criteria, where the site of g reatest stenosis is compared to the diameter of the ICA distal to the carotid bulb. IMPRESSION: 1. Unremarkable CTA of the head and neck. 2. Incidental findings of thyroid nodules, recommended for further evaluation on an elective basis wi th ultrasound 3. Incidental 5 mm peripheral left upper lobe pulmonary nodule. This is unchanged from the previous e xamination and requires no additional imaging follow-up in a low-risk patient. Optional twelve-month follow-up CT chest could be pursued if the patient is considered at high risk for lung malignancy.. Discussed with Dr. Rush by telephone at 11:10 AM on 10/12/2020 Electronically signed by: Bin Márquez MD (10/12/2020 11:17 AM) [id number]
[2020-10-12] MEDS ORDERED: FAMOTIDINE 20 MG TABLET. PO PRN (12:15)
[2020-10-12] MEDS ORDERED: NON FORMULARY ITEM (Albuterol Sulfate (Proair Respiclick) 1 PUFF) IH PRN (12:15)
[2020-10-12] MEDS ORDERED: NITROGLYCERIN SUBLINGUAL 0.4 MG BOTTLE OF 25. SL PRN (12:15)
[2020-10-12] MEDS ORDERED: ALBUTEROL SULFATE 2.5 MG/3 ML NEBU. NEB PRN (12:30)
[2020-10-12] MEDS ORDERED: POLYETHYLENE GLYCOL 3350 17 GM PACKET. PO PRN (12:30)
[2020-10-12] MEDS: OXYBUTYNIN CHLORIDE 5 MG TABLET PO SCH (12:43)
[2020-10-12] MEDS: ARIPiprazole 5 MG TABLET PO SCH (12:43)
[2020-10-12] MEDS ORDERED: ASPIRIN ENTERIC COATED 81 MG TABLET.DR. PO SCH (13:00)
--- NOTE | 2020-10-12 13:51 | PDOC2 ---
NEUROLOGY CONSULT Date of Service DOS: DATE: 10/12/20 TIME: 13:34 Reason for Consult Reason for Consult: Possible stroke Referring Physician Referring Physician: Dr. Torres Source Source: Chart review, Patient History of Present Illness History of Present Illness The patient is a 65-year-old right-handed female who at 730 this morning noticed stuttering of speech, left upper extremity tremor, possible left facial drooping. She has never had a stroke, seizure, or head injury. She was started on Abilify a few months ago. I discussed the case with Dr. Rush. We did not feel that the patient was having a stroke, the tremor of course would be very atypical. Therefore we did not feel the patient was a candidate for alteplase. We agreed to check a CT angiogram immediately, which has been done, as well as a routine MRI of the brain. She was here a week ago with dizziness and found to have hypokalemia. Past Medical History Cardiovascular: HTN, Hyperlipidemia Pulmonary: Pulmonary embolus CENTRAL NERVOUS SYSTEM: Periperal neuropathy GI: GERD, Hemorrhoids, Other (Hiatal hernia) Hepatobiliary: Other (Fatty liver) Psych: Addictions (Alcoholism), Bipolar Musculoskeletal: low back pain (Sciatica), Osteoarthritis, Other (Right arm and elbow fracture) Rheumatologic: Fibromyalgia Infectious disease: Herpes zoster Renal/: UTI, Renal Ca., Urinary Incontinence Endocrine: Diabetes Past Surgical History Past Surgical History: Cholecystectomy, Tubal Ligation, Other (R kidney tumor removed, R ovary removal,small bowel resection, breast lumps pancreatic cyst) Family History Family History: No pertinent hx Social History Social History Single, lives alone, quit alcohol over 20 years ago, also quit smoking Current Medications Current Medications Current Medications Iohexol (Omnipaque 300 Mg/ml) 75 ml 1X ONCE IV Last administered on 10/12/20at 10:48; Start 10/12/20 at 10:45; Stop 10/12/20 at 10:46; Status DC Info (CONTRAST GIVEN -- Rx MONITORING) 1 each PRN DAILY PRN MC SEE COMMENTS; Start 10/12/20 at 10:45; Stop 10/14/20 at 10:44 Ondansetron HCl (Zofran) 4 mg PRN Q8HRS PRN IV NAUSEA/VOMITING; Start 10/12/20 at 10:45; Stop 10/12/20 at 12:08; Status DC Acetaminophen (Tylenol) 650 mg PRN Q4HRS PRN PO FEVER > 100.3'F; Start 10/12/20 at 10:45 Simvastatin (Zocor) 10 mg QHS PO ; Start 10/12/20 at 21:00 Ondansetron HCl (Zofran) 4 mg PRN Q4HRS PRN IV NAUSEA/VOMITING; Start 10/12/20 at 12:15 Aripiprazole (Abilify) 5 mg DAILY PO Last administered on 10/12/20at 12:43; Start 10/12/20 at 13:00 Aspirin (Ecotrin) 81 mg DAILY PO ; Start 10/12/20 at 13:00 Atorvastatin Calcium (Lipitor) 40 mg QHS PO ; Start 10/12/20 at 21:00 Baclofen (Lioresal) 10 mg TID PO ; Start 10/12/20 at 14:00 Cetirizine HCl (ZyrTEC) 10 mg QHS PO ; Start 10/12/20 at 21:00 Famotidine (Pepcid) 20 mg PRN BID PRN PO STOMACH PROBLEM; Start 10/12/20 at 12:15 Gabapentin (Neurontin) 300 mg TID PO ; Start 10/12/20 at 14:00 Lisinopril (Prinivil) 20 mg DAILY PO ; Start 10/12/20 at 13:00 Nitroglycerin (Nitrostat) 0.4 mg PRN Q5MIN PRN SL CHEST PAIN; Start 10/12/20 at 12:15 Non-Formulary Medication (Albuterol Sulfate (Proair Respiclick)) 1 puff PRN Q6HRS PRN IH SHORTNESS OF BREATH; Start 10/12/20 at 12:15; Status UNV Non-Formulary Medication (Fluticasone Propionate (Flovent 220MCG Hfa)) 12 gm BID IH ; Start 10/12/20 at 21:00; Status UNV Oxybutynin Chloride (Ditropan) 5 mg DAILY PO Last administered on 10/12/20at 12:43; Start 10/12/20 at 13:00 Polyethylene Glycol (miraLAX PACKET) 17 gm DAILY PRN PO CONSTIPATION; Start 10/12/20 at 12:30 Budesonide (Pulmicort) 0.5 mg RTBID NEB ; Start 10/12/20 at 20:00 Albuterol Sulfate (Ventolin Neb Soln) 2.5 mg PRN Q6HRS PRN NEB SHORTNESS OF BREATH; Start 10/12/20 at 12:30 Active Scripts Active Nitrostat (Nitroglycerin) 0.4 Mg Tab.subl 0.4 Mg SL PRN Q5MIN PRN 30 Days Proair Respiclick (Albuterol Sulfate) 90 Mcg Aer.pow.ba 1 Puff IH PRN Q6HRS PRN Reported Klor-Con M20 (Potassium Chloride) 20 Meq Tab.er.prt 20 Meq PO BID Lisinopril 20 Mg Tablet 20 Mg PO DAILY Ibuprofen 800 Mg Tablet 800 Mg PO Q8HRS PRN Levofloxacin 500 Mg Tablet 500 Mg PO DAILY Fiber Gummies (Inulin) 2 Gm Tab.chew 2 Tab PO DAILY 30 Days Abilify (Aripiprazole) 5 Mg Tablet 5 Mg PO DAILY Metformin Hcl 1,000 Mg Tablet 1,000 Mg PO BIDWMEALS [Beano] PO PRN PRN Pepcid (Famotidine) 20 Mg Tablet 20 Mg PO PRN PRN Ditropan Xl (Oxybutynin Chloride) 5 Mg Tab.er.24 1 Tab PO DAILY Aspir 81 (Aspirin) 81 Mg Tablet.dr 1 Tab PO DAILY Zyrtec (Cetirizine Hcl) 10 Mg Tablet 1 Tab PO QHS Gabapentin (Gabapentin) 300 Mg Capsule 300 Mg PO TID Baclofen 10 Mg Tablet 1 Tab PO TID Freestyle Lite Strips (Blood Sugar Diagnostic) 1 Each Strip 1 Each MC Atorvastatin Calcium 40 Mg Tablet 40 Mg PO DAILY Spiriva (Tiotropium Newport) 18 Mcg Cap.w.dev 2 Inh IH DAILY Meloxicam 15 Mg Tablet 15 Mg PO DAILY Polyethylene Glycol (Polyethylene Glycol 8000) 500 Gm Powder 500 Gm MC DAILY PRN Flovent 220MCG Hfa (Fluticasone Propionate) 12 Gm Aer.w.adap 12 Gm IH BID Allergies Allergies: Coded Allergies: aspirin (Verified Allergy, Intermediate, "messes with my stomach", 10/03/20) omega-3 acid ethyl esters (Verified Allergy, Intermediate, bleeding, 10/03/20) levofloxacin (Verified Allergy, Unknown, 10/12/20) "HEART RACES" tramadol (Verified Adverse Reaction, Intermediate, STOMACH UPSET, 10/03/20) ROS Review of System Negative for fever, chills, weight loss, shortness of breath, chest pain, indigestion, hematochezia, melena, and dysuria. Full 14-point review of systems is negative. Physical Exam Physical Examination General: Well-developed, well-nourished white female in no acute distress HEENT: Normocephalic andatraumatic. Temporal arteriespulsatile and nontender. Neck: Supple without bruit, no meningismus Musculoskeletal: Stability:see neurologic. Gait exam:see neurologic. Tone:see neurologic.Strength:see neurologic. Neurological: Mental Status:intact, orientation, memory, attention span/concentration, language, fund of knowledge normal. Cranial Nerves:Pupils equal and reactive to light, extraocular movements areintact, visual mathews are full to confrontation. Facial sensation is normal. There is no facial asymmetry. Vestibulo-ocular reflex is intact. Palate elevates and tongue protrudes in midline. All other cranial related problems are negative except as mentioned before.Reflexes:1+ and symmetric with flexor plantar responses. Motor:5/5 strength with normal tone and bulk, except hard to extend or flex the right elbow due to previous fracture. Coordination:Finger-nose finger and qrib-ha-zste testing are normal. There is intermittent coarse tremor of the left arm which appears voluntary as she can suppress it. Rapid alternating movements and fine finger movements are intact. Gait:Not tested. Sensory:Stocking loss. Vitals VITALS Vital Signs Date Time Temp Pulse Resp B/P (MAP) Pulse Ox O2 Delivery O2 Flow Rate FiO2 10/12/20 12:23 88 19 168/80 (109) 97 Room Air 10/12/20 08:56 98.2 98.2 Labs Labs Laboratory Tests Test 10/12/20 09:13 10/12/20 09:16 Glucose (Fingerstick) 96 mg/dL (70-99) White Blood Count 6.4 x10^3/uL (4.0-11.0) Red Blood Count 4.42 x10^6/uL (3.50-5.40) Hemoglobin 12.0 g/dL (12.0-15.5) Hematocrit 37.8 % (36.0-47.0) Mean Corpuscular Volume 85 fL (79-100) Mean Corpuscular Hemoglobin 27 pg (25-35) Mean Corpuscular Hemoglobin Concent 32 g/dL (31-37) Red Cell Distribution Width 16.7 % (11.5-14.5) Platelet Count 391 x10^3/uL (140-400) Neutrophils (%) (Auto) 54 % (31-73) Lymphocytes (%) (Auto) 33 % (24-48) Monocytes (%) (Auto) 9 % (0-9) Eosinophils (%) (Auto) 3 % (0-3) Basophils (%) (Auto) 1 % (0-3) Neutrophils # (Auto) 3.4 x10^3/uL (1.8-7.7) Lymphocytes # (Auto) 2.1 x10^3/uL (1.0-4.8) Monocytes # (Auto) 0.6 x10^3/uL (0.0-1.1) Eosinophils # (Auto) 0.2 x10^3/uL (0.0-0.7) Basophils # (Auto) 0.1 x10^3/uL (0.0-0.2) Prothrombin Time 12.1 SEC (11.7-14.0) Prothromb Time International Ratio 0.9 (0.8-1.1) Activated Partial Thromboplast Time 28 SEC (24-38) Sodium Level 143 mmol/L (136-145) Potassium Level 4.4 mmol/L (3.5-5.1) Chloride Level 106 mmol/L (98-107) Carbon Dioxide Level 26 mmol/L (21-32) Anion Gap 11 (6-14) Blood Urea Nitrogen 16 mg/dL (7-20) Creatinine 0.6 mg/dL (0.6-1.0) Estimated GFR (Cockcroft-Gault) 99.7 Glucose Level 104 mg/dL (70-99) Calcium Level 9.9 mg/dL (8.5-10.1) Troponin I Quantitative < 0.017 ng/mL (0.000-0.055) Laboratory Tests Test 10/12/20 09:13 10/12/20 09:16 Glucose (Fingerstick) 96 mg/dL (70-99) White Blood Count 6.4 x10^3/uL (4.0-11.0) Red Blood Count 4.42 x10^6/uL (3.50-5.40) Hemoglobin 12.0 g/dL (12.0-15.5) Hematocrit 37.8 % (36.0-47.0) Mean Corpuscular Volume 85 fL (79-100) Mean Corpuscular Hemoglobin 27 pg (25-35) Mean Corpuscular Hemoglobin Concent 32 g/dL (31-37) Red Cell Distribution Width 16.7 % (11.5-14.5) Platelet Count 391 x10^3/uL (140-400) Neutrophils (%) (Auto) 54 % (31-73) Lymphocytes (%) (Auto) 33 % (24-48) Monocytes (%) (Auto) 9 % (0-9) Eosinophils (%) (Auto) 3 % (0-3) Basophils (%) (Auto) 1 % (0-3) Neutrophils # (Auto) 3.4 x10^3/uL (1.8-7.7) Lymphocytes # (Auto) 2.1 x10^3/uL (1.0-4.8) Monocytes # (Auto) 0.6 x10^3/uL (0.0-1.1) Eosinophils # (Auto) 0.2 x10^3/uL (0.0-0.7) Basophils # (Auto) 0.1 x10^3/uL (0.0-0.2) Prothrombin Time 12.1 SEC (11.7-14.0) Prothromb Time International Ratio 0.9 (0.8-1.1) Activated Partial Thromboplast Time 28 SEC (24-38) Sodium Level 143 mmol/L (136-145) Potassium Level 4.4 mmol/L (3.5-5.1) Chloride Level 106 mmol/L (98-107) Carbon Dioxide Level 26 mmol/L (21-32) Anion Gap 11 (6-14) Blood Urea Nitrogen 16 mg/dL (7-20) Creatinine 0.6 mg/dL (0.6-1.0) Estimated GFR (Cockcroft-Gault) 99.7 Glucose Level 104 mg/dL (70-99) Calcium Level 9.9 mg/dL (8.5-10.1) Troponin I Quantitative < 0.017 ng/mL (0.000-0.055) Images Images CT Angiogram of the Head and Neck INDICATION: Reason: Slurred speech, right upper extremity weakness INJ 75ML OMNI 300 / Spl. Instructions: / History: TECHNIQUE: CT images were obtained through the head per standard CTA protocol. Multiplanar and 3D reformatted images were generated from the CT dataset on an independent workstation. All CT scans performed at this facility utilize dose optimization techniques as appropriate to the exam, including the following: Automated exposure control and adjustment of the mA and/or KV according to patient size (this includes techniques or standardized protocols for targeted exams where dose is indication/reason for exam). IV CONTRAST: Administered COMPARISON: CT pulmonary angiogram of 05/19/2020 FINDINGS: CTA HEAD: No high-grade large vessel stenosis, proximal or branch vessel occlusion, an eurysm, or vascular malformation. ANTERIOR CIRCULATION: Anterior and middle cerebral arteries are widely patent. ANTERIOR COMMUNICATING ARTERY: Patent. POSTERIOR COMMUNICATING ARTERIES: Present bilaterally and patent. POSTERIOR CIRCULATION: Vertebral and basilar arteries are widely patent. Bilateral posterior inferior cerebellar arteries (PICAs), anterior inferior cerebellar arteries (AICAs), and superior cerebellar arteries (SCAs) are visualized and patent. OTHER: No abnormal brain parenchymal enhancement. The paranasal sinuses, mastoid air cells, and tympanic cavities are clear. NECK CTA: AORTA: 3 vessel configuration of arch. No dissection or acute aortic injury. No hemodynamically significant great vessel origin stenosis. RIGHT CAROTID: Common and internal carotid arteries are widely patent, without evidence of flow limiting stenosis or dissection. LEFT CAROTID: Common and internal carotid arteries are widely patent, without evidence of flow limiting stenosis or dissection. VERTEBRAL ARTERIES: Codominant. No evidence of dissection or flow limiting stenosis. SUBCLAVIAN ARTERIES:Subclavian arteries are patent without stenosis. There is mild noncalcified plaque in the proximal SOFT TISSUES: Multinodular thyroid gland with a dominant 3 cm right inferior pole nodule that is better evaluated with ultrasound. Lung apices show a 5 mm peripheral left upper lobe pulmonary nodule (image 78 series 3) Where applicable, evaluation of ICA stenosis was performed using NASCET criteria, where the site of greatest stenosis is compared to the diameter of the ICA distal to the carotid bulb. IMPRESSION: 1. Unremarkable CTA of the head and neck. 2. Incidental findings of thyroid nodules, recommended for further evaluation on an elective basis with ultrasound 3. Incidental 5 mm peripheral left upper lobe pulmonary nodule. This is unchanged from the previous examination and requires no additional imaging follow-up in a low-risk patient. Optional twelve-month follow-up CT chest could be pursued if the patient is considered at high risk for lung malignancy.. CT head without contrast No acute intracranial hemorrhage. Fermin-white matter differentiation is maintained. No localized mass effect, midline shift or hydrocephalus. Unchanged brain parenchymal attenuation pattern and volume. Unchanged orbits and scalp. Intact calvarium. IMPRESSION: No acute intracranial hemorrhage or CT evidence for an acute cortical infarction. No change from 10/03/2020. Assessment/Plan Assessment/Plan Impression: Highly unlikely that she has had a stroke or transient ischemic attack, she does have a tremor which appears voluntary although I would consider drug-induced tremor from her recently started Abilify No other focal findings to suggest a stroke or transient ischemic attack, in particular I am not seeing any facial droop or dysarthria. Diabetic peripheral neuropathy. Bipolar and other psychiatric disorder including history of alcohol abuse. Recommendations: Aspirin ordered, she is allergic to it, I cancelled MRI of the brain Rehabilitation modalities Continue the Abilify for now Hold off on starting Parkinson medication such as benztropine Hold on echocardiogram Aiming for discharge as soon as tomorrow. Thank you for letting me help with the patient's care. SANAZ DOAN MD Oct 12, 2020 13:51
[2020-10-12] MEDS ORDERED: BACLOFEN 10 MG TABLET. PO SCH (14:00)
[2020-10-12 15:00] VITALS: BP 143/87
[2020-10-12] MEDS: LISINOPRIL 20 MG TABLET PO SCH (15:18)
[2020-10-12] MEDS: GABAPENTIN 300 MG CAPSULE. PO SCH ×2 (15:18→20:40)
--- NOTE | 2020-10-12 16:09 | RAD ---
EXAM: Brain MRI without contrast. HISTORY: Strokelike symptoms. TECHNIQUE: Multiplanar, multisequence magnetic resonance imaging of the brain was performed without c ontrast. COMPARISON: CT obtained on the same date. FINDINGS: There is no restricted diffusion to suggest acute or subacute infarction. There is no susce ptibility effect to suggest hemorrhage. There is no mass effect or midline shift. There is no hydroce phalus. There is cerebral volume loss. No suspicious white matter lesion is seen. There is evidence o f lens surgery. The paranasal sinuses mastoid air cells are unremarkable. There are normal flow voids within the cerebral vessels. There is no calvarial lesion. IMPRESSION: No acute intracranial finding. Electronically signed by: Shyanne Gray MD (10/12/2020 4:07 PM) [id number]
[2020-10-12] MEDS: ZINC OXIDE 20% TOPICAL OINTMENT 28GM TUBE. TP PRN (16:32)
[2020-10-12 19:00] VITALS: BP 156/82
[2020-10-12] MEDS ORDERED: BACLOFEN 10 MG TABLET. PO PRN (19:00)
[2020-10-12] MEDS: BUDESONIDE 0.5 MG/2 ML NEBU. NEB SCH (20:00)
[2020-10-12] MEDS ORDERED: ATORVASTATIN CALCIUM 40 MG TABLET. PO SCH (21:00)
[2020-10-12] MEDS ORDERED: CETIRIZINE HCL 10 MG TABLET. PO SCH (21:00)
[2020-10-12] MEDS ORDERED: FLUTICASONE PROPIONATE IH SCH (21:00)
[2020-10-12] MEDS ORDERED: SIMVASTATIN 10 MG TABLET PO SCH (21:00)
[2020-10-12 23:07] VITALS: BP 182/53
[2020-10-13 03:00] VITALS: BP 141/71
[2020-10-13 07:00] VITALS: BP 144/85
[2020-10-13] MEDS: BUDESONIDE 0.5 MG/2 ML NEBU. NEB SCH (07:24)
[2020-10-13 08:01] LABS: CHOLESTEROL/HDL RATIO 3.5
--- NOTE | 2020-10-13 08:54 | PDOC ---
PROGRESS NOTES Date of Service DATE: 10/13/20 TIME: 08:51 Assessment Problems Medical Problems: (1) Pulmonary nodule Status: Acute (2) Thyroid nodule Status: Acute (3) TIA (transient ischemic attack) Status: Acute No stroke or transient ischemic attack Tremor, suspect psychogenic, consider drug-induced tremor from Abilify or other neuroleptics that she has taken Diabetic peripheral neuropathy and gait disorder, she has a walker at home. Bipolar and other psychiatric disorder including history of alcohol abuse. Plan Aspirin, she is not truly allergic to it Continue the Abilify for now Hold off on starting Parkinson medication such as benztropine Okay for discharge, she already has some home health at home, social work to assess the home situation as this is an early readmission for her Subjective She says that she lives alone, has had a nurse coming in a few days a week, may need some more help Objective Vital Signs Date Time Temp Pulse Resp B/P (MAP) Pulse Ox O2 Delivery O2 Flow Rate FiO2 10/13/20 07:26 94 Room Air 10/13/20 07:00 98.3 77 18 144/85 (104) 98.3 Intake and Output 10/13/20 07:00 Intake Total 420 ml Balance 420 ml Intake Oral 420 ml # Voids 5 PHYSICAL EXAM Alert. Oriented to time, place and person. PERRL. EOMI. CN: no focal findings. Muscle tone: normal. Muscle strength: 5/5 DTR: 1+ Plantar reflex: Flexor Gait: Apraxic, uses a walker. Sensory exam: Stocking loss. No cerebellar signs elicited. No tremor Review of Relevant I have reviewed the following items yecenia (where applicable) has been applied. Labs Laboratory Tests Test 10/12/20 09:13 10/12/20 09:16 10/12/20 16:42 10/12/20 20:01 Glucose (Fingerstick) 96 mg/dL (70-99) 101 mg/dL (70-99) 103 mg/dL (70-99) White Blood Count 6.4 x10^3/uL (4.0-11.0) Red Blood Count 4.42 x10^6/uL (3.50-5.40) Hemoglobin 12.0 g/dL (12.0-15.5) Hematocrit 37.8 % (36.0-47.0) Mean Corpuscular Volume 85 fL (79-100) Mean Corpuscular Hemoglobin 27 pg (25-35) Mean Corpuscular Hemoglobin Concent 32 g/dL (31-37) Red Cell Distribution Width 16.7 % (11.5-14.5) Platelet Count 391 x10^3/uL (140-400) Neutrophils (%) (Auto) 54 % (31-73) Lymphocytes (%) (Auto) 33 % (24-48) Monocytes (%) (Auto) 9 % (0-9) Eosinophils (%) (Auto) 3 % (0-3) Basophils (%) (Auto) 1 % (0-3) Neutrophils # (Auto) 3.4 x10^3/uL (1.8-7.7) Lymphocytes # (Auto) 2.1 x10^3/uL (1.0-4.8) Monocytes # (Auto) 0.6 x10^3/uL (0.0-1.1) Eosinophils # (Auto) 0.2 x10^3/uL (0.0-0.7) Basophils # (Auto) 0.1 x10^3/uL (0.0-0.2) Prothrombin Time 12.1 SEC (11.7-14.0) Prothromb Time International Ratio 0.9 (0.8-1.1) Activated Partial Thromboplast Time 28 SEC (24-38) Sodium Level 143 mmol/L (136-145) Potassium Level 4.4 mmol/L (3.5-5.1) Chloride Level 106 mmol/L (98-107) Carbon Dioxide Level 26 mmol/L (21-32) Anion Gap 11 (6-14) Blood Urea Nitrogen 16 mg/dL (7-20) Creatinine 0.6 mg/dL (0.6-1.0) Estimated GFR (Cockcroft-Gault) 99.7 Glucose Level 104 mg/dL (70-99) Calcium Level 9.9 mg/dL (8.5-10.1) Troponin I Quantitative < 0.017 ng/mL (0.000-0.055) Test 10/13/20 06:30 10/13/20 07:22 Triglycerides Level 187 mg/dL (0-150) Cholesterol Level 163 mg/dL (0-200) LDL Cholesterol, Calculated 80 mg/dL (0-100) VLDL Cholesterol, Calculated 37 mg/dL (0-40) Non-HDL Cholesterol Calculated 117 mg/dL (0-129) HDL Cholesterol 46 mg/dL (40-60) Cholesterol/HDL Ratio 3.5 Glucose (Fingerstick) 97 mg/dL (70-99) Laboratory Tests Test 10/12/20 09:13 10/12/20 09:16 10/12/20 16:42 10/12/20 20:01 Glucose (Fingerstick) 96 mg/dL (70-99) 101 mg/dL (70-99) 103 mg/dL (70-99) White Blood Count 6.4 x10^3/uL (4.0-11.0) Red Blood Count 4.42 x10^6/uL (3.50-5.40) Hemoglobin 12.0 g/dL (12.0-15.5) Hematocrit 37.8 % (36.0-47.0) Mean Corpuscular Volume 85 fL (79-100) Mean Corpuscular Hemoglobin 27 pg (25-35) Mean Corpuscular Hemoglobin Concent 32 g/dL (31-37) Red Cell Distribution Width 16.7 % (11.5-14.5) Platelet Count 391 x10^3/uL (140-400) Neutrophils (%) (Auto) 54 % (31-73) Lymphocytes (%) (Auto) 33 % (24-48) Monocytes (%) (Auto) 9 % (0-9) Eosinophils (%) (Auto) 3 % (0-3) Basophils (%) (Auto) 1 % (0-3) Neutrophils # (Auto) 3.4 x10^3/uL (1.8-7.7) Lymphocytes # (Auto) 2.1 x10^3/uL (1.0-4.8) Monocytes # (Auto) 0.6 x10^3/uL (0.0-1.1) Eosinophils # (Auto) 0.2 x10^3/uL (0.0-0.7) Basophils # (Auto) 0.1 x10^3/uL (0.0-0.2) Prothrombin Time 12.1 SEC (11.7-14.0) Prothromb Time International Ratio 0.9 (0.8-1.1) Activated Partial Thromboplast Time 28 SEC (24-38) Sodium Level 143 mmol/L (136-145) Potassium Level 4.4 mmol/L (3.5-5.1) Chloride Level 106 mmol/L (98-107) Carbon Dioxide Level 26 mmol/L (21-32) Anion Gap 11 (6-14) Blood Urea Nitrogen 16 mg/dL (7-20) Creatinine 0.6 mg/dL (0.6-1.0) Estimated GFR (Cockcroft-Gault) 99.7 Glucose Level 104 mg/dL (70-99) Calcium Level 9.9 mg/dL (8.5-10.1) Troponin I Quantitative < 0.017 ng/mL (0.000-0.055) Test 10/13/20 06:30 10/13/20 07:22 Triglycerides Level 187 mg/dL (0-150) Cholesterol Level 163 mg/dL (0-200) LDL Cholesterol, Calculated 80 mg/dL (0-100) VLDL Cholesterol, Calculated 37 mg/dL (0-40) Non-HDL Cholesterol Calculated 117 mg/dL (0-129) HDL Cholesterol 46 mg/dL (40-60) Cholesterol/HDL Ratio 3.5 Glucose (Fingerstick) 97 mg/dL (70-99) Medications Current Medications Iohexol (Omnipaque 300 Mg/ml) 75 ml 1X ONCE IV Last administered on 10/12/20at 10:48; Start 10/12/20 at 10:45; Stop 10/12/20 at 10:46; Status DC Info (CONTRAST GIVEN -- Rx MONITORING) 1 each PRN DAILY PRN MC SEE COMMENTS; Start 10/12/20 at 10:45; Stop 10/14/20 at 10:44 Ondansetron HCl (Zofran) 4 mg PRN Q8HRS PRN IV NAUSEA/VOMITING; Start 10/12/20 at 10:45; Stop 10/12/20 at 12:08; Status DC Acetaminophen (Tylenol) 650 mg PRN Q4HRS PRN PO FEVER > 100.3'F Last administered on 10/12/20at 21:48; Start 10/12/20 at 10:45 Simvastatin (Zocor) 10 mg QHS PO Last administered on 10/12/20at 20:40; Start 10/12/20 at 21:00 Ondansetron HCl (Zofran) 4 mg PRN Q4HRS PRN IV NAUSEA/VOMITING; Start 10/12/20 at 12:15 Aripiprazole (Abilify) 5 mg DAILY PO Last administered on 10/12/20at 12:43; Start 10/12/20 at 13:00 Aspirin (Ecotrin) 81 mg DAILY PO ; Start 10/12/20 at 13:00; Stop 10/12/20 at 19:30; Status DC Atorvastatin Calcium (Lipitor) 40 mg QHS PO Last administered on 10/12/20at 20:40; Start 10/12/20 at 21:00 Baclofen (Lioresal) 10 mg TID PO Last administered on 10/12/20at 15:17; Start 10/12/20 at 14:00; Stop 10/12/20 at 19:02; Status DC Cetirizine HCl (ZyrTEC) 10 mg QHS PO Last administered on 10/12/20at 20:41; Start 10/12/20 at 21:00 Famotidine (Pepcid) 20 mg PRN BID PRN PO STOMACH PROBLEM; Start 10/12/20 at 12:15 Gabapentin (Neurontin) 300 mg TID PO Last administered on 10/12/20at 20:40; Start 10/12/20 at 14:00 Lisinopril (Prinivil) 20 mg DAILY PO Last administered on 10/12/20at 15:18; Start 10/12/20 at 13:00 Nitroglycerin (Nitrostat) 0.4 mg PRN Q5MIN PRN SL CHEST PAIN; Start 10/12/20 at 12:15 Non-Formulary Medication (Albuterol Sulfate (Proair Respiclick)) 1 puff PRN Q6HRS PRN IH SHORTNESS OF BREATH; Start 10/12/20 at 12:15; Status UNV Non-Formulary Medication (Fluticasone Propionate (Flovent 220MCG Hfa)) 12 gm BID IH ; Start 10/12/20 at 21:00; Status UNV Oxybutynin Chloride (Ditropan) 5 mg DAILY PO Last administered on 10/12/20at 12:43; Start 10/12/20 at 13:00 Polyethylene Glycol (miraLAX PACKET) 17 gm DAILY PRN PO CONSTIPATION; Start 10/12/20 at 12:30 Budesonide (Pulmicort) 0.5 mg RTBID NEB Last administered on 10/13/20at 07:24; Start 10/12/20 at 20:00 Albuterol Sulfate (Ventolin Neb Soln) 2.5 mg PRN Q6HRS PRN NEB SHORTNESS OF BREATH; Start 10/12/20 at 12:30 Zinc Oxide (Zinc Oxide 20% Topical) 1 owen QID PRN TP SKIN PROTECTION Last administered on 10/12/20at 16:32; Start 10/12/20 at 16:15 Baclofen (Lioresal) 10 mg PRN TID PRN PO muscle spasm; Start 10/12/20 at 19:00 Active Scripts Active Nitrostat (Nitroglycerin) 0.4 Mg Tab.subl 0.4 Mg SL PRN Q5MIN PRN 30 Days Proair Respiclick (Albuterol Sulfate) 90 Mcg Aer.pow.ba 1 Puff IH PRN Q6HRS PRN Reported Klor-Con M20 (Potassium Chloride) 20 Meq Tab.er.prt 20 Meq PO BID Lisinopril 20 Mg Tablet 20 Mg PO DAILY Ibuprofen 800 Mg Tablet 800 Mg PO Q8HRS PRN Levofloxacin 500 Mg Tablet 500 Mg PO DAILY Fiber Gummies (Inulin) 2 Gm Tab.chew 2 Tab PO DAILY 30 Days Abilify (Aripiprazole) 5 Mg Tablet 5 Mg PO DAILY Metformin Hcl 1,000 Mg Tablet 1,000 Mg PO BIDWMEALS [Beano] PO PRN PRN Pepcid (Famotidine) 20 Mg Tablet 20 Mg PO PRN PRN Ditropan Xl (Oxybutynin Chloride) 5 Mg Tab.er.24 1 Tab PO DAILY Aspir 81 (Aspirin) 81 Mg Tablet.dr 1 Tab PO DAILY Zyrtec (Cetirizine Hcl) 10 Mg Tablet 1 Tab PO QHS Gabapentin (Gabapentin) 300 Mg Capsule 300 Mg PO TID Baclofen 10 Mg Tablet 1 Tab PO TID Freestyle Lite Strips (Blood Sugar Diagnostic) 1 Each Strip 1 Each MC Atorvastatin Calcium 40 Mg Tablet 40 Mg PO DAILY Spiriva (Tiotropium [place]) 18 Mcg Cap.w.dev 2 Inh IH DAILY Meloxicam 15 Mg Tablet 15 Mg PO DAILY Polyethylene Glycol (Polyethylene Glycol 8000) 500 Gm Powder 500 Gm MC DAILY PRN Flovent 220MCG Hfa (Fluticasone Propionate) 12 Gm Aer.w.adap 12 Gm IH BID Vitals/I & O Vital Sign - Last 24 Hours 10/12/20 10/12/20 10/12/20 10/12/20 08:56 09:01 09:19 09:34 Temp 98.2 98.2 Pulse 84 86 81 80 Resp 18 19 18 B/P (MAP) 161/77 (105) 161/77 (105) 149/78 (101) 157/82 (107) Pulse Ox 97 96 96 O2 Delivery Room Air Room Air Room Air Room Air 10/12/20 10/12/20 10/12/20 10/12/20 09:49 10:04 10:19 10:34 Pulse 75 78 84 80 Resp 13 17 16 17 B/P (MAP) 141/73 (95) 152/80 (104) 157/83 (107) 150/80 (103) Pulse Ox 97 97 97 97 O2 Delivery Room Air Room Air Room Air Room Air 10/12/20 10/12/20 10/12/20 10/12/20 12:23 15:00 15:18 15:35 Temp 98.2 98.2 Pulse 88 88 88 Resp 19 18 B/P (MAP) 168/80 (109) 143/87 (105) 168/80 Pulse Ox 97 94 O2 Delivery Room Air Room Air Room Air 10/12/20 10/12/20 10/12/20 10/12/20 19:00 20:00 20:13 23:07 Temp 98.8 98.0 98.8 98.0 Pulse 87 80 Resp 18 18 B/P (MAP) 156/82 (106) 182/53 (96) Pulse Ox 95 96 92 O2 Delivery Room Air Room Air Room Air Room Air 10/13/20 10/13/20 10/13/20 03:00 07:00 07:26 Temp 98.0 98.3 98.0 98.3 Pulse 86 77 Resp 18 18 B/P (MAP) 141/71 (94) 144/85 (104) Pulse Ox 94 94 94 O2 Delivery Room Air Room Air Room Air Intake and Output 10/12/20 10/12/20 10/13/20 15:00 23:00 07:00 Intake Total 200 ml 220 ml Balance 200 ml 220 ml Images Brain MRI without contrast. There is no restricted diffusion to suggest acute or subacute infarction. There is no susceptibility effect to suggest hemorrhage. There is no mass effect or midline shift. There is no hydrocephalus. There is cerebral volume loss. No suspicious white matter lesion is seen. There is evidence of lens surgery. The paranasal sinuses mastoid air cells are unremarkable. There are normal flow voids within the cerebral vessels. There is no calvarial lesion. IMPRESSION: No acute intracranial finding. Justicifation of Admission Dx: Justifications for Admission: Justification of Admission Dx: Yes SANAZ DOAN MD Oct 13, 2020 08:54
[2020-10-13] MEDS: OXYBUTYNIN CHLORIDE 5 MG TABLET PO SCH (09:20)
[2020-10-13] MEDS: GABAPENTIN 300 MG CAPSULE. PO SCH ×2 (09:21→14:56)
[2020-10-13] MEDS: ZINC OXIDE 20% TOPICAL OINTMENT 28GM TUBE. TP PRN (09:21)
[2020-10-13] MEDS: ARIPiprazole 5 MG TABLET PO SCH (09:21)
[2020-10-13] MEDS: LISINOPRIL 20 MG TABLET PO SCH (09:21)
[2020-10-13 10:44] VITALS: BP 130/71
--- NOTE | 2020-10-13 10:56 | NUR ---
SW following. Discussed with RN, pt from home alone, room air, ada diet. PT/OT recommending home/ home health. SW verified, pt is current with [facility]. RN anticipates discharge home today. SW awaiting discharge orders. SW will continue to follow.
--- NOTE | 2020-10-13 12:01 | PDOC ---
PROGRESS NOTES Date of Service: DATE: 10/13/20 TIME: 12:01 Chief Complaint Chief Complaint Tremors - left hand. Likely essential tremor vs muscle relaxant side effect from baclofen. CT negative. can take ASA enteric coated, her ASA "allergy" is upset stomach. Statin, PT/OT rehab. Neuro Stuttering speech - resolved HTN: controlled HLD - cont meds DM2 - sliding scale COPD with past tobaccoism Bipolar disorder - cont meds H/o renal cell ca - in remission Vitals Vitals Vital Signs Date Time Temp Pulse Resp B/P (MAP) Pulse Ox O2 Delivery O2 Flow Rate FiO2 10/13/20 10:44 98.0 84 18 130/71 (90) 94 Room Air 98.0 Physical Exam General: Alert, Oriented X3, Cooperative, No acute distress Lungs: Clear, Crackles Abdomen: Normal bowel sounds, Soft, No tenderness, No hepatosplenomegaly, No masses Extremities: No clubbing, No cyanosis, No edema, Normal pulses, No tenderness/swelling Skin: No breakdown, No significant lesion, Other (Bilateral gluteal redness) Labs LABS Laboratory Tests Test 10/12/20 16:42 10/12/20 20:01 10/13/20 06:30 10/13/20 07:22 Glucose (Fingerstick) 101 mg/dL (70-99) 103 mg/dL (70-99) 97 mg/dL (70-99) Triglycerides Level 187 mg/dL (0-150) Cholesterol Level 163 mg/dL (0-200) LDL Cholesterol, Calculated 80 mg/dL (0-100) VLDL Cholesterol, Calculated 37 mg/dL (0-40) Non-HDL Cholesterol Calculated 117 mg/dL (0-129) HDL Cholesterol 46 mg/dL (40-60) Cholesterol/HDL Ratio 3.5 Test 10/13/20 11:53 Glucose (Fingerstick) 88 mg/dL (70-99) Assessment and Plan Assessmemt and Plan Problems Medical Problems: (1) Pulmonary nodule Status: Acute (2) Thyroid nodule Status: Acute (3) TIA (transient ischemic attack) Status: Acute Comment Review of Relevant I have reviewed the following items yecenia (where applicable) has been applied. Labs Laboratory Tests Test 10/12/20 09:13 10/12/20 09:16 10/12/20 16:42 10/12/20 20:01 Glucose (Fingerstick) 96 mg/dL (70-99) 101 mg/dL (70-99) 103 mg/dL (70-99) White Blood Count 6.4 x10^3/uL (4.0-11.0) Red Blood Count 4.42 x10^6/uL (3.50-5.40) Hemoglobin 12.0 g/dL (12.0-15.5) Hematocrit 37.8 % (36.0-47.0) Mean Corpuscular Volume 85 fL (79-100) Mean Corpuscular Hemoglobin 27 pg (25-35) Mean Corpuscular Hemoglobin Concent 32 g/dL (31-37) Red Cell Distribution Width 16.7 % (11.5-14.5) Platelet Count 391 x10^3/uL (140-400) Neutrophils (%) (Auto) 54 % (31-73) Lymphocytes (%) (Auto) 33 % (24-48) Monocytes (%) (Auto) 9 % (0-9) Eosinophils (%) (Auto) 3 % (0-3) Basophils (%) (Auto) 1 % (0-3) Neutrophils # (Auto) 3.4 x10^3/uL (1.8-7.7) Lymphocytes # (Auto) 2.1 x10^3/uL (1.0-4.8) Monocytes # (Auto) 0.6 x10^3/uL (0.0-1.1) Eosinophils # (Auto) 0.2 x10^3/uL (0.0-0.7) Basophils # (Auto) 0.1 x10^3/uL (0.0-0.2) Prothrombin Time 12.1 SEC (11.7-14.0) Prothromb Time International Ratio 0.9 (0.8-1.1) Activated Partial Thromboplast Time 28 SEC (24-38) Sodium Level 143 mmol/L (136-145) Potassium Level 4.4 mmol/L (3.5-5.1) Chloride Level 106 mmol/L (98-107) Carbon Dioxide Level 26 mmol/L (21-32) Anion Gap 11 (6-14) Blood Urea Nitrogen 16 mg/dL (7-20) Creatinine 0.6 mg/dL (0.6-1.0) Estimated GFR (Cockcroft-Gault) 99.7 Glucose Level 104 mg/dL (70-99) Calcium Level 9.9 mg/dL (8.5-10.1) Troponin I Quantitative < 0.017 ng/mL (0.000-0.055) Test 10/13/20 06:30 10/13/20 07:22 10/13/20 11:53 Triglycerides Level 187 mg/dL (0-150) Cholesterol Level 163 mg/dL (0-200) LDL Cholesterol, Calculated 80 mg/dL (0-100) VLDL Cholesterol, Calculated 37 mg/dL (0-40) Non-HDL Cholesterol Calculated 117 mg/dL (0-129) HDL Cholesterol 46 mg/dL (40-60) Cholesterol/HDL Ratio 3.5 Glucose (Fingerstick) 97 mg/dL (70-99) 88 mg/dL (70-99) Laboratory Tests Test 10/12/20 16:42 10/12/20 20:01 10/13/20 06:30 10/13/20 07:22 Glucose (Fingerstick) 101 mg/dL (70-99) 103 mg/dL (70-99) 97 mg/dL (70-99) Triglycerides Level 187 mg/dL (0-150) Cholesterol Level 163 mg/dL (0-200) LDL Cholesterol, Calculated 80 mg/dL (0-100) VLDL Cholesterol, Calculated 37 mg/dL (0-40) Non-HDL Cholesterol Calculated 117 mg/dL (0-129) HDL Cholesterol 46 mg/dL (40-60) Cholesterol/HDL Ratio 3.5 Test 10/13/20 11:53 Glucose (Fingerstick) 88 mg/dL (70-99) Medications Current Medications Iohexol (Omnipaque 300 Mg/ml) 75 ml 1X ONCE IV Last administered on 10/12/20at 10:48; Start 10/12/20 at 10:45; Stop 10/12/20 at 10:46; Status DC Info (CONTRAST GIVEN -- Rx MONITORING) 1 each PRN DAILY PRN MC SEE COMMENTS; Start 10/12/20 at 10:45; Stop 10/14/20 at 10:44 Ondansetron HCl (Zofran) 4 mg PRN Q8HRS PRN IV NAUSEA/VOMITING; Start 10/12/20 at 10:45; Stop 10/12/20 at 12:08; Status DC Acetaminophen (Tylenol) 650 mg PRN Q4HRS PRN PO FEVER > 100.3'F Last administered on 10/12/20at 21:48; Start 10/12/20 at 10:45 Simvastatin (Zocor) 10 mg QHS PO Last administered on 10/12/20at 20:40; Start 10/12/20 at 21:00 Ondansetron HCl (Zofran) 4 mg PRN Q4HRS PRN IV NAUSEA/VOMITING; Start 10/12/20 at 12:15 Aripiprazole (Abilify) 5 mg DAILY PO Last administered on 10/13/20at 09:21; Start 10/12/20 at 13:00 Aspirin (Ecotrin) 81 mg DAILY PO ; Start 10/12/20 at 13:00; Stop 10/12/20 at 19:30; Status DC Atorvastatin Calcium (Lipitor) 40 mg QHS PO Last administered on 10/12/20at 20:40; Start 10/12/20 at 21:00 Baclofen (Lioresal) 10 mg TID PO Last administered on 10/12/20at 15:17; Start 10/12/20 at 14:00; Stop 10/12/20 at 19:02; Status DC Cetirizine HCl (ZyrTEC) 10 mg QHS PO Last administered on 10/12/20at 20:41; Start 10/12/20 at 21:00 Famotidine (Pepcid) 20 mg PRN BID PRN PO STOMACH PROBLEM; Start 10/12/20 at 12:15 Gabapentin (Neurontin) 300 mg TID PO Last administered on 10/13/20at 09:21; Start 10/12/20 at 14:00 Lisinopril (Prinivil) 20 mg DAILY PO Last administered on 10/13/20at 09:21; Start 10/12/20 at 13:00 Nitroglycerin (Nitrostat) 0.4 mg PRN Q5MIN PRN SL CHEST PAIN; Start 10/12/20 at 12:15 Non-Formulary Medication (Albuterol Sulfate (Proair Respiclick)) 1 puff PRN Q6HRS PRN IH SHORTNESS OF BREATH; Start 10/12/20 at 12:15; Status UNV Non-Formulary Medication (Fluticasone Propionate (Flovent 220MCG Hfa)) 12 gm BID IH ; Start 10/12/20 at 21:00; Status UNV Oxybutynin Chloride (Ditropan) 5 mg DAILY PO Last administered on 10/13/20at 09:20; Start 10/12/20 at 13:00 Polyethylene Glycol (miraLAX PACKET) 17 gm DAILY PRN PO CONSTIPATION; Start 10/12/20 at 12:30 Budesonide (Pulmicort) 0.5 mg RTBID NEB Last administered on 10/13/20at 07:24; Start 10/12/20 at 20:00 Albuterol Sulfate (Ventolin Neb Soln) 2.5 mg PRN Q6HRS PRN NEB SHORTNESS OF BREATH; Start 10/12/20 at 12:30 Zinc Oxide (Zinc Oxide 20% Topical) 1 owen QID PRN TP SKIN PROTECTION Last administered on 10/13/20at 09:21; Start 10/12/20 at 16:15 Baclofen (Lioresal) 10 mg PRN TID PRN PO muscle spasm; Start 10/12/20 at 19:00 Active Scripts Active Nitrostat (Nitroglycerin) 0.4 Mg Tab.subl 0.4 Mg SL PRN Q5MIN PRN 30 Days Proair Respiclick (Albuterol Sulfate) 90 Mcg Aer.pow.ba 1 Puff IH PRN Q6HRS PRN Reported Klor-Con M20 (Potassium Chloride) 20 Meq Tab.er.prt 20 Meq PO BID Lisinopril 20 Mg Tablet 20 Mg PO DAILY Ibuprofen 800 Mg Tablet 800 Mg PO Q8HRS PRN Levofloxacin 500 Mg Tablet 500 Mg PO DAILY Fiber Gummies (Inulin) 2 Gm Tab.chew 2 Tab PO DAILY 30 Days Abilify (Aripiprazole) 5 Mg Tablet 5 Mg PO DAILY Metformin Hcl 1,000 Mg Tablet 1,000 Mg PO BIDWMEALS [Beano] PO PRN PRN Pepcid (Famotidine) 20 Mg Tablet 20 Mg PO PRN PRN Ditropan Xl (Oxybutynin Chloride) 5 Mg Tab.er.24 1 Tab PO DAILY Aspir 81 (Aspirin) 81 Mg Tablet.dr 1 Tab PO DAILY Zyrtec (Cetirizine Hcl) 10 Mg Tablet 1 Tab PO QHS Gabapentin (Gabapentin) 300 Mg Capsule 300 Mg PO TID Baclofen 10 Mg Tablet 1 Tab PO TID Freestyle Lite Strips (Blood Sugar Diagnostic) 1 Each Strip 1 Each MC Atorvastatin Calcium 40 Mg Tablet 40 Mg PO DAILY Spiriva (Tiotropium [place]) 18 Mcg Cap.w.dev 2 Inh IH DAILY Meloxicam 15 Mg Tablet 15 Mg PO DAILY Polyethylene Glycol (Polyethylene Glycol 8000) 500 Gm Powder 500 Gm MC DAILY PRN Flovent 220MCG Hfa (Fluticasone Propionate) 12 Gm Aer.w.adap 12 Gm IH BID Vitals/I & O Vital Sign - Last 24 Hours 10/12/20 10/12/20 10/12/20 10/12/20 12:23 15:00 15:18 15:35 Temp 98.2 98.2 Pulse 88 88 88 Resp 19 18 B/P (MAP) 168/80 (109) 143/87 (105) 168/80 Pulse Ox 97 94 O2 Delivery Room Air Room Air Room Air 10/12/20 10/12/20 10/12/20 10/12/20 19:00 20:00 20:13 23:07 Temp 98.8 98.0 98.8 98.0 Pulse 87 80 Resp 18 18 B/P (MAP) 156/82 (106) 182/53 (96) Pulse Ox 95 96 92 O2 Delivery Room Air Room Air Room Air Room Air 10/13/20 10/13/20 10/13/20 10/13/20 03:00 07:00 07:26 09:21 Temp 98.0 98.3 98.0 98.3 Pulse 86 77 77 Resp 18 18 B/P (MAP) 141/71 (94) 144/85 (104) 144/85 Pulse Ox 94 94 94 O2 Delivery Room Air Room Air Room Air 10/13/20 10:44 Temp 98.0 98.0 Pulse 84 Resp 18 B/P (MAP) 130/71 (90) Pulse Ox 94 O2 Delivery Room Air Intake and Output 10/12/20 10/12/20 10/13/20 15:00 23:00 07:00 Intake Total 200 ml 220 ml Balance 200 ml 220 ml Justicifation of Admission Dx: Justifications for Admission: Justification of Admission Dx: Yes SHIVAM CAMPBELL MD Oct 13, 2020 12:01
--- NOTE | 2020-10-13 12:03 | PDOC3 ---
Discharge Summary Visit Information Date of Admission: Oct 12, 2020 Date of Discharge: Oct 13, 2020 Final Diagnosis Tremors - left hand. Likely essential tremor vs muscle relaxant side effect from baclofen. or med side effect from her Bipolar, Abilify Stuttering speech - resolved HTN: controlled HLD - cont meds DM2 - sliding scale COPD with past tobaccoism Bipolar disorder - cont meds H/o renal cell ca - in remission Problems Medical Problems: (1) Pulmonary nodule Status: Acute (2) Thyroid nodule Status: Acute (3) TIA (transient ischemic attack) Status: Acute Brief Hospital Course Allergies Allergies Coded Allergies Type Severity Reaction Last Updated Verified aspirin Allergy Intermediate "messes with my stomach" 10/03/20 Yes omega-3 acid ethyl esters Allergy Intermediate bleeding 10/03/20 Yes levofloxacin Allergy Unknown 10/12/20 Yes tramadol Adverse Reaction Intermediate STOMACH UPSET 10/03/20 Yes Vital Signs Vital Signs Date Time Temp Pulse Resp B/P (MAP) Pulse Ox O2 Delivery O2 Flow Rate FiO2 10/13/20 10:44 98.0 84 18 130/71 (90) 94 Room Air 98.0 Lab Results Laboratory Tests Test 10/12/20 09:13 10/12/20 09:16 10/12/20 16:42 10/12/20 20:01 Glucose (Fingerstick) 96 mg/dL (70-99) 101 mg/dL (70-99) 103 mg/dL (70-99) White Blood Count 6.4 x10^3/uL (4.0-11.0) Red Blood Count 4.42 x10^6/uL (3.50-5.40) Hemoglobin 12.0 g/dL (12.0-15.5) Hematocrit 37.8 % (36.0-47.0) Mean Corpuscular Volume 85 fL (79-100) Mean Corpuscular Hemoglobin 27 pg (25-35) Mean Corpuscular Hemoglobin Concent 32 g/dL (31-37) Red Cell Distribution Width 16.7 % (11.5-14.5) Platelet Count 391 x10^3/uL (140-400) Neutrophils (%) (Auto) 54 % (31-73) Lymphocytes (%) (Auto) 33 % (24-48) Monocytes (%) (Auto) 9 % (0-9) Eosinophils (%) (Auto) 3 % (0-3) Basophils (%) (Auto) 1 % (0-3) Neutrophils # (Auto) 3.4 x10^3/uL (1.8-7.7) Lymphocytes # (Auto) 2.1 x10^3/uL (1.0-4.8) Monocytes # (Auto) 0.6 x10^3/uL (0.0-1.1) Eosinophils # (Auto) 0.2 x10^3/uL (0.0-0.7) Basophils # (Auto) 0.1 x10^3/uL (0.0-0.2) Prothrombin Time 12.1 SEC (11.7-14.0) Prothromb Time International Ratio 0.9 (0.8-1.1) Activated Partial Thromboplast Time 28 SEC (24-38) Sodium Level 143 mmol/L (136-145) Potassium Level 4.4 mmol/L (3.5-5.1) Chloride Level 106 mmol/L (98-107) Carbon Dioxide Level 26 mmol/L (21-32) Anion Gap 11 (6-14) Blood Urea Nitrogen 16 mg/dL (7-20) Creatinine 0.6 mg/dL (0.6-1.0) Estimated GFR (Cockcroft-Gault) 99.7 Glucose Level 104 mg/dL (70-99) Calcium Level 9.9 mg/dL (8.5-10.1) Troponin I Quantitative < 0.017 ng/mL (0.000-0.055) Test 10/13/20 06:30 10/13/20 07:22 10/13/20 11:53 Triglycerides Level 187 mg/dL (0-150) Cholesterol Level 163 mg/dL (0-200) LDL Cholesterol, Calculated 80 mg/dL (0-100) VLDL Cholesterol, Calculated 37 mg/dL (0-40) Non-HDL Cholesterol Calculated 117 mg/dL (0-129) HDL Cholesterol 46 mg/dL (40-60) Cholesterol/HDL Ratio 3.5 Glucose (Fingerstick) 97 mg/dL (70-99) 88 mg/dL (70-99) Laboratory Tests Test 10/12/20 16:42 10/12/20 20:01 10/13/20 06:30 10/13/20 07:22 Glucose (Fingerstick) 101 mg/dL (70-99) 103 mg/dL (70-99) 97 mg/dL (70-99) Triglycerides Level 187 mg/dL (0-150) Cholesterol Level 163 mg/dL (0-200) LDL Cholesterol, Calculated 80 mg/dL (0-100) VLDL Cholesterol, Calculated 37 mg/dL (0-40) Non-HDL Cholesterol Calculated 117 mg/dL (0-129) HDL Cholesterol 46 mg/dL (40-60) Cholesterol/HDL Ratio 3.5 Test 10/13/20 11:53 Glucose (Fingerstick) 88 mg/dL (70-99) Brief Hospital Course Ms. Ruiz is a 65 old female,admit with marked new tremor, eval for seizure was neg, Dr. Lobato Neuro, psychogenic component from meds and psych conditions, tremor better at DC Discharge Information Condition at Discharge: Improved Follow Up: Weeks Disposition/Orders: D/C to Home w/ HH Scheduled Aripiprazole (Abilify) 5 Mg Tablet, 5 MG PO DAILY for Depression, (Reported) Entered as Reported by: MIRTHA BATRES, RN on 05/19/20 1639 Last Action: Continued on 10/12/20 120 by JALIL BHARDWAJ MD Aspirin (Aspir 81) 81 Mg Tablet.dr, 1 TAB PO DAILY, #30 Ref 5 (Reported) Entered as Reported by: JEFE RODRÍGUEZ on 07/28/17 1130 Last Action: Continued on 10/12/20 120 by JALIL BHARDWAJ MD Atorvastatin Calcium (Atorvastatin Calcium) 40 Mg Tablet, 40 MG PO DAILY for FOR CHOLESTEROL, #30 Ref 0 (Reported) Entered as Reported by: LUIS SMITH on 02/27/147 Last Action: Continued on 10/12/20 120 by JALIL BHARDWAJ MD Baclofen (Baclofen) 10 Mg Tablet, 1 TAB PO TID, #90 Ref 2 (Reported) Entered as Reported by: LYNSEY BENNETT on 01/25/171956 Last Action: Continued on 10/12/20 120 by JALIL BHARDWAJ MD Cetirizine Hcl (Zyrtec) 10 Mg Tablet, 1 TAB PO QHS, #30 Ref 2 (Reported) Entered as Reported by: JEFE RODRÍGUEZ on 07/28/17 1128 Last Action: Continued on 10/12/201208 by JALIL BHARDWAJ MD Fluticasone Propionate (Flovent 220MCG Hfa) 12 Gm Aer.w.adap, 12 GM IH BID, (Reported) Entered as Reported by: LUIS SMITH on 02/27/14 0247 Last Action: Converted on 10/12/201208 by JALIL BHARDWAJ MD Gabapentin (Gabapentin ) 300 Mg Capsule, 300 MG PO TID, (Reported) Entered as Reported by: JEFE RODRÍGUEZ on 07/28/17 1127 Last Action: Continued on 10/12/201208 by JALIL BHARDWAJ MD Inulin (Fiber Gummies) 2 Gm Tab.chew, 2 TAB PO DAILY for Constipation for 30 Days, #60 Ref 0 (Reported) Entered as Reported by: MIRTHA BATRES RN on 05/19/20 1639 Levofloxacin (Levofloxacin) 500 Mg Tablet, 500 MG PO DAILY for UTI, #14 (Reported) Entered as Reported by: ERIC NELSON on 10/03/20 1145 Lisinopril (Lisinopril) 20 Mg Tablet, 20 MG PO DAILY for hypertension, #30 Ref 0 (Reported) Entered as Reported by: ERIC NELSON on 10/06/20 1555 Last Action: Continued on 10/12/201208 by JALIL BHARDWAJ MD Meloxicam (Meloxicam) 15 Mg Tablet, 15 MG PO DAILY, (Reported) Entered as Reported by: LUIS SMITH on 02/27/14 0247 Metformin Hcl (Metformin Hcl) 1,000 Mg Tablet, 1,000 MG PO BIDWMEALS for DM, (Reported) Entered as Reported by: MIRTHA BATRES RN on 05/19/20 1639 Oxybutynin Chloride (Ditropan Xl) 5 Mg Tab.er.24, 1 TAB PO DAILY for BLADDER PROBLEM, #30 Ref 5 (Reported) Entered as Reported by: JEFE RODRÍGUEZ on 05/21/19 1259 Last Action: Converted on 10/12/201208 by JALIL BHARDWAJ MD Potassium Chloride (Klor-Con M20) 20 Meq Tab.er.prt, 20 MEQ PO BID for supplement, (Reported) Entered as Reported by: ERIC NELSON on 10/06/20 1556 Tiotropium [place] (Spiriva) 18 Mcg Cap.w.dev, 2 INH IH DAILY, #1 Ref 0 (Reported) Entered as Reported by: LUIS SMITH on 02/27/14246 Scheduled PRN Albuterol Sulfate (Proair Respiclick) 90 Mcg Aer.pow.ba, 1 PUFF IH PRN Q6HRS PRN for SHORTNESS OF BREATH, #1 Prescribed by: Colette Pedraza APRN on 07/22/16 1110 Last Action: Converted on 10/12/201208 by JALIL BHARDWAJ MD Famotidine (Pepcid) 20 Mg Tablet, 20 MG PO PRN PRN for STOMACH PROBLEM, (Reported) Entered as Reported by: JEFE RODRÍGUEZ on 05/21/19 1300 Last Action: Continued on 10/12/20 120 by JALIL BHARDWAJ MD Ibuprofen (Ibuprofen) 800 Mg Tablet, 800 MG PO Q8HRS PRN for PAIN, (Reported) Entered as Reported by: ERIC NELSON on 10/03/20 1156 Nitroglycerin (Nitrostat) 0.4 Mg Tab.subl, 0.4 MG SL PRN Q5MIN PRN for CHEST PAIN for 30 Days, #25 Prescribed by: FARHAN RAINEY MD on 05/20/20 1443 Last Action: Continued on 10/12/201208 by JALIL BHARDWAJ MD Polyethylene Glycol 8000 (Polyethylene Glycol) 500 Gm Powder, 500 GM MC DAILY PRN for CONSTIPATION, (Reported) Entered as Reported by: LUIS SMITH on 02/27/14246 Last Action: Converted on 10/12/201208 by JALIL BHARDWAJ MD [Beano] , PO PRN PRN for STOMACH PROBLEM, (Reported) Entered as Reported by: JEFE RODRÍGUEZ on 05/21/19 1301 Miscellaneous Medications Blood Sugar Diagnostic (Freestyle Lite Strips) 1 Each Strip, 1 EACH MC, (Reported) Entered as Reported by: LUIS SMITH on 02/27/14246 Discontinued Medications Lisinopril/Hydrochlorothiazide (Lisinopril-Hctz 10-12.5 Mg Tab) 1 Each Tablet, 1 TAB PO DAILY, #30 Ref 5 (Reported) Entered as Reported by: LYNSEY BENNETT on 01/25/171956 Patient Instructions Patient Instructions follow up with Dr. Bailon November 07 9:45 AM and will consider for outpt stress test after the visit. Justicifation of Admission Dx: Justifications for Admission: Justification of Admission Dx: Yes SHIVAM CAMPBELL MD Oct 13, 2020 12:03
--- NOTE | 2020-10-13 12:07 | SNU/HH DC ---
DISCHARGE WITH HOME HEALTH DISCHARGE INFORMATION: Discharge Date: Oct 13, 2020 Final Diagnosis: tremor bipolar disorder psychogenic tremor, not seizure weakness, and debility Problems Medical Problems: (1) Pulmonary nodule Status: Acute (2) Thyroid nodule Status: Acute (3) TIA (transient ischemic attack) Status: Acute Condition on Discharge: Stable CODE STATUS: Code Status: Full HOME HEALTH: Face to Face: I certify this patient is under my care and that I, or a nurse practitioner or physician's construction administrative assistant working with me, had a face to face encounter that meets the physician face to face encounter requirements with this patient on 10/13 Medical Complications: Other Chcf For: Assess & Educate Safety, Medication Management RN For Eval/Treatment: Yes Physical Therapy For: Evalulation/Treatment Occupational Therapy For: Evaluation/Treatment Pt Meets Homebound Status: Poor coordination w/ amb., Unsteady balance w/ amb, POST DISCHARGE ORDERS: Activity Instructions for Disc: Activity as tolerated Weight Bearing Status after Di: No restrictions, Full weight bearing, As tolerated DIET AFTER DISCHARGE: ADA Wound/Incision Care: No wound care needed CHECKS AFTER DISCHARGE: Checks after discharge: Check blood press - daily, Check blood sugar, ac/hs, Check your Temp as needed FOLLOW-UP: Follow up with: primary care 2 weeks TREATMENT/EQUIPMENT ORDERS: Adaptive Equipment Issued: None CERTIFICATION STATEMENT: Certification Statement: Certification Statement: Based on the above finding, I certify that this patient is confined to the home and needs intermittent snf care, physical therapy and/or speech therapy, or continues to need occupational therapy.~ This patient is under my care, and I have initiated the establishment of the plan of care.~ This patient will be followed by myself or a community physician who will periodically review the plan of care. Home Meds Active Scripts Nitroglycerin (NITROSTAT) 0.4 Mg Tab.subl, 0.4 MG SL PRN Q5MIN PRN for CHEST PAIN for 30 Days, #25 TAB Prov:FARHAN RAINEY MD 05/20/20 Albuterol Sulfate (Proair Respiclick) 90 Mcg Aer.pow.ba, 1 PUFF IH PRN Q6HRS PRN for SHORTNESS OF BREATH, #1 INHALER Prov:TERRI ARIAS APRN 07/22/16 Reported Medications Potassium Chloride (KLOR-CON M20) 20 Meq Tab.er.prt, 20 MEQ PO BID for supplement, TAB.SR 10/06/20 Lisinopril (LISINOPRIL) 20 Mg Tablet, 20 MG PO DAILY for hypertension, #30 TAB 0 Refills 10/06/20 Ibuprofen (IBUPROFEN) 800 Mg Tablet, 800 MG PO Q8HRS PRN for PAIN, TAB 10/03/20 Levofloxacin (LEVOFLOXACIN) 500 Mg Tablet, 500 MG PO DAILY for UTI, #14 TAB 10/03/20 Inulin (Fiber Gummies) 2 Gm Tab.chew, 2 TAB PO DAILY for Constipation for 30 Days, #60 TAB 0 Refills 05/19/20 Aripiprazole (ABILIFY) 5 Mg Tablet, 5 MG PO DAILY for Depression, TAB 05/19/20 Metformin Hcl (METFORMIN HCL) 1,000 Mg Tablet, 1000 MG PO BIDWMEALS for DM, TAB 05/19/20 [Beano] No Conflict Check, PO PRN PRN for STOMACH PROBLEM 05/21/19 Famotidine (PEPCID) 20 Mg Tablet, 20 MG PO PRN PRN for STOMACH PROBLEM, TAB 05/21/19 Oxybutynin Chloride (DITROPAN XL) 5 Mg Tab.er.24, 1 TAB PO DAILY for BLADDER PROBLEM, #30 TAB 5 Refills 05/21/19 Aspirin (ASPIR 81) 81 Mg Tablet.dr, 1 TAB PO DAILY, #30 TAB 5 Refills 07/28/17 Cetirizine Hcl (ZYRTEC) 10 Mg Tablet, 1 TAB PO QHS, #30 TAB 2 Refills 07/28/17 Gabapentin (GABAPENTIN ) 300 Mg Capsule, 300 MG PO TID, CAP 07/28/17 Baclofen (BACLOFEN) 10 Mg Tablet, 1 TAB PO TID, #90 TAB 2 Refills 01/25/17 Blood Sugar Diagnostic (FREESTYLE LITE STRIPS) 1 Each Strip, 1 EACH MC, STRIP 02/27/14 Atorvastatin Calcium (ATORVASTATIN CALCIUM) 40 Mg Tablet, 40 MG PO DAILY for FOR CHOLESTEROL, #30 TAB 0 Refills 02/27/14 Tiotropium [place] (SPIRIVA) 18 Mcg Cap.w.dev, 2 INH IH DAILY, #1 INH 0 Refills 02/27/14 Meloxicam (MELOXICAM) 15 Mg Tablet, 15 MG PO DAILY, TAB 02/27/14 Polyethylene Glycol 8000 (POLYETHYLENE GLYCOL) 500 Gm Powder, 500 GM MC DAILY PRN for CONSTIPATION 02/27/14 Fluticasone Propionate (FLOVENT 220MCG HFA) 12 Gm Aer.w.adap, 12 GM IH BID 02/27/14 Discontinued Reported Medications Lisinopril/Hydrochlorothiazide (LISINOPRIL-HCTZ 10-12.5 MG TAB) 1 Each Tablet, 1 TAB PO DAILY, #30 TAB 5 Refills 01/25/17 SHIVAM CAMPBELL MD Oct 13, 2020 12:07
[2020-10-13 15:00] VITALS: BP 108/68
--- NOTE | 2020-10-13 15:51 | NUR ---
pt discharged home with family friend. meds and follow up reviewed. IV removed, cath intact. security returned belongings to patient before discharge. Pt stable upon dc.
== END 2020-10-13 15:53 | disposition home or self-care (01) ==
LOC: ER 08:54 → ED HOLD 10:15 → 5 NORTH 13:01
PROVIDERS: ADMIT Internal Medicine; ATTEND Internal Medicine
DX: G45.9 Transient cerebral ischemic attack, unspecified (principal); R79.1 Abnormal coagulation profile; I10 Essential (primary) hypertension; J44.9 Chronic obstructive pulmonary disease, unspecified; K76.0 Fatty (change of) liver, not elsewhere classified; E11.42 Type 2 diabetes mellitus with diabetic polyneuropathy; E78.00 Pure hypercholesterolemia, unspecified; E78.5 Hyperlipidemia, unspecified; M79.7 Fibromyalgia; E04.2 Nontoxic multinodular goiter; F31.9 Bipolar disorder, unspecified; K21.9 Gastro-esophageal reflux disease without esophagitis; M19.90 Unspecified osteoarthritis, unspecified site; K80.20 Calculus of gallbladder without cholecystitis without obstruction; E87.6 Hypokalemia; R91.1 Solitary pulmonary nodule; E04.1 Nontoxic single thyroid nodule; F80.81 Childhood onset fluency disorder; Z85.528 Personal history of other malignant neoplasm of kidney; Z86.711 Personal history of pulmonary embolism; Z86.73 Personal history of transient ischemic attack (TIA), and cerebral infarction without residual deficits; Z87.891 Personal history of nicotine dependence; Z90.49 Acquired absence of other specified parts of digestive tract; Z98.49 Cataract extraction status, unspecified eye; Z79.82 Long term (current) use of aspirin; Z98.890 Other specified postprocedural states
CPT/HCPCS: 36415; 70450; 70496; 70498; 70551; 80048; 80061; 82962; 84484; 85025; 85610; 85730; 92610; 93005; 94640; 94760; 97161; 97166; 97530; 97535; 99285; G0378; J7626; Q9967; G0379

== ENCOUNTER 2020-10-21 15:34 | Emergency (ER) | payer OTHER ==
[~2020-10-21] VITALS: Ht 157.5 cm; Wt 75.0 kg
[~2020-10-21 15:34] MED LIST changes: -ACYC800T PO; +ACYC800T88 PO
--- NOTE | 2020-10-21 16:01 | PHYS DOC ---
Past Medical History Past Medical History: Arthritis, Bipolar, Cancer, Diabetes-Type II, High Cholesterol, Hypertension Additional Past Medical Histor: shingles,urine incont, sciatica, renal cell carcinoma, NEUROPATHY (EDY MADERA DO) Past Surgical History: Cholecystectomy Additional Past Surgical Histo: R kidney tumor removed, R ovary removal,small bowel resection/ CYST, catara (EDY MADERA DO) Smoking Status: Former Smoker Alcohol Use: None Drug Use: None (EDY MADERA DO) General Adult EDM: Chief Complaint: SYNCOPE HPI: HPI: 65 yo F PMH renal cell ca s/p R nephrectomy, DM2, bipolar disorder, HTN, HLD and neuropathy/sciatica, presents to the ed bibems with c/o dizziness such that she fell to her knees, no LOC. Pt states "dizzy," but when asked to describe she states "faint and weak, like when my potassium was low." No h/o hypotension w/prior hypokalemia. Patient reports she is routinely eating, had seafood salad that she purchased from the store. Reports her Abilify decreased from 15-10. Denies any depression, suicidal ideations, homicidal ideations, fever, chest pain, dyspnea, hemoptysis, unilateral leg swelling, chest back or abdominal pain. EMS pre-notification with bp of 89/42, received 500cc bolus radio division captain to 110/69, glucose 180s, hr 85, normal ekg. EMR was reviewed and patient was discharged from the hospital 8 days ago for hypokalemia and UTI. 04/2020 echo w/HFrEF (50-55%) with trace tricuspid and mitral regurg, no aortic stenosis. Normal head/neck CTA 10/12/20. (EDY MADERA DO) Review of Systems: Review of Systems: Constitutional: Denies fever or chills. [] Eyes: Denies change in visual acuity. [] HENT: Denies nasal congestion or sore throat. [] Respiratory: Denies cough or shortness of breath. [] Cardiovascular: Denies chest pain or edema. [] GI: Denies abdominal pain, nausea, vomiting, bloody stools or diarrhea. [] : Denies dysuria. [] Musculoskeletal: Denies back pain or joint pain. [] Integument: Denies rash. [] Neurologic: Denies headache, neck stiffness, focal weakness or sensory changes. [] Endocrine: Denies polyuria or polydipsia. [] Lymphatic: Denies swollen glands. [] Psychiatric: Denies depression or anxiety. [] (EDY MADERA DO) Heart Score: Risk Factors: Risk Factors: DM, Current or recent (<one month) smoker, HTN, HLP, family history of CAD, obesity. Risk Scores: Score 0 - 3: 2.5% MACE over next 6 weeks - Discharge Home Score 4 - 6: 20.3% MACE over next 6 weeks - Admit for Clinical Observation Score 7 - 10: 72.7% MACE over next 6 weeks - Early Invasive Strategies (EDY MADERA DO) Allergies: Allergies: Allergies Coded Allergies Type Severity Reaction Last Updated Verified aspirin Allergy Intermediate "messes with my stomach" 10/03/20 Yes omega-3 acid ethyl esters Allergy Intermediate bleeding 10/03/20 Yes levofloxacin Allergy Unknown 10/12/20 Yes tramadol Adverse Reaction Intermediate STOMACH UPSET 10/03/20 Yes (EDY MADERA DO) Physical Exam: PE: Constitutional: Well developed, well nourished, no acute distress, non-toxic owen earance. HENT: Normocephalic, atraumatic, Eyes: EOMI, conjunctiva normal, no discharge. Neck: Normal range of motion, supple, no jvd Cardiovascular: S1/2 present, regular rhythm, Lungs & Thorax: Speaking in full sentences, bilateral equal chest rise, no tachypnea or increased work of breathing Abdomen: soft, no tenderness, Skin: Warm, dry, no erythema, no rash. [] Back: No tenderness, no CVA tenderness. [] Extremities: No tenderness, no cyanosis, +equal pitting lower extremity edema, equal radial pulses Neurologic: Alert and oriented X 3, normal motor function, normal sensory function, no focal deficits noted. [] Psychologic: Very flat affect, judgement normal, mood normal. [] (EDY MADERA DO) EKG: EKG: Sinus rhythm at 92 bpm, left axis deviation, normal intervals, T wave inversion lead III, no ST elevations or ST depressions (EDY MADERA DO) Radiology/Procedures: Radiology/Procedures: IMAGING REPORT Signed PATIENT: TYLOR WILL ACCOUNT: [id number] : 1955 LOCATION: ER AGE: 65 SEX: F EXAM STATUS: REG ER ORD. PHYSICIAN: EDY MADERA DO REASON: syncope,rm 1 PROCEDURE: PORTABLE CHEST 1V XR CHEST 1V INDICATION: syncope . COMPARISON STUDY: 06/24/2020. FINDINGS: Lungs: Normal lung volume. Unchanged chronic left basilar opacities. No new consolidation. The tracheobronchial tree and hilar structures are normal. Pleura: No pleural effusion or pneumothorax. Heart and Mediastinum: The cardiomediastinal silhouette is normal. The great vessels of the thorax are normal. Bones and Soft Tissues: The bones and soft tissues are within normal limits. IMPRESSION: Unchanged chronic left basilar opacities. No new consolidation. Electronically signed by: Sid Barber MD (10/21/2020 4:31 PM) [id number] DICTATED and SIGNED BY: SID BARBER MD DATE: 10/21/20 [id number] (EDY MADERA DO) Course & Med Decision Making: Course & Med Decision Making Pertinent Labs and Imaging studies reviewed. (See chart for details) [] (EDY MADERA DO) Course & Med Decision Making Assumed care at shift change. Disposition pending CT- CT results reviewed and discussed with patient. -- Cystic Lesion in pelvis -- Constipation. Patient advised to follow up with PCP regarding further workup of adnexa. (SHAHEEN HIGHTOWER DO) Dragon Disclaimer: Dragon Disclaimer: This electronic medical record was generated, in whole or in part, using a voice recognition dictation system. (EDY MADERA DO) Departure Departure Impression: Primary Impression: Dehydration Additional Impressions: Adnexal cyst Pre-syncope Disposition: 01 DC HOME SELF CARE/HOMELESS Condition: STABLE Referrals: SELVIN FARRELL APRN (PCP) Patient Instructions: Dehydration, Adult, Ovarian Cyst EDY MADERA DO Oct 21, 2020 16:01 SHAHEEN HIGHTOWER DO Oct 21, 2020 19:10
[2020-10-21 16:03] LABS: BASO # 0.1 x10^3/uL (0.0-0.2); BASO % 1 % (0-3); EOS # 0.1 x10^3/uL (0.0-0.7); EOS % 1 % (0-3); HEMATOCRIT 36.5 % (36.0-47.0); HEMOGLOBIN 11.7 g/dL (12.0-15.5); LYMPH # 1.4 x10^3/uL (1.0-4.8); LYMPH % 11 % (24-48); MEAN CORPUSCULAR HEMOGLOBIN 27 pg (25-35); MEAN CORPUSCULAR HGB CONC 32 g/dL (31-37); MEAN CORPUSCULAR VOLUME 86 fL (79-100); MONO % 8 % (0-9); NEUT # 10.1 x10^3/uL (1.8-7.7); NEUT % 79 % (31-73); PLATELET COUNT 384 x10^3/uL (140-400); RED BLOOD COUNT 4.27 x10^6/uL (3.50-5.40); RED CELL DISTRIBUTION WIDTH 17.1 % (11.5-14.5); WHITE BLOOD COUNT 12.8 x10^3/uL (4.0-11.0)
--- NOTE | 2020-10-21 16:11 | EKG ---
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
[2020-10-21 16:20] LABS: CALCIUM 8.9 mg/dL (8.5-10.1); CREATININE 1.1 mg/dL (0.6-1.0); GFR 49.5; POTASSIUM 4.3 mmol/L (3.5-5.1)
[2020-10-21 16:26] LABS: ALBUMIN 3.5 g/dL (3.4-5.0); ALBUMIN/GLOBULIN RATIO 1.1 (1.0-1.7); TOTAL BILIRUBIN 0.3 mg/dL (0.2-1.0); TOTAL PROTEIN 6.6 g/dL (6.4-8.2)
--- NOTE | 2020-10-21 16:33 | RAD ---
XR CHEST 1V INDICATION: syncope . COMPARISON STUDY: 06/24/2020. FINDINGS: Lungs: Normal lung volume. Unchanged chronic left basilar opacities. No new consolidation. The trache obronchial tree and hilar structures are normal. Pleura: No pleural effusion or pneumothorax. Heart and Mediastinum: The cardiomediastinal silhouette is normal. The great vessels of the thorax ar e normal. Bones and Soft Tissues: The bones and soft tissues are within normal limits. IMPRESSION: Unchanged chronic left basilar opacities. No new consolidation. Electronically signed by: Jose R Barber MD (10/21/2020 4:31 PM) [id number]
[2020-10-21] MEDS ORDERED: IV NORMAL SALINE 1000ML BAG 1,000 ML IV ONE (17:00)
[2020-10-21] MEDS ORDERED: IOHEXOL 350 MG/ML 100 ML VIAL. IV ONE (17:15)
--- NOTE | 2020-10-21 18:43 | RAD ---
Exam: CT of chest, abdomen and pelvis without and with contrast INDICATION: Syncope, hypotension, concern for dissection TECHNIQUE: Sequential axial images through the chest, abdomen and pelvis obtained before and after th e administration of 80 mL of Isovue-370 IV contrast. Sagittal and coronal reformatted images were rec onstructed from the axial data and reviewed. 3-D reformatted images were reconstructed from the axial data and reviewed. Comparisons: Chest x-ray same day FINDINGS: Visualized portions of the thyroid are unremarkable. No enlarged mediastinal lymph nodes. Heart size is normal. No pericardial effusion. Thoracic aorta has a normal course and caliber. Pulmon amie artery is not enlarged. No pulmonary embolus identified within the main, lobar or segmental pulmo nary arteries. Airways are patent. No consolidation or pneumothorax. Strandy opacities at dependent portion lungs li laya representing atelectasis. No suspicious lung nodules are identified. No pleural effusion or thickening. Liver, spleen, pancreas, and adrenals are unremarkable. Gallbladder surgically absent. No perinephric inflammation or hydronephrosis. No renal or ureteral calculi are identified. Bladder is distended and appears thin-walled. Uterus is not enlarged. There is a cystic lesion at the left adnexa which measures up to 6.8 cm in diameter. Large amount stool is noted in the colon with mild adjacent fat stranding. Remainder of the large and small bowel are unremarkable. Appendix is not identified. No free intra-abdominal air or fluid. No o bstruction. Abdominal aorta has a normal course and caliber. Abdominal vasculature is patent. No enlarged intra-abdominal lymph nodes are identified. No suspicious osseous lesions or acute fractures. IMPRESSION: 1. Normal appearance of the aorta without evidence for dissection, aneurysm or intramural hematoma. 2. Cystic lesion at the left adnexa measuring 6.8 cm in diameter likely cystic lesion in the ovary i ncompletely characterized on CT. 3. Large amount stool in the colon particularly at the rectum, correlate for constipation. Exposure: One or more of the following in the visualized dose reduction techniques were utilized for this examination: 1. Automated exposure control 2. Adjustment of the MA and/or KV according to patient size 3. Use of iterative of reconstructive technique Electronically signed by: Ry Earl MD (10/21/2020 6:41 PM) [facility]
[2020-10-21 19:14] VITALS: BP 141/70
[2020-10-21] MEDS ORDERED: MAGN296S68 PO (19:21)
== END 2020-10-21 19:25 | disposition home or self-care (01) ==
LOC: ER 15:34
DX: R55 Syncope and collapse (principal); E86.0 Dehydration; E27.8 Other specified disorders of adrenal gland; Z88.1 Allergy status to other antibiotic agents; Z88.6 Allergy status to analgesic agent; Z88.8 Allergy status to other drugs, medicaments and biological substances
CPT/HCPCS: 36415; 71045; 71275; 74174; 80053; 83735; 84484; 85025; 85379; 93005; 96360; 99285; J7030

== ENCOUNTER 2020-10-27 09:00 | Emergency (ER) | payer OTHER ==
[~2020-10-27] VITALS: Ht 157.5 cm; Wt 75.9 kg
[~2020-10-27 09:00] MED LIST changes: +ACYC800T PO; -ACYC800T88 PO; +MAGN296S68 PO
--- NOTE | 2020-10-27 09:58 | ED.ADGEN ---
Past Medical History Past Medical History: Arthritis, Bipolar, Cancer, Diabetes-Type II, High Cholesterol, Hypertension Additional Past Medical Histor: shingles,urine incont, sciatica, renal cell carcinoma, NEUROPATHY,LOW KCL Past Surgical History: Cholecystectomy Additional Past Surgical Histo: R kidney tumor removed, R ovary removal,small bowel resection/ CYST, catara Smoking Status: Former Smoker Alcohol Use: Sober Drug Use: None General Adult EDM: Chief Complaint: MECHANICAL FALL HPI: HPI: Patient is a 65-year-old female who presents to the emergency room complaining of a fall. Patient states her legs gave out from under her but when she got up she felt dizzy which is why she came to the emergency room. She states that it felt like her knee gave out but she has been able to walk on it since that time. She denies any kind of chest pain. She states that the dizziness has now resolved. She has had dizziness previously. She denies any kind of shortness of breath. She denies any lingering symptoms. She denies any kind of trauma. She states she did not hit her head. She denies any, neck pain. Review of Systems: Review of Systems: Complete ROS is negative unless otherwise documented in HPI Allergies: Allergies: Allergies Coded Allergies Type Severity Reaction Last Updated Verified aspirin Allergy Intermediate "messes with my stomach" 10/03/20 Yes omega-3 acid ethyl esters Allergy Intermediate bleeding 10/03/20 Yes levofloxacin Allergy Unknown 10/12/20 Yes tramadol Adverse Reaction Intermediate STOMACH UPSET 10/03/20 Yes Physical Exam: PE: General: Awake, alert, NAD. Well Nourished, well hydrated. Cooperative HEENT: Atraumatic, EOMI, PERRL, airway patent, moist oral mucosa Neck: Supple, trachea midline Respiratory: CTA bilaterally, normal effort, no wheezing/crackles CV: RRR, no murmur, cap refill <2 GI: Soft, nondistended, nontender, no masses MSK: No obvious deformities Skin: Warm, dry, intact Neuro: A&O x3, speech NL, sensory and motor grossly intact, no focal deficits Psych: Normal affect, normal mood, not suicidal or homicidal Current Patient Data: Labs: Laboratory Tests Test 10/27/20 10:25 10/27/20 11:25 White Blood Count 7.5 x10^3/uL (4.0-11.0) Red Blood Count 4.36 x10^6/uL (3.50-5.40) Hemoglobin 12.0 g/dL (12.0-15.5) Hematocrit 37.2 % (36.0-47.0) Mean Corpuscular Volume 85 fL (79-100) Mean Corpuscular Hemoglobin 28 pg (25-35) Mean Corpuscular Hemoglobin Concent 32 g/dL (31-37) Red Cell Distribution Width 16.6 % (11.5-14.5) H Platelet Count 492 x10^3/uL (140-400) H Neutrophils (%) (Auto) 72 % (31-73) Lymphocytes (%) (Auto) 20 % (24-48) L Monocytes (%) (Auto) 7 % (0-9) Eosinophils (%) (Auto) 1 % (0-3) Basophils (%) (Auto) 1 % (0-3) Neutrophils # (Auto) 5.4 x10^3/uL (1.8-7.7) Lymphocytes # (Auto) 1.5 x10^3/uL (1.0-4.8) Monocytes # (Auto) 0.5 x10^3/uL (0.0-1.1) Eosinophils # (Auto) 0.0 x10^3/uL (0.0-0.7) Basophils # (Auto) 0.1 x10^3/uL (0.0-0.2) Sodium Level 144 mmol/L (136-145) Potassium Level 4.1 mmol/L (3.5-5.1) Chloride Level 105 mmol/L (98-107) Carbon Dioxide Level 31 mmol/L (21-32) Anion Gap 8 (6-14) Blood Urea Nitrogen 13 mg/dL (7-20) Creatinine 0.7 mg/dL (0.6-1.0) Estimated GFR (Cockcroft-Gault) 83.5 Glucose Level 116 mg/dL (70-99) H Calcium Level 9.5 mg/dL (8.5-10.1) Troponin I Quantitative < 0.017 ng/mL (0.000-0.055) Urine Collection Type Unknown Urine Color Yellow Urine Clarity Clear Urine pH 6.0 (<5.0-8.0) Urine Specific [place] 1.015 (1.000-1.030) Urine Protein Negative mg/dL (NEG-TRACE) Urine Glucose (UA) Negative mg/dL (NEG) Urine Ketones (Stick) Negative mg/dL (NEG) Urine Blood Moderate (NEG) Urine Nitrite Negative (NEG) Urine Bilirubin Negative (NEG) Urine Urobilinogen Dipstick 0.2 mg/dL (0.2 mg/dL) Urine Leukocyte Esterase Small (NEG) Urine RBC 11-20 /HPF (0-2) Urine WBC 1-4 /HPF (0-4) Urine Squamous Epithelial Cells Mod /LPF Urine Bacteria 0 /HPF (0-FEW) Urine Mucus Slight /LPF Laboratory Tests 10/27/20 10:25 Laboratory Tests 10/27/20 10:25 Vital Signs: Vital Signs Date Time Temp Pulse Resp B/P (MAP) Pulse Ox O2 Delivery O2 Flow Rate FiO2 10/27/20 14:01 88 168/79 (108) 94 Room Air 10/27/20 09:18 98.5 20 98.5 EKG: EKG: [] Heart Score: Risk Factors: Risk Factors: DM, Current or recent (<one month) smoker, HTN, HLP, family history of CAD, obesity. Risk Scores: Score 0 - 3: 2.5% MACE over next 6 weeks - Discharge Home Score 4 - 6: 20.3% MACE over next 6 weeks - Admit for Clinical Observation Score 7 - 10: 72.7% MACE over next 6 weeks - Early Invasive Strategies Radiology/Procedures: Radiology/Procedures: [] Course & Med Decision Making: Course & Med Decision Making Pertinent Labs and Imaging studies reviewed. (See chart for details) Patient is a 65-year-old female with a history of hypertension who presents to the emergency room complaining of generalized weakness and dizziness which is now resolved. History and exam are significant for recent fall. Patient does not have any signs of trauma. Given age and history differential for generalized weakness includes dehydration, electrolyte abnormalities, anemia, infection, arrhythmia, medication side effect, orthostatic. At this time CBC, BMP, EKG, UA, troponin, chest x-ray were ordered to evaluate for causes of weakness. Work-up is unremarkable. Patient was able to ambulate around the emergency room without difficulty. She is requesting food. Patient was able to eat without difficulty. There is no signs of trauma and she does not need a trauma evaluation. Patient's test results and vitals while in the ED were fully reviewed and discussed with the patient. Patient is stable and at this time does not need admission to the hospital. We have discussed strict return precautions and the importance of following up with their Primary Care Physician. Patient stated understanding and was given an opportunity to ask any questions. Patient is in agreement with plan. Dragon Disclaimer: Dragon Disclaimer: This electronic medical record was generated, in whole or in part, using a voice recognition dictation system. Departure Departure Impression: Primary Impression: Dizziness Disposition: 01 DC HOME SELF CARE/HOMELESS Condition: IMPROVED Referrals: SELVIN FARRELL APRN (PCP) Patient Instructions: Dizziness YON RONQUILLO MD Oct 27, 2020 09:58
--- NOTE | 2020-10-27 10:39 | RAD ---
PA and lateral chest. HISTORY: Dizziness PA and lateral views were taken of the chest. Comparison is made with a study from October 21. There is mild linear scarring or atelectasis in the left lung base. Heart is normal in size. There is no p leural effusion. There are no other new infiltrates. IMPRESSION: 1. Linear scarring or atelectasis left lung base. 2. No other infiltrates. Electronically signed by: Osorio Corrigan MD (10/27/2020 10:37 AM) [id number]
[2020-10-27 10:41] LABS: BASO # 0.1 x10^3/uL (0.0-0.2); BASO % 1 % (0-3); EOS % 1 % (0-3); HEMATOCRIT 37.2 % (36.0-47.0); LYMPH # 1.5 x10^3/uL (1.0-4.8); LYMPH % 20 % (24-48); MEAN CORPUSCULAR HEMOGLOBIN 28 pg (25-35); MEAN CORPUSCULAR HGB CONC 32 g/dL (31-37); MEAN CORPUSCULAR VOLUME 85 fL (79-100); MONO # 0.5 x10^3/uL (0.0-1.1); MONO % 7 % (0-9); NEUT # 5.4 x10^3/uL (1.8-7.7); NEUT % 72 % (31-73); PLATELET COUNT 492 x10^3/uL (140-400); RED BLOOD COUNT 4.36 x10^6/uL (3.50-5.40); RED CELL DISTRIBUTION WIDTH 16.6 % (11.5-14.5); WHITE BLOOD COUNT 7.5 x10^3/uL (4.0-11.0)
[2020-10-27 10:56] LABS: CALCIUM 9.5 mg/dL (8.5-10.1); CREATININE 0.7 mg/dL (0.6-1.0); GFR 83.5; POTASSIUM 4.1 mmol/L (3.5-5.1)
[2020-10-27 11:36] LABS: BILIRUBIN,URINE NEGATIVE (NEG); CLARITY,URINE CLEAR; COLOR,URINE YELLOW; NITRITE,URINE NEGATIVE (NEG); PROTEIN,URINE NEGATIVE (NEG-TRACE); UROBILINOGEN,URINE 0.2 mg/dL (0.2 mg/dL)
[2020-10-27 11:49] LABS: BACTERIA,URINE 0 /HPF (0-FEW)
--- NOTE | 2020-10-27 13:26 | EKG ---
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
[2020-10-27 14:01] VITALS: BP 168/79
== END 2020-10-27 14:56 | disposition home or self-care (01) ==
LOC: ER 09:00
DX: R42 Dizziness and giddiness (principal); F31.9 Bipolar disorder, unspecified; E11.40 Type 2 diabetes mellitus with diabetic neuropathy, unspecified; E78.00 Pure hypercholesterolemia, unspecified; I10 Essential (primary) hypertension; Z87.891 Personal history of nicotine dependence; Z90.49 Acquired absence of other specified parts of digestive tract; Z88.1 Allergy status to other antibiotic agents; Z88.6 Allergy status to analgesic agent; Z88.8 Allergy status to other drugs, medicaments and biological substances
CPT/HCPCS: 36415; 71046; 80048; 81001; 84484; 85025; 93005; 99285-25

== ENCOUNTER 2021-06-09 20:48 | Emergency (ER) | payer OTHER ==
[~2021-06-09] VITALS: Ht 157.5 cm; Wt 83.0 kg
[~2021-06-09 20:48] MED LIST changes: -ACYC800T PO; +ACYC800T88 PO; +POTA-121 PO; -POTA20TA4 PO; -TOLT4CAP12 PO; +TOLT4CAP26 PO
[2021-06-09] MEDS ORDERED: MECLIZINE HCL 12.5 MG TABLET. PO ONE (21:00)
--- NOTE | 2021-06-09 21:03 | PHYS DOC ---
Past Medical History Past Medical History: Arthritis, Bipolar, Cancer, Diabetes-Type II, High Cholesterol, Hypertension Additional Past Medical Histor: shingles,urine incont, sciatica, renal cell carcinoma, NEUROPATHY,LOW KCL Past Surgical History: Cholecystectomy Additional Past Surgical Histo: R kidney tumor removed, R ovary removal,small bowel resection/ CYST, catara Smoking Status: Former Smoker Alcohol Use: Sober Drug Use: None General Adult EDM: Chief Complaint: SYNCOPE HPI: HPI: 85-year-old female presents the emergency department complaining of vertigo symptoms including room spinning dizziness for the last several hours. She reports that the symptoms developed gradually, they are not associated with any weakness or loss of sensation. She has had symptoms like this before that resolved with medication. She notes that she was eating fruit when the symptoms started. The patient admits to mild nausea, denies vomiting, fever, chills, chest pain, shortness of breath, abdominal pain, urinary symptoms, cough, recent trauma, or any other complaints. Review of Systems: Review of Systems: ROS is otherwise negative except for what was mentioned in the HPI Heart Score: C/O Chest Pain: No Allergies: Allergies: Allergies Coded Allergies Type Severity Reaction Last Updated Verified aspirin Allergy Intermediate "messes with my stomach" 10/03/20 Yes omega-3 acid ethyl esters Allergy Intermediate bleeding 10/03/20 Yes levofloxacin Allergy Unknown 10/12/20 Yes tramadol Adverse Reaction Intermediate STOMACH UPSET 10/03/20 Yes Physical Exam: PE: General: Alert and oriented, No acute distress. Eye: Pupils are equal, round and reactive to light, Extraocular movements are intact, Normal conjunctiva. HEENT: Oral mucosa is moist, Normocephalic, Atraumatic. Neck: Supple, Non-tender. Respiratory: Respirations are non-labored, symmetrical expansion Cardiovascular: Normal rate, Good pulses equal in all extremities, Normal peripheral perfusion. Capillary refill: Less than 2 seconds. Integumentary: Warm, Dry, Intact, No pallor. Neurologic: Orientation: The patient is alert and oriented to person, place, time, and situation. Following commands, speech is fluent, intact comprehension. Cranial Nerves: 2nd: normal; Visual mathews are full to confrontation. Pupils are equal, round and reactive to light and accommodation. 3rd, 4th & 6th: Extraocular movements are intact without nystagmus. 5th: normal; intact muscles of mastication. Intact to light touch. 7th: normal; no facial asymmetry 8th: normal 9th and 10th: normal; Uvula midline. 11th: normal; Shoulder shrug is symmetric 12th: normal; tongue is midline. Strength: Motor strength is 5/5 in the upper and lower extremities bilaterally. Normal bulk and tone in all four limbs without any evidence of an arm drift. Sensory: Intact to light touch in upper extremities and lower extremities bilaterally. Psychiatric: Cooperative, Appropriate mood & affect. Current Patient Data: Labs: Laboratory Tests Test 06/09/21 20:55 06/09/21 21:45 White Blood Count 10.3 x10^3/uL (4.0-11.0) Red Blood Count 4.11 x10^6/uL (3.50-5.40) Hemoglobin 10.2 g/dL (12.0-15.5) Hematocrit 32.2 % (36.0-47.0) Mean Corpuscular Volume 78 fL (79-100) Mean Corpuscular Hemoglobin 25 pg (25-35) Mean Corpuscular Hemoglobin Concent 32 g/dL (31-37) Red Cell Distribution Width 18.3 % (11.5-14.5) Platelet Count 387 x10^3/uL (140-400) Neutrophils (%) (Auto) 75 % (31-73) Lymphocytes (%) (Auto) 17 % (24-48) Monocytes (%) (Auto) 7 % (0-9) Eosinophils (%) (Auto) 0 % (0-3) Basophils (%) (Auto) 1 % (0-3) Neutrophils # (Auto) 7.7 x10^3/uL (1.8-7.7) Lymphocytes # (Auto) 1.8 x10^3/uL (1.0-4.8) Monocytes # (Auto) 0.7 x10^3/uL (0.0-1.1) Eosinophils # (Auto) 0.0 x10^3/uL (0.0-0.7) Basophils # (Auto) 0.1 x10^3/uL (0.0-0.2) Sodium Level 141 mmol/L (136-145) Potassium Level 4.5 mmol/L (3.5-5.1) Chloride Level 104 mmol/L (98-107) Carbon Dioxide Level 25 mmol/L (21-32) Anion Gap 12 (6-14) Blood Urea Nitrogen 16 mg/dL (7-20) Creatinine 1.0 mg/dL (0.6-1.0) Estimated GFR (Cockcroft-Gault) 55.3 Glucose Level 97 mg/dL (70-99) Calcium Level 9.2 mg/dL (8.5-10.1) Troponin I Quantitative < 0.017 ng/mL (0.000-0.055) EY-Ixy-S-Type Natriuretic Peptide 175 pg/mL (0-124) Vital Signs: Vital Signs Date Time Temp Pulse Resp B/P (MAP) Pulse Ox O2 Delivery O2 Flow Rate FiO2 06/09/21 21:06 98.1 80 20 106/52 (70) 96 Room Air 98.1 EKG: EKG: Time read: 2106 Normal sinus rhythm rate of 80, no ST-T wave changes, no ectopic beats, left axis deviation, normal NM, QRS, and QTc intervals. Impression: Normal EKG. interpreted by meRj D.O. Radiology/Procedures: Radiology/Procedures: PROCEDURE: CT HEAD WO CONTRAST EXAM: CT Head without IV contrast CLINICAL HISTORY: Reason: dizziness / Spl. Instructions: / History: COMPARISON: None. TECHNIQUE: Routine CT of the head without contrast. PQRS compliance statement - One or more of the following individualized dose reduction techniques were utilized for this study: 1. Automated exposure control 2. Adjustment of the mA and/or kV according to patient size 3. Use of iterative reconstruction technique FINDINGS: There is no evidence of hemorrhage, mass or extra-axial fluid collection. Raymond-white differentiation is maintained with no evidence of edema. There is no mass effect or shift of the intracranial structures. The ventricles, basilar cisterns and cortical sulci are normal in size and configuration for the patients stated age. The cerebellum and brainstem are unremarkable. The calvarium demonstrates no evidence of fracture or focal lesion. There is normal aeration of the visualized paranasal sinuses and mastoid air cells. The visualized portions of the orbits are normal. IMPRESSION: No evidence for acute intracranial process. Electronically signed by: Brock Bermudez MD (06/09/2021 9:36 PM) PROCEDURE: CHEST AP ONLY EXAM: AP View of the chest DATE: 06/09/2021 9:07 PM INDICATION: Reason: dizziness / Spl. Instructions: / History: COMPARISON: No Prior FINDINGS: Aorta is tortuous. The heart is not enlarged. Mediastinal and hilar contours are normal. Linear opacities left lung base likely scarring/atelectasis. No pleural effusion or pneumothorax. IMPRESSION: Linear opacities left lung base likely scarring/atelectasis. Electronically signed by: Brock Bermudez MD (06/09/2021 9:49 PM) Course & Med Decision Making: Course & Med Decision Making Patient's symptoms were completely resolved by meclizine. Her labs and imaging are reassuring. She states that she feels all the way better and is comfortable with the plan for discharge home. There is no sign of neurological deficit on exam. She looks and appears well. My Orders - RJ WALLIS DO Procedure Category Date Status Time Cbc W Autodiff LAB 06/09/21 Complete 21:00 Chest Ap Only RAD 06/09/21 Resulted 21:00 Ct Head Wo Contrast CT 06/09/21 Resulted 21:00 Meclizine Hcl PHA 06/09/21 Complete (Antivert) 21:00 Basic Metabolic Panel LAB 06/09/21 Complete 21:18 Nt-Pro Bnp LAB 06/09/21 Complete 21:18 Troponini LAB 06/09/21 Complete 21:18 Departure Departure Impression: Primary Impression: Vertigo Disposition: 01 HOME / SELF CARE / HOMELESS Condition: IMPROVED Referrals: SELVIN FARRELL APRN (PCP) Patient Instructions: Vertigo, [id number] Additional Instructions: You were seen in the emergency department and your health condition was deemed not to require admission to the hospital. It is important to realize that we can only evaluate you during the time that you are in her department. Occasionally health conditions can worsen upon leaving the emergency department. If this were to happen, please return to and allow us the opportunity to reevaluate you. It is a pleasure to take care of your health needs. Return to the ER if your symptoms worsen, do not improve, or if you develop additional symptoms that are concerning to you Scripts Meclizine Hcl (MECLIZINE HCL) 25 Mg Tablet 1 TAB PO TID for dizziness, #20 TAB Prov: RJ WALLIS DO 06/09/21 RJ WALLIS DO Jun 09, 2021 21:03
[2021-06-09 21:06] VITALS: BP 106/52
[2021-06-09 21:09] LABS: BASO # 0.1 x10^3/uL (0.0-0.2); BASO % 1 % (0-3); EOS % 0 % (0-3); HEMATOCRIT 32.2 % (36.0-47.0); HEMOGLOBIN 10.2 g/dL (12.0-15.5); LYMPH # 1.8 x10^3/uL (1.0-4.8); LYMPH % 17 % (24-48); MEAN CORPUSCULAR HEMOGLOBIN 25 pg (25-35); MEAN CORPUSCULAR HGB CONC 32 g/dL (31-37); MEAN CORPUSCULAR VOLUME 78 fL (79-100); MONO # 0.7 x10^3/uL (0.0-1.1); MONO % 7 % (0-9); NEUT # 7.7 x10^3/uL (1.8-7.7); NEUT % 75 % (31-73); PLATELET COUNT 387 x10^3/uL (140-400); RED BLOOD COUNT 4.11 x10^6/uL (3.50-5.40); RED CELL DISTRIBUTION WIDTH 18.3 % (11.5-14.5); WHITE BLOOD COUNT 10.3 x10^3/uL (4.0-11.0)
--- NOTE | 2021-06-09 21:39 | RAD ---
EXAM: CT Head without IV contrast CLINICAL HISTORY: Reason: dizziness / Spl. Instructions: / History: COMPARISON: None. TECHNIQUE: Routine CT of the head without contrast. PQRS compliance statement - One or more of the following individualized dose reduction techniques wer e utilized for this study: 1. Automated exposure control 2. Adjustment of the mA and/or kV according to patient size 3. Use of iterative reconstruction technique FINDINGS: There is no evidence of hemorrhage, mass or extra-axial fluid collection. Raymond-white differentiation is maintained with no evidence of edema. There is no mass effect or shift of the intracranial structures. The ventricles, basilar cisterns and cortical sulci are normal in size and configuration for the deirdre ents stated age. The cerebellum and brainstem are unremarkable. The calvarium demonstrates no evidence of fracture or focal lesion. There is normal aeration of the visualized paranasal sinuses and mastoid air cells. The visualized portions of the orbits are normal. IMPRESSION: No evidence for acute intracranial process. Electronically signed by: Brock Bermudez MD (06/09/2021 9:36 PM) JUWAN
--- NOTE | 2021-06-09 21:52 | RAD ---
EXAM: AP View of the chest DATE: 06/09/2021 9:07 PM INDICATION: Reason: dizziness / Spl. Instructions: / History: COMPARISON: No Prior FINDINGS: Aorta is tortuous. The heart is not enlarged. Mediastinal and hilar contours are normal. Linear opacities left lung base likely scarring/atelectasis. No pleural effusion or pneumothorax. IMPRESSION: Linear opacities left lung base likely scarring/atelectasis. Electronically signed by: Brock Bermudez MD (06/09/2021 9:49 PM) JUWAN
[2021-06-09 22:03] LABS: CALCIUM 9.2 mg/dL (8.5-10.1); GFR 55.3; POTASSIUM 4.5 mmol/L (3.5-5.1)
[2021-06-09] MEDS ORDERED: MECL-75 PO (23:12)
== END 2021-06-09 23:26 | disposition home or self-care (01) ==
LOC: ER 20:48
DX: R42 Dizziness and giddiness (principal); F31.9 Bipolar disorder, unspecified; E78.00 Pure hypercholesterolemia, unspecified; I10 Essential (primary) hypertension; E11.40 Type 2 diabetes mellitus with diabetic neuropathy, unspecified; Z87.891 Personal history of nicotine dependence; Z90.49 Acquired absence of other specified parts of digestive tract; Z88.6 Allergy status to analgesic agent; Z88.1 Allergy status to other antibiotic agents; Z88.8 Allergy status to other drugs, medicaments and biological substances
CPT/HCPCS: 36415; 70450; 71045; 80048; 83880; 84484; 85025; 99285; J8597

== ENCOUNTER 2021-12-01 00:10 | Observation (INO) | payer MEDICARE, OTHER ==
[~2021-12-01] VITALS: Ht 157.5 cm; Wt 80.6 kg
[~2021-12-01 00:10] MED LIST changes: -LEVO500T8 PO; +LEVO500T9 PO; -LISI1TAB23 PO; +LISI1TAB35 PO; +MECL-75 PO
[2021-12-01 00:51] LABS: BASO # 0.1 x10^3/uL (0.0-0.2); BASO % 1 % (0-3); EOS # 0.3 x10^3/uL (0.0-0.7); EOS % 4 % (0-3); HEMATOCRIT 27.5 % (36.0-47.0); HEMOGLOBIN 8.4 g/dL (12.0-15.5); LYMPH # 2.9 x10^3/uL (1.0-4.8); LYMPH % 32 % (24-48); MEAN CORPUSCULAR HEMOGLOBIN 23 pg (25-35); MEAN CORPUSCULAR HGB CONC 31 g/dL (31-37); MEAN CORPUSCULAR VOLUME 75 fL (79-100); MONO # 0.9 x10^3/uL (0.0-1.1); MONO % 9 % (0-9); NEUT % 54 % (31-73); PLATELET COUNT 374 x10^3/uL (140-400); RED BLOOD COUNT 3.67 x10^6/uL (3.50-5.40); RED CELL DISTRIBUTION WIDTH 16.9 % (11.5-14.5); WHITE BLOOD COUNT 9.2 x10^3/uL (4.0-11.0)
[2021-12-01 01:01] LABS: CALCIUM 8.9 mg/dL (8.5-10.1); CREATININE 0.8 mg/dL (0.6-1.0); GFR 71.3; POTASSIUM 4.2 mmol/L (3.5-5.1)
[2021-12-01 01:32] LABS: ANISOCYTOSIS MOD; MICROCYTOSIS SLIGHT; PLT ESTIMATE ADEQUATE (ADEQUATE)
[2021-12-01 01:33] LABS: OVALOCYTES OCC; POIKILOCYTOSIS SLIGHT
[2021-12-01 01:34] LABS: SCHISTOCYTES OCC
--- NOTE | 2021-12-01 02:13 | RAD ---
EXAM: XR CHEST 1V 12/01/2021 12:45 AM CLINICAL INDICATION: Chest pain COMPARISON: Chest radiograph 06/09/2021 TECHNIQUE: AP upright view of the chest FINDINGS: The heart is normal in size. The lungs are adequately expanded. Unchanged chronic scarring or atelectasis in the left lung base. No consolidation, pleural effusion, or pneumothorax. IMPRESSION: Unchanged chronic scarring or atelectasis in the left lung base. No acute abnormality. Electronically signed by: Alyson Herrmann MD (12/01/2021 2:10 AM) DANIEL
--- NOTE | 2021-12-01 04:13 | PHYS DOC ---
Past Medical History Past Medical History: Arthritis, Bipolar, Cancer, Diabetes-Type II, High Cholesterol, Hypertension Additional Past Medical Histor: shingles,urine incont, sciatica, renal cell carcinoma, NEUROPATHY,LOW KCL Past Surgical History: Cholecystectomy, Other Additional Past Surgical Histo: R kidney tumor removed, R ovary removal,small bowel resection/ CYST, catara Smoking Status: Never Smoker Alcohol Use: None Drug Use: None General Adult EDM: Chief Complaint: CHEST PAIN HPI: HPI: Patient is a 66 year old female who presents with chest pain. She has a history of hypertension, hyperlipidemia and type 2 diabetes. History of angina remotely in the past. Does not recall last stress test. Chest pain is intermittent today and feels like someone is sitting on her chest. Denies any radiation of the pain. No vomiting or diarrhea. No fever or chills. Has not seen a flying shear operator in some time. Pain is not worse with breathing. No known aggravating or relieving factors at this time. Patient is allergic to aspirin. Review of Systems: Review of Systems: Constitutional: Denies fever or chills. [] Eyes: Denies change in visual acuity. [] HENT: Denies nasal congestion or sore throat. [] Respiratory: Denies cough or shortness of breath. [] Cardiovascular: Positive for chest pain GI: Denies abdominal pain, nausea, vomiting, bloody stools or diarrhea. [] : Denies dysuria. [] Musculoskeletal: Denies back pain or joint pain. [] Integument: Denies rash. [] Neurologic: Denies headache, focal weakness or sensory changes. [] Endocrine: Denies polyuria or polydipsia. [] Lymphatic: Denies swollen glands. [] Psychiatric: Denies depression or anxiety. [] Heart Score: C/O Chest Pain: Yes HEART Score for Chest Pain: HEART Score for Chest Pain Response (Comments) Value History Moderately Suspicious 1 ECG Normal 0 Age > 65 2 Risk Factors >3 Risk Factors or Hx CAD 2 Troponin < Normal Limit 0 Total 5 Risk Factors: Risk Factors: DM, Current or recent (<one month) smoker, HTN, HLP, family history of CAD, obesity. Risk Scores: Score 0 - 3: 2.5% MACE over next 6 weeks - Discharge Home Score 4 - 6: 20.3% MACE over next 6 weeks - Admit for Clinical Observation Score 7 - 10: 72.7% MACE over next 6 weeks - Early Invasive Strategies Allergies: Allergies: Allergies Coded Allergies Type Severity Reaction Last Updated Verified aspirin Allergy Intermediate "messes with my stomach" 10/03/20 Yes omega-3 acid ethyl esters Allergy Intermediate bleeding 10/03/20 Yes levofloxacin Allergy Unknown 10/12/20 Yes tramadol Adverse Reaction Intermediate STOMACH UPSET 10/03/20 Yes Physical Exam: PE: Constitutional: Well developed, well nourished, no acute distress, non-toxic appearance. [] HENT: Normocephalic, atraumatic, bilateral external ears normal, oropharynx moist, no oral exudates, nose normal. [] Eyes: PERRLA, EOMI, conjunctiva normal, no discharge. [] Neck: Normal range of motion, no tenderness, supple, no stridor. [] Cardiovascular:Heart rate regular rhythm, no murmur [] Lungs & Thorax: Bilateral breath sounds clear to auscultation [] Abdomen: Bowel sounds normal, soft, no tenderness, no masses, no pulsatile masses. [] Skin: Warm, dry, no erythema, no rash. [] Back: No tenderness, no CVA tenderness. [] Extremities: No tenderness, no cyanosis, no clubbing, ROM intact, no edema. [] Neurologic: Alert and oriented X 3, normal motor function, normal sensory function, no focal deficits noted. [] Psychologic: Affect normal, judgement normal, mood normal. [] Current Patient Data: Labs: Laboratory Tests Test 12/01/21 00:10 White Blood Count 9.2 x10^3/uL (4.0-11.0) Red Blood Count 3.67 x10^6/uL (3.50-5.40) Hemoglobin 8.4 g/dL (12.0-15.5) L Hematocrit 27.5 % (36.0-47.0) L Mean Corpuscular Volume 75 fL (79-100) L Mean Corpuscular Hemoglobin 23 pg (25-35) L Mean Corpuscular Hemoglobin Concent 31 g/dL (31-37) Red Cell Distribution Width 16.9 % (11.5-14.5) H Platelet Count 374 x10^3/uL (140-400) Neutrophils (%) (Auto) 54 % (31-73) Lymphocytes (%) (Auto) 32 % (24-48) Monocytes (%) (Auto) 9 % (0-9) Eosinophils (%) (Auto) 4 % (0-3) H Basophils (%) (Auto) 1 % (0-3) Neutrophils # (Auto) 5.0 x10^3/uL (1.8-7.7) Lymphocytes # (Auto) 2.9 x10^3/uL (1.0-4.8) Monocytes # (Auto) 0.9 x10^3/uL (0.0-1.1) Eosinophils # (Auto) 0.3 x10^3/uL (0.0-0.7) Basophils # (Auto) 0.1 x10^3/uL (0.0-0.2) Platelet Estimate Adequate (ADEQUATE) Poikilocytosis Slight Anisocytosis Mod Microcytosis Slight Ovalocytes Occ Schistocytes Occ Sodium Level 137 mmol/L (136-145) Potassium Level 4.2 mmol/L (3.5-5.1) Chloride Level 103 mmol/L (98-107) Carbon Dioxide Level 28 mmol/L (21-32) Anion Gap 6 (6-14) Blood Urea Nitrogen 19 mg/dL (7-20) Creatinine 0.8 mg/dL (0.6-1.0) Estimated GFR (Cockcroft-Gault) 71.3 Glucose Level 109 mg/dL (70-99) H Calcium Level 8.9 mg/dL (8.5-10.1) Troponin I High Sensitivity 6 ng/L (4-50) Laboratory Tests 12/01/21 00:10 Laboratory Tests 12/01/21 00:10 Vital Signs: Vital Signs Date Time Temp Pulse Resp B/P (MAP) Pulse Ox O2 Delivery O2 Flow Rate FiO2 12/01/21 02:00 70 17 142/70 (94) 96 Room Air 12/01/21 01:10 98.0 98.0 EKG: EKG: [] Radiology/Procedures: Radiology/Procedures: [] Course & Med Decision Making: Course & Med Decision Making Pertinent Labs and Imaging studies reviewed. (See chart for details) EKG and troponin are unremarkable. Patient is allergic to aspirin. Given her story and her risk factors I will keep her for a stress test inpatient. Dragon Disclaimer: Dragon Disclaimer: This electronic medical record was generated, in whole or in part, using a voice recognition dictation system. Departure Departure Impression: Primary Impression: Chest pain Disposition: ADMITTED INPATIENT Condition: STABLE Referrals: SELVIN FARRELL APRN (PCP) QUAN CALDERON MD Dec 01, 2021 04:13
[2021-12-01] MEDS ORDERED: OMEP20CA16 PO (08:48)
[2021-12-01 11:00] VITALS: BP 143/72
[2021-12-01] MEDS ORDERED: NITROGLYCERIN SUBLINGUAL 0.4 MG BOTTLE OF 25. SL PRN (11:30)
[2021-12-01] MEDS ORDERED: POLYETHYLENE GLYCOL 3350 17 GM PACKET. PO PRN (11:30)
[2021-12-01] MEDS ORDERED: IBUPROFEN 400 MG TABLET. PO PRN (11:30)
[2021-12-01] MEDS ORDERED: NON FORMULARY ITEM (Albuterol Sulfate (Proair Respiclick) 1 PUFF) IH PRN (11:30)
--- NOTE | 2021-12-01 11:44 | HP ---
DATE OF SERVICE: 12/01/2021 ADMIT DATE: 12/01/2021 CHIEF COMPLAINT: Chest pain. HISTORY OF PRESENT ILLNESS: The patient is a pleasant 66-year-old female who lives at [facility] in her own apartment by herself. She states she has chest pain. She denies having any previous heart problems, but she has a prescription for p.r.n. nitroglycerin. I discussed the case with ER physician. We are going to admit the patient and consult Cardiology. PAST MEDICAL HISTORY: 1. Chronic angina and she apparently takes nitro for that, but she states the bottle . 2. Polypharmacy, she is on 19 medications. 3. Allergic rhinitis, asthma, hyperlipidemia, hypertension, arthritis, neuropathy, depression, anxiety, diabetes, GERD, incontinence, muscle spasms. ALLERGIES: ASPIRIN, LEVAQUIN, OMEGA 3 FATTY ACIDS AND ULTRAM. FAMILY HISTORY: Coronary artery disease. SOCIAL HISTORY: She is retired. She does not drink, smoke or take drugs. [facility] [place] [facility] MEDICATIONS: Reviewed. She is on 19. Please refer to the MRAD. REVIEW OF SYSTEMS: GENERAL: No history of weight change, weakness or fevers. SKIN: No bruising, hair changes or rashes. EYES: No blurred, double or loss of vision. NOSE AND THROAT: No history of nosebleeds, hoarseness or sore throat. HEART: No history of palpitations, chest pain or shortness of breath on exertion. LUNGS: Denies cough, hemoptysis, wheezing or shortness of breath. GASTROINTESTINAL: Denies changes in appetite, nausea, vomiting, diarrhea or constipation. GENITOURINARY: No history of frequency, urgency, hesitancy or nocturia. NEUROLOGIC: Denies history of numbness, tingling, tremor or weakness. PSYCHIATRIC: No history of panic, anxiety or depression. ENDOCRINE: No history of heat or cold intolerance, polyuria or polydipsia. EXTREMITIES: Denies muscle weakness, joint pain, pain on walking or stiffness. PHYSICAL EXAMINATION: VITALS: Within normal limits and are stable. GENERAL: No apparent distress. Alert and oriented. HEENT: Normal cephalic atraumatic, external auditory canals are patent. EYES: Extraocular muscles are intact, pupils are equally round and reactive to light and accommodation. MUSCULOSKELETAL: Well developed, well nourished, good range of motion. ENDOCRINE: No thyromegaly was palpated. LYMPHATICS: No cervical chain or axillary nodes were noted. HEMATOPOIETIC: No bruising. NECK: Supple, no JVD, no thyromegaly was noted. LUNGS: Clear to auscultation in all lung mathews without rhonchi or wheezing. HEART: RRR, S1, S2 present. Peripheral pulses intact, no obvious murmurs were noted. ABDOMEN: Soft, nontender. Positive bowel sounds no organomegaly, normal bowel sounds. EXTREMITIES: Without any cyanosis, clubbing, or edema. Pedal pulses intact, Homans sign is negative. NEUROLOGIC: Normal speech, normal tone. A and O x 3, moves all extremities, no obvious focal deficits. PSYCHIATRIC: Normal affect, normal mood. Stable. SKIN: No ulcerations or rashes, good skin turgor, no jaundice. VASCULAR: Good capillary refill, neurovascular bundle appears to be intact. ASSESSMENT AND PLAN: Chest pain, rule out coronary artery disease. The patient has been admitted. We are checking serial enzymes, serial EKGs. Consult Cardiology. Cardiac monitoring, home meds, deep vein thrombosis prophylaxis. Full code. TOÑO/YOLI DR: Ruben TID: [id number]
[2021-12-01] MEDS ORDERED: ALBUTEROL SULFATE 2.5 MG/3 ML NEBU. NEB PRN (12:00)
[2021-12-01] MEDS: LISINOPRIL 20 MG TABLET PO SCH (12:34)
[2021-12-01] MEDS: ASPIRIN ENTERIC COATED 81 MG TABLET.DR. PO SCH (12:34)
[2021-12-01] MEDS: PANTOPRAZOLE 40 MG TABLET.DR. PO SCH (12:34)
[2021-12-01] MEDS: OXYBUTYNIN CHLORIDE 5 MG TABLET PO SCH ×2 (12:34→20:59)
[2021-12-01] MEDS: ARIPiprazole 5 MG TABLET PO SCH (12:34)
[2021-12-01] MEDS: MECLIZINE HCL 12.5 MG TABLET. PO SCH ×2 (14:12→20:59)
[2021-12-01] MEDS: BACLOFEN 10 MG TABLET. PO SCH ×2 (14:13→20:59)
[2021-12-01] MEDS: GABAPENTIN 300 MG CAPSULE. PO SCH ×2 (14:13→20:59)
--- NOTE | 2021-12-01 14:21 | PDOC2 ---
CONSULT Date of Consult Date of Consult DATE: 12/01/21 TIME: 14:02 Reason for Consult Reason for Consult: Chest pain Referring Physician Referring Physician: Dr. Negrete Identification/Chief Complaint Chief Complaint Chest pain Source Source: Chart review, Patient History of Present Illness Reason for Visit: 66-year-old female presented stating that she had an episode of retrosternal chest pressure that felt like "somebody sitting on my chest" associated with mild shortness of breath. This resolved spontaneously. She apparently had another similar episode few days ago. She denied any aggravating or relieving factors. She denied any orthopnea/PND, palpitations or syncope. She was apparently given nitroglycerin to take as needed in the past but stated that her prescription has . She denied any prior stress test or cardiac catheterization. Past Medical History Cardiovascular: HTN, Hyperlipidemia Pulmonary: Pulmonary embolus CENTRAL NERVOUS SYSTEM: Periperal neuropathy GI: GERD, Hemorrhoids, Other Heme/Onc: Cancer Hepatobiliary: Other Psych: Addictions, Bipolar Musculoskeletal: low back pain, Osteoarthritis, Other Rheumatologic: Fibromyalgia Infectious disease: Herpes zoster Renal/: UTI, Renal Ca., Urinary Incontinence Endocrine: Diabetes Past Surgical History Past Surgical History: Cholecystectomy, Tubal Ligation, Other Family History Family History: Diabetes, Hypertension Social History ALCOHOL: none Drugs: None Lives: with Family Domestic Violence: Neg Current Problem List Problem List Problems Medical Problems: (1) Chest pain Status: Acute Current Medications Current Medications Current Medications Aripiprazole (Abilify) 10 mg DAILY PO Last administered on 12/01/21at 12:34; Start 12/01/21 at 12:30 Aspirin (Ecotrin) 81 mg DAILY PO Last administered on 12/01/21at 12:34; Start 12/01/21 at 12:30 Atorvastatin Calcium (Lipitor) 80 mg QHS PO ; Start 12/01/21 at 21:00 Baclofen (Lioresal) 10 mg TID PO ; Start 12/01/21 at 14:00 Cetirizine HCl (ZyrTEC) 10 mg QHS PO ; Start 12/01/21 at 21:00 Gabapentin (Neurontin) 300 mg TID PO ; Start 12/01/21 at 14:00 Lisinopril (Prinivil) 30 mg DAILY PO Last administered on 12/01/21at 12:34; Start 12/01/21 at 12:30 Nitroglycerin (Nitrostat) 0.4 mg PRN Q5MIN PRN SL CHEST PAIN; Start 12/01/21 at 11:30 Non-Formulary Medication (Albuterol Sulfate (Proair Respiclick)) 1 puff PRN Q6HRS PRN IH SHORTNESS OF BREATH; Start 12/01/21 at 11:30; Status UNV Non-Formulary Medication (Fluticasone Propionate (Flovent 220MCG Hfa)) 12 gm BID IH ; Start 12/01/21 at 21:00; Status UNV Ibuprofen (Motrin) 800 mg PRN Q8HRS PRN PO PAIN; Start 12/01/21 at 11:30 Non-Formulary Medication (Inulin (Fiber Gummies)) 2 tab DAILY PO ; Start 12/02/21 at 09:00; Status UNV Meclizine HCl (Antivert) 25 mg TID PO ; Start 12/01/21 at 14:00 Pantoprazole Sodium (Protonix) 40 mg DAILYAC PO Last administered on 12/01/21at 12:34; Start 12/01/21 at 12:30 Oxybutynin Chloride (Ditropan) 2.5 mg BID PO Last administered on 12/01/21at 12:34; Start 12/01/21 at 12:30 Polyethylene Glycol (miraLAX PACKET) 17 gm PRN DAILY PRN PO CONSTIPATION; Start 12/01/21 at 11:30 Albuterol Sulfate (Ventolin Neb Soln) 2.5 mg PRN Q6HRS PRN NEB SHORTNESS OF BREATH; Start 12/01/21 at 12:00 Budesonide (Pulmicort) 0.5 mg RTBID NEB ; Start 12/01/21 at 12:30 Active Scripts Active Meclizine Hcl 25 Mg Tablet 1 Tab PO TID Nitrostat (Nitroglycerin) 0.4 Mg Tab.subl 0.4 Mg SL PRN Q5MIN PRN 30 Days Proair Respiclick (Albuterol Sulfate) 90 Mcg Aer.pow.ba 1 Puff IH PRN Q6HRS PRN Reported Omeprazole 20 Mg Capsule.dr 1 Cap PO DAILY Lisinopril 20 Mg Tablet 30 Mg PO DAILY Ibuprofen 800 Mg Tablet 800 Mg PO Q8HRS PRN Fiber Gummies (Inulin) 2 Gm Tab.chew 2 Tab PO DAILY 30 Days Abilify (Aripiprazole) 5 Mg Tablet 10 Mg PO DAILY Metformin Hcl 1,000 Mg Tablet 1,000 Mg PO BIDWMEALS [Beano] PO PRN PRN Ditropan Xl (Oxybutynin Chloride) 5 Mg Tab.er.24 1 Tab PO DAILY Aspir 81 (Aspirin) 81 Mg Tablet.dr 1 Tab PO DAILY Zyrtec (Cetirizine Hcl) 10 Mg Tablet 1 Tab PO QHS Gabapentin (Gabapentin) 300 Mg Capsule 300 Mg PO TID Baclofen 10 Mg Tablet 1 Tab PO TID Freestyle Lite Strips (Blood Sugar Diagnostic) 1 Each Strip 1 Each MC Atorvastatin Calcium 40 Mg Tablet 80 Mg PO DAILY Polyethylene Glycol (Polyethylene Glycol 8000) 500 Gm Powder 500 Gm MC DAILY PRN Flovent 220MCG Hfa (Fluticasone Propionate) 12 Gm Aer.w.adap 12 Gm IH BID Allergies Allergies: Coded Allergies: aspirin (Verified Allergy, Intermediate, "messes with my stomach", 10/03/20) omega-3 acid ethyl esters (Verified Allergy, Intermediate, bleeding, 10/03/20) levofloxacin (Verified Allergy, Unknown, 10/12/20) "HEART RACES" tramadol (Verified Adverse Reaction, Intermediate, STOMACH UPSET, 10/03/20) ROS PSYCHOLOGICAL ROS: No: Hallucinations Eyes: No Loss of vision HEENT: No: Epistaxis Respiratory: YES: Shortness of breath; No: Hemoptysis Cardiovascular: yes Chest Pain Gastrointestinal: No Vomiting, No Diarrhea Genitourinary: No Hematuria Neurological: No Seizures Skin: No Rash Physical Exam General: Alert, Oriented X3 HEENT: Atraumatic Lungs: Clear to auscultation Heart: Regular rate, Other (ESM aortic) Abdomen: Soft Extremities: No edema Neuro: Normal speech Psych/Mental Status: Mood NL Vitals VITALS Vital Signs Date Time Temp Pulse Resp B/P (MAP) Pulse Ox O2 Delivery O2 Flow Rate FiO2 12/01/21 12:34 70 137/63 12/01/21 11:00 97.8 18 96 Room Air 97.8 Labs Labs Laboratory Tests Test 12/01/21 00:10 12/01/21 07:47 12/01/21 12:16 White Blood Count 9.2 x10^3/uL (4.0-11.0) Red Blood Count 3.67 x10^6/uL (3.50-5.40) Hemoglobin 8.4 g/dL (12.0-15.5) Hematocrit 27.5 % (36.0-47.0) Mean Corpuscular Volume 75 fL (79-100) Mean Corpuscular Hemoglobin 23 pg (25-35) Mean Corpuscular Hemoglobin Concent 31 g/dL (31-37) Red Cell Distribution Width 16.9 % (11.5-14.5) Platelet Count 374 x10^3/uL (140-400) Neutrophils (%) (Auto) 54 % (31-73) Lymphocytes (%) (Auto) 32 % (24-48) Monocytes (%) (Auto) 9 % (0-9) Eosinophils (%) (Auto) 4 % (0-3) Basophils (%) (Auto) 1 % (0-3) Neutrophils # (Auto) 5.0 x10^3/uL (1.8-7.7) Lymphocytes # (Auto) 2.9 x10^3/uL (1.0-4.8) Monocytes # (Auto) 0.9 x10^3/uL (0.0-1.1) Eosinophils # (Auto) 0.3 x10^3/uL (0.0-0.7) Basophils # (Auto) 0.1 x10^3/uL (0.0-0.2) Platelet Estimate Adequate (ADEQUATE) Poikilocytosis Slight Anisocytosis Mod Microcytosis Slight Ovalocytes Occ Schistocytes Occ Sodium Level 137 mmol/L (136-145) Potassium Level 4.2 mmol/L (3.5-5.1) Chloride Level 103 mmol/L (98-107) Carbon Dioxide Level 28 mmol/L (21-32) Anion Gap 6 (6-14) Blood Urea Nitrogen 19 mg/dL (7-20) Creatinine 0.8 mg/dL (0.6-1.0) Estimated GFR (Cockcroft-Gault) 71.3 Glucose Level 109 mg/dL (70-99) Calcium Level 8.9 mg/dL (8.5-10.1) Troponin I High Sensitivity 6 ng/L (4-50) Glucose (Fingerstick) 93 mg/dL (70-99) 95 mg/dL (70-99) Laboratory Tests Test 12/01/21 00:10 12/01/21 07:47 12/01/21 12:16 White Blood Count 9.2 x10^3/uL (4.0-11.0) Red Blood Count 3.67 x10^6/uL (3.50-5.40) Hemoglobin 8.4 g/dL (12.0-15.5) Hematocrit 27.5 % (36.0-47.0) Mean Corpuscular Volume 75 fL (79-100) Mean Corpuscular Hemoglobin 23 pg (25-35) Mean Corpuscular Hemoglobin Concent 31 g/dL (31-37) Red Cell Distribution Width 16.9 % (11.5-14.5) Platelet Count 374 x10^3/uL (140-400) Neutrophils (%) (Auto) 54 % (31-73) Lymphocytes (%) (Auto) 32 % (24-48) Monocytes (%) (Auto) 9 % (0-9) Eosinophils (%) (Auto) 4 % (0-3) Basophils (%) (Auto) 1 % (0-3) Neutrophils # (Auto) 5.0 x10^3/uL (1.8-7.7) Lymphocytes # (Auto) 2.9 x10^3/uL (1.0-4.8) Monocytes # (Auto) 0.9 x10^3/uL (0.0-1.1) Eosinophils # (Auto) 0.3 x10^3/uL (0.0-0.7) Basophils # (Auto) 0.1 x10^3/uL (0.0-0.2) Platelet Estimate Adequate (ADEQUATE) Poikilocytosis Slight Anisocytosis Mod Microcytosis Slight Ovalocytes Occ Schistocytes Occ Sodium Level 137 mmol/L (136-145) Potassium Level 4.2 mmol/L (3.5-5.1) Chloride Level 103 mmol/L (98-107) Carbon Dioxide Level 28 mmol/L (21-32) Anion Gap 6 (6-14) Blood Urea Nitrogen 19 mg/dL (7-20) Creatinine 0.8 mg/dL (0.6-1.0) Estimated GFR (Cockcroft-Gault) 71.3 Glucose Level 109 mg/dL (70-99) Calcium Level 8.9 mg/dL (8.5-10.1) Troponin I High Sensitivity 6 ng/L (4-50) Glucose (Fingerstick) 93 mg/dL (70-99) 95 mg/dL (70-99) Assessment/Plan Assessment/Plan 1. Chest pain with typical features concerning for unstable angina. Myocardial infarction has been ruled out based on EKG and cardiac enzymes. 2D echo 04/2020 showed EF 50-55%. Patient has multiple cardiovascular risk factors. Plan for cardiac catheterization and possible angioplasty tomorrow. 2. Hypertension: Controlled 3. Hyperlipidemia: Continue statin therapy 4. Diabetes mellitus type 2: Treat per IM Thank you for your consultation TORRIE ORONA MD Dec 01, 2021 14:21
[2021-12-01 15:00] VITALS: BP 159/78
[2021-12-01] MEDS: BUDESONIDE 0.5 MG/2 ML NEBU. NEB SCH ×2 (15:18→20:00)
[2021-12-01 19:10] VITALS: BP 145/69
[2021-12-01] MEDS: ATORVASTATIN CALCIUM 40 MG TABLET. PO SCH (20:59)
[2021-12-01] MEDS: CETIRIZINE HCL 10 MG TABLET. PO SCH (20:59)
[2021-12-01] MEDS ORDERED: FLUTICASONE PROPIONATE IH SCH (21:00)
[2021-12-01 22:50] VITALS: BP 128/53
[2021-12-02] VITALS (14 sets, daily range): BP systolic 118–153; BP diastolic 58–81
[2021-12-02] MEDS: BUDESONIDE 0.5 MG/2 ML NEBU. NEB SCH ×2 (07:37→21:07)
[2021-12-02] MEDS: BACLOFEN 10 MG TABLET. PO SCH ×3 (09:00→20:13)
[2021-12-02] MEDS ORDERED: INULIN PO SCH (09:00)
[2021-12-02] MEDS: GABAPENTIN 300 MG CAPSULE. PO SCH ×3 (09:00→20:13)
[2021-12-02] MEDS: MECLIZINE HCL 12.5 MG TABLET. PO SCH ×3 (09:00→20:13)
[2021-12-02] MEDS ORDERED: IODIXANOL 320 MG/ML 100 ML VIAL. ONE (09:07)
[2021-12-02] MEDS ORDERED: LIDOCAINE 1% PF 2 ML VIAL. ONE (09:07)
[2021-12-02] MEDS ORDERED: NITROGLYCERIN 200 MCG/2 ML SYRINGE FOR CATH/VASC LAB. ONE (09:09)
[2021-12-02] MEDS ORDERED: VERAPAMIL 5 MG/2 ML VIAL. ONE (09:09)
[2021-12-02] MEDS ORDERED: HEPARIN for IV BOLUS 10,000 UNIT/10 ML VIAL. ONE (09:09)
[2021-12-02] MEDS ORDERED: MIDAZOLAM HCL/PF 2 MG/2 ML VIAL. ONE (09:09)
[2021-12-02] MEDS ORDERED: fentaNYL PF VIAL 100 MCG/2 ML VIAL ONE (09:09)
--- NOTE | 2021-12-02 09:22 | PDOC ---
MODERATE SEDATION ASSESSMENT RISKS/ALTERNATIVES Risks/Alternatives Risks and alternatives of this type of sedation and procedure discussed with: RISK/ALTERNATIVES: Patient H & P ON CHART H & P H & P on chart and reviewed for co-morbid conditions and appropriate labs. H&P ON CHART: Yes STATUS PREG STATUS ASSESSED: N/A MEDS/ALLERGIES REVIEWED Meds/Allergies Reviewed Medications and Allergies including time and route of recently administered narcotics and sedatives. MEDS/ALLERGIES REVIEWED: Yes ASA RATING ASA RATING: II AIRWAY ASSESSMENT Airway Assessment Airway patency, oral function limitations, presence of caps, crowns, dentures, partials, and ability to extend neck assessed. AIRWAY ASSESSMENT: Yes MALLAMPATI SCORE MALLAMPATI SCORE: II PRE-SEDATION ASSESSMENT PRE-SEDATION ASSESSMENT: Yes TORRIE ORONA MD Dec 02, 2021 09:22
[2021-12-02] MEDS ORDERED: CONTRAST GIVEN. MC PRN (09:30)
[2021-12-02] MEDS ORDERED: MIDAZOLAM HCL/PF 2 MG/2 ML VIAL. IV ONE (09:30)
[2021-12-02] MEDS ORDERED: LIDOCAINE 1% PF 2 ML VIAL. INJ ONE (09:30)
[2021-12-02] MEDS ORDERED: IODIXANOL 320 MG/ML 100 ML VIAL. IART ONE (09:30)
[2021-12-02] MEDS ORDERED: VERAPAMIL 5 MG/2 ML VIAL. IART ONE (09:30)
[2021-12-02] MEDS ORDERED: NITROGLYCERIN 200 MCG/2 ML SYRINGE FOR CATH/VASC LAB. IART ONE (09:30)
[2021-12-02] MEDS ORDERED: HEPARIN for IV BOLUS 10,000 UNIT/10 ML VIAL. IART ONE (09:30)
[2021-12-02] MEDS ORDERED: fentaNYL PF VIAL 100 MCG/2 ML VIAL IV ONE (09:30)
--- NOTE | 2021-12-02 10:04 | CARD ---
MR#: [id number] Date of Study: 12/02/2021 Ordering Physician: TORRIE CARMEN, Referring Physician: TORRIE CARMEN Tech: RT Tobias(R) APPROVED REPORT Technologist: Bindu Valero RT(R) Nurse: Bessie Romero RN Procedure(s) performed: Left heart catheterization, selective coronary angiography and left ventricul ography via right transradial approach FLUORO TIME:3.8 MIN DOSE: 22 Gycm2 Contrast: 63cc Mod Sed: 20 min INDICATION The indication(s) include : unstable angina . [facility] Clinical Frailty Scale [facility] Clinical Frailty Scale: Moderately Frail Heart Failure Heart Failure: No CASE TECHNIQUE IV conscious sedation was used throughout procedure with appropriate monitoring and was performed in the presence of a registered nurse who was an independent trained observer other than the physician p erforming the procedure. During this case, Fluoroscopy and low osmolar contrast were used for imaging . Specimen(s) Removed: No Estimated Blood loss: 15 cc's. PROCEDURE NARRATIVE After explaining the risks, benefits and alternative options, informed consent was obtained from deirdre ent. Patient was brought to the cardiac Lug Loader and right wrist was prepped and draped in the usual fashion after confirming a positive modified Mann's test. Arterial access was obtained in the righ t radial artery and a 6 Hungarian sheath was inserted. 6 Hungarian Nahun catheter was used to perform isaiah ective angiography of the left and right coronary arteries. 6 Hungarian pigtail catheter was used to pe rform left ventriculography. Patient tolerated the procedure well. Hemostasis was achieved using TR band. There were no immediate complications. The following findings were noted. FINDINGS 1. Hemodynamics: Left ventricular end-diastolic pressure of 9 mmHg. No pullback gradient across the aortic valve. 2. Left ventriculography: Normal left ventricle systolic function with ejection fraction estimated at 65%. No significant mitral regurgitation seen. 3. Coronary angiography: a. The left main coronary artery arose from the left sinus of Valsalva, gave rise to the left anteri or descending and left circumflex arteries and did not show any significant stenosis. b. The left anterior descending artery did not show any significant stenosis. c. The left circumflex artery did not show any significant stenosis. d. The right coronary artery was a large and dominant vessel arising from the right sinus of Valsalv a that did not show any significant stenosis. Conclusion 1. No significant coronary artery disease 2. Normal left ventricular systolic function with ejection fraction estimated at 65%. Signed by : Torrie Carmen, Electronically Approved : 12/02/2021 10:03:53
[2021-12-02] MEDS: ARIPiprazole 5 MG TABLET PO SCH (11:51)
[2021-12-02] MEDS: ASPIRIN ENTERIC COATED 81 MG TABLET.DR. PO SCH (11:51)
[2021-12-02] MEDS: OXYBUTYNIN CHLORIDE 5 MG TABLET PO SCH ×2 (11:51→20:13)
[2021-12-02] MEDS: LISINOPRIL 20 MG TABLET PO SCH (11:51)
[2021-12-02] MEDS: PANTOPRAZOLE 40 MG TABLET.DR. PO SCH (11:51)
[2021-12-02] MEDS: IV 1/2 NORMAL SALINE 1,000 ML IV SCH (14:16)
--- NOTE | 2021-12-02 14:24 | PDOC ---
[employer] PROGRESS NOTE Date of Service DOS: DATE: 12/02/21 TIME: 14:23 Chief Complaint Chief Complaint Chest pain Status post cardiac cath this morning that was clean History of the following; 1. Chronic angina and she apparently takes nitro for that, but she states the bottle . 2. Polypharmacy, she is on 19 medications. 3. Allergic rhinitis, asthma, hyperlipidemia, hypertension, arthritis, neuropathy, depression, anxiety, diabetes, GERD, incontinence, muscle spasms. History of Present Illness History of Present Illness 12/02/2021 Patient seen and examined Discussed with RN Chart reviewed She had a cardiac cath this morning that was apparently clean Vitals/I&O Vitals/I&O: Vital Signs Date Time Temp Pulse Resp B/P (MAP) Pulse Ox O2 Delivery O2 Flow Rate FiO2 12/02/21 14:17 74 149/71 (97) 12/02/21 10:00 13 95 Nasal Cannula 2.0 12/02/21 07:05 98.6 98.6 Physical Exam General: Alert, Oriented X3 Heart: Regular rate, Other (ESM aortic) Lungs: Clear, Crackles Abdomen: Soft Extremities: No edema Labs Labs: Laboratory Tests Test 12/01/21 15:00 12/01/21 16:48 12/02/21 07:27 12/02/21 11:32 SARS-CoV-2 Antigen (Rapid) Negative (NEGATIVE) Glucose (Fingerstick) 99 mg/dL (70-99) 78 mg/dL (70-99) 85 mg/dL (70-99) Assessment and Plan Assessmemt and Plan Problems Medical Problems: (1) Chest pain Status: Acute Chest pain Status post cardiac cath this morning that was clean History of the following; 1. Chronic angina and she apparently takes nitro for that, but she states the bottle . 2. Polypharmacy, she is on 19 medications. 3. Allergic rhinitis, asthma, hyperlipidemia, hypertension, arthritis, neuropathy, depression, anxiety, diabetes, GERD, incontinence, muscle spasms. Plan Hope to discharge in a.m. back to her previous living arrangement ( [facility] in her own apartment by herself) For now continue wound care on the right wrist puncture site Home meds DVT prophylaxis Encourage p.o. intake Full code Appreciate cardiology input Discharge in a.m. Comment Review of Relevant I have reviewed the following items yecenia (where applicable) has been applied. Medications: Current Medications Medications (Trade) Dose Ordered Sig/Hilton Route PRN Reason Start Time Stop Time Status Last Admin Dose Admin Atorvastatin Calcium (Lipitor) 80 mg QHS PO 12/01/21 21:00 12/01/21 20:59 Cetirizine HCl (ZyrTEC) 10 mg QHS PO 12/01/21 21:00 12/01/21 20:59 Nitroglycerin (Nitroglycerin) 200 mcg 1X ONCE IART 12/02/21 09:30 12/02/21 09:31 DC 12/02/21 09:41 Verapamil HCl (Verapamil) 2.5 mg 1X ONCE IART 12/02/21 09:30 12/02/21 09:31 DC 12/02/21 09:41 Heparin Sodium (Porcine) (Heparin Sodium) 2,500 unit 1X ONCE IART 12/02/21 09:30 12/02/21 09:31 DC 12/02/21 09:41 Heparin Sodium/ Sodium Chloride (HEPARIN for ARTERIAL LINE FLUSH) 1,000 unit 1X ONCE IART 12/02/21 09:30 12/02/21 09:31 DC 12/02/21 09:30 Heparin Sodium/ Sodium Chloride (HEPARIN for ARTERIAL LINE FLUSH) 1,000 unit 1X ONCE IART 12/02/21 09:30 12/02/21 09:31 DC 12/02/21 09:30 Midazolam HCl (Versed) 2 mg 1X ONCE IV 12/02/21 09:30 12/02/21 09:31 DC 12/02/21 09:38 Fentanyl Citrate (Fentanyl 2ml Vial) 100 mcg 1X ONCE IV 12/02/21 09:30 12/02/21 09:31 DC 12/02/21 09:38 Iodixanol (Visipaque 320) 100 ml 1X ONCE IART 12/02/21 09:30 12/02/21 09:31 DC 12/02/21 09:54 Lidocaine HCl (Xylocaine-Mpf 1% 2ml Vial) 2 ml 1X ONCE INJ 12/02/21 09:30 12/02/21 09:31 DC 12/02/21 09:39 Sodium Chloride 1,000 ml @ 60 mls/hr [id number] IV 12/02/21 10:30 12/02/21 14:16 Justifications for Admission Other Justification hypokalemia CASTLE,NIAL K III DO Dec 02, 2021 14:24
--- NOTE | 2021-12-02 15:13 | NUR ---
TR band removed at 1230, approximately 45minutes after all the air had been removed from the band. No bleeding noted, good cap refill on all extremities. No pain. Clear dressing placed over site and arm board remains in place. Arm board can be removed at 10am on 12/03/21. Will continue to monitor.
[2021-12-02] MEDS: CETIRIZINE HCL 10 MG TABLET. PO SCH (20:13)
[2021-12-02] MEDS: ATORVASTATIN CALCIUM 40 MG TABLET. PO SCH (20:13)
[2021-12-03 02:56] VITALS: BP 133/86
[2021-12-03] MEDS: IV 1/2 NORMAL SALINE 1,000 ML IV SCH (05:55)
[2021-12-03 07:15] VITALS: BP 144/73
[2021-12-03] MEDS: BUDESONIDE 0.5 MG/2 ML NEBU. NEB SCH (08:07)
--- NOTE | 2021-12-03 08:35 | PDOC ---
[employer] PROGRESS NOTE Date of Service DOS: DATE: 12/03/21 TIME: 08:35 Chief Complaint Chief Complaint Chest pain Status post cardiac cath this morning that was clean History of the following; 1. Chronic angina and she apparently takes nitro for that, but she states the bottle . 2. Polypharmacy, she is on 19 medications. 3. Allergic rhinitis, asthma, hyperlipidemia, hypertension, arthritis, neuropathy, depression, anxiety, diabetes, GERD, incontinence, muscle spasms. History of Present Illness History of Present Illness 12/02/2021 Patient seen and examined Discussed with RN Chart reviewed She had a cardiac cath this morning that was apparently clean 12/03: Patient evaluated bedside. She had left heart cath yesterday that showed no significant coronary artery disease, normal left ventricular systolic function with ejection fraction estimated at 65%. Denies any chest pain this morning. States she lives alone but has no concerns discharging home today. Greater than 30 minutes spent managing the discharge this patient. Vitals/I&O Vitals/I&O: Vital Signs Date Time Temp Pulse Resp B/P (MAP) Pulse Ox O2 Delivery O2 Flow Rate FiO2 12/03/21 08:07 94 Room Air 12/03/21 07:15 98.5 82 16 144/73 (96) 98.5 12/02/21 10:00 2.0 I & O 12/02/21 12/02/21 12/03/21 15:00 23:00 07:00 Intake Total 0 ml Balance 0 ml Physical Exam General: Alert, Oriented X3 Heart: Regular rate, Other (ESM aortic) Lungs: Clear, Crackles Abdomen: Soft Extremities: No edema Skin: No rashes Labs Labs: Laboratory Tests Test 12/02/21 11:32 12/02/21 16:23 12/02/21 20:30 12/03/21 07:46 Glucose (Fingerstick) 85 mg/dL (70-99) 81 mg/dL (70-99) 94 mg/dL (70-99) 84 mg/dL (70-99) Assessment and Plan Assessmemt and Plan Problems Medical Problems: (1) Chest pain Status: Acute Comment Review of Relevant I have reviewed the following items yecenia (where applicable) has been applied. Medications: Current Medications Medications (Trade) Dose Ordered Sig/Hilton Route PRN Reason Start Time Stop Time Status Last Admin Dose Admin Nitroglycerin (Nitroglycerin) 200 mcg 1X ONCE IART 12/02/21 09:30 12/02/21 09:31 DC 12/02/21 09:41 Verapamil HCl (Verapamil) 2.5 mg 1X ONCE IART 12/02/21 09:30 12/02/21 09:31 DC 12/02/21 09:41 Heparin Sodium (Porcine) (Heparin Sodium) 2,500 unit 1X ONCE IART 12/02/21 09:30 12/02/21 09:31 DC 12/02/21 09:41 Heparin Sodium/ Sodium Chloride (HEPARIN for ARTERIAL LINE FLUSH) 1,000 unit 1X ONCE IART 12/02/21 09:30 12/02/21 09:31 DC 12/02/21 09:30 Heparin Sodium/ Sodium Chloride (HEPARIN for ARTERIAL LINE FLUSH) 1,000 unit 1X ONCE IART 12/02/21 09:30 12/02/21 09:31 DC 12/02/21 09:30 Midazolam HCl (Versed) 2 mg 1X ONCE IV 12/02/21 09:30 12/02/21 09:31 DC 12/02/21 09:38 Fentanyl Citrate (Fentanyl 2ml Vial) 100 mcg 1X ONCE IV 12/02/21 09:30 12/02/21 09:31 DC 12/02/21 09:38 Iodixanol (Visipaque 320) 100 ml 1X ONCE IART 12/02/21 09:30 12/02/21 09:31 DC 12/02/21 09:54 Lidocaine HCl (Xylocaine-Mpf 1% 2ml Vial) 2 ml 1X ONCE INJ 12/02/21 09:30 12/02/21 09:31 DC 12/02/21 09:39 Sodium Chloride 1,000 ml @ 60 mls/hr [id number] IV 12/02/21 10:30 12/03/21 05:55 Justifications for Admission Other Justification hypokalemia DM GALEAS MD Dec 03, 2021 08:35
[2021-12-03] MEDS: OXYBUTYNIN CHLORIDE 5 MG TABLET PO SCH (08:42)
[2021-12-03] MEDS: MECLIZINE HCL 12.5 MG TABLET. PO SCH (08:42)
[2021-12-03] MEDS: BACLOFEN 10 MG TABLET. PO SCH (08:42)
[2021-12-03 08:43] VITALS: BP 144/73
[2021-12-03] MEDS: LISINOPRIL 20 MG TABLET PO SCH (08:43)
[2021-12-03] MEDS: GABAPENTIN 300 MG CAPSULE. PO SCH (08:43)
[2021-12-03] MEDS: ARIPiprazole 5 MG TABLET PO SCH (08:43)
[2021-12-03] MEDS: PANTOPRAZOLE 40 MG TABLET.DR. PO SCH (08:43)
[2021-12-03] MEDS: ASPIRIN ENTERIC COATED 81 MG TABLET.DR. PO SCH (08:43)
--- NOTE | 2021-12-03 08:44 | PDOC3 ---
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 10/03/20 Yes Vital Signs Vital Signs Date Time Temp Pulse Resp B/P (MAP) Pulse Ox O2 Delivery O2 Flow Rate FiO2 12/03/21 08:07 94 Room Air 12/03/21 07:15 98.5 82 16 144/73 (96) 98.5 12/02/21 10:00 2.0 Lab Results Laboratory Tests Test 12/01/21 12:16 12/01/21 15:00 12/01/21 16:48 12/02/21 07:27 Glucose (Fingerstick) 95 mg/dL (70-99) 99 mg/dL (70-99) 78 mg/dL (70-99) Coronavirus (COVID-19)(PCR) Not detected (NOT DETECTD) SARS-CoV-2 Antigen (Rapid) Negative (NEGATIVE) Test 12/02/21 11:32 12/02/21 16:23 12/02/21 20:30 12/03/21 07:46 Glucose (Fingerstick) 85 mg/dL (70-99) 81 mg/dL (70-99) 94 mg/dL (70-99) 84 mg/dL (70-99) Laboratory Tests Test 12/02/21 11:32 12/02/21 16:23 12/02/21 20:30 12/03/21 07:46 Glucose (Fingerstick) 85 mg/dL (70-99) 81 mg/dL (70-99) 94 mg/dL (70-99) 84 mg/dL (70-99) Brief Hospital Course Ms. Ruiz is a 66 old female who presented with chest pain. Consultation placed to cardiology. She had left heart cath yesterday that showed no significant coronary artery disease, normal left ventricular systolic function with ejection fraction estimated at 65%. She was stable to discharge home with self-care. Discharge Information Condition at Discharge: Stable Disposition/Orders: D/C to Home Scheduled Aripiprazole (Abilify) 5 Mg Tablet, 10 MG PO DAILY for Depression, (Reported) Entered as Reported by: MIRTHA BATRES RN on 05/19/20 1639 Last Action: Continued on 12/01/211121 by NIAL CASTLE Aspirin (Aspir 81) 81 Mg Tablet.dr, 1 TAB PO DAILY, #30 Ref 5 (Reported) Entered as Reported by: JEFE RODRÍGUEZ on 07/28/17 113 Last Action: Continued on 12/01/211121 by NIAL CASTLE Atorvastatin Calcium (Atorvastatin Calcium) 40 Mg Tablet, 80 MG PO DAILY for elevated cholesterol, #30 Ref 0 (Reported) Entered as Reported by: LUIS SMITH on 02/27/14 0247 Last Action: Continued on 12/01/211121 by NIAL CASTLE Baclofen (Baclofen) 10 Mg Tablet, 1 TAB PO TID, #90 Ref 2 (Reported) Entered as Reported by: LYNSEY BENNETT on 01/25/171956 Last Action: Continued on 12/01/211121 by NIAL CASTLE Cetirizine Hcl (Zyrtec) 10 Mg Tablet, 1 TAB PO QHS, #30 Ref 2 (Reported) Entered as Reported by: JEFE RODRÍGUEZ on 07/28/17 1128 Last Action: Continued on 12/01/211121 by NIAL CASTLE Fluticasone Propionate (Flovent 220MCG Hfa) 12 Gm Aer.w.adap, 12 GM IH BID, (Reported) Entered as Reported by: LUIS SMITH on 02/27/14 0247 Last Action: Converted on 12/01/211121 by NIAL CASTLE Gabapentin (Gabapentin ) 300 Mg Capsule, 300 MG PO TID, (Reported) Entered as Reported by: JEFE RODRÍGUEZ on 07/28/171126 Last Action: Continued on 12/01/211121 by NIAL CASTLE Inulin (Fiber Gummies) 2 Gm Tab.chew, 2 TAB PO DAILY for Constipation for 30 Days, #60 Ref 0 (Reported) Entered as Reported by: MIRTHA BATRES RN on 05/19/20 163 Last Action: Converted on 12/01/211121 by NIAL CASTLE Lisinopril (Lisinopril) 20 Mg Tablet, 30 MG PO DAILY for hypertension, #30 Ref 0 (Reported) Entered as Reported by: ERIC NELSON on 10/06/20 1555 Last Action: Continued on 12/01/211121 by NIAL CASTTATY Meclizine Hcl (Meclizine Hcl) 25 Mg Tablet, 1 TAB PO TID for dizziness, #20 Prescribed by: RODRICK WALLIS DO on 06/09/21 2312 Last Action: Converted on 12/01/211121 by NIAL CASTTATY Metformin Hcl (Metformin Hcl) 1,000 Mg Tablet, 1,000 MG PO BIDWMEALS for DM, (Reported) Entered as Reported by: MIRTHA BATRES RN on 05/19/20 1639 Last Action: HELD on 12/01/211121 by NIAL CASTTATY Omeprazole (Omeprazole) 20 Mg Capsule.dr, 1 CAP PO DAILY for gerd, (Reported) Entered as Reported by: MARITO JARRETT on 12/01/21 0848 Last Action: Converted on 12/01/211121 by NIAL CASTTATY Oxybutynin Chloride (Ditropan Xl) 5 Mg Tab.er.24, 1 TAB PO DAILY for BLADDER PROBLEM, #30 Ref 5 (Reported) Entered as Reported by: JEFE RODRÍGUEZ on 05/21/19 1259 Last Action: Converted on 12/01/211121 by NIAL CASTTATY Scheduled PRN Albuterol Sulfate (Proair Respiclick) 90 Mcg Aer.pow.ba, 1 PUFF IH PRN Q6HRS PRN for SHORTNESS OF BREATH, #1 Prescribed by: Colette Pedraza APRN on 07/22/16 1110 Last Action: Converted on 12/01/211121 by NIAL CASTTATY Ibuprofen (Ibuprofen) 800 Mg Tablet, 800 MG PO Q8HRS PRN for PAIN, (Reported) Entered as Reported by: ERIC NELSON on 10/03/20 1156 Last Action: Converted on 12/01/211121 by NIAL CASTLE Nitroglycerin (Nitrostat) 0.4 Mg Tab.subl, 0.4 MG SL PRN Q5MIN PRN for CHEST PAIN for 30 Days, #25 Prescribed by: FARHAN RAINEY MD on 05/20/20 1443 Last Action: Continued on 12/01/211121 by NIAL CASTLE Polyethylene Glycol 8000 (Polyethylene Glycol) 500 Gm Powder, 500 GM MC DAILY PRN for CONSTIPATION, (Reported) Entered as Reported by: LUIS SMITH on 02/27/14246 Last Action: Converted on 12/01/211121 by MARCIN BROOKS [Beano] , PO PRN PRN for STOMACH PROBLEM, (Reported) Entered as Reported by: JEFE RODRÍGUEZ on 05/21/19 1301 Last Action: Reviewed on 12/01/21847 by MARITO JARRETT Miscellaneous Medications Blood Sugar Diagnostic (Freestyle Lite Strips) 1 Each Strip, 1 EACH MC, (Reported) Entered as Reported by: LUIS SMITH on 02/27/14246 Last Action: Reviewed on 12/01/21847 by MARITO JARRETT Discontinued Medications Meloxicam (Meloxicam) 15 Mg Tablet, 15 MG PO DAILY, (Reported) Entered as Reported by: LUIS SMITH on 02/27/14246 Last Action: Discontinued on 12/01/21847 by MARITO JARRETT Potassium Chloride (Klor-Con M20) 20 Meq Tab.er.prt, 20 MEQ PO BID for suppleme nt, (Reported) Entered as Reported by: ERIC NELSON on 10/06/20 1556 Last Action: Discontinued on 12/01/21847 by MARITO JARRETT Tiotropium [place] (Spiriva) 18 Mcg Cap.w.dev, 2 INH IH DAILY, #1 Ref 0 (R eported) Entered as Reported by: LUIS SMITH on 02/27/14246 Last Action: Discontinued on 12/01/21847 by MARITO JARRETT Justicifation of Admission Dx: Justifications for Admission: Justification of Admission Dx: Yes DM GALEAS MD Dec 03, 2021 08:44
--- NOTE | 2021-12-03 10:41 | NUR ---
Arm board discontinued at 0945, no bleeding noted. Patient discharging home today.
--- NOTE | 2021-12-03 11:03 | NUR ---
Discharge Note: TYLOR WILL Discharge instructions and discharge home medications reviewed with Patient and a copy given. All questions have been answered and understanding verbalized. The following instructions and handouts were given: discharge instructions, education and follow up recommendation. Discontinued lines and drains: Peripheral IV discontinued intact. Patient discharged to Home or Self Care with Family Member via Wheelchair off unit by this RN.
--- NOTE | 2021-12-03 11:20 | NUR ---
SW following. Discussed with RN, pt from home, room air, ada diet. COVID-19 negative. Discharge order for home with self care. RN advised no SW needs.
--- NOTE | 2021-12-03 11:45 | EKG ---
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
== END 2021-12-03 11:03 | disposition home or self-care (01) ==
LOC: ER 00:10 → 2 NORTH 04:41
PROVIDERS: ADMIT Student in an Organized Health Care Education/Training Program; ATTEND Student in an Organized Health Care Education/Training Program
DX: I20.9 Angina pectoris, unspecified (principal); Z20.822 Contact with and (suspected) exposure to COVID-19; R07.89 Other chest pain; J45.909 Unspecified asthma, uncomplicated; I10 Essential (primary) hypertension; M19.90 Unspecified osteoarthritis, unspecified site; E11.40 Type 2 diabetes mellitus with diabetic neuropathy, unspecified; E78.00 Pure hypercholesterolemia, unspecified; E78.5 Hyperlipidemia, unspecified; F41.9 Anxiety disorder, unspecified; F32.A Depression, unspecified; K21.9 Gastro-esophageal reflux disease without esophagitis; K59.00 Constipation, unspecified; M79.7 Fibromyalgia; R32 Unspecified urinary incontinence; Z79.82 Long term (current) use of aspirin; Z79.84 Long term (current) use of oral hypoglycemic drugs; Z79.899 Other long term (current) drug therapy; Z85.528 Personal history of other malignant neoplasm of kidney; Z86.711 Personal history of pulmonary embolism; Z88.6 Allergy status to analgesic agent; Z90.49 Acquired absence of other specified parts of digestive tract; Z98.890 Other specified postprocedural states
CPT/HCPCS: 36415; 71045; 80048; 82962; 84484; 85025; 87426; 93005; 93458; 94640; 94760; 99152; 99153; C1894; G0378; G0379; J1644; J2250; J3010; J3490; Q9967; U0003; 99285-25; J7613; J7626; J8597